=== PATIENT | male | born 1970 | race Caucasian/White ===

== ENCOUNTER 2016-09-30 13:42 | Inpatient (IN) | payer OTHER ==
[2016-09-30] MEDS ORDERED: SODIUM CHLORIDE 1,000 ML IV STA (14:07)
--- NOTE | 2016-09-30 14:14 | PDOC ---
History of Present Illness - General Chief Complaint: SIRS, Suspected/Possible Stated Complaint: FEVER Time Seen by Provider: 09/30/16 13:55 History Source: Patient - History of Present Illness Occurred: reports: other (1 week) Lower Extremity Pain Location: right: foot Method of Injury: Yes: other Past History - Past Medical History Allergies/Adverse Reactions: Allergies Allergy/AdvReac Type Severity Reaction Status Date / Time No Known Allergies Allergy Verified 09/30/16 13:48 Diabetes: Yes - Psycho/Social/Smoking Cessation Hx Anxiety: No Suicidal Ideation: No Smoking History: Former smoker Have you smoked in the past 12 months: Yes If you are a former smoker, when did you quit?: 1 MO AGO Information on smoking cessation initiated: No Hx Alcohol Use: Yes (SOCIAL) Drug/Substance Use Hx: No Substance Use Type: None Review of Systems - Review of Systems Constitutional: Yes: Fever Respiratory: No: Cough, Shortness of Breath Cardiac (ROS): No: Chest Pain ABD/GI: No: Diarrhea, Nausea, Vomiting Neurological: Yes: Dizziness. No: Headache *Physical Exam - Vital Signs Last Vital Signs Temp Pulse Resp BP Pulse Ox 98.5 F 102 H 20 131/74 97 09/30/16 13:43 09/30/16 13:43 09/30/16 13:43 09/30/16 13:43 09/30/16 13:43 - Physical Exam General Appearance: Yes: Appropriately Dressed. No: Apparent Distress HEENT: positive: Normal Voice Neck: positive: Supple Respiratory/Chest: negative: Respiratory Distress Extremity: positive: Swelling (of RLE w/ incr warmth, no sig ttp, small superficial ulcer over plantar aspect of distal R 1st metatarsal) Integumentary: positive: Dry, Warm Neurologic: positive: Fully Oriented, Alert, Normal Mood/Affect ED Treatment Course - LABORATORY CBC & Chemistry Diagram: 09/30/16 14:55 09/30/16 14:55 - RADIOLOGY Radiology Studies Ordered: Category Date Time Status CHEST X-RAY PORTABLE* [RAD] Stat Radiology 09/30/16 14:06 Ordered FOOT-RIGHT [RAD] Stat Radiology 09/30/16 14:07 Ordered Medical Decision Making - Medical Decision Making 09/30/16 14:08 45-year-old male, history of [id number] diabetes, LE cellulitis, presenting with subjective fevers intermittently with dizziness 1 week. Patient currently on antibiotics after stepping on nail with right foot a week ago. Has no pain to right foot, but does have some "soreness" to right ankle as per patient. Denies any redness. No URI symptoms, body aches, chest pain, shortness of breath, nausea or vomiting See exam RLE cellulitis Triggered sepsis at triage though only vital ab/nl was tachycardia to 102, afebrile and normotensive, non-toxic appearing, doubt sepsis +swelling of R foot/leg compared to L w/ increased warmth but no overt erythema or sig ttp, +small superficial ulcer to puncture site of ball of foot, no discharge -labs including esr/crp though clinically doubt osteo -XR -IV abx -anticipate admission 09/30/16 14:18 09/30/16 14:22 09/30/16 16:28 Wbc 12 w/ no e/o osteo on XR as reviewed w/ ED attg. Will admit for IV abx. 09/30/16 16:29 09/30/16 16:37 09/30/16 16:37 09/30/16 16:39 Case d/w Dr Sparrow who states he dx pt w/ R foot cellulitis a week ago and started pt on ceftin po and rocephin injection but that pt failed to f/u 2 days ago in office and resumed working despite being told to refrain from working until infxn cleared as per MD. Rec admitting pt to Dr Rajput *DC/Admit/Observation/Transfer Diagnosis at time of Disposition: Cellulitis Qualifiers: Site of cellulitis: extremity Site of cellulitis of extremity: lower extremity Laterality: right Qualified Code(s): L03.115 - Cellulitis of right lower limb - Discharge Dispostion Condition at time of disposition: Fair Admit: Yes - Referrals Referrals: Srini Sparrow MD [Primary Care Provider] -
[2016-09-30 15:02] LABS: BASOPHIL 0.4 % (0-2.0); EOSINOPHIL 0.8 % (0-4.5); MCH 27.6 pg (25.7-33.7); MEAN CELL VOLUME 83.7 fl (80-96); MEAN PLT VOLUME 7.8 fl (7.5-11.1); NEUTROPHILS 81.8 % (42.8-82.8); PLATELET COUNT 453 K/MM3 (134-434); RDW 12.8 % (11.9-15.9); WHITE BLOOD COUNT 12.5 K/mm3 (4.0-10.0)
[2016-09-30] MEDS ORDERED: CLINDAMYCIN 600MG PREMIX IVPB 50 ML IVPB ONE ×2 (15:23→16:47)
[2016-09-30 15:25] LABS: ALBUMIN 2.8 g/dl (3.4-5.0); ANION GAP 10 (8-16); BILIRUBIN,TOTAL 0.2 mg/dL (0.2-1.0); CALCIUM 8.7 mg/dL (8.5-10.1); CO2 28 mmol/L (21-32); COCKROFT - GAULT 98.41; CREATININE 0.9 mg/dL (0.7-1.3); GLUCOSE,RANDOM 228 mg/dL (74-106); SGOT/AST 28 U/L (15-37); SGPT/ALT 34 U/L (12-78); TOT PROT 7.9 g/dl (6.4-8.2)
[2016-09-30 15:26] LABS: ALK PHOS 146 U/L (45-117)
[2016-09-30 15:37] LABS: URINE APPEARANCE CLEAR; URINE BILIRUBIN NEGATIVE (NEGATIVE); URINE COLOR STRAW; URINE GLUCOSE (UA) 3+ (NEGATIVE); URINE KETONE NEGATIVE (NEGATIVE); URINE LEUK ESTERASE NEGATIVE (NEGATIVE); URINE NITRITE NEGATIVE (NEGATIVE); URINE PROTEIN NEGATIVE (NEGATIVE); URINE UROBILINOGEN NEGATIVE E.U./dl (0.2-1.0)
[2016-09-30 15:43] LABS: URINE BLOOD 1+ (NEGATIVE)
[2016-09-30 15:45] LABS: URINE BACTERIA RARE /hpf (NONE SEEN); URINE RBC 1 /hpf (0-3); URINE WBC <1 /hpf (3-5)
[2016-09-30] MEDS ORDERED: LEVOFLOXACIN 750 MG IVPB 150 ML IVPB ONE ×2 (16:27→16:47)
[2016-09-30] MEDS ORDERED: ACETAMINOPHEN 325 MG TABLET (FP) PO PRN (20:12)
[2016-09-30] MEDS ORDERED: VANCOMYCIN 1,250 MG in DEXTROSE 5%-WATER - 250 ML IVPB SCH (20:30)
[2016-09-30] MEDS ORDERED: VANCOMYCIN 1,250 MG in DEXTROSE 5%-WATER - 250 ML IVPB ONE (20:30)
[2016-09-30] MEDS: INSULIN SLIDING SCALE (NOVOLOG) 1 VIAL SQ SCH (22:50)
[2016-09-30] MEDS: HEPARIN NA (PORCINE) 5,000 UNITS/ML 1ML VIAL SQ SCH (22:58)
[2016-09-30] MEDS ORDERED: HEPARIN NA (PORCINE) 5,000 UNITS/ML 1ML VIAL ONE (23:26)
[2016-09-30] MEDS ORDERED: INSULIN (NOVOLOG) ASPART 100 UNITS/ML 10ML VIAL ONE (23:45)
[2016-10-01 06:02] LABS: BASOPHIL 0.4 % (0-2.0); EOSINOPHIL 1.6 % (0-4.5); MCH 27.9 pg (25.7-33.7); MCHC 33.6 g/dl (32.0-35.9); MEAN CELL VOLUME 82.9 fl (80-96); MEAN PLT VOLUME 7.5 fl (7.5-11.1); NEUTROPHILS 62.6 % (42.8-82.8); PLATELET COUNT 474 K/MM3 (134-434); RDW 13.1 % (11.9-15.9); WHITE BLOOD COUNT 8.8 K/mm3 (4.0-10.0)
[2016-10-01 06:25] LABS: ALBUMIN 2.4 g/dl (3.4-5.0); ALK PHOS 102 U/L (45-117); ANION GAP 10 (8-16); BILIRUBIN,TOTAL 0.3 mg/dL (0.2-1.0); CALCIUM 8.4 mg/dL (8.5-10.1); CO2 25 mmol/L (21-32); COCKROFT - GAULT 147.62; CREATININE 0.6 mg/dL (0.7-1.3); GLUCOSE,RANDOM 143 mg/dL (74-106); SGOT/AST 23 U/L (15-37); SGPT/ALT 29 U/L (12-78); TOT PROT 7.1 g/dl (6.4-8.2)
[2016-10-01] MEDS: INSULIN SLIDING SCALE (NOVOLOG) 1 VIAL SQ SCH ×5 (08:34→21:57)
[2016-10-01] MEDS ORDERED: glipiZIDE 5 MG TABLET (FP) ONE (08:36)
[2016-10-01] MEDS ORDERED: metFORMIN HCL 500 MG TABLET (FP) ONE (08:37)
[2016-10-01] MEDS: glipiZIDE 5 MG TABLET (FP) PO SCH (08:41)
[2016-10-01] MEDS: metFORMIN HCL 500 MG TABLET (FP) PO SCH ×2 (08:41→18:48)
--- NOTE | 2016-10-01 09:24 | CONSULT ---
Consultation: REQUESTING PROVIDER: Dr. Didi Rajput CONSULT REQUEST: We have been asked to medically evaluate this patient for Sepsis. HISTORY OF PRESENT ILLNESS: Patient is a 45 year old male with a PMHx of NIDDM and HTN who reports having subjective for the last week. Patient reports stepping on a nail a week and a half ago at work for which he's been getting treatment for at his PCP's office. He is currently taking ceftin po and rocephin injections but has failed to follow up with his PCP for the last two days and returned to work in construction. Patient reports that yesterday he had one episode of nonbloody vomiting and experienced dark spots in his vision, which prompted his visit to the hospital. In the ED he was found to be tachycardic with leukocytosis. He was given Clindamycin, Vancomycin, and Levaquin with a liter of fluids. Otherwise, he denies chest pain, palpitations, shortness of breath, headaches, chills, abnormal gait. Recent Travel: Denies PSHx: None Allergies: NKDA Family History: Denies Social: Former Heacy alcohol drinker. 2-3 cigarette smoker (Quit one month ago) . Denies drug use. Works in construction. Lives with and daughter. Denies being around sick contacts. Denies any transfusions, history of infections such as TB. Denies any recent hiking REVIEW OF SYSTEMS: CONSTITUTIONAL: fever Absent: chills, diaphoresis, generalized weakness, malaise, loss of appetite, weight change HEENT: Absent: rhinorrhea, nasal congestion, throat pain, throat swelling, difficulty swallowing, mouth swelling, ear pain, eye pain, visual changes CARDIOVASCULAR: Absent: chest pain, syncope, palpitations, irregular heart rate, lightheadedness , peripheral edema RESPIRATORY: Absent: cough, shortness of breath, dyspnea with exertion, orthopnea, wheezing, stridor, hemoptysis GASTROINTESTINAL: Absent: abdominal pain, abdominal distension, nausea, vomiting, diarrhea, constipation, melena, hematochezia GENITOURINARY: Absent: dysuria, frequency, urgency, hesitancy, hematuria, flank pain, genital pain MUSCULOSKELETAL: Absent: myalgia, arthralgia, joint swelling, back pain, neck pain SKIN: Ulcer/Rash on right sole of foot Absent: itching, pallor HEMATOLOGIC/IMMUNOLOGIC: Absent: easy bleeding, easy bruising, lymphadenopathy, frequent infections ENDOCRINE: Absent: unexplained weight gain, unexplained weight loss, heat intolerance, cold intolerance NEUROLOGIC: Absent: headache, focal weakness or paresthesias, dizziness, unsteady gait, seizure, mental status changes, bladder or bowel incontinence PSYCHIATRIC: Absent: anxiety, depression, suicidal or homicidal ideation, hallucinations. PHYSICAL EXAMINATION Vital Signs - 24 hr 10/01/16 10/01/16 06:37 08:54 Temperature 98.4 F 99.0 F Pulse Rate [ 90 85 Right] Respiratory 16 20 Rate Blood Pressure 151/87 141/77 [Right] O2 Sat by Pulse 100 97 Oximetry (%) GENERAL: Awake, alert, and fully oriented. Diaphoretic THROAT: Oropharynx clear without exudates. Moist mucous membranes. LUNGS: Breath sounds equal, clear to auscultation bilaterally. No wheezes, and no crackles. No accessory muscle use. HEART: Tachycardic. Regular rhythm, normal S1 and S2 without murmur, rub or gallop. ABDOMEN: Soft, nontender, not distended, no guarding, no rebound, no masses. No hepatomegaly or splenomegaly. EXTREMITIES: 2+ pulses. No calf tenderness. No peripheral edema. SKIN: Superficial ulcer on the right sole of the foot at the distal 1st metatarsal with no erythema, warmth, or drainage. Laboratory Results - last 24 hr 09/30/16 10/01/16 10/01/16 23:37 05:40 05:40 WBC 8.8 RBC 4.49 Hgb 12.5 Hct 37.3 MCV 82.9 MCHC 33.6 RDW 13.1 Plt Count 474 H MPV 7.5 Neutrophils % 62.6 D Lymphocytes % 26.4 D Monocytes % 9.0 Eosinophils % 1.6 D Basophils % 0.4 Sodium 140 Potassium 4.2 Chloride 105 Carbon Dioxide 25 Anion Gap 10 BUN 14 D Creatinine 0.6 L D Creat Clearance w eGFR > 60 POC Glucometer [phone] Random Glucose 143 H D Calcium 8.4 L Total Bilirubin 0.3 D AST 23 ALT 29 Alkaline Phosphatase 102 D Total Protein 7.1 Albumin 2.4 L Active Medications Generic Name Dose Route Start Last Admin Trade Name Freq PRN Reason Stop Dose Admin Acetaminophen 650 mg 09/30/16 20:12 Tylenol - PO Q4H PRN FEVER OR PAIN Glipizide 5 mg 10/01/16 07:00 10/01/16 08:41 Glucotrol - PO 5 mg DAILY@0700 [facility] Administration Heparin Sodium (Porcine) 5,000 unit 09/30/16 22:00 09/30/16 22:58 Heparin - SQ 5,000 unit BID [facility] Administration Levofloxacin 100 mls @ 100 mls/hr 10/01/16 10:00 Levaquin 500 Mg Premixed Ivpb - IVPB DAILY [facility] Vancomycin HCl 1,250 mg/ 250 mls @ 250 mls/hr 09/30/16 20:30 Dextrose IVPB DAILY [facility] Protocol Insulin Aspart 1 vial 09/30/16 22:00 10/01/16 08:34 Novolog Vial Sliding Scale - SQ Not Given ACHS [facility] Protocol Lisinopril 10 mg 10/01/16 10:00 Prinivil PO DAILY [facility] Metformin HCl 1,000 mg 10/01/16 07:00 10/01/16 08:41 Glucophage - PO 1,000 mg BIDAC [facility] Administration Chest X-ray: Cardiomegaly. No acute pathology Right Foot X-ray: No acute pathology ASSESSMENT/PLAN: Patient is a 45 year old male with a PMHx of DM II and HTN who presented with tachycardia, leukocytosis, and and subjective fevers. Patient is currently being treated for LE cellulitis. Sepsis likely secondary to Lower Extremity Cellulitis VS. Osteomyelitis -Vancomycin 1gm Q12H -Zosyn 4.5gm Q8H (Requested by to order) -Discontinue Levaquin -Surgical consultation for possible I&D -MRI of the foot -HIV Test -Watch for signs of alcohol withdrawal. -Blood cultures pending Dispo: We will continue to follow the patient. Thank you for this consultative opportunity. Visit type - Emergency Visit Emergency Visit: Yes ED Registration Date: 09/30/16 Care time: The patient presented to the Emergency Department on the above date and was hospitalized for further evaluation of their emergent condition. - New Patient This patient is new to me today: Yes Date on this admission: 10/03/16 - Critical Care Critical Care patient: No
[2016-10-01] MEDS ORDERED: LEVOFLOXACIN 500 MG IVPB 100 ML IVPB SCH (10:00)
[2016-10-01] MEDS: HEPARIN NA (PORCINE) 5,000 UNITS/ML 1ML VIAL SQ SCH ×2 (10:26→21:53)
[2016-10-01] MEDS: LISINOPRIL 10 MG TABLET (FP) PO SCH (10:26)
--- NOTE | 2016-10-01 10:49 | PN ---
Progress Note, Physician Chief Complaint: ID 45 year old alcoholic diabetic presents wt 1 week history of fevers. NOte getting a screw puncture wound plantar right foot over a week ago became infected wit pus and saw his PMD. Given about 5 daily IM injections at the office and at home including over this past weekend by the MD nurse. Now notes fever at home subjectively. He is a [place] immigrant in many years no recent travel. - Current Medication List Current Medications: Active Medications Acetaminophen (Tylenol -) 650 mg PO Q4H PRN PRN Reason: FEVER OR PAIN Glipizide (Glucotrol -) 5 mg PO DAILY@0700 [facility] Last Admin: 10/01/16 08:41 Dose: 5 mg Heparin Sodium (Porcine) (Heparin -) 5,000 unit SQ BID [facility] Last Admin: 10/01/16 10:26 Dose: 5,000 unit Levofloxacin (Levaquin 500 Mg Premixed Ivpb -) 100 mls @ 100 mls/hr IVPB DAILY [facility] Last Admin: 10/01/16 10:26 Dose: 100 mls/hr Vancomycin HCl 1,250 mg/ (Dextrose) 250 mls @ 250 mls/hr IVPB DAILY [facility] PRN Reason: Protocol Insulin Aspart (Novolog Vial Sliding Scale -) 1 vial SQ ACHS [facility] PRN Reason: Protocol Last Admin: 10/01/16 08:34 Dose: Not Given Lisinopril (Prinivil) 10 mg PO DAILY [facility] Last Admin: 10/01/16 10:26 Dose: 10 mg Metformin HCl (Glucophage -) 1,000 mg PO BIDAC [facility] Last Admin: 10/01/16 08:41 Dose: 1,000 mg - Objective Vital Signs: Vital Signs Temperature 99.0 F 10/01/16 08:54 Pulse Rate 85 10/01/16 08:54 Respiratory Rate 20 10/01/16 08:54 Blood Pressure 141/77 10/01/16 08:54 O2 Sat by Pulse Oximetry (%) 97 10/01/16 08:54 Constitutional: Yes: Other (Ill appearing diaphoretic) Neck: Yes: WNL, Supple. No: Lymphadenopathy Cardiovascular: Yes: S1, S2. No: Murmur Respiratory: Yes: WNL, Regular, CTA Bilaterally Gastrointestinal: Yes: WNL, Normal Bowel Sounds, Soft. No: Hepatomegaly, Splenomegaly, Tenderness, Epigastrium, Tenderness, Rebound Extremities: Yes: Other (Right foot swollen warm plantar eschar no fluctuance or tenderness) Labs: CBC, BMP 10/01/16 05:40 10/01/16 05:40 Problem List - Problems (1) Cellulitis Code(s): L03.90 - CELLULITIS, UNSPECIFIED Qualifiers: Site of cellulitis: extremity Site of cellulitis of extremity: lower extremity Laterality: right Qualified Code(s): L03.115 - Cellulitis of right lower limb (2) Puncture wound of skin from metal nail Code(s): W45.0XXA - NAIL ENTERING THROUGH SKIN, INITIAL ENCOUNTER (3) Osteomyelitis Code(s): M86.9 - OSTEOMYELITIS, UNSPECIFIED Assessment/Plan Microbiology Laboratory Tests 09/30/16 09/30/16 09/30/16 14:30 14:50 14:55 WBC 12.5 H Hgb Plt Count ESR 112 H BUN AST ALT Alkaline Phosphatase C-Reactive Protein Total Protein Albumin Urine RBC 1 09/30/16 09/30/16 10/01/16 14:55 14:55 05:40 WBC 8.8 Hgb 12.5 Plt Count 474 H ESR BUN AST 28 D ALT 34 Alkaline Phosphatase 146 H C-Reactive Protein 9.0 H Total Protein 7.9 Albumin 2.8 L D Urine RBC 10/01/16 05:40 WBC Hgb Plt Count ESR BUN 14 D AST ALT Alkaline Phosphatase C-Reactive Protein Total Protein Albumin Urine RBC Assessment Febrile illness suspect partially treated cellulitis and osteomylelitis ? Pseudomonas needs to be considered as well as staph strep and anaerobes. Plan Surgical evaluation Dr Adams for possible I&D for routine culture as well as AFB and fungus MRI for the foot Blood cutures Vancomycin 1 gram q12 Zosyn Zosyn 4.5gr q8H HIV test Watch for signs of alcohol detox
--- NOTE | 2016-10-01 11:54 | HP ---
Admitting History and Physical - Primary Care Physician PCP: Didi Rajput - Admission Chief Complaint: fever History of Present Illness: 45 yr old male alocholic DM steped on a nail about a week ago started having intermittent fever went to PMD got iM rocephin abx for 5 days then was on po ceftin but didnot get better so came to ER got clinda, levquin in ER wbc 12.2 and ESR 112 History Source: Patient - Past Medical History Endocrine: Yes: Diabetes Mellitus - Smoking History Smoking history: Former smoker Have you smoked in the past 12 months: Yes If you are a former smoker, when did you quit?: 1 MO AGO - Alcohol/Substance Use Hx Alcohol Use: Yes (SOCIAL) Home Medications - Allergies Allergies/Adverse Reactions: Allergies Allergy/AdvReac Type Severity Reaction Status Date / Time No Known Allergies Allergy Verified 09/30/16 13:48 - Home Medications Home Medications: Ambulatory Orders Glipizide 5 mg PO DAILY 09/30/16 Lisinopril 10 mg PO DAILY 09/30/16 Metformin HCl [Glucophage] 1,000 mg PO BID 09/30/16 Review of Systems - Review of Systems Neck: reports: No Symptoms Cardiovascular: reports: No Symptoms Respiratory: reports: No Symptoms Gastrointestinal: reports: No Symptoms Genitourinary: reports: No Symptoms Physical Examination Vital Signs: Vital Signs Temperature 99.0 F 10/01/16 08:54 Pulse Rate 85 10/01/16 08:54 Respiratory Rate 20 10/01/16 08:54 Blood Pressure 141/77 10/01/16 08:54 O2 Sat by Pulse Oximetry (%) 97 10/01/16 08:54 Constitutional: Yes: Calm Neck: Yes: Trachea Midline Cardiovascular: Yes: Regular Rate and Rhythm, S1, S2 Respiratory: Yes: CTA Bilaterally Gastrointestinal: Yes: Soft Extremities: Yes: Other (right foot swollen eschar on plantar surface) Labs: CBC, BMP 10/01/16 05:40 10/01/16 05:40 Problem List - Problems (1) Cellulitis Assessment/Plan: ID consult appreciate MRI of foot iv vanco and zosyn moitor ESR wound consult dr ford for possible I/D dvt ppx Code(s): L03.90 - CELLULITIS, UNSPECIFIED Qualifiers: Site of cellulitis: extremity Site of cellulitis of extremity: lower extremity Laterality: right Qualified Code(s): L03.115 - Cellulitis of right lower limb (2) Puncture wound of skin from metal nail Assessment/Plan: see 1 Code(s): W45.0XXA - NAIL ENTERING THROUGH SKIN, INITIAL ENCOUNTER (3) Diabetes Assessment/Plan: bgm hga1c sldign scale Code(s): E11.9 - TYPE 2 DIABETES MELLITUS WITHOUT COMPLICATIONS Qualifiers: Diabetes mellitus type: type 2
[2016-10-01] MEDS ORDERED: PIPERACILLIN/TAZOB 4.5 GM/100 ML PRE-DOCKED IVPB ONE (12:30)
[2016-10-01] MEDS ORDERED: VANCOMYCIN 1 GRAM (PRE-DOCKED) 1,000 MG/250 ML BAG IVPB ONE (12:30)
[2016-10-01 13:01] LABS: HIV 1 & 2 AB NEGATIVE; HIV 1 AGp24 NEGATIVE
--- NOTE | 2016-10-01 15:07 | EKG ---
Test Reason : Blood Pressure : / mmHG Vent. Rate : 083 BPM Atrial Rate : 083 BPM P-R Int : 136 ms QRS Dur : 084 ms QT Int : 372 ms P-R-T Axes : 062 034 026 degrees QTc Int : 437 ms NORMAL SINUS RHYTHM NORMAL ECG NO PREVIOUS ECGS AVAILABLE Confirmed by JOHNSON GRANADOS MD ([id number]) on 10/01/2016 3:06:33 PM Referred By: MARIA ISABEL CARREON Confirmed By:JOHNSON GRANADOS MD
--- NOTE | 2016-10-01 18:24 | PN ---
Progress Note (short form) - Note Progress Note: Vascular Surgery Came to see pt. Pt is in MRI Will see in am. Awaiting mri results. Tad ford DO
--- NOTE | 2016-10-01 18:48 | PN ---
Progress Note (short form) - Note Progress Note: Vascular Surgery Pt seen and examined. S/P right foot trauma from nail puncture. Right foot with palpable pulses. Probed wound, and could not express any pus. Pt just got back from MRI, will look at reading, and if pt needs drainage, will be on standby. Tad Adams DO
[2016-10-01] MEDS: PIPERACILLIN/TAZOB 4.5 GM/100 ML PRE-DOCKED IVPB SCH (18:49)
[2016-10-01 19:29] VITALS: BMI 23.4
[2016-10-02] MEDS: PIPERACILLIN/TAZOB 4.5 GM/100 ML PRE-DOCKED IVPB SCH ×3 (02:32→17:20)
[2016-10-02] MEDS: VANCOMYCIN 1 GRAM (PRE-DOCKED) 250 ML IVPB SCH ×2 (03:05→14:13)
[2016-10-02] MEDS: glipiZIDE 5 MG TABLET (FP) PO SCH (06:02)
[2016-10-02] MEDS: metFORMIN HCL 500 MG TABLET (FP) PO SCH ×2 (06:02→17:20)
[2016-10-02] MEDS: INSULIN SLIDING SCALE (NOVOLOG) 1 VIAL SQ SCH ×4 (06:09→21:33)
--- NOTE | 2016-10-02 07:45 | PN ---
Progress Note, Physician History of Present Illness: FEELS BETTER NO PAIN - Current Medication List Current Medications: Active Medications Acetaminophen (Tylenol -) 650 mg PO Q4H PRN PRN Reason: FEVER OR PAIN Glipizide (Glucotrol -) 5 mg PO DAILY@0700 [facility] Last Admin: 10/02/16 06:02 Dose: 5 mg Heparin Sodium (Porcine) (Heparin -) 5,000 unit SQ BID [facility] Last Admin: 10/01/16 21:53 Dose: 5,000 unit Vancomycin HCl (Vancomycin (Pre-Docked)) 250 mls @ 166.667 mls/hr IVPB BID@0200 ,1400 [facility] PRN Reason: Protocol Last Admin: 10/02/16 03:05 Dose: 166.667 mls/hr Influenza Virus Vaccine (Fluvirin) 45 mcg IM .ONCE ONE Stop: 10/02/16 10:01 Insulin Aspart (Novolog Vial Sliding Scale -) 1 vial SQ ACHS [facility] PRN Reason: Protocol Last Admin: 10/02/16 06:09 Dose: Not Given Lisinopril (Prinivil) 10 mg PO DAILY [facility] Last Admin: 10/01/16 10:26 Dose: 10 mg Metformin HCl (Glucophage -) 1,000 mg PO BIDAC [facility] Last Admin: 10/02/16 06:02 Dose: 1,000 mg Piperacillin Sod/Tazobactam Sod (Zosyn 4.5gm Ivpb (Pre-Docked)) 4.5 gm IVPB Q8H -IV [facility] Last Admin: 10/02/16 02:32 Dose: 4.5 gm - Objective Vital Signs: Vital Signs Temperature 97.8 F 10/02/16 06:00 Pulse Rate 90 10/02/16 06:00 Respiratory Rate 18 10/02/16 06:00 Blood Pressure 151/92 10/02/16 06:00 O2 Sat by Pulse Oximetry (%) 98 10/01/16 21:00 Cardiovascular: Yes: Regular Rate and Rhythm Respiratory: Yes: Regular, CTA Bilaterally Gastrointestinal: Yes: Normal Bowel Sounds, Soft Edema: No Wound/Incision: Yes: Other (OPEN NO DRAINAGE) Labs: CBC, BMP 10/01/16 05:40 10/01/16 05:40 Assessment/Plan - Problems (1) Cellulitis Assessment/Plan: ID consult appreciate MRI of foot iv vanco and zosyn moitor ESR OVER [address] ford for possible I/D dvt ppx Code(s): L03.90 - CELLULITIS, UNSPECIFIED Qualifiers: Site of cellulitis: extremity Site of cellulitis of extremity: lower extremity Laterality: right Qualified Code(s): L03.115 - Cellulitis of right lower limb (2) Puncture wound of skin from metal nail Assessment/Plan: see 1 Code(s): W45.0XXA - NAIL ENTERING THROUGH SKIN, INITIAL ENCOUNTER (3) Diabetes Assessment/Plan: bgm [id number] CONSULT sldign scale Code(s): E11.9 - TYPE 2 DIABETES MELLITUS WITHOUT COMPLICATIONS Qualifiers: Diabetes mellitus type: type 2
[2016-10-02 08:19] LABS: BASOPHIL 0.4 % (0-2.0); EOSINOPHIL 2.3 % (0-4.5); MCH 27.9 pg (25.7-33.7); MCHC 33.7 g/dl (32.0-35.9); MEAN CELL VOLUME 82.9 fl (80-96); MEAN PLT VOLUME 7.9 fl (7.5-11.1); NEUTROPHILS 58.7 % (42.8-82.8); PLATELET COUNT 450 K/MM3 (134-434); RDW 12.7 % (11.9-15.9); WHITE BLOOD COUNT 6.8 K/mm3 (4.0-10.0)
[2016-10-02 08:42] LABS: CHOLESTEROL 121 mg/dL (50-200); LDL CHOLESTEROL (ONLY SJRH) 65 mg/dL (5-100)
[2016-10-02 08:43] LABS: ALBUMIN 2.5 g/dl (3.4-5.0); ALK PHOS 102 U/L (45-117); ANION GAP 8 (8-16); BILIRUBIN,TOTAL 0.3 mg/dL (0.2-1.0); CALCIUM 8.9 mg/dL (8.5-10.1); CO2 26 mmol/L (21-32); COCKROFT - GAULT 120.46; CREATININE 0.7 mg/dL (0.7-1.3); GLUCOSE,RANDOM 187 mg/dL (74-106); SGOT/AST 29 U/L (15-37); SGPT/ALT 37 U/L (12-78); TOT PROT 7.4 g/dl (6.4-8.2)
[2016-10-02] MEDS: LISINOPRIL 10 MG TABLET (FP) PO SCH (09:29)
[2016-10-02] MEDS: HEPARIN NA (PORCINE) 5,000 UNITS/ML 1ML VIAL SQ SCH ×2 (09:31→21:32)
[2016-10-02] MEDS ORDERED: INFLUENZA VACCINE 45 MCG/0.5 ML (MDV 16-17) IM ONE (10:00)
--- NOTE | 2016-10-02 13:54 | PN ---
Progress Note (short form) - Note Progress Note: no complaints Vital Signs Period Temp Pulse Resp BP Sys/Rivero Pulse Ox Last 24 Hr 97.8 F-99.2 F 81-90 18-20 126-152/77-92 98-100 foot without erythema or edema MRI with osteomyelitis of the first metatarsal head and adjoining bones Laboratory Tests 09/30/16 09/30/16 10/02/16 14:50 14:55 06:00 ESR 112 H Hemoglobin A1c % 11.8 H C-Reactive Protein 9.0 H a/p osteomyelitis s/p puncture wound continue vancomycin and zosyn will ideally require mcc iv antibiotics spoke with Dr Adams, no surgical intervention planned needs better diabetes control
--- NOTE | 2016-10-02 18:33 | PN ---
Progress Note (short form) - Note Progress Note: Vascular Surgery Case discussed with ID MRI reviewed. Nothing to drain. Pt has osteo on MRI. Will just require antibiotics. No need for any surgery Tad Adams DO
--- NOTE | 2016-10-03 01:08 | CONSULT ---
Consult Consult Specialty:: endocrine Referred by:: dr.saba bynum Reason for Consultation:: diabetes mellitus - History of Present Illness Chief Complaint: high sugars/foot infection History of Present Illness: 45 year old male with a PMHx of NIDDM and HTN who reports having subjective for the last week. Patient reports stepping on a nail a week and a half ago at work for which he's been getting treatment for at his PCP's office. He is currently taking ceftin po and rocephin injections but has failed to follow up with his PCP for the last two days and returned to work in construction. Patient reports foot swelling infection and drainage,found to have osteomyelitis of bone in foot,requiring iv antibiotics he states bs are always high denies low sugars - History Source History Provided By: Patient - Past Medical History Endocrine: Yes: Diabetes Mellitus - Alcohol/Substance Use Hx Alcohol Use: Yes (SOCIAL) - Smoking History Smoking history: Former smoker Have you smoked in the past 12 months: Yes If you are a former smoker, when did you quit?: 1 MO AGO Home Medications - Allergies Allergies/Adverse Reactions: Allergies Allergy/AdvReac Type Severity Reaction Status Date / Time No Known Allergies Allergy Verified 09/30/16 13:48 - Home Medications Home Medications: Ambulatory Orders Glipizide 5 mg PO DAILY 09/30/16 Lisinopril 10 mg PO DAILY 09/30/16 Metformin HCl [Glucophage] 1,000 mg PO BID 09/30/16 Review of Systems - Review of Systems Constitutional: reports: Lethargy Eyes: reports: Blurred Vision HENT: reports: No Symptoms Neck: reports: No Symptoms Cardiovascular: reports: No Symptoms Respiratory: reports: No Symptoms Gastrointestinal: reports: No Symptoms Genitourinary: reports: No Symptoms Breasts: reports: No Symptoms Reported Musculoskeletal: reports: No Symptoms Physical Exam Vital Signs: Vital Signs Temperature 98.8 F 10/02/16 22:00 Pulse Rate 79 10/02/16 22:00 Respiratory Rate 20 10/02/16 22:00 Blood Pressure 157/94 10/02/16 22:00 O2 Sat by Pulse Oximetry (%) 100 10/02/16 21:00 Constitutional: Yes: Anxious Eyes: Yes: EOM Intact HENT: Yes: Normocephalic Neck: Yes: Trachea Midline Cardiovascular: Yes: Regular Rate and Rhythm Respiratory: Yes: CTA Bilaterally Gastrointestinal: Yes: Normal Bowel Sounds ...Rectal Exam: Yes: Deferred Renal/: Yes: WNL Breast(s): Yes: WNL Musculoskeletal: Yes: Muscle Weakness Extremities: Yes: Erythema Edema: No Integumentary: Yes: Onychomycosis Wound/Incision: Yes: Dressing Dry and Intact Labs: CBC, BMP 10/02/16 06:00 10/02/16 06:00 Assessment/Plan Current Active Problems Cellulitis (Acute) Diabetes (Acute) Osteomyelitis (Acute) Puncture wound of skin from metal nail (Acute) diabetes mellitus uncontrolled hyperglycemia Abnormal Lab Results 10/02/16 10/02/16 10/02/16 06:00 06:00 06:00 Plt Count 450 H Random Glucose 187 H D Hemoglobin A1c % Albumin 2.5 L Triglycerides 170 H HDL Cholesterol 34 L 10/02/16 06:00 Plt Count Random Glucose Hemoglobin A1c % 11.8 H Albumin Triglycerides HDL Cholesterol Laboratory Results - last 24 hr 10/02/16 10/02/16 10/02/16 06:00 06:00 06:00 WBC 6.8 RBC 4.85 Hgb 13.5 Hct 40.2 MCV 82.9 MCHC 33.7 RDW 12.7 Plt Count 450 H MPV 7.9 Neutrophils % 58.7 Lymphocytes % 29.1 Monocytes % 9.5 Eosinophils % 2.3 Basophils % 0.4 Sodium 137 Potassium 4.4 Chloride 103 Carbon Dioxide 26 Anion Gap 8 BUN 14 Creatinine 0.7 Creat Clearance w eGFR > 60 POC Glucometer Random Glucose 187 H D Hemoglobin A1c % Calcium 8.9 Total Bilirubin 0.3 AST 29 D ALT 37 D Alkaline Phosphatase 102 Total Protein 7.4 Albumin 2.5 L Triglycerides 170 H Cholesterol 121 Total LDL Cholesterol 65 HDL Cholesterol 34 L Blood Type Antibody Screen 10/02/16 10/02/16 10/02/16 06:00 06:01 10:25 WBC RBC Hgb Hct MCV MCHC RDW Plt Count MPV Neutrophils % Lymphocytes % Monocytes % Eosinophils % Basophils % Sodium Potassium Chloride Carbon Dioxide Anion Gap BUN Creatinine Creat Clearance w eGFR POC Glucometer 194 Random Glucose Hemoglobin A1c % 11.8 H Calcium Total Bilirubin AST ALT Alkaline Phosphatase Total Protein Albumin Triglycerides Cholesterol Total LDL Cholesterol HDL Cholesterol Blood Type O POSITIVE Antibody Screen Negative 10/02/16 10/02/16 10/02/16 10:49 11:26 16:14 WBC RBC Hgb Hct MCV MCHC RDW Plt Count MPV Neutrophils % Lymphocytes % Monocytes % Eosinophils % Basophils % Sodium Potassium Chloride Carbon Dioxide Anion Gap BUN Creatinine Creat Clearance w eGFR POC Glucometer 181 240 Random Glucose Hemoglobin A1c % Calcium Total Bilirubin AST ALT Alkaline Phosphatase Total Protein Albumin Triglycerides Cholesterol Total LDL Cholesterol HDL Cholesterol Blood Type O POSITIVE Antibody Screen 10/02/16 21:29 WBC RBC Hgb Hct MCV MCHC RDW Plt Count MPV Neutrophils % Lymphocytes % Monocytes % Eosinophils % Basophils % Sodium Potassium Chloride Carbon Dioxide Anion Gap BUN Creatinine Creat Clearance w eGFR POC Glucometer 232 Random Glucose Hemoglobin A1c % Calcium Total Bilirubin AST ALT Alkaline Phosphatase Total Protein Albumin Triglycerides Cholesterol Total LDL Cholesterol HDL Cholesterol Blood Type Antibody Screen plan: bgm qid novolog coverage levemir 15 units am Current Medications Generic Name Dose Route Start Last Admin Trade Name Freq PRN Reason Stop Dose Admin Acetaminophen 650 mg 09/30/16 20:12 Tylenol - PO Q4H PRN FEVER OR PAIN Glipizide 5 mg 10/01/16 07:00 10/02/16 06:02 Glucotrol - PO 5 mg DAILY@0700 [facility] Administration Heparin Sodium (Porcine) 5,000 unit 09/30/16 22:00 10/02/16 21:32 Heparin - SQ 5,000 unit BID [facility] Administration Vancomycin HCl 250 mls @ 166.667 mls/hr 10/02/16 02:00 10/02/16 14:13 Vancomycin (Pre-Docked) IVPB 166.667 mls/hr BID@0200,1400 [facility] Administration Protocol Insulin Aspart 1 vial 10/01/16 16:30 10/02/16 21:33 Novolog Vial Sliding Scale - SQ 2 unit ACHS [facility] Administration Protocol Lisinopril 10 mg 10/01/16 10:00 10/02/16 09:29 Prinivil PO 10 mg DAILY [facility] Administration Metformin HCl 1,000 mg 10/01/16 07:00 10/02/16 17:20 Glucophage - PO 1,000 mg BIDAC [facility] Administration Piperacillin Sod/Tazobactam Sod 4.5 gm 10/01/16 18:00 10/02/16 17:20 Zosyn 4.5gm Ivpb (Pre-Docked) IVPB 4.5 gm Q8H-IV [facility] Administration diet consultation
[2016-10-03] MEDS: VANCOMYCIN 1 GRAM (PRE-DOCKED) 250 ML IVPB SCH ×2 (01:15→14:09)
[2016-10-03] MEDS: PIPERACILLIN/TAZOB 4.5 GM/100 ML PRE-DOCKED IVPB SCH ×3 (03:06→17:26)
[2016-10-03] MEDS: glipiZIDE 5 MG TABLET (FP) PO SCH (06:12)
[2016-10-03] MEDS: INSULIN DETEMIR 100 UNITS/ML MDV SQ SCH (06:12)
[2016-10-03] MEDS: metFORMIN HCL 500 MG TABLET (FP) PO SCH ×2 (06:12→17:26)
[2016-10-03] MEDS: INSULIN SLIDING SCALE (NOVOLOG) 1 VIAL SQ SCH ×4 (06:21→22:25)
[2016-10-03] MEDS: HEPARIN NA (PORCINE) 5,000 UNITS/ML 1ML VIAL SQ SCH ×2 (09:52→21:34)
[2016-10-03] MEDS: LISINOPRIL 10 MG TABLET (FP) PO SCH (10:30)
--- NOTE | 2016-10-03 11:10 | PN ---
Progress Note, Physician History of Present Illness: FEELS BETTER NO PAIN - Current Medication List Current Medications: Active Medications Acetaminophen (Tylenol -) 650 mg PO Q4H PRN PRN Reason: FEVER OR PAIN Glipizide (Glucotrol -) 5 mg PO DAILY@0700 [facility] Last Admin: 10/03/16 06:12 Dose: 5 mg Heparin Sodium (Porcine) (Heparin -) 5,000 unit SQ BID [facility] Last Admin: 10/03/16 09:52 Dose: 5,000 unit Vancomycin HCl (Vancomycin (Pre-Docked)) 250 mls @ 166.667 mls/hr IVPB BID@0200 ,1400 [facility] PRN Reason: Protocol Last Admin: 10/03/16 01:15 Dose: 166.667 mls/hr Insulin Aspart (Novolog Vial Sliding Scale -) 1 vial SQ ACHS [facility] PRN Reason: Protocol Last Admin: 10/03/16 06:21 Dose: Not Given Insulin Detemir (Levemir Vial) 15 units SQ AM [facility] Last Admin: 10/03/16 06:12 Dose: 15 unit Lisinopril (Prinivil) 10 mg PO DAILY [facility] Last Admin: 10/02/16 09:29 Dose: 10 mg Metformin HCl (Glucophage -) 1,000 mg PO BIDAC [facility] Last Admin: 10/03/16 06:12 Dose: 1,000 mg Piperacillin Sod/Tazobactam Sod (Zosyn 4.5gm Ivpb (Pre-Docked)) 4.5 gm IVPB Q8H -IV [facility] Last Admin: 10/03/16 09:50 Dose: 4.5 gm - Objective Vital Signs: Vital Signs Temperature 98.5 F 10/03/16 06:00 Pulse Rate 90 10/03/16 06:00 Respiratory Rate 18 10/03/16 06:00 Blood Pressure 129/78 10/03/16 06:00 O2 Sat by Pulse Oximetry (%) 100 10/02/16 21:00 Cardiovascular: Yes: Regular Rate and Rhythm Respiratory: Yes: Regular, CTA Bilaterally Gastrointestinal: Yes: Normal Bowel Sounds, Soft Labs: CBC, BMP 10/02/16 06:00 10/02/16 06:00 Assessment/Plan - Problems (1) Cellulitis Assessment/Plan: ID consult appreciate MRI of foot--C/W OSTEO--D/W DR MCDANIELS--WILL NEED [facility] ABX SS/DC PLANNING REGARDING IV ABX iv vanco and zosyn moitor ESR OVER [address] ford for possible I/D dvt ppx Code(s): L03.90 - CELLULITIS, UNSPECIFIED Qualifiers: Site of cellulitis: extremity Site of cellulitis of extremity: lower extremity Laterality: right Qualified Code(s): L03.115 - Cellulitis of right lower limb (2) Puncture wound of skin from metal nail Assessment/Plan: see 1 Code(s): W45.0XXA - NAIL ENTERING THROUGH SKIN, INITIAL ENCOUNTER (3) Diabetes Assessment/Plan: bgm [id number]--RSVN CONSULT sldign scale Code(s): E11.9 - TYPE 2 DIABETES MELLITUS WITHOUT COMPLICATIONS Qualifiers: Diabetes mellitus type: type 2
--- NOTE | 2016-10-03 11:30 | PN ---
Physical Exam: SUBJECTIVE: Patient seen and examined by me at bedside. Patient offers no complaints and would like to go home as soon as possible. Patient has been afebrile since admission and denies any pain to the right foot. Otherwise, patient denies fever, chills, nausea, vomiting, diarrhea, abdominal pain, headaches, chest pain, shortness of breath OBJECTIVE: Vital Signs Period Temp Pulse Resp BP Sys/Rivero Pulse Ox Last 24 Hr 98.4 F-98.8 F 79-90 18-20 100-157/58-94 100 GENERAL: Awake, alert, and fully oriented. LUNGS: Breath sounds equal, clear to auscultation bilaterally. No wheezes, and no crackles. No accessory muscle use. HEART: Regular rate and rhythm, normal S1 and S2 without murmur, rub or gallop. ABDOMEN: Soft, nontender, not distended, no guarding, no rebound, no masses. No hepatomegaly or splenomegaly. EXTREMITIES: 2+ pedal pulses. No calf tenderness. No peripheral edema. SKIN: Superficial ulcer on the right sole of the foot at the distal 1st metatarsal with no erythema, warmth, or drainage. Laboratory Results - last 24 hr 10/02/16 10/02/16 10/02/16 10:25 10:49 11:26 POC Glucometer 181 Blood Type O POSITIVE O POSITIVE Antibody Screen Negative 10/02/16 10/02/16 10/03/16 16:14 21:29 05:54 POC Glucometer 240 232 183 Blood Type Antibody Screen Active Medications Generic Name Dose Route Start Last Admin Trade Name Freq PRN Reason Stop Dose Admin Acetaminophen 650 mg 09/30/16 20:12 Tylenol - PO Q4H PRN FEVER OR PAIN Glipizide 5 mg 10/01/16 07:00 10/03/16 06:12 Glucotrol - PO 5 mg DAILY@0700 [facility] Administration Heparin Sodium (Porcine) 5,000 unit 09/30/16 22:00 10/03/16 09:52 Heparin - SQ 5,000 unit BID [facility] Administration Vancomycin HCl 250 mls @ 166.667 mls/hr 10/02/16 02:00 10/03/16 01:15 Vancomycin (Pre-Docked) IVPB 166.667 mls/hr BID@0200,1400 [facility] Administration Protocol Insulin Aspart 1 vial 10/01/16 16:30 10/03/16 06:21 Novolog Vial Sliding Scale - SQ Not Given ACHS [facility] Protocol Insulin Detemir 15 units 10/03/16 07:00 10/03/16 06:12 Levemir Vial SQ 15 unit AM [facility] Administration Lisinopril 10 mg 10/01/16 10:00 10/02/16 09:29 Prinivil PO 10 mg DAILY [facility] Administration Metformin HCl 1,000 mg 10/01/16 07:00 10/03/16 06:12 Glucophage - PO 1,000 mg BIDAC [facility] Administration Piperacillin Sod/Tazobactam Sod 4.5 gm 10/01/16 18:00 10/03/16 09:50 Zosyn 4.5gm Ivpb (Pre-Docked) IVPB 4.5 gm Q8H-IV [facility] Administration ASSESSMENT/PLAN: Right Foot Osteomyelitis -MRI of the foot revaled osteomyelitis of first metatarsal head and adjoining bones -Vancomycin 1gm Q12H Day #3 -Zosyn 4.5gm Q8H Day #3 -No I&D needed as per surgery -No Biopsy planned at this time -Blood cultures negative -PICC line placement planned for tomorrow -Will need fpc IV antibiotics but need to discuss with renal case manager -Plans to discharge with Vancomycin 1500mg daily and PO quinolone -Will need weekly follow ups for cbc, cmp, esr, vanco trough Visit type - Emergency Visit Emergency Visit: Yes ED Registration Date: 09/30/16 Care time: The patient presented to the Emergency Department on the above date and was hospitalized for further evaluation of their emergent condition. - New Patient This patient is new to me today: No - Critical Care Critical Care patient: No
--- NOTE | 2016-10-03 12:25 | PN ---
Teaching Attending Note Name of Resident: Elissa Norton ATTENDING PHYSICIAN STATEMENT I saw and evaluated the patient. I reviewed the resident's note and discussed the case with the resident. I agree with the resident's findings and plan as documented. SUBJECTIVE: OBJECTIVE: ASSESSMENT AND PLAN: osteomyelitis no biopsy planned will plan iv vancomycin 1500 mg daily po quinolone - levaquin or cipro based on cost awaiting feed back from discharge planning weekly labs cbc, bmp, vancomycin trough he can f/u in the office with Dr Avalos [phone] in 2 weeks
[2016-10-03] MEDS ORDERED: PICC LINE 8 ML FLUSH PROTOCOL IVPUSH PRN (14:05)
[2016-10-03] MEDS ORDERED: INSULIN (NOVOLOG) ASPART 100 UNITS/ML 10ML VIAL ONE (21:25)
[2016-10-04] MEDS: PIPERACILLIN/TAZOB 4.5 GM/100 ML PRE-DOCKED IVPB SCH ×2 (02:17→11:18)
[2016-10-04] MEDS: glipiZIDE 5 MG TABLET (FP) PO SCH (06:06)
[2016-10-04] MEDS: metFORMIN HCL 500 MG TABLET (FP) PO SCH ×2 (06:06→17:14)
[2016-10-04] MEDS: INSULIN SLIDING SCALE (NOVOLOG) 1 VIAL SQ SCH ×3 (06:07→17:21)
[2016-10-04] MEDS: INSULIN DETEMIR 100 UNITS/ML MDV SQ SCH (06:07)
--- NOTE | 2016-10-04 07:21 | DS ---
Physical Examination Vital Signs: Vital Signs Temperature 98.9 F 10/04/16 05:00 Pulse Rate 97 H 10/04/16 05:00 Respiratory Rate 18 10/04/16 05:00 Blood Pressure 131/81 10/04/16 05:00 O2 Sat by Pulse Oximetry (%) 98 10/03/16 21:00 Findings/Remarks: NO COMPLAINTS Cardiovascular: Yes: Regular Rate and Rhythm Respiratory: Yes: Regular, CTA Bilaterally Gastrointestinal: Yes: Normal Bowel Sounds, Soft Wound/Incision: No: Reddened Labs: CBC, BMP 10/02/16 06:00 10/02/16 06:00 Discharge Summary Reason For Visit: CELLULITIS Current Active Problems Cellulitis (Acute) Diabetes (Acute) Osteomyelitis (Acute) Puncture wound of skin from metal nail (Acute) Hospital Course: 45 yr old male alocholic DM steped on a nail about a week ago started having intermittent fever went to PMD got iM rocephin abx for 5 days then was on po ceftin but didnot get better so came to ER got clinda, levquin in ER wbc 12.2 and ESR 112 History Source: Patient - Past Medical History Endocrine: Yes: Diabetes Mellitus - Smoking History Smoking history: Former smoker Have you smoked in the past 12 months: Yes If you are a former smoker, when did you quit?: 1 MO AGO - Alcohol/Substance Use Hx Alcohol Use: Yes (SOCIAL) - Problems (1) Cellulitis Assessment/Plan: ID consult appreciate MRI of foot--C/W OSTEO--D/W DR MCDANIELS--WILL NEED [facility] ABX FOR PICC LINE AND HOME IV ABX--D/W PT IMPORTANCE AND COMPLIANCE STRESSED ARRANGED FOR OUPATIENT INFUSION iv vanco and CIPRO moitor ESR OVER [address] ford for possible I/D dvt ppx Code(s): L03.90 - CELLULITIS, UNSPECIFIED Qualifiers: Site of cellulitis: extremity Site of cellulitis of extremity: lower extremity Laterality: right Qualified Code(s): L03.115 - Cellulitis of right lower limb (2) Puncture wound of skin from metal nail Assessment/Plan: see 1 Code(s): W45.0XXA - NAIL ENTERING THROUGH SKIN, INITIAL ENCOUNTER (3) Diabetes Assessment/Plan: bgm [id number]--33--VKEW CONSULT sldign scale Code(s): E11.9 - TYPE 2 DIABETES MELLITUS WITHOUT COMPLICATIONS Qualifiers: Diabetes mellitus type: type 2 Condition: Fair - Instructions Diet, Activity, Other Instructions: BLOOD TEST EVERY WEEK CBC/BMP/VANCO LEVEL ID F/U Referrals: Srini Sparrow MD [Primary Care Provider] - 1 Week Hammad Avalos MD [Staff Physician] - 2 Weeks Disposition: HOME - Home Medications Comprehensive Discharge Medication List: Ambulatory Orders Glipizide 5 mg PO DAILY 09/30/16 Lisinopril 10 mg PO DAILY 09/30/16 Metformin HCl [Glucophage] 1,000 mg PO BID 09/30/16 Ciprofloxacin [Cipro (Restricted To Id)] 500 mg PO Q12H #60 tablet 10/04/16 Insulin (Levemir) [Levemir Vial] 15 units SQ AM #1 pkg 10/04/16 Picc Line Flush [Picc Line Flush -] 8 ml IVPUSH PRN PRN #0 ml 10/04/16 Vancomycin 1,500 mg IVPB DAILY #30 vial 10/04/16
--- NOTE | 2016-10-04 09:50 | PN ---
Physical Exam: SUBJECTIVE: Patient seen and examined by me. Patient waiting for PICC line placement by IR. He offers no complaints and no overnight events noted. Patient denies fever, chills, nausea, vomiting, diarrhea, chest pain, palpitations, shortness of breath. OBJECTIVE: Vital Signs Period Temp Pulse Resp BP Sys/Rivero Pulse Ox Last 24 Hr 97.8 F-98.9 F 83-104 18-20 98-152/67-84 98 GENERAL: Awake, alert, and fully oriented. LUNGS: Breath sounds equal, clear to auscultation bilaterally. No wheezes, and no crackles. No accessory muscle use. HEART: Regular rate and rhythm, normal S1 and S2 without murmur, rub or gallop. ABDOMEN: Soft, nontender, not distended, no guarding, no rebound, no masses. No hepatomegaly or splenomegaly. EXTREMITIES: 2+ pedal pulses. No calf tenderness. No peripheral edema. SKIN: Superficial ulcer on the right sole of the foot at the distal 1st metatarsal with no erythema, warmth, or drainage. Laboratory Results - last 24 hr 10/03/16 10/03/16 10/03/16 11:32 16:48 21:31 POC Glucometer 184 193 136 10/04/16 06:04 POC Glucometer 138 Active Medications Generic Name Dose Route Start Last Admin Trade Name Freq PRN Reason Stop Dose Admin Acetaminophen 650 mg 09/30/16 20:12 Tylenol - PO Q4H PRN FEVER OR PAIN Glipizide 5 mg 10/01/16 07:00 10/04/16 06:06 Glucotrol - PO 5 mg DAILY@0700 [facility] Administration Heparin Sodium (Porcine) 5,000 unit 09/30/16 22:00 10/03/16 21:34 Heparin - SQ 5,000 unit BID [facility] Administration IV Flush 8 ml 10/03/16 14:05 Picc Line Flush IVPUSH PRN PRN Protocol Vancomycin HCl 1,500 mg/ 500 mls @ 250 mls/hr 10/04/16 10:00 Sodium Chloride IVPB DAILY [facility] Protocol Insulin Aspart 1 vial 10/01/16 16:30 10/04/16 06:07 Novolog Vial Sliding Scale - SQ Not Given ACHS [facility] Protocol Insulin Detemir 15 units 10/03/16 07:00 10/04/16 06:07 Levemir Vial SQ 15 unit AM [facility] Administration Lisinopril 10 mg 10/01/16 10:00 10/03/16 10:30 Prinivil PO Not Given DAILY [facility] Metformin HCl 1,000 mg 10/01/16 07:00 10/04/16 06:06 Glucophage - PO 1,000 mg BIDAC [facility] Administration Piperacillin Sod/Tazobactam Sod 4.5 gm 10/01/16 18:00 10/04/16 02:17 Zosyn 4.5gm Ivpb (Pre-Docked) IVPB 4.5 gm Q8H-IV [facility] Administration ASSESSMENT/PLAN: Right Foot Osteomyelitis -MRI of the foot revaled osteomyelitis of first metatarsal head and adjoining bones -Vancomycin 1gm Q12H Day #4. Vancomycin trough pending -Zosyn 4.5gm Q8H Day #4 -Blood cultures negative -No I&D needed as per surgery -PICC line placement today by IR -Plans to discharge with Vancomycin 1500mg daily and PO Ciprofloxacin -Will need weekly follow ups for cbc, cmp, esr, vanco trough Visit type - Emergency Visit Emergency Visit: Yes ED Registration Date: 09/30/16 Care time: The patient presented to the Emergency Department on the above date and was hospitalized for further evaluation of their emergent condition. - New Patient This patient is new to me today: No - Critical Care Critical Care patient: No
[2016-10-04] MEDS ORDERED: VANCOMYCIN 1,500 MG in SODIUM CHLORIDE 500 ML IVPB SCH (10:00)
[2016-10-04] MEDS ORDERED: PT OWN MED DRAWER 7, Y5N ONE (11:12)
[2016-10-04] MEDS: LISINOPRIL 10 MG TABLET (FP) PO SCH (11:18)
[2016-10-04] MEDS: HEPARIN NA (PORCINE) 5,000 UNITS/ML 1ML VIAL SQ SCH (11:19)
--- NOTE | 2016-10-04 13:02 | PN ---
Teaching Attending Note Name of Resident: Elissa Norton ATTENDING PHYSICIAN STATEMENT I saw and evaluated the patient. I reviewed the resident's note and discussed the case with the resident. I agree with the resident's findings and plan as documented. SUBJECTIVE:Daniloo Korin OBJECTIVE: ASSESSMENT AND PLAN:Nail puncture wound with osteo Plan Discharge planning in progress Vanco and Cipro po Vancomycin level Problem List - Problems (1) Cellulitis Code(s): L03.90 - CELLULITIS, UNSPECIFIED Qualifiers: Site of cellulitis: extremity Site of cellulitis of extremity: lower extremity Laterality: right Qualified Code(s): L03.115 - Cellulitis of right lower limb (2) Puncture wound of skin from metal nail Code(s): W45.0XXA - NAIL ENTERING THROUGH SKIN, INITIAL ENCOUNTER (3) Osteomyelitis Code(s): M86.9 - OSTEOMYELITIS, UNSPECIFIED
[2016-10-04 14:30] VITALS: BP 109/67; PULSE 93; TEMP 98.6
== END 2016-10-04 18:39 | disposition home or self-care (01) | DRG 383 ==
LOC: JER 13:42 → JERBED 16:38 → J7W 10-01 09:10
PROVIDERS: ADMIT Family Medicine; ATTEND Family Medicine
PROC: 02HV33Z Insertion of Infusion Device into Superior Vena Cava, Percutaneous Approach (ICD-10-PCS; principal; 2016-10-04)
DX: L03.115 Cellulitis of right lower limb (principal); I10 Essential (primary) hypertension; S91.331A Puncture wound without foreign body, right foot, initial encounter; W45.0XXA Nail entering through skin, initial encounter; Y93.9 Activity, unspecified; Y92.89 Other specified places as the place of occurrence of the external cause; Z87.891 Personal history of nicotine dependence; E11.9 Type 2 diabetes mellitus without complications; M86.8X7 Other osteomyelitis, ankle and foot
CPT/HCPCS: 36415; 36569; 71010-TC; 73630-TC-RT; 73720-TC; 77001-TC; 80053; 80061; 81003; 81015; 83036; 83605; 83721; 85025; 85651; 86140; 86850; 86900; 86901; 87040; 87389; 93005; 93010; 99282-25; C1751; C1887; G0008; G0480; J1644; Q2037

== ENCOUNTER 2016-10-05 10:41 | Day surgery (SDC) | payer OTHER ==
[2016-10-05 11:15] LABS: MCH 27.6 pg (25.7-33.7); MCHC 33.1 g/dl (32.0-35.9); MEAN CELL VOLUME 83.4 fl (80-96); MEAN PLT VOLUME 7.1 fl (7.5-11.1); PLATELET COUNT 515 K/MM3 (134-434); RDW 12.9 % (11.9-15.9); WHITE BLOOD COUNT 10.9 K/mm3 (4.0-10.0)
[2016-10-05] MEDS ORDERED: VANCOMYCIN 1,500 MG in SODIUM CHLORIDE 500 ML IVPB ONE (11:45)
[2016-10-05 11:47] LABS: CALCIUM 9.4 mg/dL (8.5-10.1); CREATININE 0.9 mg/dL (0.7-1.3)
[2016-10-05 14:53] VITALS: BP 144/82; PULSE 94; TEMP 98.4
== END 2016-10-05 14:00 | disposition home or self-care (01) ==
LOC: JINFUSION 10:41
PROVIDERS: ATTEND Internal Medicine
DX: L03.115 Cellulitis of right lower limb (principal); E11.9 Type 2 diabetes mellitus without complications; Z79.4 Long term (current) use of insulin; F10.20 Alcohol dependence, uncomplicated
CPT/HCPCS: 36415; 80048; 85027; 96365; 96366; G0480

== ENCOUNTER 2016-10-06 16:05 | Day surgery (SDC) | payer OTHER ==
[2016-10-06] MEDS ORDERED: VANCOMYCIN 1,500 MG in SODIUM CHLORIDE 500 ML IVPB ONE (16:30)
[2016-10-06 20:09] VITALS: BP 155/93; PULSE 106; TEMP 98.4
== END 2016-10-06 20:11 | disposition home or self-care (01) ==
LOC: JINFUSION 16:05 → J7W 16:06 → JINFUSION 20:11
PROVIDERS: ATTEND Internal Medicine
DX: L03.115 Cellulitis of right lower limb (principal); E11.9 Type 2 diabetes mellitus without complications; Z79.4 Long term (current) use of insulin; F10.20 Alcohol dependence, uncomplicated
CPT/HCPCS: 96365; 96366

== ENCOUNTER 2016-10-07 09:41 | Day surgery (SDC) | payer SELFPAY ==
[2016-10-07] MEDS ORDERED: VANCOMYCIN 1,500 MG in SODIUM CHLORIDE 500 ML IVPB ONE (10:15)
[2016-10-07 13:39] VITALS: BP 135/88; PULSE 86; TEMP 98.1
== END 2016-10-07 14:34 | disposition home or self-care (01) ==
LOC: JINFUSION 09:41 → J7W 09:43 → JINFUSION 14:34
PROVIDERS: ATTEND Internal Medicine
DX: L03.115 Cellulitis of right lower limb (principal); E11.9 Type 2 diabetes mellitus without complications; Z79.4 Long term (current) use of insulin; F10.20 Alcohol dependence, uncomplicated
CPT/HCPCS: 96365; 96366

== ENCOUNTER 2016-10-08 15:33 | Day surgery (SDC) | payer SELFPAY ==
[~2016-10-08 15:33] MED LIST: VANCOMYCIN 1,500 MG in SODIUM CHLORIDE 500 ML IVPB ONE
[2016-10-08 16:21] VITALS: TEMP 99.2
[2016-10-08 19:33] VITALS: BP 152/94; PULSE 104
== END 2016-10-08 18:10 | disposition home or self-care (01) ==
LOC: JINFUSION 15:33
PROVIDERS: ATTEND Internal Medicine
DX: L03.115 Cellulitis of right lower limb (principal); E11.9 Type 2 diabetes mellitus without complications; Z79.4 Long term (current) use of insulin; F10.20 Alcohol dependence, uncomplicated
CPT/HCPCS: 96366; 96367

== ENCOUNTER 2016-10-09 16:27 | Day surgery (SDC) | payer SELFPAY ==
[~2016-10-09 16:27] MED LIST changes: +VANCOMYCIN 1,500 MG in DEXTROSE 5%-WATER - 500 ML IVPB ONE
[2016-10-09 16:50] VITALS: TEMP 98.1
[2016-10-09 19:01] VITALS: BP 157/95; PULSE 92
== END 2016-10-09 19:02 | disposition home or self-care (01) ==
LOC: JINFUSION 16:27 → JASU-ENDO 19:02
PROVIDERS: ATTEND Internal Medicine
DX: L03.115 Cellulitis of right lower limb (principal); E11.9 Type 2 diabetes mellitus without complications; Z79.4 Long term (current) use of insulin; F10.20 Alcohol dependence, uncomplicated
CPT/HCPCS: 96365; 96366

== ENCOUNTER 2016-10-10 15:38 | Day surgery (SDC) | payer OTHER ==
[~2016-10-10 15:38] MED LIST changes: -VANCOMYCIN 1,500 MG in DEXTROSE 5%-WATER - 500 ML IVPB ONE
[2016-10-10 16:07] VITALS: TEMP 98
[2016-10-10 18:20] VITALS: BP 160/92; PULSE 92
== END 2016-10-10 18:20 | disposition home or self-care (01) ==
LOC: JINFUSION 15:38
PROVIDERS: ATTEND Internal Medicine
DX: L03.115 Cellulitis of right lower limb (principal); E11.9 Type 2 diabetes mellitus without complications; Z79.4 Long term (current) use of insulin; F10.20 Alcohol dependence, uncomplicated
CPT/HCPCS: 96365; 96366

== ENCOUNTER 2016-10-11 16:38 | Day surgery (SDC) | payer OTHER ==
[2016-10-11 17:42] VITALS: TEMP 98.5
[2016-10-11 20:01] VITALS: BP 150/86; PULSE 95
== END 2016-10-11 19:20 | disposition home or self-care (01) ==
LOC: JINFUSION 16:38
PROVIDERS: ATTEND Internal Medicine
DX: L03.115 Cellulitis of right lower limb (principal); E11.9 Type 2 diabetes mellitus without complications; Z79.4 Long term (current) use of insulin; F10.20 Alcohol dependence, uncomplicated
CPT/HCPCS: 96365; 96366

== ENCOUNTER 2016-10-12 16:56 | Day surgery (SDC) | payer OTHER ==
[2016-10-12 17:51] LABS: MCH 27.4 pg (25.7-33.7); MCHC 33.3 g/dl (32.0-35.9); MEAN CELL VOLUME 82.3 fl (80-96); MEAN PLT VOLUME 7.6 fl (7.5-11.1); PLATELET COUNT 330 K/MM3 (134-434); RDW 13.2 % (11.9-15.9); WHITE BLOOD COUNT 9.1 K/mm3 (4.0-10.0)
[2016-10-12 17:54] VITALS: TEMP 99.6
[2016-10-12 19:43] VITALS: BP 147/90; PULSE 98
[2016-10-12 19:48] LABS: CALCIUM 8.6 mg/dL (8.5-10.1); COCKROFT - GAULT 84.38
== END 2016-10-12 19:43 | disposition home or self-care (01) ==
LOC: JASU-ENDO 16:56 → JINFUSION 16:56 → JASU-ENDO 19:43
PROVIDERS: ATTEND Internal Medicine
DX: L03.115 Cellulitis of right lower limb (principal); E11.9 Type 2 diabetes mellitus without complications; Z79.4 Long term (current) use of insulin; F10.20 Alcohol dependence, uncomplicated
CPT/HCPCS: 36415; 80048; 85027; 96365; 96366; G0480

== ENCOUNTER 2016-10-13 15:51 | Day surgery (SDC) | payer OTHER ==
[2016-10-13] MEDS ORDERED: VANCOMYCIN 1,500 MG in SODIUM CHLORIDE 500 ML IVPB ONE (16:30)
[2016-10-13 19:26] VITALS: BP 157/94; PULSE 86; TEMP 98.9
== END 2016-10-13 19:28 | disposition home or self-care (01) ==
LOC: JINFUSION 15:51 → J7W 15:52 → JINFUSION 19:28
PROVIDERS: ATTEND Internal Medicine
DX: L03.115 Cellulitis of right lower limb (principal); E11.9 Type 2 diabetes mellitus without complications; Z79.4 Long term (current) use of insulin; F10.20 Alcohol dependence, uncomplicated
CPT/HCPCS: 96365; 96366

== ENCOUNTER 2016-10-14 10:49 | Day surgery (SDC) | payer OTHER ==
[2016-10-14] MEDS ORDERED: VANCOMYCIN 1,500 MG in SODIUM CHLORIDE 500 ML IVPB ONE (12:00)
[2016-10-14 13:09] VITALS: BP 155/90; PULSE 94; TEMP 98.4
== END 2016-10-14 14:47 | disposition home or self-care (01) ==
LOC: JINFUSION 10:49 → J7W 10:52 → JINFUSION 14:47
PROVIDERS: ATTEND Internal Medicine
DX: L03.115 Cellulitis of right lower limb (principal); E11.9 Type 2 diabetes mellitus without complications; Z79.4 Long term (current) use of insulin; F10.20 Alcohol dependence, uncomplicated
CPT/HCPCS: 96366; 96367

== ENCOUNTER 2016-10-15 16:50 | Day surgery (SDC) | payer OTHER ==
[~2016-10-15 16:50] MED LIST changes: +VANCOMYCIN 1,000 MG in DEXTROSE 5%-WATER - 500 ML IVPB ONE; +VANCOMYCIN 1,500 MG in DEXTROSE 5%-WATER - 500 ML IVPB ONE
[2016-10-15 17:15] VITALS: TEMP 98.8
[2016-10-15 19:19] VITALS: BP 178/93; PULSE 99
== END 2016-10-15 19:21 | disposition home or self-care (01) ==
LOC: JINFUSION 16:50
PROVIDERS: ATTEND Internal Medicine
DX: M86.9 Osteomyelitis, unspecified (principal)
CPT/HCPCS: 96365; 96366

== ENCOUNTER 2016-10-16 16:38 | Day surgery (SDC) | payer OTHER ==
[~2016-10-16 16:38] MED LIST changes: -VANCOMYCIN 1,000 MG in DEXTROSE 5%-WATER - 500 ML IVPB ONE; -VANCOMYCIN 1,500 MG in DEXTROSE 5%-WATER - 500 ML IVPB ONE
[2016-10-16 17:23] VITALS: TEMP 98.7
[2016-10-16 19:22] VITALS: BP 148/88; PULSE 95
== END 2016-10-16 19:15 | disposition home or self-care (01) ==
LOC: JASU-ENDO 16:38 → JINFUSION 16:38 → JASU-ENDO 19:15
PROVIDERS: ATTEND Internal Medicine
DX: M86.9 Osteomyelitis, unspecified (principal)
CPT/HCPCS: 96365; 96366

== ENCOUNTER 2016-10-17 16:13 | Day surgery (SDC) | payer OTHER ==
[2016-10-17 16:47] VITALS: PULSE 84; TEMP 98.4
[2016-10-17 18:51] VITALS: BP 173/95
== END 2016-10-17 18:53 | disposition home or self-care (01) ==
LOC: JASU-ENDO 16:13
PROVIDERS: ATTEND Internal Medicine
DX: M86.9 Osteomyelitis, unspecified (principal)
CPT/HCPCS: 96365; 96366

== ENCOUNTER 2016-10-18 16:14 | Day surgery (SDC) | payer OTHER ==
[2016-10-18 16:36] VITALS: TEMP 98.2
[2016-10-18 18:59] VITALS: BP 147/92; PULSE 94
== END 2016-10-18 18:45 | disposition home or self-care (01) ==
LOC: JINFUSION 16:14
PROVIDERS: ATTEND Internal Medicine
DX: M86.9 Osteomyelitis, unspecified (principal)
CPT/HCPCS: 96365; 96366

== ENCOUNTER 2016-10-19 15:37 | Day surgery (SDC) | payer OTHER ==
[2016-10-19 16:06] VITALS: TEMP 98.1
[2016-10-19 16:09] LABS: MCH 27.2 pg (25.7-33.7); MCHC 32.9 g/dl (32.0-35.9); MEAN CELL VOLUME 82.7 fl (80-96); PLATELET COUNT 235 K/MM3 (134-434); RDW 13.2 % (11.9-15.9); WHITE BLOOD COUNT 6.3 K/mm3 (4.0-10.0)
[2016-10-19 18:06] VITALS: BP 163/94; PULSE 92
[2016-10-19 18:28] LABS: CALCIUM 8.4 mg/dL (8.5-10.1); COCKROFT - GAULT 76.71; CREATININE 1.1 mg/dL (0.7-1.3)
== END 2016-10-19 18:16 | disposition home or self-care (01) ==
LOC: JINFUSION 15:37
PROVIDERS: ATTEND Internal Medicine
DX: M86.9 Osteomyelitis, unspecified (principal)
CPT/HCPCS: 36415; 80048; 85027; 96365; 96366; G0480

== ENCOUNTER 2016-10-20 15:35 | Day surgery (SDC) | payer OTHER ==
[2016-10-20] MEDS ORDERED: VANCOMYCIN 1,500 MG in DEXTROSE 5%-WATER - 500 ML IVPB ONE (16:30)
[2016-10-20 18:10] VITALS: BP 145/91; PULSE 92; TEMP 98
== END 2016-10-20 20:12 | disposition home or self-care (01) ==
LOC: JINFUSION 15:35 → J7W 15:36 → JINFUSION 20:12
PROVIDERS: ATTEND Internal Medicine
DX: M86.9 Osteomyelitis, unspecified (principal)
CPT/HCPCS: 96365; 96366

== ENCOUNTER 2016-10-23 17:20 | Day surgery (SDC) | payer OTHER ==
[2016-10-23 17:50] VITALS: TEMP 98.3
[2016-10-23 19:55] VITALS: PULSE 100
[2016-10-23 19:56] VITALS: BP 150/99
== END 2016-10-23 19:58 | disposition home or self-care (01) ==
LOC: JINFUSION 17:20
PROVIDERS: ATTEND Internal Medicine
DX: M86.9 Osteomyelitis, unspecified (principal)
CPT/HCPCS: 96365; 96366

== ENCOUNTER 2016-10-24 15:48 | Day surgery (SDC) | payer OTHER ==
[2016-10-24 16:10] VITALS: TEMP 98.7
[2016-10-24] MEDS ORDERED: VANCOMYCIN 1,500 MG in SODIUM CHLORIDE 500 ML IVPB ONE (16:15)
[2016-10-24] MEDS ORDERED: VANCOMYCIN 1,500 MG in DEXTROSE 5%-WATER - 500 ML IVPB ONE (16:15)
[2016-10-24 18:30] VITALS: BP 156/80; PULSE 90
== END 2016-10-24 18:30 | disposition home or self-care (01) ==
LOC: JINFUSION 15:48
PROVIDERS: ATTEND Internal Medicine
DX: M86.9 Osteomyelitis, unspecified (principal)
CPT/HCPCS: 96365; 96366

== ENCOUNTER 2016-10-25 15:57 | Day surgery (SDC) | payer OTHER ==
[2016-10-25 16:43] VITALS: TEMP 98.3
[2016-10-25 18:35] VITALS: BP 146/89; PULSE 91
== END 2016-10-25 18:37 | disposition home or self-care (01) ==
LOC: JINFUSION 15:57
PROVIDERS: ATTEND Internal Medicine
DX: M86.9 Osteomyelitis, unspecified (principal)
CPT/HCPCS: 96365; 96366

== ENCOUNTER 2016-10-26 14:54 | Day surgery (SDC) | payer OTHER ==
[2016-10-26 15:31] VITALS: TEMP 98.1
[2016-10-26 15:55] LABS: MCH 26.9 pg (25.7-33.7); MCHC 32.7 g/dl (32.0-35.9); MEAN CELL VOLUME 82.2 fl (80-96); MEAN PLT VOLUME 8.3 fl (7.5-11.1); PLATELET COUNT 289 K/MM3 (134-434); RDW 13.3 % (11.9-15.9); WHITE BLOOD COUNT 5.5 K/mm3 (4.0-10.0)
[2016-10-26 17:15] LABS: CALCIUM 9.1 mg/dL (8.5-10.1); COCKROFT - GAULT 84.38
[2016-10-26 17:46] VITALS: BP 126/78; PULSE 89
== END 2016-10-26 17:45 | disposition home or self-care (01) ==
LOC: JINFUSION 14:54
PROVIDERS: ATTEND Internal Medicine
DX: M86.9 Osteomyelitis, unspecified (principal)
CPT/HCPCS: 36415; 80048; 85027; 85651; 86140; 96365; 96366; G0480

== ENCOUNTER 2016-10-27 15:00 | Day surgery (SDC) | payer OTHER ==
[2016-10-27] MEDS ORDERED: VANCOMYCIN 1,500 MG in SODIUM CHLORIDE 500 ML IVPB ONE (16:00)
[2016-10-27] MEDS ORDERED: amLODIPine BESYLATE 5 MG TABLET (FP) PO ONE (16:45)
[2016-10-27 20:09] VITALS: BP 155/95; PULSE 94; TEMP 98.1
== END 2016-10-27 20:11 | disposition home or self-care (01) ==
LOC: J7W 15:00 → JINFUSION 15:00
PROVIDERS: ATTEND Internal Medicine
DX: M86.9 Osteomyelitis, unspecified (principal)

== ENCOUNTER 2016-10-28 12:15 | Day surgery (SDC) | payer OTHER ==
[2016-10-28] MEDS ORDERED: amLODIPine BESYLATE 10 MG TABLET (FP) PO ONE (13:15)
[2016-10-28] MEDS ORDERED: VANCOMYCIN 1,500 MG in SODIUM CHLORIDE 500 ML IVPB ONE (13:30)
[2016-10-28 16:25] VITALS: BP 156/95; PULSE 88
== END 2016-10-28 16:30 | disposition home or self-care (01) ==
LOC: J7W 12:15 → JINFUSION 12:15
PROVIDERS: ATTEND Internal Medicine
DX: M86.9 Osteomyelitis, unspecified (principal)
CPT/HCPCS: 96365; 96366

== ENCOUNTER 2016-10-29 16:17 | Day surgery (SDC) | payer OTHER ==
[2016-10-29 17:41] VITALS: TEMP 98.4
[2016-10-29 18:56] VITALS: BP 153/86; PULSE 90
== END 2016-10-29 18:56 | disposition home or self-care (01) ==
LOC: JINFUSION 16:17
PROVIDERS: ATTEND Internal Medicine
DX: M86.9 Osteomyelitis, unspecified (principal)
CPT/HCPCS: 96365; 96366

== ENCOUNTER 2016-10-30 16:40 | Day surgery (SDC) | payer OTHER ==
[2016-10-30 17:08] VITALS: TEMP 98.1
[2016-10-30 19:20] VITALS: BP 154/80; PULSE 92
== END 2016-10-30 17:15 | disposition home or self-care (01) ==
LOC: JINFUSION 16:40
PROVIDERS: ATTEND Internal Medicine
DX: M86.9 Osteomyelitis, unspecified (principal)
CPT/HCPCS: 96365; 96366

== ENCOUNTER 2016-10-31 15:06 | Day surgery (SDC) | payer OTHER ==
[2016-10-31 16:51] VITALS: TEMP 98.3
[2016-10-31 17:36] VITALS: BP 174/99; PULSE 97
== END 2016-10-31 17:36 | disposition home or self-care (01) ==
LOC: JINFUSION 15:06
PROVIDERS: ATTEND Internal Medicine
DX: M86.9 Osteomyelitis, unspecified (principal)
CPT/HCPCS: 96365; 96366

== ENCOUNTER 2016-11-01 15:01 | Day surgery (SDC) | payer OTHER ==
[2016-11-01 16:43] VITALS: BP 95/70; PULSE 85; TEMP 98.5
== END 2016-11-01 18:20 | disposition home or self-care (01) ==
LOC: JINFUSION 15:01
PROVIDERS: ATTEND Internal Medicine
DX: M86.9 Osteomyelitis, unspecified (principal)
CPT/HCPCS: 96365; 96366

== ENCOUNTER 2016-11-02 15:55 | Day surgery (SDC) | payer OTHER ==
[2016-11-02 17:01] LABS: MCH 27.5 pg (25.7-33.7); MCHC 33.1 g/dl (32.0-35.9); MEAN CELL VOLUME 83.2 fl (80-96); MEAN PLT VOLUME 8.6 fl (7.5-11.1); PLATELET COUNT 285 K/MM3 (134-434); RDW 13.5 % (11.9-15.9)
[2016-11-02 17:26] LABS: CALCIUM 8.5 mg/dL (8.5-10.1); CREATININE 1.4 mg/dL (0.7-1.3)
[2016-11-02 17:56] VITALS: BP 137/84; PULSE 89; TEMP 98.3
== END 2016-11-02 18:33 | disposition home or self-care (01) ==
LOC: JINFUSION 15:55
PROVIDERS: ATTEND Internal Medicine
DX: M86.9 Osteomyelitis, unspecified (principal)
CPT/HCPCS: 36415; 80048; 85027; 96365; 96366; G0480

== ENCOUNTER 2016-11-03 15:51 | Day surgery (SDC) | payer OTHER ==
[2016-11-03] MEDS ORDERED: VANCOMYCIN 1,500 MG in SODIUM CHLORIDE 500 ML IVPB ONE (17:00)
[2016-11-03 17:35] VITALS: BP 155/96; PULSE 90; TEMP 98.2
== END 2016-11-03 19:45 | disposition home or self-care (01) ==
LOC: JINFUSION 15:51 → J7W 15:52 → JINFUSION 19:45
PROVIDERS: ATTEND Internal Medicine
DX: M86.9 Osteomyelitis, unspecified (principal)

== ENCOUNTER 2016-11-04 12:08 | Day surgery (SDC) | payer OTHER ==
[2016-11-04] MEDS ORDERED: VANCOMYCIN 1,500 MG in DEXTROSE 5%-WATER - 500 ML IVPB ONE (13:00)
[2016-11-04] MEDS ORDERED: VANCOMYCIN 1,500 MG in SODIUM CHLORIDE 500 ML IVPB ONE (13:00)
[2016-11-04 15:53] VITALS: BP 166/87; PULSE 93; TEMP 97.6
== END 2016-11-04 15:30 | disposition home or self-care (01) ==
LOC: JINFUSION 12:08 → J7W 12:09 → JINFUSION 15:30
PROVIDERS: ATTEND Internal Medicine
DX: M86.9 Osteomyelitis, unspecified (principal)
CPT/HCPCS: 96365; 96366

== ENCOUNTER 2016-11-05 16:51 | Day surgery (SDC) | payer OTHER ==
[2016-11-05 17:23] VITALS: TEMP 97.6
[2016-11-05 19:25] VITALS: BP 156/97; PULSE 96
== END 2016-11-05 19:26 | disposition home or self-care (01) ==
LOC: JINFUSION 16:51
PROVIDERS: ATTEND Internal Medicine
DX: M86.9 Osteomyelitis, unspecified (principal)
CPT/HCPCS: 96365; 96366

== ENCOUNTER 2016-11-06 15:37 | Day surgery (SDC) | payer OTHER ==
[2016-11-06 16:05] VITALS: TEMP 98
[2016-11-06 18:39] VITALS: BP 135/89; PULSE 86
== END 2016-11-06 16:10 | disposition home or self-care (01) ==
LOC: JINFUSION 15:37
PROVIDERS: ATTEND Internal Medicine
DX: M86.9 Osteomyelitis, unspecified (principal)
CPT/HCPCS: 96365; 96366

== ENCOUNTER 2016-11-07 17:07 | Day surgery (SDC) | payer OTHER ==
[2016-11-07 17:22] VITALS: TEMP 98.1
[2016-11-07 19:23] VITALS: BP 129/70; PULSE 94
== END 2016-11-07 19:23 | disposition home or self-care (01) ==
LOC: JINFUSION 17:07
PROVIDERS: ATTEND Internal Medicine
DX: M86.9 Osteomyelitis, unspecified (principal)
CPT/HCPCS: 96365; 96366

== ENCOUNTER 2016-11-08 15:59 | Day surgery (SDC) | payer OTHER ==
[2016-11-08 16:58] VITALS: TEMP 98.7
[2016-11-08 18:57] VITALS: BP 150/93; PULSE 95
== END 2016-11-08 18:59 | disposition home or self-care (01) ==
LOC: JINFUSION 15:59
PROVIDERS: ATTEND Internal Medicine
DX: M86.9 Osteomyelitis, unspecified (principal)
CPT/HCPCS: 96365; 96366

== ENCOUNTER 2016-11-09 16:07 | Day surgery (SDC) | payer OTHER ==
[2016-11-09 17:11] LABS: MCH 27.4 pg (25.7-33.7); MCHC 33.5 g/dl (32.0-35.9); MEAN CELL VOLUME 81.8 fl (80-96); MEAN PLT VOLUME 8.4 fl (7.5-11.1); PLATELET COUNT 243 K/MM3 (134-434); RDW 13.1 % (11.9-15.9); WHITE BLOOD COUNT 6.5 K/mm3 (4.0-10.0)
[2016-11-09 17:41] LABS: CALCIUM 8.9 mg/dL (8.5-10.1); COCKROFT - GAULT 82.59
[2016-11-09 19:32] VITALS: BP 162/95; PULSE 90
[2016-11-09 19:34] VITALS: TEMP 97.9
== END 2016-11-09 19:05 | disposition home or self-care (01) ==
LOC: JINFUSION 16:07
PROVIDERS: ATTEND Internal Medicine
DX: M86.9 Osteomyelitis, unspecified (principal)
CPT/HCPCS: 36415; 80048; 85027; 85651; 86140; 96365; 96366; G0480

== ENCOUNTER 2016-11-10 16:10 | Day surgery (SDC) | payer OTHER ==
[~2016-11-10 16:10] MED LIST changes: +VANCOMYCIN 1,500 MG in DEXTROSE 5%-WATER - 500 ML IVPB SCH; -VANCOMYCIN 1,500 MG in SODIUM CHLORIDE 500 ML IVPB ONE
[2016-11-10 16:53] VITALS: TEMP 98.6
[2016-11-10] MEDS ORDERED: VANCOMYCIN 1,500 MG in SODIUM CHLORIDE 500 ML IVPB ONE (18:00)
[2016-11-10 23:31] VITALS: BP 143/94; PULSE 91
== END 2016-11-10 22:30 | disposition home or self-care (01) ==
LOC: JINFUSION 16:10 → J7W 16:38 → JINFUSION 22:30
PROVIDERS: ATTEND Internal Medicine
DX: M86.9 Osteomyelitis, unspecified (principal)
CPT/HCPCS: 96365; 96366

== ENCOUNTER 2019-04-22 14:21 | Inpatient (IN) | payer OTHER ==
--- NOTE | 2019-04-22 14:24 | PDOC ---
Rapid Medical Evaluation Time Seen by Provider: 04/22/19 14:23 Medical Evaluation: Allergies Allergy/AdvReac Type Severity Reaction Status Date / Time No Known Allergies Allergy Verified 11/05/16 17:09 04/22/19 14:24 CC: abnormal CT scan today. Pericardial effusion, pleural effusion, mesenteric stranding PE: Bilateral crackles in lung bases. Orders: cardiac w/u Patient will proceed to ER for continued evaluation. 04/22/19 14:26 Discharge Disposition - Diagnosis Pleural effusion - Referrals - Patient Instructions - Post Discharge Activity
[2019-04-22 14:59] LABS: BASO % 0.7 % (0-2.0); EOS % 1.2 % (0-4.5); HEMATOCRIT 29.6 % (35.4-49); HEMOGLOBIN 9.6 GM/dL (11.7-16.9); LYMPH % 22.2 % (8-40); MCH 27.7 pg (25.7-33.7); MCHC 32.6 g/dl (32.0-35.9); MEAN PLT VOLUME 9.9 fl (7.5-11.1); MONO % 7.3 % (3.8-10.2); NEUT % 68.6 % (42.8-82.8); PLATELET COUNT 276 K/MM3 (134-434); RBC 3.48 M/mm3 (4.00-5.60); RDW 13.5 % (11.9-15.9); WHITE BLOOD COUNT 7.9 K/mm3 (4.0-10.0)
[2019-04-22 15:06] LABS: INR 1.05 (0.83-1.09); PROTHROMBIN TIME (PATIENT) 12.4 SEC (9.7-13.0)
[2019-04-22 15:09] LABS: ACTIVATED PTT 38.7 SECONDS (25.2-36.5)
[2019-04-22 15:30] LABS: ALBUMIN 2.2 g/dl (3.4-5.0); BILIRUBIN,TOTAL 0.1 mg/dL (0.2-1); BLOOD UREA NITROGEN 40.7 mg/dL (7-18); CALCIUM 7.9 mg/dL (8.5-10.1); CREATININE 4.5 mg/dL (0.55-1.3); MAGNESIUM 2.6 mg/dL (1.8-2.4); N-TERMINAL BNP 10537.2 pg/ml (5-125); POTASSIUM 5.3 mmol/L (3.5-5.1)
--- NOTE | 2019-04-22 16:12 | PDOC ---
History of Present Illness <Pippa Gossstephdiomedes - Last Filed: 04/22/19 16:29> - History of Present Illness Initial Comments: 04/22/19 16:04 48m with pmh of Dm2 and htn, sent from Urologist office Dr. Hernandez for ct findings of pericardial effusion and pleural effusion. He was evaluated there for microscopic hematuria, sent for ct to r/o kidney stone. However patient is asymptomatic except for some night sweats (which turned out to be chronic for him) and occasional dry cough. Also chomplains of chronic on/off thoracic back pain. Denies fever, chills, chest pain, abdominal pain and dysuria <Leandro Mak - Last Filed: 04/22/19 17:32> - General Chief Complaint: Revisit,Radiology Variance Stated Complaint: SENT BY PCP/CT ABNORMAL Time Seen by Provider: 04/22/19 14:23 Past History <Pippa Gossdiomedes - Last Filed: 04/22/19 16:29> - Past Medical History Anemia: No Asthma: No Cancer: No Cardiac Disorders: No CVA: No COPD: No CHF: No Dementia: No Diabetes: Yes GI Disorders: No Disorders: No HTN: Yes Hypercholesterolemia: No Liver Disease: No Seizures: No Thyroid Disease: No - Psycho Social/Smoking Cessation Hx Smoking History: Never smoked Have you smoked in the past 12 months: Yes If you are a former smoker, when did you quit?: 1 MO AGO Information on smoking cessation initiated: No Hx Alcohol Use: No Drug/Substance Use Hx: No Substance Use Type: None <Leandro Mak - Last Filed: 04/22/19 17:32> - Past Medical History Allergies/Adverse Reactions: Allergies Allergy/AdvReac Type Severity Reaction Status Date / Time No Known Allergies Allergy Verified 04/22/19 14:29 Home Medications: Ambulatory Orders Glipizide 5 mg PO DAILY 09/30/16 Lisinopril 20 mg PO BID 09/30/16 Metformin HCl [Glucophage] 1,000 mg PO BID 09/30/16 Insulin (Levemir) [Levemir Vial] 15 units SQ AM #1 pkg 10/04/16 Picc Line Flush [Picc Line Flush -] 8 ml IVPUSH PRN PRN #0 ml 10/04/16 Vancomycin 1,500 mg IVPB DAILY #30 vial 10/04/16 Review of Systems - Review of Systems Able to Perform ROS?: Yes Is the patient limited Bulgarian proficient: No Constitutional: No: Symptoms Reported HEENTM: No: Symptoms Reported Respiratory: No: Symptoms reported Cardiac (ROS): No: Symptoms Reported ABD/GI: No: Symptoms Reported : No: Symptoms Reported Musculoskeletal: No: Symptoms Reported Integumentary: No: Symptoms Reported Neurological: No: Symptoms reported <Leandro Mak - Last Filed: 04/22/19 17:32> *Physical Exam - Vital Signs Last Vital Signs Temp Pulse Resp BP Pulse Ox 98 F 77 19 177/87 H 98 04/22/19 14:26 04/22/19 14:26 04/22/19 14:26 04/22/19 14:26 04/22/19 16:11 <Ana PaulaPippa Ana Paulastephdiomedes - Last Filed: 04/22/19 16:29> - Vital Signs Last Vital Signs Temp Pulse Resp BP Pulse Ox 98 F 77 19 177/87 H 99 04/22/19 14:26 04/22/19 14:26 04/22/19 14:26 04/22/19 14:26 04/22/19 14:26 - Physical Exam General Appearance: Yes: Nourished, Appropriately Dressed. No: Apparent Distress HEENT: positive: EOMI, NAOMI, Normal ENT Inspection Respiratory/Chest: positive: Decreased Breath Sounds. negative: Chest Tender, Respiratory Distress, Rapid RR Cardiovascular: positive: Regular Rhythm, Regular Rate, S1, S2 Gastrointestinal/Abdominal: positive: Normal Bowel Sounds, Flat, Soft. negative : Tender Extremity: positive: Normal Capillary Refill, Normal Inspection, Normal Range of Motion Integumentary: positive: Normal Color, Dry, Warm Neurologic: positive: Fully Oriented, Alert, Normal Mood/Affect, Normal Response , Motor Strength 5/5 <Leandro Mak - Last Filed: 04/22/19 17:32> ED Treatment Course - LABORATORY CBC & Chemistry Diagram: 04/22/19 14:45 04/22/19 14:45 - ADDITIONAL ORDERS Additional order review: Laboratory Results 04/22/19 04/22/19 04/22/19 14:45 14:45 14:45 WBC 7.9 RBC 3.48 L Hgb 9.6 L Hct 29.6 L MCV 85.0 MCH 27.7 MCHC 32.6 RDW 13.5 Plt Count 276 MPV 9.9 D Absolute Neuts (auto) 5.4 Neutrophils % 68.6 Lymphocytes % 22.2 D Monocytes % 7.3 Eosinophils % 1.2 Basophils % 0.7 Nucleated RBC % 0 PT with INR INR PTT (Actin FS) Sodium 143 Potassium 5.3 H Chloride 114 H Carbon Dioxide 24 Anion Gap 5 L BUN 40.7 H Creatinine 4.5 H Est GFR (CKD-EPI)AfAm 16.67 Est GFR (CKD-EPI)NonAf 14.38 Random Glucose 115 H Calcium 7.9 L Magnesium 2.6 H Total Bilirubin 0.1 L AST 21 ALT 21 Alkaline Phosphatase 156 H Creatine Kinase 191 Creatine Kinase Index 2.6 CK-MB (CK-2) 5.0 H Troponin I < 0.02 B-Natriuretic Peptide 64846.2 H Total Protein 6.0 L Albumin 2.2 L 04/22/19 14:45 WBC RBC Hgb Hct MCV MCH MCHC RDW Plt Count MPV Absolute Neuts (auto) Neutrophils % Lymphocytes % Monocytes % Eosinophils % Basophils % Nucleated RBC % PT with INR 12.40 INR 1.05 PTT (Actin FS) 38.7 H Sodium Potassium Chloride Carbon Dioxide Anion Gap BUN Creatinine Est GFR (CKD-EPI)AfAm Est GFR (CKD-EPI)NonAf Random Glucose Calcium Magnesium Total Bilirubin AST ALT Alkaline Phosphatase Creatine Kinase Creatine Kinase Index CK-MB (CK-2) Troponin I B-Natriuretic Peptide Total Protein Albumin 04/22/19 14:45 RBC 3.48 L MCV 85.0 MCHC 32.6 RDW 13.5 MPV 9.9 D Neutrophils % 68.6 Lymphocytes % 22.2 D Monocytes % 7.3 Eosinophils % 1.2 Basophils % 0.7 <Pippa Goss - Last Filed: 04/22/19 16:29> - LABORATORY CBC & Chemistry Diagram: 04/22/19 14:45 04/22/19 14:45 - ADDITIONAL ORDERS Additional order review: Laboratory Results 04/22/19 04/22/19 04/22/19 14:45 14:45 14:45 WBC 7.9 RBC 3.48 L Hgb 9.6 L Hct 29.6 L MCV 85.0 MCH 27.7 MCHC 32.6 RDW 13.5 Plt Count 276 MPV 9.9 D Absolute Neuts (auto) 5.4 Neutrophils % 68.6 Lymphocytes % 22.2 D Monocytes % 7.3 Eosinophils % 1.2 Basophils % 0.7 Nucleated RBC % 0 PT with INR INR PTT (Actin FS) Sodium 143 Potassium 5.3 H Chloride 114 H Carbon Dioxide 24 Anion Gap 5 L BUN 40.7 H Creatinine 4.5 H Est GFR (CKD-EPI)AfAm 16.67 Est GFR (CKD-EPI)NonAf 14.38 Random Glucose 115 H Calcium 7.9 L Magnesium 2.6 H Total Bilirubin 0.1 L AST 21 ALT 21 Alkaline Phosphatase 156 H Creatine Kinase 191 Creatine Kinase Index 2.6 CK-MB (CK-2) 5.0 H Troponin I < 0.02 B-Natriuretic Peptide 42028.2 H Total Protein 6.0 L Albumin 2.2 L 04/22/19 14:45 WBC RBC Hgb Hct MCV MCH MCHC RDW Plt Count MPV Absolute Neuts (auto) Neutrophils % Lymphocytes % Monocytes % Eosinophils % Basophils % Nucleated RBC % PT with INR 12.40 INR 1.05 PTT (Actin FS) 38.7 H Sodium Potassium Chloride Carbon Dioxide Anion Gap BUN Creatinine Est GFR (CKD-EPI)AfAm Est GFR (CKD-EPI)NonAf Random Glucose Calcium Magnesium Total Bilirubin AST ALT Alkaline Phosphatase Creatine Kinase Creatine Kinase Index CK-MB (CK-2) Troponin I B-Natriuretic Peptide Total Protein Albumin 04/22/19 14:45 RBC 3.48 L MCV 85.0 MCHC 32.6 RDW 13.5 MPV 9.9 D Neutrophils % 68.6 Lymphocytes % 22.2 D Monocytes % 7.3 Eosinophils % 1.2 Basophils % 0.7 - RADIOLOGY Radiology Studies Ordered: Category Date Time Status CHEST CT WITHOUT CONTRAST [CT] Stat CT Scan 04/22/19 15:02 Taken <Leandro Mak - Last Filed: 04/22/19 17:32> Medical Decision Making - Medical Decision Making 04/22/19 16:56 48m with pmh of Dm2 and htn, sent from Urologist office Dr. Hernandez for ct findings of pericardial effusion and pleural effusion. He presents also with acute renal injury of 4.5. CT abdomen: Third spacing suggested by bilateral pleural effusions, pericardial effusion, diffuse mesenteric and subcutaneous haziness/edema and trace pelvic fluid. Under distended urinary bladder with suggestion of bladder wall thickening which could be secondary to underdistention or third spacing however underlying cystitis cannot be excluded. Correlate with clinical history and urinalysis. Moderate colonic stool burden. At least moderate partially imaged bilateral pleural effusions with loculated components and overlying atelectatic changes versus infiltrates, more prominent on the left. Underlying pneumonia among other pathologies cannot be excluded. Small to moderate pericardial effusion. Correlation with echocardiography is recommended. ct chest: Moderate right-sided and small to moderate left-sided pleural effusions are noted with resultant bibasilar compressive atelectasis. No obvious interval change is seen in comparison to an abdominal/pelvic CT study of 04/22/2019. A superimposed infiltrate would be difficult to exclude on the basis of imaging only. Correlate clinically. N ote is again made of concentric subcutaneous soft tissue stranding consistent with edema. Multichamber cardiomegaly as on the prior exam. 04/22/19 17:[address] Worley who said he met the patie 3 weeks ago and at this time the patient already had a AKD with a creatinine of 3.5, GFR 19 and HyperKalemia of 5.6. This seems to be stemming from a nephrotic syndrome of unknown etiology. Hence this is a subacute presentation as far as the kidney disease. Will admit the patient telemetry where his nephrotic syndrome will be investigated probably with a kidney biopsy. Spoke to Kennedy Nash who admitted the patient under Dr. Ojeda. 04/22/19 17:31 EKG: Normal sinus rhtyhm, possible left atrial enlargemdent, RBBB <Leandro Mak - Last Filed: 04/22/19 17:32> Discharge - Admission Yes <Pippa Goss - Last Filed: 04/22/19 16:29> - Discharge Information Problems reviewed: Yes - Admission Yes <Leandro Mak - Last Filed: 04/22/19 17:32> - Discharge Information Clinical Impression/Diagnosis: Pleural effusion, Pericardial effusion, Uremia, Nephrotic syndrome Condition: Fair - Follow up/Referral Referrals: Srini Sparrow MD [Primary Care Provider] -
--- NOTE | 2019-04-22 16:24 | PDOC ---
Attending Attestation - Resident Resident Name: Leandro Mak - ED Attending Attestation I have performed the following: I have examined & evaluated the patient, The case was reviewed & discussed with the resident, I agree w/resident's findings & plan - HPI HPI: 04/22/19 16:22 48m with pmh of Dm2 and htn, sent from Urologist office Dr. Hernandez for ct findings of pericardial effusion and pleural effusion. He was evaluated there for microscopic hematuria, sent for ct to r/o kidney stone. However patient is asymptomatic except for some night sweats (which turned out to be chronic for him) and occasional dry cough. Also chomplains of chronic on/off thoracic back pain. Denies fever, chills, chest pain, abdominal pain and dysuria - Physicial Exam PE: 04/22/19 16:22 Agree with the resident's HPI and PE as documented in the electronic medical record. NAD, EOMI, PERRL, nl conjunctiva, anicteric; neck supple. lungs with bilateral crackles. no respiratory distress. RRR, abdomen soft nontender. no rebound, guarding. Back nontender. LINK x4, no focal neuro deficits. No peripheral edema. normal color for ethnicity, WWP. 04/22/19 16:23 04/22/19 16:29 - Medical Decision Making 04/22/19 16:23 Vital Signs Temp Pulse Resp BP Pulse Ox 98 F 77 19 177/87 H 98 04/22/19 14:26 04/22/19 14:26 04/22/19 14:26 04/22/19 14:26 04/22/19 16:11 DDX TB, pneumonia, viral syndrome, mass, effusions, pericarditis, pericardial effusion. bedside pocus with pericardial effusion moderate degree no HD compromise/ tamponade - as this has likely been underlying x unclear time frame, rate of increase not significant for tamponade development, can get official echo bilateral b lines - diffusely, also in left upper lobe. b/l pleural effusion and compressive atelectasis labs and lytes with CKD - acute changes. anemia - new likely from new renal insuffiency. CT chest with shotty lymph nodes/meseneteric swelling. effusions, pericardial effusion. compressive atelectasis. likely from uremia/new onset renal insufficiency. no hydro on outpatient CT a/p by urology nephro cs with Dr Garcia - this has been subacute problem, ok with lasix diuresis. renal biopsy. cards cs, official echo admit for medical management, possible initiation of HD given fluid overloaded state. 04/22/19 16:23 04/22/19 16:27 04/22/19 16:48 Heart Score/ECG Review #1 ECG reviewed & interpreted by me at: 14:30 General ECG Interpretation: Sinus Rhythm, Normal Rate, Normal Intervals Compared to previous ECG there are: Changes noted 04/22/19 16:46 RBBB at 81 bpm, sinus rhythm, wide QRS, nonspecific T wave abnormalities diffusely. last EKG 2017. 04/22/19 16:47
[2019-04-22] MEDS ORDERED: FUROSEMIDE 40 MG/4 ML INJECTABLE VIAL IVPUSH ONE (16:34)
[2019-04-22] MEDS ORDERED: FUROSEMIDE 40 MG/4 ML INJECTABLE VIAL ONE (16:40)
[2019-04-22 17:39] LABS: ALBUMIN 2.3 g/dl (3.4-5.0); BILIRUBIN,TOTAL 0.2 mg/dL (0.2-1); BLOOD UREA NITROGEN 44.1 mg/dL (7-18); CALCIUM 7.9 mg/dL (8.5-10.1); CREATININE 4.5 mg/dL (0.55-1.3); POTASSIUM 5.1 mmol/L (3.5-5.1); TOT PROT 5.9 g/dl (6.4-8.2)
[2019-04-22 18:33] LABS: EPI CELLS 0.2 /HPF (0-5/HPF); HYALINE CASTS 1 /lpf (0-8); URINE APPEARANCE CLEAR; URINE BACTERIA 2.7 /hpf (NEGATIVE); URINE BILIRUBIN NEGATIVE (NEGATIVE); URINE COLOR YELLOW; URINE GLUCOSE (UA) 1+ (NEGATIVE); URINE KETONE NEGATIVE (NEGATIVE); URINE LEUK ESTERASE NEGATIVE (NEGATIVE); URINE NITRITE NEGATIVE (NEGATIVE); URINE PROTEIN 3+ (NEGATIVE); URINE RBC 2 /hpf (0-4); URINE UROBILINOGEN 0.2 mg/dL (0.2-1.0); URINE WBC 0 /hpf (0-5)
[2019-04-22] MEDS: INSULIN SLIDING SCALE (NOVOLOG) 1 VIAL SQ SCH (22:46)
[2019-04-22] MEDS ORDERED: HEPARIN NA (PORCINE) 5,000 UNITS/ML 1ML VIAL ONE (22:50)
[2019-04-22] MEDS ORDERED: LISINOPRIL 20 MG TABLET (FP) ONE (22:50)
[2019-04-22] MEDS: LISINOPRIL 20 MG TABLET (FP) PO SCH (23:00)
[2019-04-22] MEDS: HEPARIN NA (PORCINE) 5,000 UNITS/ML 1ML VIAL SQ SCH (23:00)
[2019-04-23 06:41] LABS: BASO % 0.3 % (0-2.0); EOS % 1.9 % (0-4.5); HEMATOCRIT 28.2 % (35.4-49); HEMOGLOBIN 9.3 GM/dL (11.7-16.9); LYMPH % 21.2 % (8-40); MEAN CELL VOLUME 84.7 fl (80-96); MONO % 7.8 % (3.8-10.2); NEUT % 68.8 % (42.8-82.8); PLATELET COUNT 269 K/MM3 (134-434); RBC 3.33 M/mm3 (4.00-5.60); RDW 13.4 % (11.9-15.9); WHITE BLOOD COUNT 8.7 K/mm3 (4.0-10.0)
[2019-04-23] MEDS ORDERED: glipiZIDE 5 MG TABLET (FP) ONE (06:43)
[2019-04-23] MEDS ORDERED: metFORMIN HCL 500 MG TABLET (FP) ONE (06:43)
[2019-04-23] MEDS: INSULIN SLIDING SCALE (NOVOLOG) 1 VIAL SQ SCH ×4 (06:51→21:02)
[2019-04-23] MEDS ORDERED: INSULIN (LEVEMIR) 100 UNITS/ML UNITS SQ SCH (07:00)
[2019-04-23] MEDS ORDERED: glipiZIDE 5 MG TABLET (FP) PO SCH (07:00)
[2019-04-23] MEDS ORDERED: metFORMIN HCL 500 MG TABLET (FP) PO SCH (07:00)
[2019-04-23 07:10] LABS: ALBUMIN 2.1 g/dl (3.4-5.0); ALK PHOS 138 U/L (45-117); ANION GAP 5 MMOL/L (8-16); BILIRUBIN,TOTAL 0.2 mg/dL (0.2-1); BLOOD UREA NITROGEN 43.7 mg/dL (7-18); CALCIUM 8.1 mg/dL (8.5-10.1); CHLORIDE 115 mmol/L (98-107); CHOLESTEROL 163 mg/dL (50-200); CO2 25 mmol/L (21-32); CREATININE 4.5 mg/dL (0.55-1.3); GLUCOSE,RANDOM 98 mg/dL (74-106); HDL CHOLESTEROL 46 mg/dL (40-60); LDL CHOLESTEROL (ONLY SJRH) 103 mg/dL (5-100); MAGNESIUM 2.4 mg/dL (1.8-2.4); N-TERMINAL BNP 12125.8 pg/ml (5-125); PHOSPHOROUS 4.9 mg/dL (2.5-4.9); POTASSIUM 4.8 mmol/L (3.5-5.1); SGOT/AST 15 U/L (15-37); SGPT/ALT 18 U/L (13-61); SODIUM 144 mmol/L (136-145); TOT PROT 5.4 g/dl (6.4-8.2); TRIGLYCERIDES 125 mg/dL (0-150)
[2019-04-23] MEDS ORDERED: HEPARIN NA (PORCINE) 5,000 UNITS/ML 1ML VIAL ONE (10:24)
[2019-04-23] MEDS ORDERED: LISINOPRIL 20 MG TABLET (FP) ONE (10:24)
[2019-04-23] MEDS: HEPARIN NA (PORCINE) 5,000 UNITS/ML 1ML VIAL SQ SCH ×2 (10:28→21:02)
[2019-04-23] MEDS: LISINOPRIL 20 MG TABLET (FP) PO SCH (10:29)
--- NOTE | 2019-04-23 11:04 | HP ---
Admitting History and Physical - Admission Chief Complaint: sent in for abnormal CT scan History of Present Illness: 48m with pmh of Dm2 and htn, sent from Urologist office Dr. Hernandez for ct findings of pericardial effusion and pleural effusion. He was evaluated there for microscopic hematuria, sent for ct to r/o kidney stone. History Source: Patient, Medical Record - Past Medical History Cardiovascular: Yes: HTN Endocrine: Yes: Diabetes Mellitus - Smoking History Smoking history: Never smoked Have you smoked in the past 12 months: Yes If you are a former smoker, when did you quit?: 1 MO AGO - Alcohol/Substance Use Hx Alcohol Use: No Home Medications - Allergies Allergies/Adverse Reactions: Allergies Allergy/AdvReac Type Severity Reaction Status Date / Time No Known Allergies Allergy Verified 04/22/19 14:29 - Home Medications Home Medications: Ambulatory Orders Glipizide 5 mg PO DAILY 09/30/16 Lisinopril 20 mg PO BID 09/30/16 Metformin HCl [Glucophage] 1,000 mg PO BID 09/30/16 Insulin (Levemir) [Levemir Vial] 15 units SQ AM #1 pkg 10/04/16 Picc Line Flush [Picc Line Flush -] 8 ml IVPUSH PRN PRN #0 ml 10/04/16 Vancomycin 1,500 mg IVPB DAILY #30 vial 10/04/16 Review of Systems - Review of Systems Cardiovascular: reports: No Symptoms Respiratory: reports: No Symptoms Gastrointestinal: reports: No Symptoms Physical Examination Vital Signs: Vital Signs Temperature 98.9 F 04/23/19 06:53 Pulse Rate 80 04/23/19 06:53 Respiratory Rate 18 04/23/19 06:53 Blood Pressure 163/90 04/23/19 06:53 O2 Sat by Pulse Oximetry (%) 98 04/23/19 06:53 Constitutional: Yes: Calm Neck: Yes: Trachea Midline Cardiovascular: Yes: Regular Rate and Rhythm, S1, S2 Respiratory: Yes: Diminished Gastrointestinal: Yes: Normal Bowel Sounds, Soft Edema: No Labs: CBC, BMP 04/23/19 05:52 04/23/19 05:52 Imaging - Results Cat Scan: Report Reviewed (pericardial and pleural effusion) Problem List - Problems (1) Pericardial effusion Assessment/Plan: echo CTS and cardiology consult Code(s): I31.3 - PERICARDIAL EFFUSION (NONINFLAMMATORY) (2) Pleural effusion Assessment/Plan: iv direutics bid IR evaluaiton for possible thoracocentesis pulmonary evaluation Code(s): J90 - PLEURAL EFFUSION, NOT ELSEWHERE CLASSIFIED (3) Diabetes Assessment/Plan: bgm [id number] levemir hold metformin for now Code(s): E11.9 - TYPE 2 DIABETES MELLITUS WITHOUT COMPLICATIONS Qualifiers: Diabetes mellitus type: type 2 (4) Renal insufficiency Assessment/Plan: renal sono renal eval hold acei Code(s): N28.9 - DISORDER OF KIDNEY AND URETER, UNSPECIFIED (5) HTN (hypertension) Assessment/Plan: stop acei hydralaizne 25mg tid Code(s): I10 - ESSENTIAL (PRIMARY) HYPERTENSION (6) Anemia Assessment/Plan: iron panel Code(s): D64.9 - ANEMIA, UNSPECIFIED (7) GERD (gastroesophageal reflux disease) Assessment/Plan: PPI Code(s): K21.9 - GASTRO-ESOPHAGEAL REFLUX DISEASE WITHOUT ESOPHAGITIS
--- NOTE | 2019-04-23 12:00 | EKG ---
Test Reason : Blood Pressure : / mmHG Vent. Rate : 081 BPM Atrial Rate : 081 BPM P-R Int : 150 ms QRS Dur : 128 ms QT Int : 390 ms P-R-T Axes : 052 048 011 degrees QTc Int : 453 ms NORMAL SINUS RHYTHM POSSIBLE LEFT ATRIAL ENLARGEMENT RIGHT BUNDLE BRANCH BLOCK ABNORMAL ECG WHEN COMPARED WITH ECG OF 01-OCT-2016 08:33, RIGHT BUNDLE BRANCH BLOCK IS NOW PRESENT Confirmed by JESSICA HULL, GREY ([id number]) on 04/23/2019 11:59:59 AM Referred By: Confirmed By:GREY LOPEZ MD
[2019-04-23] MEDS ORDERED: FUROSEMIDE 40 MG/4 ML INJECTABLE VIAL IVPUSH ONE (12:49)
[2019-04-23] MEDS: PANTOPRAZOLE 40 MG TABLET (FP) PO SCH (13:23)
--- NOTE | 2019-04-23 13:28 | CON.PULM ---
Consult Consult Specialty:: PULMONARY Referred by:: Dr Ojeda Reason for Consultation:: shortness of breath - History of Present Illness Chief Complaint: shortness of breath History of Present Illness: 48yo male with h/o HTN, DM who was sent from his urologist for findings of pleural/pericardial effusions. He reports increasing shortness of breath for the past 4 months. No chest pain or palpitations. No fevers, chills or sweats. Reports a cough productive of white sputum without wheezing. Reports increased leg swelling as well. He is a nonsmoker but works in construction. - History Source History Provided By: Patient, Medical Record Limitations to Obtaining History: No Limitations - Past Medical History Cardio/Vascular: Yes: HTN Endocrine: Yes: Diabetes Mellitus - Alcohol/Substance Use Hx Alcohol Use: No - Smoking History Smoking history: Never smoked Have you smoked in the past 12 months: Yes If you are a former smoker, when did you quit?: 1 MO AGO Home Medications - Allergies Allergies/Adverse Reactions: Allergies Allergy/AdvReac Type Severity Reaction Status Date / Time No Known Allergies Allergy Verified 04/22/19 14:29 - Home Medications Home Medications: Ambulatory Orders Glipizide 5 mg PO DAILY 09/30/16 Lisinopril 20 mg PO BID 09/30/16 Metformin HCl [Glucophage] 1,000 mg PO BID 09/30/16 Insulin (Levemir) [Levemir Vial] 15 units SQ AM #1 pkg 10/04/16 Picc Line Flush [Picc Line Flush -] 8 ml IVPUSH PRN PRN #0 ml 10/04/16 Vancomycin 1,500 mg IVPB DAILY #30 vial 10/04/16 Review of Systems - Review of Systems Constitutional: denies: Chills, Fever, Weakness Eyes: denies: Recent Change in Vision HENT: denies: Nasal Congestion, Throat Pain Neck: denies: Stiffness, Tenderness Cardiovascular: reports: Edema, Shortness of Breath. denies: Chest Pain Respiratory: reports: Cough. denies: Hemoptysis, Wheezing Gastrointestinal: denies: Abdominal Pain, Nausea, Vomiting Genitourinary: denies: Dysuria, Hematuria Neurological: denies: Dizziness, Headache Endocrine: denies: Unexplained Weight Loss Physical Exam Vital Sings: Vital Signs Temperature 98.6 F 04/23/19 10:00 Pulse Rate 80 04/23/19 10:00 Respiratory Rate 17 04/23/19 10:00 Blood Pressure 179/91 H 04/23/19 10:00 O2 Sat by Pulse Oximetry (%) 97 04/23/19 10:00 Constitutional: Yes: Calm Eyes: Yes: Conjunctiva Clear, EOM Intact HENT: Yes: Atraumatic, Normocephalic Neck: Yes: Supple, Trachea Midline Cardiovascular: Yes: Regular Rate and Rhythm Respiratory: Yes: Diminished (decreased breath sounds at the bases) ...Clubbing: Yes Gastrointestinal: Yes: Normal Bowel Sounds, Soft. No: Tenderness Edema: Yes Labs: CBC, BMP 04/23/19 05:52 04/23/19 05:52 Imaging - Results Cat Scan: Report Reviewed, Image Reviewed (bilateral pleural effusions with atelectasis, pericardial effusion) Problem List - Problems (1) Pericardial effusion Code(s): I31.3 - PERICARDIAL EFFUSION (NONINFLAMMATORY) (2) Pleural effusion Code(s): J90 - PLEURAL EFFUSION, NOT ELSEWHERE CLASSIFIED Assessment/Plan Pleural/Pericardial Effusions Acute Kidney Injury Volume Overload r/o CHF HTN DM - IV lasix - monitor urine output, creatinine - daily weights - O2 to keep SpO2 >90% - echocardiogram - send REMEDIOS, CRP, ESR - renal eval - ?biopsy - DVT prophylaxis Thank you for this consult Armani Soria MD
--- NOTE | 2019-04-23 15:19 | PN ---
Progress Note (short form) - Note Progress Note: Thoracic Surgery Attending: Evalated imaging. ? Pleuropericarditis? Recommend ultrasound guided thoracentesis and echocardiogram.
--- NOTE | 2019-04-23 15:58 | ECHO ---
Name: VALENTÍN SANTANAO Exam:Adult Echocardiogram Study Date: 04/23/2019 02:05 PM Age: 48 yrs Reason For Study: Pericardial Effusion Height: 61 in Weight: 151 lb BSA: 1.7 m2 MMode/2D Measurements & Calculations IVSd: 0.91 cm Ao root diam: 2.6 cm LVIDd: 4.3 cm LA dimension: 4.1 cm LVIDs: 3.0 cm LVPWd: 1.1 cm LVPWs: 1.6 cm EDV(Teich): 83.8 ml ESV(Teich): 35.9 ml LVOT diam: 2.1 cm LAV (MOD-bp): 65.4 ml TAPSE: 2.2 cm RV S Naveen: 11.5 cm/sec Doppler Measurements & Calculations MV E max naveen: 128.0 cm/sec Ao V2 max: 152.3 cm/sec MV A max naveen: 75.2 cm/sec Ao max P.3 mmHg MV E/A: 1.7 ANTONIA(V,D): 1.9 cm2 MV dec time: 0.10 sec LV V1 max P.0 mmHg MR max naveen: 543.6 cm/sec LV V1 max: 87.3 cm/sec MR max P.2 mmHg PA V2 max: 120.8 cm/sec Med Peak E' Naveen: 5.8 cm/sec PA max P.8 mmHg Med E/e': 22.2 Lat Peak E' Naveen: 8.4 cm/sec Lat E/e': 15.3 Procedure A complete two-dimensional transthoracic echocardiogram was performed (2D, M-mode, Doppler and color flow Doppler). Left Ventricle The left ventricular size, thickness and function are normal. The left ventricular ejection fraction is normal. Ejection Fraction = 60-65%. The left ventricular wall motion is normal. Right Ventricle The right ventricle is normal in size and function. Atria Normal left and right atrial size and function. Mitral Valve There is mild mitral regurgitation. Tricuspid Valve There is trace tricuspid regurgitation. There was insufficient TR detected to calculate RV systolic p ressure. Aortic Valve No hemodynamically significant valvular aortic stenosis. No aortic regurgitation is present. Pulmonic Valve There is no pulmonic valvular regurgitation. Great Vessels The aortic root is normal size. Pericardium/Pleura Small pericardial effusion (<1cm). There are no echocardiographic indications of cardiac tamponade. Interpretation Summary The left ventricular size, thickness and function are normal The right ventricle is normal in size and function. There is mild mitral regurgitation. There is trace tricuspid regurgitation. Small pericardial effusion (<1cm) There are no echocardiographic indications of cardiac tamponade. MD Juanjose Phan 04/23/2019 03:57 PM
--- NOTE | 2019-04-23 16:07 | CONSULT ---
Consult Consult Specialty:: Nephrology Reason for Consultation:: MEGHAN - History of Present Illness Chief Complaint: sent in for pericardial effusion History of Present Illness: Pt is a 48 year old male with pmhx of dm, ckd and htn who was sent in for pericardal effusion. He presented to me in the office a few weeks ago for a ckd workup. He complains of shortness of breath and lower ext edema. He feels that his breathing is improved. He does get night sweats at times. He denies weight loss. He denies nsaid use. - History Source History Provided By: Patient, Medical Record - Past Medical History Cardio/Vascular: Yes: HTN Renal/: Yes: Renal Inusuff Endocrine: Yes: Diabetes Mellitus - Alcohol/Substance Use Hx Alcohol Use: No - Smoking History Smoking history: Never smoked Have you smoked in the past 12 months: Yes If you are a former smoker, when did you quit?: 1 MO AGO Home Medications - Allergies Allergies/Adverse Reactions: Allergies Allergy/AdvReac Type Severity Reaction Status Date / Time No Known Allergies Allergy Verified 04/22/19 14:29 - Home Medications Home Medications: Ambulatory Orders Glipizide 5 mg PO DAILY 09/30/16 Lisinopril 20 mg PO BID 09/30/16 Metformin HCl [Glucophage] 1,000 mg PO BID 09/30/16 Insulin (Levemir) [Levemir Vial] 15 units SQ AM #1 pkg 10/04/16 Picc Line Flush [Picc Line Flush -] 8 ml IVPUSH PRN PRN #0 ml 10/04/16 Vancomycin 1,500 mg IVPB DAILY #30 vial 10/04/16 Family Medical History Family History: Denies Review of Systems - Review of Systems Constitutional: reports: Malaise Eyes: reports: No Symptoms HENT: reports: No Symptoms Neck: reports: No Symptoms Cardiovascular: reports: Edema Respiratory: reports: SOB on Exertion Gastrointestinal: reports: No Symptoms Musculoskeletal: reports: No Symptoms Integumentary: reports: No Symptoms Neurological: reports: No Symptoms Endocrine: reports: No Symptoms Hematology/Lymphatic: reports: No Symptoms Psychiatric: reports: No Symptoms Physical Exam Vital Signs: Vital Signs Temperature 98.6 F 04/23/19 10:00 Pulse Rate 80 04/23/19 10:00 Respiratory Rate 17 04/23/19 10:00 Blood Pressure 179/91 H 04/23/19 10:00 O2 Sat by Pulse Oximetry (%) 97 04/23/19 10:00 Constitutional: Yes: Calm Eyes: Yes: Conjunctiva Clear HENT: Yes: Atraumatic Cardiovascular: Yes: S1, S2 Respiratory: Yes: On Nasal O2, Rhonchi Gastrointestinal: Yes: Soft Renal/: Yes: WNL Musculoskeletal: Yes: WNL Edema: Yes Edema: LLE: 2+, RLE: 2+ Neurological: Yes: Oriented Psychiatric: Yes: Oriented Labs: CBC, BMP 04/23/19 05:52 04/23/19 05:52 Laboratory Tests 04/22/19 04/22/19 04/23/19 17:00 18:03 05:52 Creatinine 4.5 H 4.5 H Urine Protein 3+ H Imaging - Results Chest X-ray: Report Reviewed Problem List - Problems (1) Anemia Code(s): D64.9 - ANEMIA, UNSPECIFIED (2) GERD (gastroesophageal reflux disease) Code(s): K21.9 - GASTRO-ESOPHAGEAL REFLUX DISEASE WITHOUT ESOPHAGITIS (3) HTN (hypertension) Code(s): I10 - ESSENTIAL (PRIMARY) HYPERTENSION (4) Nephrotic syndrome Code(s): N04.9 - NEPHROTIC SYNDROME WITH UNSPECIFIED MORPHOLOGIC CHANGES (5) Pericardial effusion Code(s): I31.3 - PERICARDIAL EFFUSION (NONINFLAMMATORY) Assessment/Plan Current Medications Generic Name Dose Route Start Last Admin Trade Name Freq PRN Reason Stop Dose Admin Furosemide 40 mg 04/23/19 14:00 Lasix Injection - IVPUSH BID@0600,1400 [facility] Heparin Sodium (Porcine) 5,000 unit 04/22/19 22:00 04/23/19 10:28 Heparin - SQ 5,000 unit BID [facility] Administration Hydralazine HCl 25 mg 04/23/19 14:00 Apresoline - PO TID [facility] Insulin Aspart 1 vial 04/22/19 22:00 04/23/19 11:35 Novolog Vial Sliding Scale - SQ Not Given ACHS [facility] Protocol Pantoprazole Sodium 40 mg 04/23/19 13:00 04/23/19 13:23 Protonix - PO 40 mg DAILY [facility] Administration 04/08 labs manager clinical 3.5 k 5.6 he b s ag neg hep b core neg hcv neg imfxn neg kala neg gbm neg dsdna neg anca quant insufficient spep suggest inflammatory patern Impression 1. MEGHAN 2. CKD 3. htn 4. pericardial effusion 5. pleural effusion 6. hyperkalemia 7. DM Plan - check anca - hold berry as manager clinical is rising and potassium elevated - check prt to manager clinical ratio - cont with lasix - follow up echo - repeat spep - monitor volume status Dr Garcia
[2019-04-23] MEDS: hydrALAZINE HCL 25 MG TABLET (FP) PO SCH ×2 (16:14→21:02)
[2019-04-23] MEDS: FUROSEMIDE 40 MG/4 ML INJECTABLE VIAL IVPUSH SCH (16:14)
--- NOTE | 2019-04-23 16:39 | CON.CARD ---
Consult Consult Specialty:: Cardiology Reason for Consultation:: pericardial effusion - History of Present Illness Chief Complaint: Sent from History of Present Illness: This is a 48 year old male with a PMH of HTN, and DM. He was sent from his urologist because on CT scan done for renal stones he was found to have a pleural/pericardial effusions. Echocardiogram showed a small pericardial effusion with normal LV function. No cardiac symptoms - Past Medical History Cardio/Vascular: Yes: HTN Renal/: Yes: Renal Inusuff Endocrine: Yes: Diabetes Mellitus - Alcohol/Substance Use Hx Alcohol Use: No - Smoking History Smoking history: Never smoked Have you smoked in the past 12 months: Yes If you are a former smoker, when did you quit?: 1 MO AGO Home Medications - Allergies Allergies/Adverse Reactions: Allergies Allergy/AdvReac Type Severity Reaction Status Date / Time No Known Allergies Allergy Verified 04/22/19 14:29 - Home Medications Home Medications: Ambulatory Orders Glipizide 5 mg PO DAILY 09/30/16 Lisinopril 20 mg PO BID 09/30/16 Metformin HCl [Glucophage] 1,000 mg PO BID 09/30/16 Insulin (Levemir) [Levemir Vial] 15 units SQ AM #1 pkg 10/04/16 Picc Line Flush [Picc Line Flush -] 8 ml IVPUSH PRN PRN #0 ml 10/04/16 Vancomycin 1,500 mg IVPB DAILY #30 vial 10/04/16 Vital Signs: Vital Signs Temperature 98.6 F 04/23/19 10:00 Pulse Rate 80 04/23/19 10:00 Respiratory Rate 17 04/23/19 10:00 Blood Pressure 179/91 H 04/23/19 10:00 O2 Sat by Pulse Oximetry (%) 97 04/23/19 10:00 Constitutional: Yes: No Distress Eyes: Yes: WNL HENT: Yes: WNL Neck: Yes: WNL Respiratory: Yes: Rhonchi (Scattered bilateral rhonchi) Cardiovascular: Yes: Regular Rate and Rhythm Heart Sounds: Yes: S1, S2 Extremities: Yes: WNL Edema: No Neurological: Yes: Alert, Oriented - Other Data Labs, Other Data: CBC, BMP 04/23/19 05:52 04/23/19 05:52 INR, PTT INR 1.05 (0.83-1.09) 04/22/19 14:45 Troponin, BNP 04/23/19 05:52 Troponin I < 0.02 B-Natriuretic Peptide 62582.8 H Troponin, BNP 04/23/19 05:52 Troponin I < 0.02 B-Natriuretic Peptide 86614.8 H Assessment/Plan 48 year old male with a PMH of HTN, and DM. He was sent from his urologist because on CT scan done for renal stones he was found to have a pleural/ pericardial effusions. Echocardiogram showed a small pericardial effusion with normal LV function. No cardiac symptoms BNP^ Diastolic CHF Furosemide (Lasix Injection -) 40 mg IVPUSH BID Daily I's/O's/Wt's/Lytes Pericardial Effusion is small on echocardiogram Would repeat echocardiogram after diuresis to confirm resolution Active Medications Furosemide (Lasix Injection -) 40 mg IVPUSH BID@0600,1400 [facility] Last Admin: 04/23/19 16:14 Dose: 40 mg Heparin Sodium (Porcine) (Heparin -) 5,000 unit SQ BID [facility] Last Admin: 04/23/19 10:28 Dose: 5,000 unit Hydralazine HCl (Apresoline -) 25 mg PO TID [facility] Last Admin: 04/23/19 16:14 Dose: 25 mg Insulin Aspart (Novolog Vial Sliding Scale -) 1 vial SQ ACHS [facility]; Protocol Last Admin: 04/23/19 11:35 Dose: Not Given Pantoprazole Sodium (Protonix -) 40 mg PO DAILY [facility] Last Admin: 04/23/19 13:23 Dose: 40 mg
[2019-04-24] MEDS: hydrALAZINE HCL 25 MG TABLET (FP) PO SCH ×3 (06:31→21:20)
[2019-04-24] MEDS: FUROSEMIDE 40 MG/4 ML INJECTABLE VIAL IVPUSH SCH ×2 (06:31→13:19)
[2019-04-24] MEDS: INSULIN SLIDING SCALE (NOVOLOG) 1 VIAL SQ SCH ×4 (06:34→22:24)
[2019-04-24 06:39] LABS: BASO % 0.4 % (0-2.0); EOS % 2.1 % (0-4.5); HEMATOCRIT 29.6 % (35.4-49); HEMOGLOBIN 9.7 GM/dL (11.7-16.9); LYMPH % 22.2 % (8-40); MCH 28.1 pg (25.7-33.7); MCHC 32.9 g/dl (32.0-35.9); MEAN CELL VOLUME 85.4 fl (80-96); MEAN PLT VOLUME 9.7 fl (7.5-11.1); MONO % 8.7 % (3.8-10.2); NEUT % 66.6 % (42.8-82.8); PLATELET COUNT 277 K/MM3 (134-434); RBC 3.46 M/mm3 (4.00-5.60); RDW 13.4 % (11.9-15.9); WHITE BLOOD COUNT 8.8 K/mm3 (4.0-10.0)
[2019-04-24 07:06] LABS: IRON SERUM 49 ug/dL (50-175); TOTAL IRON BINDING CAPACITY 227 ug/dL (250-450)
[2019-04-24 07:08] LABS: ALBUMIN 2.2 g/dl (3.4-5.0); BILIRUBIN,TOTAL 0.2 mg/dL (0.2-1); BLOOD UREA NITROGEN 40.6 mg/dL (7-18); CALCIUM 7.9 mg/dL (8.5-10.1); CREATININE 4.3 mg/dL (0.55-1.3); POTASSIUM 4.7 mmol/L (3.5-5.1); TOT PROT 5.8 g/dl (6.4-8.2)
[2019-04-24] MEDS: PANTOPRAZOLE 40 MG TABLET (FP) PO SCH (09:47)
[2019-04-24] MEDS: HEPARIN NA (PORCINE) 5,000 UNITS/ML 1ML VIAL SQ SCH ×2 (09:48→21:20)
--- NOTE | 2019-04-24 12:08 | PN ---
Progress Note, Physician History of Present Illness: PULMONARY ALERT,FEELING BETTER,LESS DYSPNEIC - Current Medication List Current Medications: Active Medications Furosemide (Lasix Injection -) 40 mg IVPUSH BID@0600,1400 [facility] Last Admin: 04/24/19 06:31 Dose: 40 mg Heparin Sodium (Porcine) (Heparin -) 5,000 unit SQ BID [facility] Last Admin: 04/24/19 09:48 Dose: Not Given Hydralazine HCl (Apresoline -) 25 mg PO TID [facility] Last Admin: 04/24/19 06:31 Dose: 25 mg Insulin Aspart (Novolog Vial Sliding Scale -) 1 vial SQ ACHS [facility]; Protocol Last Admin: 04/24/19 11:55 Dose: Not Given Pantoprazole Sodium (Protonix -) 40 mg PO DAILY [facility] Last Admin: 04/24/19 09:47 Dose: 40 mg - Objective Vital Signs: Vital Signs Temperature 98.8 F 04/24/19 10:00 Pulse Rate 86 04/24/19 10:00 Respiratory Rate 20 04/24/19 10:00 Blood Pressure 187/96 H 04/24/19 10:00 O2 Sat by Pulse Oximetry (%) 96 04/24/19 10:00 Constitutional: Yes: Well Nourished, Calm Eyes: Yes: WNL HENT: Yes: WNL Neck: Yes: WNL Cardiovascular: Yes: Regular Rate and Rhythm, S1, S2 Respiratory: Yes: CTA Bilaterally Gastrointestinal: Yes: Normal Bowel Sounds, Soft Extremities: Yes: WNL Edema: Yes Edema: LLE: Trace, RLE: Trace Labs: CBC, BMP 04/24/19 06:15 04/24/19 06:15 INR, PTT INR 1.05 (0.83-1.09) 04/22/19 14:45 - ....Imaging Cat Scan: Report Reviewed, Image Reviewed Assessment/Plan Problem List - Problems (1) Pericardial effusion Code(s): I31.3 - PERICARDIAL EFFUSION (NONINFLAMMATORY) (2) Pleural effusion Code(s): J90 - PLEURAL EFFUSION, NOT ELSEWHERE CLASSIFIED Assessment/Plan Pleural/Pericardial Effusions Acute Kidney Injury Volume Overload r/o CHF HTN DM - IV lasix - monitor urine output, creatinine - daily weights - O2 to keep SpO2 >90% - REMEDIOS, CRP, ESR pending - DVT prophylaxis DR VERMA
--- NOTE | 2019-04-24 12:09 | PN ---
Progress Note, Physician History of Present Illness: Pt seen and examined at bedside. He is awake and alert. he feels that his breathing is improved. - Current Medication List Current Medications: Active Medications Furosemide (Lasix Injection -) 40 mg IVPUSH BID@0600,1400 [facility] Last Admin: 04/24/19 06:31 Dose: 40 mg Heparin Sodium (Porcine) (Heparin -) 5,000 unit SQ BID [facility] Last Admin: 04/24/19 09:48 Dose: Not Given Hydralazine HCl (Apresoline -) 25 mg PO TID [facility] Last Admin: 04/24/19 06:31 Dose: 25 mg Insulin Aspart (Novolog Vial Sliding Scale -) 1 vial SQ ACHS [facility]; Protocol Last Admin: 04/24/19 11:55 Dose: Not Given Pantoprazole Sodium (Protonix -) 40 mg PO DAILY [facility] Last Admin: 04/24/19 09:47 Dose: 40 mg - Objective Vital Signs: Vital Signs Temperature 98.8 F 04/24/19 10:00 Pulse Rate 86 04/24/19 10:00 Respiratory Rate 20 04/24/19 10:00 Blood Pressure 187/96 H 04/24/19 10:00 O2 Sat by Pulse Oximetry (%) 96 04/24/19 10:00 Constitutional: Yes: Calm Eyes: Yes: Conjunctiva Clear HENT: Yes: Atraumatic Neck: Yes: Supple Cardiovascular: Yes: S1, S2 Respiratory: Yes: CTA Bilaterally Gastrointestinal: Yes: Soft Genitourinary: Yes: WNL Musculoskeletal: Yes: WNL Edema: Yes Edema: LLE: 1+, RLE: 1+ Neurological: Yes: Oriented Psychiatric: Yes: Oriented Labs: CBC, BMP 04/24/19 06:15 04/24/19 06:15 INR, PTT INR 1.05 (0.83-1.09) 04/22/19 14:45 Problem List - Problems (1) Anemia Code(s): D64.9 - ANEMIA, UNSPECIFIED (2) GERD (gastroesophageal reflux disease) Code(s): K21.9 - GASTRO-ESOPHAGEAL REFLUX DISEASE WITHOUT ESOPHAGITIS (3) HTN (hypertension) Code(s): I10 - ESSENTIAL (PRIMARY) HYPERTENSION (4) Nephrotic syndrome Code(s): N04.9 - NEPHROTIC SYNDROME WITH UNSPECIFIED MORPHOLOGIC CHANGES (5) Pericardial effusion Code(s): I31.3 - PERICARDIAL EFFUSION (NONINFLAMMATORY) Assessment/Plan Current Medications Generic Name Dose Route Start Last Admin Trade Name Vikash PRN Reason Stop Dose Admin Furosemide 40 mg 04/23/19 14:00 04/24/19 06:31 Lasix Injection - IVPUSH 40 mg BID@0600,1400 [facility] Administration Heparin Sodium (Porcine) 5,000 unit 04/22/19 22:00 04/24/19 09:48 Heparin - SQ Not Given BID [facility] Hydralazine HCl 25 mg 04/23/19 14:00 04/24/19 06:31 Apresoline - PO 25 mg TID [facility] Administration Insulin Aspart 1 vial 04/22/19 22:00 04/24/19 11:55 Novolog Vial Sliding Scale - SQ Not Given ACHS [facility] Protocol Pantoprazole Sodium 40 mg 04/23/19 13:00 04/24/19 09:47 Protonix - PO 40 mg DAILY [facility] Administration 04/08 labs bench molder 3.5 k 5.6 he b s ag neg hep b core neg hcv neg imfxn neg kala neg gbm neg dsdna neg anca quant insufficient spep suggest inflammatory patern Laboratory Tests 04/24/19 06:15 Total Protein (PEP) Pending Impression 1. MEGHAN 2. CKD 3. htn 4. pericardial effusion 5. pleural effusion 6. hyperkalemia 7. DM 8. nephrotic protienuria Plan - cont lasix - follow anca - kidney biopsy once stable - cardio input appreciated - repeat spep - monitor volume status Dr Garcia
[2019-04-24 12:13] LABS: URINE UREA NITROGEN 177 mg/dL (350-1000)
--- NOTE | 2019-04-24 14:33 | PN ---
Progress Note, Physician Chief Complaint: patient feeling alot better on iv lasix - Current Medication List Current Medications: Active Medications Furosemide (Lasix Injection -) 40 mg IVPUSH BID@0600,1400 [facility] Last Admin: 04/24/19 13:19 Dose: 40 mg Heparin Sodium (Porcine) (Heparin -) 5,000 unit SQ BID [facility] Last Admin: 04/24/19 09:48 Dose: Not Given Hydralazine HCl (Apresoline -) 25 mg PO TID [facility] Last Admin: 04/24/19 13:19 Dose: 25 mg Insulin Aspart (Novolog Vial Sliding Scale -) 1 vial SQ ACHS [facility]; Protocol Last Admin: 04/24/19 11:55 Dose: Not Given Pantoprazole Sodium (Protonix -) 40 mg PO DAILY [facility] Last Admin: 04/24/19 09:47 Dose: 40 mg - Objective Vital Signs: Vital Signs Temperature 98.5 F 04/24/19 14:00 Pulse Rate 88 04/24/19 14:00 Respiratory Rate 20 04/24/19 14:00 Blood Pressure 187/99 H 04/24/19 14:00 O2 Sat by Pulse Oximetry (%) 96 04/24/19 10:00 Constitutional: Yes: Calm Cardiovascular: Yes: Regular Rate and Rhythm, S1, S2 Respiratory: Yes: CTA Bilaterally Gastrointestinal: Yes: Normal Bowel Sounds, Soft Edema: No Labs: CBC, BMP 04/24/19 06:15 04/24/19 06:15 INR, PTT INR 1.05 (0.83-1.09) 04/22/19 14:45 Problem List - Problems (1) Pericardial effusion Assessment/Plan: echo noted small pericardial effusion CTS and cardiology consult noted Code(s): I31.3 - PERICARDIAL EFFUSION (NONINFLAMMATORY) (2) Pleural effusion Assessment/Plan: iv direutics bid Code(s): J90 - PLEURAL EFFUSION, NOT ELSEWHERE CLASSIFIED (3) Diabetes Assessment/Plan: bgm [id number] levemir hold metformin for now Code(s): E11.9 - TYPE 2 DIABETES MELLITUS WITHOUT COMPLICATIONS Qualifiers: Diabetes mellitus type: type 2 (4) Renal insufficiency Assessment/Plan: renal sono renal eval hold acei Code(s): N28.9 - DISORDER OF KIDNEY AND URETER, UNSPECIFIED (5) HTN (hypertension) Assessment/Plan: stop acei hydralaizne 25mg tid Code(s): I10 - ESSENTIAL (PRIMARY) HYPERTENSION (6) Anemia Assessment/Plan: iron panel Code(s): D64.9 - ANEMIA, UNSPECIFIED (7) GERD (gastroesophageal reflux disease) Code(s): K21.9 - GASTRO-ESOPHAGEAL REFLUX DISEASE WITHOUT ESOPHAGITIS
--- NOTE | 2019-04-24 16:38 | CONSULT ---
Consult Consult Specialty:: Thoracic Surgery Referred by:: Medicine Reason for Consultation:: Pleural and pericardial effusion - History of Present Illness Chief Complaint: incidentally found effusions History of Present Illness: 48M with DM referred to ED for effusions after imaging for renal stones. No unintentional weight loss. Endorses night sweats but no fevers. No ill contacts. - History Source History Provided By: Patient Limitations to Obtaining History: No Limitations - Past Medical History Cardio/Vascular: Yes: HTN Renal/: Yes: Renal Inusuff Endocrine: Yes: Diabetes Mellitus - Alcohol/Substance Use Hx Alcohol Use: No - Smoking History Smoking history: Never smoked Have you smoked in the past 12 months: Yes If you are a former smoker, when did you quit?: 1 MO AGO Home Medications - Allergies Allergies/Adverse Reactions: Allergies Allergy/AdvReac Type Severity Reaction Status Date / Time No Known Allergies Allergy Verified 04/22/19 14:29 - Home Medications Home Medications: Ambulatory Orders Glipizide 5 mg PO DAILY 09/30/16 Lisinopril 20 mg PO BID 09/30/16 Metformin HCl [Glucophage] 1,000 mg PO BID 09/30/16 Insulin (Levemir) [Levemir Vial] 15 units SQ AM #1 pkg 10/04/16 Picc Line Flush [Picc Line Flush -] 8 ml IVPUSH PRN PRN #0 ml 10/04/16 Vancomycin 1,500 mg IVPB DAILY #30 vial 10/04/16 Family Medical History Family History: Unable to Obtain, Denies, Unremarkable Review of Systems - Review of Systems Constitutional: reports: Night Sweats Eyes: reports: No Symptoms HENT: reports: No Symptoms Neck: reports: No Symptoms Cardiovascular: reports: No Symptoms Respiratory: reports: No Symptoms Gastrointestinal: reports: No Symptoms Genitourinary: reports: No Symptoms Breasts: reports: No Symptoms Reported Musculoskeletal: reports: No Symptoms Integumentary: reports: No Symptoms Neurological: reports: No Symptoms Physical Exam Vital Signs: Vital Signs Temperature 98.5 F 04/24/19 14:00 Pulse Rate 88 04/24/19 14:00 Respiratory Rate 20 04/24/19 14:00 Blood Pressure 187/99 H 04/24/19 14:00 O2 Sat by Pulse Oximetry (%) 96 04/24/19 10:00 Constitutional: Yes: Well Nourished Eyes: Yes: WNL HENT: Yes: WNL Neck: Yes: WNL Cardiovascular: Yes: WNL Respiratory: Yes: WNL Gastrointestinal: Yes: WNL ...Rectal Exam: Yes: WNL Labs: CBC, BMP 04/24/19 06:15 04/24/19 06:15 Imaging - Results Cat Scan: Report Reviewed, Image Reviewed Problem List - Problems (1) GERD (gastroesophageal reflux disease) Code(s): K21.9 - GASTRO-ESOPHAGEAL REFLUX DISEASE WITHOUT ESOPHAGITIS (2) Pericardial effusion Code(s): I31.3 - PERICARDIAL EFFUSION (NONINFLAMMATORY) (3) Pleural effusion Code(s): J90 - PLEURAL EFFUSION, NOT ELSEWHERE CLASSIFIED (4) Renal insufficiency Code(s): N28.9 - DISORDER OF KIDNEY AND URETER, UNSPECIFIED (5) Uremia Code(s): N19 - UNSPECIFIED KIDNEY FAILURE Assessment/Plan Incidentally found pleural pericardial effusions, asymptomatic but may have diastolic heart failure; -No thoracic intervention at this time; -Consider ppd/quantiferon bc of night sweats and can cause pleuropericarditis
[2019-04-25] MEDS: INSULIN SLIDING SCALE (NOVOLOG) 1 VIAL SQ SCH ×4 (06:37→21:59)
[2019-04-25] MEDS: FUROSEMIDE 40 MG/4 ML INJECTABLE VIAL IVPUSH SCH ×2 (06:39→13:48)
[2019-04-25] MEDS: hydrALAZINE HCL 25 MG TABLET (FP) PO SCH ×3 (06:39→21:58)
[2019-04-25] MEDS: HEPARIN NA (PORCINE) 5,000 UNITS/ML 1ML VIAL SQ SCH (09:20)
[2019-04-25] MEDS: PANTOPRAZOLE 40 MG TABLET (FP) PO SCH (09:20)
--- NOTE | 2019-04-25 11:18 | PN ---
Progress Note (short form) - Note Progress Note: Renal follow up for MEGHAN and fluid overload Coverage for Dr. Garcia Seen and examined at the bedside awake and alert offers no acute complaints making urine no sob, cp, abd pain Vital Signs Temperature 98.5 F 04/25/19 09:57 Pulse Rate 84 04/25/19 09:57 Respiratory Rate 20 04/25/19 09:57 Blood Pressure 149/80 04/25/19 09:57 O2 Sat by Pulse Oximetry (%) 95 04/25/19 09:57 Intake & Output 04/22/19 04/23/19 04/24/19 04/25/19 23:59 23:59 23:59 23:59 Intake Total 760 Balance 760 Weight 68.492 kg 67.2 kg 68.13 kg 67.132 kg NAD awake and alert RRR CTA soft NT/ND + trace edema in LE CBC, BMP 04/24/19 06:15 04/24/19 06:15 Current Medications Furosemide (Lasix Injection -) 40 mg IVPUSH BID@0600,1400 [facility] Last Admin: 04/25/19 06:39 Dose: 40 mg Heparin Sodium (Porcine) (Heparin -) 5,000 unit SQ BID [facility] Last Admin: 04/25/19 09:20 Dose: 5,000 unit Hydralazine HCl (Apresoline -) 25 mg PO TID [facility] Last Admin: 04/25/19 06:39 Dose: 25 mg Insulin Aspart (Novolog Vial Sliding Scale -) 1 vial SQ ACHS [facility]; Protocol Last Admin: 04/25/19 06:37 Dose: Not Given Pantoprazole Sodium (Protonix -) 40 mg PO DAILY [facility] Last Admin: 04/25/19 09:20 Dose: 40 mg Impression 1. MEGHAN 2. CKD 3. htn 4. pericardial effusion 5. pleural effusion 6. hyperkalemia 7. DM 8. nephrotic protienuria Plan Renal function stable thus far this admission no overt electrolyte or acid/base disturbance continue Lasix IV BID for volume management ANCA levels remain pending possible renal biopsy next week if clincialy stable No acute surgical intervention as per Thorasic surgery Trend renal function and electrolytes daily Tejinder Thompson DO
--- NOTE | 2019-04-25 11:33 | PN ---
Progress Note, Physician Chief Complaint: AWAKE ALERT EVENTS AND NOTES REVIEWED DENIES CP/SOB - Current Medication List Current Medications: Active Medications Furosemide (Lasix Injection -) 40 mg IVPUSH BID@0600,1400 [facility] Last Admin: 04/25/19 06:39 Dose: 40 mg Heparin Sodium (Porcine) (Heparin -) 5,000 unit SQ BID [facility] Last Admin: 04/25/19 09:20 Dose: 5,000 unit Hydralazine HCl (Apresoline -) 25 mg PO TID [facility] Last Admin: 04/25/19 06:39 Dose: 25 mg Insulin Aspart (Novolog Vial Sliding Scale -) 1 vial SQ ACHS [facility]; Protocol Last Admin: 04/25/19 11:33 Dose: Not Given Pantoprazole Sodium (Protonix -) 40 mg PO DAILY [facility] Last Admin: 04/25/19 09:20 Dose: 40 mg - Objective Vital Signs: Vital Signs Temperature 98.5 F 04/25/19 09:57 Pulse Rate 84 04/25/19 09:57 Respiratory Rate 20 04/25/19 09:57 Blood Pressure 149/80 04/25/19 09:57 O2 Sat by Pulse Oximetry (%) 95 04/25/19 09:57 Constitutional: Yes: No Distress Cardiovascular: Yes: Regular Rate and Rhythm Respiratory: Yes: WNL Gastrointestinal: Yes: WNL Genitourinary: Yes: WNL Extremities: Yes: WNL Edema: No Labs: CBC, BMP 04/24/19 06:15 04/24/19 06:15 INR, PTT INR 1.05 (0.83-1.09) 04/22/19 14:45 Problem List - Problems (1) Anemia Code(s): D64.9 - ANEMIA, UNSPECIFIED (2) HTN (hypertension) Code(s): I10 - ESSENTIAL (PRIMARY) HYPERTENSION (3) Pericardial effusion Code(s): I31.3 - PERICARDIAL EFFUSION (NONINFLAMMATORY) (4) Pleural effusion Code(s): J90 - PLEURAL EFFUSION, NOT ELSEWHERE CLASSIFIED Assessment/Plan RENAL BIOPSY SATURDAY NEPHROLOGY EVAL APPRECIATED OOB TO CHAIR BP AND DM CONTROL
--- NOTE | 2019-04-25 12:29 | PN ---
Progress Note (short form) - Note Progress Note: Feels better. No CP or SOB. No acute events overnight. Intake & Output 04/22/19 04/23/19 04/24/19 04/25/19 23:59 23:59 23:59 23:59 Intake Total 760 Balance 760 Weight 151 lb 148 lb 2.41 oz 150 lb 3.2 oz 148 lb Last Vital Signs Temp Pulse Resp BP Pulse Ox 98.5 F 84 20 149/80 95 04/25/19 09:57 04/25/19 09:57 04/25/19 09:57 04/25/19 09:57 04/25/19 09:57 Active Medications Furosemide (Lasix Injection -) 40 mg IVPUSH BID@0600,1400 [facility] Last Admin: 04/25/19 06:39 Dose: 40 mg Heparin Sodium (Porcine) (Heparin -) 5,000 unit SQ BID [facility] Last Admin: 04/25/19 09:20 Dose: 5,000 unit Hydralazine HCl (Apresoline -) 25 mg PO TID [facility] Last Admin: 04/25/19 06:39 Dose: 25 mg Insulin Aspart (Novolog Vial Sliding Scale -) 1 vial SQ ACHS [facility]; Protocol Last Admin: 04/25/19 11:33 Dose: Not Given Pantoprazole Sodium (Protonix -) 40 mg PO DAILY [facility] Last Admin: 04/25/19 09:20 Dose: 40 mg Constitutional: Yes: NAD Eyes: Yes: WNL HENT: Yes: WNL Neck: Yes: WNL Cardiovascular: Yes: Regular Rate and Rhythm, S1, S2 Respiratory: Yes: Clear Gastrointestinal: Yes: Normal Bowel Sounds, Soft Extremities: Yes: WNL Edema: Yes Edema: LLE: Trace, RLE: Trace Labs: Laboratory Results - last 24 hr 04/24/19 04/24/19 04/25/19 17:20 22:02 06:26 POC Glucometer 110 114 88 04/25/19 11:30 POC Glucometer 145 Assessment/Plan Problem List - Problems (1) Pericardial effusion Code(s): I31.3 - PERICARDIAL EFFUSION (NONINFLAMMATORY) (2) Pleural effusion Code(s): J90 - PLEURAL EFFUSION, NOT ELSEWHERE CLASSIFIED Assessment/Plan Pleural/Pericardial Effusions Acute Kidney Injury Volume Overload r/o CHF HTN DM - IV lasix - Daily weights - O2 to keep SpO2 >90% - Follow serology - DVT prophylaxis Dr Masterson
[2019-04-25] MEDS ORDERED: IRON SUCROSE INJECTION 300 MG in SODIUM CHLORIDE 235 ML IVPB ONE (17:00)
[2019-04-26] MEDS: INSULIN SLIDING SCALE (NOVOLOG) 1 VIAL SQ SCH ×4 (06:28→21:34)
[2019-04-26] MEDS: hydrALAZINE HCL 25 MG TABLET (FP) PO SCH ×3 (06:31→21:34)
[2019-04-26] MEDS: FUROSEMIDE 40 MG/4 ML INJECTABLE VIAL IVPUSH SCH ×2 (06:31→13:31)
[2019-04-26 08:01] LABS: ALBUMIN 2.2 g/dl (3.4-5.0); BILIRUBIN,TOTAL 0.3 mg/dL (0.2-1); BLOOD UREA NITROGEN 44.2 mg/dL (7-18); CALCIUM 8.3 mg/dL (8.5-10.1); CREATININE 4.3 mg/dL (0.55-1.3); MAGNESIUM 2.2 mg/dL (1.8-2.4); POTASSIUM 4.3 mmol/L (3.5-5.1); TOT PROT 5.6 g/dl (6.4-8.2)
[2019-04-26] MEDS: PANTOPRAZOLE 40 MG TABLET (FP) PO SCH (09:18)
--- NOTE | 2019-04-26 10:26 | PN ---
Progress Note (short form) - Note Progress Note: Renal follow up for MEGHAN and fluid overload Coverage for Dr. Garcia Seen and examined at the bedside awake and alert offers no acute complaints making urine no sob, cp, abd pain Vital Signs Temperature 98.8 F 04/26/19 09:00 Pulse Rate 84 04/26/19 09:00 Respiratory Rate 20 04/26/19 09:37 Blood Pressure 149/74 04/26/19 09:00 O2 Sat by Pulse Oximetry (%) 98 04/26/19 09:37 Intake & Output 04/23/19 04/24/19 04/25/19 04/26/19 23:59 23:59 23:59 23:59 Intake Total 760 795 Balance 760 795 Weight 67.2 kg 68.13 kg 67.132 kg 68.583 kg NAD awake and alert RRR CTA soft NT/ND + trace edema in LE CBC, BMP 04/24/19 06:15 04/26/19 06:21 Current Medications Amlodipine Besylate (Norvasc -) 5 mg PO DAILY [facility] Diphenhydramine HCl (Benadryl Injection -) 12.5 mg IVPUSH Q4H PRN PRN Reason: FOR ITCHING Furosemide (Lasix Injection -) 40 mg IVPUSH BID@0600,1400 [facility] Last Admin: 04/26/19 06:31 Dose: 40 mg Heparin Sodium (Porcine) (Heparin -) 5,000 unit SQ BID [facility] Last Admin: 04/25/19 09:20 Dose: 5,000 unit Hydralazine HCl (Apresoline -) 25 mg PO TID [facility] Last Admin: 04/26/19 06:31 Dose: 25 mg Insulin Aspart (Novolog Vial Sliding Scale -) 1 vial SQ ACHS [facility]; Protocol Last Admin: 04/26/19 06:28 Dose: Not Given Pantoprazole Sodium (Protonix -) 40 mg PO DAILY [facility] Last Admin: 04/26/19 09:18 Dose: 40 mg Impression 1. MEGHAN 2. CKD 3. htn 4. pericardial effusion 5. pleural effusion 6. hyperkalemia 7. DM 8. nephrotic protienuria Plan Renal function stable thus far this admission no overt electrolyte or acid/base disturbance continue Lasix IV BID for volume management ANCA levels remain pending for renal biopsy tomorrow Will add amlodipine 5mg to optimize BP control prior to biopsy No acute surgical intervention as per Thorasic surgery Trend renal function and electrolytes daily Tejinder Thompson DO
--- NOTE | 2019-04-26 11:19 | PN ---
Progress Note (short form) - Note Progress Note: Feels better. No CP or SOB. No acute events overnight. Intake & Output 04/22/19 04/23/19 04/24/19 04/25/19 23:59 23:59 23:59 23:59 Intake Total 760 Balance 760 Weight 151 lb 148 lb 2.41 oz 150 lb 3.2 oz 148 lb Last Vital Signs Temp Pulse Resp BP Pulse Ox 98.5 F 84 20 149/80 95 04/25/19 09:57 04/25/19 09:57 04/25/19 09:57 04/25/19 09:57 04/25/19 09:57 Active Medications Furosemide (Lasix Injection -) 40 mg IVPUSH BID@0600,1400 [facility] Last Admin: 04/25/19 06:39 Dose: 40 mg Heparin Sodium (Porcine) (Heparin -) 5,000 unit SQ BID [facility] Last Admin: 04/25/19 09:20 Dose: 5,000 unit Hydralazine HCl (Apresoline -) 25 mg PO TID [facility] Last Admin: 04/25/19 06:39 Dose: 25 mg Insulin Aspart (Novolog Vial Sliding Scale -) 1 vial SQ ACHS [facility]; Protocol Last Admin: 04/25/19 11:33 Dose: Not Given Pantoprazole Sodium (Protonix -) 40 mg PO DAILY [facility] Last Admin: 04/25/19 09:20 Dose: 40 mg Constitutional: Yes: NAD Eyes: Yes: WNL HENT: Yes: WNL Neck: Yes: WNL Cardiovascular: Yes: Regular Rate and Rhythm, S1, S2 Respiratory: Yes: Clear Gastrointestinal: Yes: Normal Bowel Sounds, Soft Extremities: Yes: WNL Edema: Yes Edema: LLE: Trace, RLE: Trace Labs: Laboratory Results - last 24 hr 04/24/19 04/24/19 04/25/19 17:20 22:02 06:26 POC Glucometer 110 114 88 04/25/19 11:30 POC Glucometer 145 Assessment/Plan Problem List - Problems (1) Pericardial effusion Code(s): I31.3 - PERICARDIAL EFFUSION (NONINFLAMMATORY) (2) Pleural effusion Code(s): J90 - PLEURAL EFFUSION, NOT ELSEWHERE CLASSIFIED Assessment/Plan Pleural/Pericardial Effusions Acute Kidney Injury Volume Overload r/o CHF HTN DM - IV lasix - Daily weights - O2 to keep SpO2 >90% - Follow serology - DVT prophylaxis Dr Masterson
[2019-04-26] MEDS: amLODIPine BESYLATE 5 MG TABLET (FP) PO SCH (11:20)
--- NOTE | 2019-04-26 12:16 | PN ---
Progress Note, Physician Chief Complaint: Pleural Effusion Pericardial Effusion Nephrotic Syndrome History of Present Illness: Previous notes and events reviewed awake and alert NAD for renal biopsy in AM complain of constipation denies chest pain, states his breathing is improving - Current Medication List Current Medications: Active Medications Amlodipine Besylate (Norvasc -) 5 mg PO DAILY [facility] Last Admin: 04/26/19 11:20 Dose: 5 mg Diphenhydramine HCl (Benadryl Injection -) 12.5 mg IVPUSH Q4H PRN PRN Reason: FOR ITCHING Furosemide (Lasix Injection -) 40 mg IVPUSH BID@0600,1400 [facility] Last Admin: 04/26/19 06:31 Dose: 40 mg Heparin Sodium (Porcine) (Heparin -) 5,000 unit SQ BID [facility] Last Admin: 04/25/19 09:20 Dose: 5,000 unit Hydralazine HCl (Apresoline -) 25 mg PO TID [facility] Last Admin: 04/26/19 06:31 Dose: 25 mg Insulin Aspart (Novolog Vial Sliding Scale -) 1 vial SQ ACHS [facility]; Protocol Last Admin: 04/26/19 11:22 Dose: Not Given Pantoprazole Sodium (Protonix -) 40 mg PO DAILY [facility] Last Admin: 04/26/19 09:18 Dose: 40 mg - Objective Vital Signs: Vital Signs Temperature 98.8 F 04/26/19 09:00 Pulse Rate 84 04/26/19 09:00 Respiratory Rate 20 04/26/19 09:37 Blood Pressure 149/74 04/26/19 09:00 O2 Sat by Pulse Oximetry (%) 98 04/26/19 09:37 Constitutional: Yes: No Distress, Calm Eyes: Yes: Conjunctiva Clear HENT: Yes: Atraumatic Cardiovascular: Yes: Regular Rate and Rhythm Respiratory: Yes: Regular, CTA Bilaterally Gastrointestinal: Yes: Normal Bowel Sounds, Soft Musculoskeletal: Yes: WNL Extremities: Yes: WNL Edema: No Neurological: Yes: Alert, Oriented Psychiatric: Yes: Alert, Oriented Labs: CBC, BMP 04/24/19 06:15 04/26/19 06:21 INR, PTT INR 1.05 (0.83-1.09) 04/22/19 14:45 Microbiology 04/22/19 18:03 Urine - Urine Clean Catch Urine Culture - Final Strep Agalactiae Group B - ....Imaging Cat Scan: Report Reviewed Ultrasound: Report Reviewed Problem List - Problems (1) Anemia Assessment/Plan: -Hg 9.7 -Anemia profile shows low Fe 49 -Venofer x 1 dose 04/25/19 -monitor H/H Code(s): D64.9 - ANEMIA, UNSPECIFIED (2) GERD (gastroesophageal reflux disease) Assessment/Plan: -Pantoprazole Code(s): K21.9 - GASTRO-ESOPHAGEAL REFLUX DISEASE WITHOUT ESOPHAGITIS (3) HTN (hypertension) Assessment/Plan: -Hydralazine, Amlodipine -low Na diet Code(s): I10 - ESSENTIAL (PRIMARY) HYPERTENSION (4) Nephrotic syndrome Assessment/Plan: -Renal on board -Renal US unremarkable -UA shows 3+ protein -BUN/Cr 44.2/4.3 -Renal Biopsy in AM Code(s): N04.9 - NEPHROTIC SYNDROME WITH UNSPECIFIED MORPHOLOGIC CHANGES (5) Pericardial effusion Assessment/Plan: -Echo shows EF 60/65%, small pericardial effusion <1cm, without evidence of cardiac tamponade -Cardiology on board -tele monitoring -Furosemide BID Code(s): I31.3 - PERICARDIAL EFFUSION (NONINFLAMMATORY) (6) Pleural effusion Assessment/Plan: -Chest CT scan shows moderate right sided and small to moderate left sided pleural effusions with resultant bibasilar compressive atelectasis -Pulm on board -Thoracic Surgery on board~no surgical recommendations at this time -Furosemide BID -O2 via NC -keep SpO2 >90% -daily weights Code(s): J90 - PLEURAL EFFUSION, NOT ELSEWHERE CLASSIFIED (7) Diabetes Assessment/Plan: -BGM ACHS -ISS -diabetic/low Na diet Code(s): E11.9 - TYPE 2 DIABETES MELLITUS WITHOUT COMPLICATIONS Qualifiers: Diabetes mellitus type: type 2 Assessment/Plan see problem list dvt ppx
[2019-04-26] MEDS: POLYETHYLENE GLYCOL 3350 119 GM BTL PO SCH (14:29)
[2019-04-27] MEDS ORDERED: DEXTROSE 5%-0.45% SALINE 1,000 ML IV SCH
[2019-04-27 06:27] LABS: BASO % 0.2 % (0-2.0); EOS % 2.9 % (0-4.5); HEMATOCRIT 29.1 % (35.4-49); HEMOGLOBIN 9.6 GM/dL (11.7-16.9); LYMPH % 29.9 % (8-40); MCH 27.8 pg (25.7-33.7); MCHC 32.8 g/dl (32.0-35.9); MEAN CELL VOLUME 84.6 fl (80-96); MEAN PLT VOLUME 9.6 fl (7.5-11.1); MONO % 8.2 % (3.8-10.2); NEUT % 58.8 % (42.8-82.8); PLATELET COUNT 265 K/MM3 (134-434); RBC 3.44 M/mm3 (4.00-5.60); RDW 13.9 % (11.9-15.9); WHITE BLOOD COUNT 7.7 K/mm3 (4.0-10.0)
[2019-04-27 07:03] LABS: ALBUMIN 2.1 g/dl (3.4-5.0); BILIRUBIN,TOTAL 0.2 mg/dL (0.2-1); BLOOD UREA NITROGEN 46.4 mg/dL (7-18); CALCIUM 7.9 mg/dL (8.5-10.1); CREATININE 4.6 mg/dL (0.55-1.3); MAGNESIUM 2.3 mg/dL (1.8-2.4); PHOSPHOROUS 4.8 mg/dL (2.5-4.9); POTASSIUM 4.3 mmol/L (3.5-5.1); TOT PROT 5.4 g/dl (6.4-8.2)
[2019-04-27] MEDS: INSULIN SLIDING SCALE (NOVOLOG) 1 VIAL SQ SCH ×4 (07:14→21:58)
[2019-04-27] MEDS: FUROSEMIDE 40 MG/4 ML INJECTABLE VIAL IVPUSH SCH ×2 (07:14→14:10)
[2019-04-27] MEDS: hydrALAZINE HCL 25 MG TABLET (FP) PO SCH ×2 (07:14→14:11)
[2019-04-27] MEDS: amLODIPine BESYLATE 5 MG TABLET (FP) PO SCH (09:36)
[2019-04-27] MEDS: POLYETHYLENE GLYCOL 3350 119 GM BTL PO SCH (09:36)
[2019-04-27] MEDS: PANTOPRAZOLE 40 MG TABLET (FP) PO SCH (09:36)
--- NOTE | 2019-04-27 10:23 | PN ---
Progress Note, Physician History of Present Illness: PULMONARY ALERT,COMFORTABLE,-RESP DISTRESS,-CP - Current Medication List Current Medications: Active Medications Amlodipine Besylate (Norvasc -) 5 mg PO DAILY [facility] Last Admin: 04/27/19 09:36 Dose: 5 mg Diphenhydramine HCl (Benadryl Injection -) 12.5 mg IVPUSH Q4H PRN PRN Reason: FOR ITCHING Furosemide (Lasix Injection -) 40 mg IVPUSH BID@0600,1400 [facility] Last Admin: 04/27/19 07:14 Dose: 40 mg Heparin Sodium (Porcine) (Heparin -) 5,000 unit SQ BID [facility] Last Admin: 04/25/19 09:20 Dose: 5,000 unit Hydralazine HCl (Apresoline -) 25 mg PO TID [facility] Last Admin: 04/27/19 07:14 Dose: 25 mg Dextrose/Sodium Chloride (D5-1/2ns -) 1,000 mls @ 42 mls/hr IV ASDIR [facility] Last Admin: 04/27/19 07:30 Dose: 42 mls/hr Insulin Aspart (Novolog Vial Sliding Scale -) 1 vial SQ ACHS [facility]; Protocol Last Admin: 04/27/19 07:14 Dose: Not Given Pantoprazole Sodium (Protonix -) 40 mg PO DAILY [facility] Last Admin: 04/27/19 09:36 Dose: Not Given Polyethylene Glycol (Miralax (For Daily Use) -) 17 gm PO DAILY [facility] Last Admin: 04/27/19 09:36 Dose: Not Given - Objective Vital Signs: Vital Signs Temperature 98.2 F 04/27/19 05:00 Pulse Rate 87 04/27/19 05:00 Respiratory Rate 20 04/27/19 05:00 Blood Pressure 162/88 04/27/19 05:00 O2 Sat by Pulse Oximetry (%) 96 04/26/19 22:00 Constitutional: Yes: Well Nourished, Calm Eyes: Yes: WNL HENT: Yes: WNL Neck: Yes: WNL Cardiovascular: Yes: Regular Rate and Rhythm, S1, S2 Respiratory: Yes: CTA Bilaterally Gastrointestinal: Yes: Normal Bowel Sounds, Soft Extremities: Yes: WNL Edema: No Labs: CBC, BMP 04/27/19 05:39 04/27/19 05:39 INR, PTT INR 1.05 (0.83-1.09) 04/22/19 14:45 Assessment/Plan Problem List - Problems (1) Pericardial effusion Code(s): I31.3 - PERICARDIAL EFFUSION (NONINFLAMMATORY) (2) Pleural effusion Code(s): J90 - PLEURAL EFFUSION, NOT ELSEWHERE CLASSIFIED Assessment/Plan Pleural/Pericardial Effusions Acute Kidney Injury Volume Overload r/o CHF HTN DM - IV lasix - monitor urine output, creatinine - daily weights - O2 to keep SpO2 >90% - DVT prophylaxis DR VERMA
--- NOTE | 2019-04-27 13:18 | PN ---
Progress Note, Physician Chief Complaint: patient just came back from thorcocentesis to go for renal biopsy tmw in AM - Current Medication List Current Medications: Active Medications Amlodipine Besylate (Norvasc -) 5 mg PO DAILY [facility] Last Admin: 04/27/19 09:36 Dose: 5 mg Diphenhydramine HCl (Benadryl Injection -) 12.5 mg IVPUSH Q4H PRN PRN Reason: FOR ITCHING Furosemide (Lasix Injection -) 40 mg IVPUSH BID@0600,1400 [facility] Last Admin: 04/27/19 07:14 Dose: 40 mg Heparin Sodium (Porcine) (Heparin -) 5,000 unit SQ BID [facility] Last Admin: 04/25/19 09:20 Dose: 5,000 unit Hydralazine HCl (Apresoline -) 25 mg PO TID [facility] Last Admin: 04/27/19 07:14 Dose: 25 mg Dextrose/Sodium Chloride (D5-1/2ns -) 1,000 mls @ 42 mls/hr IV ASDIR [facility] Last Admin: 04/27/19 07:30 Dose: 42 mls/hr Insulin Aspart (Novolog Vial Sliding Scale -) 1 vial SQ ACHS [facility]; Protocol Last Admin: 04/27/19 07:14 Dose: Not Given Pantoprazole Sodium (Protonix -) 40 mg PO DAILY [facility] Last Admin: 04/27/19 09:36 Dose: Not Given Polyethylene Glycol (Miralax (For Daily Use) -) 17 gm PO DAILY [facility] Last Admin: 04/27/19 09:36 Dose: Not Given - Objective Vital Signs: Vital Signs Temperature 98.2 F 04/27/19 09:00 Pulse Rate 81 04/27/19 09:00 Respiratory Rate 20 04/27/19 10:00 Blood Pressure 160/80 04/27/19 09:00 O2 Sat by Pulse Oximetry (%) 97 04/27/19 10:00 Constitutional: Yes: Calm Cardiovascular: Yes: Regular Rate and Rhythm, S1, S2 Respiratory: Yes: Diminished (at left base) Gastrointestinal: Yes: Normal Bowel Sounds, Soft Edema: No Labs: CBC, BMP 04/27/19 05:39 04/27/19 05:39 INR, PTT INR 1.05 (0.83-1.09) 04/22/19 14:45 Problem List - Problems (1) Pericardial effusion Assessment/Plan: echo noted small pericardial effusion CTS and cardiology consult noted Code(s): I31.3 - PERICARDIAL EFFUSION (NONINFLAMMATORY) (2) Pleural effusion Assessment/Plan: iv direutics bid s/p thoracocentesis Code(s): J90 - PLEURAL EFFUSION, NOT ELSEWHERE CLASSIFIED (3) Diabetes Assessment/Plan: bgm hgba1c levemir hold metformin for now Code(s): E11.9 - TYPE 2 DIABETES MELLITUS WITHOUT COMPLICATIONS Qualifiers: Diabetes mellitus type: type 2 (4) Renal insufficiency Assessment/Plan: renal biopsy in AM hold acei Code(s): N28.9 - DISORDER OF KIDNEY AND URETER, UNSPECIFIED (5) HTN (hypertension) Assessment/Plan: stop acei hydralaizne 25mg tid Code(s): I10 - ESSENTIAL (PRIMARY) HYPERTENSION (6) Anemia Assessment/Plan: iron panel Code(s): D64.9 - ANEMIA, UNSPECIFIED (7) GERD (gastroesophageal reflux disease) Code(s): K21.9 - GASTRO-ESOPHAGEAL REFLUX DISEASE WITHOUT ESOPHAGITIS
--- NOTE | 2019-04-27 14:17 | PN ---
Progress Note, Physician History of Present Illness: Pt seen and examined at bedside. He went for pleurocentesis today. - Current Medication List Current Medications: Active Medications Amlodipine Besylate (Norvasc -) 5 mg PO DAILY [facility] Last Admin: 04/27/19 09:36 Dose: 5 mg Diphenhydramine HCl (Benadryl Injection -) 12.5 mg IVPUSH Q4H PRN PRN Reason: FOR ITCHING Furosemide (Lasix Injection -) 40 mg IVPUSH BID@0600,1400 [facility] Last Admin: 04/27/19 14:10 Dose: 40 mg Heparin Sodium (Porcine) (Heparin -) 5,000 unit SQ BID [facility] Last Admin: 04/25/19 09:20 Dose: 5,000 unit Hydralazine HCl (Apresoline -) 25 mg PO TID [facility] Last Admin: 04/27/19 14:11 Dose: 25 mg Insulin Aspart (Novolog Vial Sliding Scale -) 1 vial SQ ACHS [facility]; Protocol Last Admin: 04/27/19 11:15 Dose: Not Given Pantoprazole Sodium (Protonix -) 40 mg PO DAILY [facility] Last Admin: 04/27/19 09:36 Dose: Not Given Polyethylene Glycol (Miralax (For Daily Use) -) 17 gm PO DAILY [facility] Last Admin: 04/27/19 09:36 Dose: Not Given - Objective Vital Signs: Vital Signs Temperature 98.2 F 04/27/19 09:00 Pulse Rate 81 04/27/19 09:00 Respiratory Rate 20 04/27/19 10:00 Blood Pressure 160/80 04/27/19 09:00 O2 Sat by Pulse Oximetry (%) 97 04/27/19 10:00 Constitutional: Yes: Calm Eyes: Yes: Conjunctiva Clear HENT: Yes: Atraumatic Neck: Yes: Supple Cardiovascular: Yes: S1, S2 Respiratory: Yes: On Nasal O2 Gastrointestinal: Yes: Soft Genitourinary: Yes: WNL Edema: Yes Edema: LLE: 1+, RLE: 1+ Neurological: Yes: Oriented Psychiatric: Yes: Oriented Labs: CBC, BMP 04/27/19 05:39 04/27/19 05:39 INR, PTT INR 1.05 (0.83-1.09) 04/22/19 14:45 Problem List - Problems (1) Anemia Code(s): D64.9 - ANEMIA, UNSPECIFIED (2) GERD (gastroesophageal reflux disease) Code(s): K21.9 - GASTRO-ESOPHAGEAL REFLUX DISEASE WITHOUT ESOPHAGITIS (3) HTN (hypertension) Code(s): I10 - ESSENTIAL (PRIMARY) HYPERTENSION (4) Nephrotic syndrome Code(s): N04.9 - NEPHROTIC SYNDROME WITH UNSPECIFIED MORPHOLOGIC CHANGES (5) Pericardial effusion Code(s): I31.3 - PERICARDIAL EFFUSION (NONINFLAMMATORY) Assessment/Plan Current Medications Generic Name Dose Route Start Last Admin Trade Name Freq PRN Reason Stop Dose Admin Amlodipine Besylate 5 mg 04/26/19 10:30 04/27/19 09:36 Norvasc - PO 5 mg DAILY [facility] Administration Diphenhydramine HCl 12.5 mg 04/25/19 15:52 Benadryl Injection - IVPUSH Q4H PRN FOR ITCHING Furosemide 40 mg 04/23/19 14:00 04/27/19 14:10 Lasix Injection - IVPUSH 40 mg BID@0600,1400 [facility] Administration Heparin Sodium (Porcine) 5,000 unit 04/22/19 22:00 04/25/19 09:20 Heparin - SQ 5,000 unit BID [facility] Administration Hydralazine HCl 25 mg 04/23/19 14:00 04/27/19 14:11 Apresoline - PO 25 mg TID [facility] Administration Insulin Aspart 1 vial 04/22/19 22:00 04/27/19 11:15 Novolog Vial Sliding Scale - SQ Not Given ACHS [facility] Protocol Pantoprazole Sodium 40 mg 04/23/19 13:00 04/27/19 09:36 Protonix - PO Not Given DAILY [facility] Polyethylene Glycol 17 gm 04/26/19 13:45 04/27/19 09:36 Miralax (For Daily Use) - PO Not Given DAILY [facility] 04/08 labs merchandise manager 3.5 k 5.6 he b s ag neg hep b core neg hcv neg imfxn neg kala neg gbm neg dsdna neg anca quant insufficient spep suggest inflammatory patern Laboratory Tests 04/23/19 04/24/19 04/24/19 21:00 06:15 06:15 Protein/Creatinin Ratio 11.6 BRANNON M-Bill Pending c-ANCA Pending Proteinase 3 (PR3) Pending p-ANCA Pending Atypical p-ANCA Pending Myeloperoxidase Ab Pending Impression 1. MEGHAN 2. CKD 3. htn 4. pericardial effusion 5. pleural effusion 6. hyperkalemia 7. DM 8. nephrotic protienuria Plan - cont lasix - increase hydralzine dose - monitor bp - renal biopsy tomorrow - follow anca - monitor volume status Dr Garcia
[2019-04-27 15:55] LABS: BF WBC & OTHER NUCLEATED CELLS 563 /mm3
[2019-04-27 15:56] LABS: BODY FLUID MACROPHAGES 26 %; BODY FLUID MESOTHELIAL 7 %; BODY FLUID MONOCYTE 2 %
[2019-04-27 17:08] LABS: ATYPICAL pANCA <1:20 titer (Neg:<1:20); C-ANCA <1:20 titer (Neg:<1:20)
[2019-04-27] MEDS ORDERED: ACETAMINOPHEN 325 MG TABLET (FP) PO ONE (18:45)
[2019-04-27] MEDS: hydrALAZINE HCL 50 MG TABLET (FP) PO SCH (21:17)
[2019-04-27] MEDS: HEPARIN NA (PORCINE) 5,000 UNITS/ML 1ML VIAL SQ SCH (21:58)
[2019-04-28] MEDS: hydrALAZINE HCL 50 MG TABLET (FP) PO SCH ×3 (05:50→21:33)
[2019-04-28] MEDS: FUROSEMIDE 40 MG/4 ML INJECTABLE VIAL IVPUSH SCH (05:50)
[2019-04-28] MEDS: INSULIN SLIDING SCALE (NOVOLOG) 1 VIAL SQ SCH ×4 (06:07→21:33)
--- NOTE | 2019-04-28 11:07 | PN ---
Progress Note, Physician History of Present Illness: PULMONARY ALERT,COMFORTABLE,-SOB,-CP. PT S/P DIAGNOSTIC THORACENTESIS YESTERDAY TOLERATED PROCEDURE WELL,CHEMISTRIES PENDING - Current Medication List Current Medications: Active Medications Amlodipine Besylate (Norvasc -) 5 mg PO DAILY [facility] Last Admin: 04/27/19 09:36 Dose: 5 mg Diphenhydramine HCl (Benadryl Injection -) 12.5 mg IVPUSH Q4H PRN PRN Reason: FOR ITCHING Furosemide (Lasix Injection -) 40 mg IVPUSH BID@0600,1400 [facility] Last Admin: 04/28/19 05:50 Dose: 40 mg Heparin Sodium (Porcine) (Heparin -) 5,000 unit SQ BID [facility] Last Admin: 04/27/19 21:58 Dose: Not Given Hydralazine HCl (Apresoline -) 50 mg PO TID [facility] Last Admin: 04/28/19 05:50 Dose: 50 mg Insulin Aspart (Novolog Vial Sliding Scale -) 1 vial SQ ACHS [facility]; Protocol Last Admin: 04/28/19 06:07 Dose: Not Given Pantoprazole Sodium (Protonix -) 40 mg PO DAILY [facility] Last Admin: 04/27/19 09:36 Dose: Not Given Polyethylene Glycol (Miralax (For Daily Use) -) 17 gm PO DAILY [facility] Last Admin: 04/27/19 09:36 Dose: Not Given - Objective Vital Signs: Vital Signs Temperature 97 F L 04/28/19 05:31 Pulse Rate 81 04/28/19 09:46 Respiratory Rate 17 04/28/19 09:46 Blood Pressure 137/78 04/28/19 09:46 O2 Sat by Pulse Oximetry (%) 98 04/28/19 09:46 Constitutional: Yes: Well Nourished, Calm Eyes: Yes: WNL HENT: Yes: WNL Neck: Yes: WNL Cardiovascular: Yes: Regular Rate and Rhythm, S1, S2 Respiratory: Yes: Diminished Extremities: Yes: WNL Edema: No Labs: CBC, BMP - ....Imaging Chest X-ray: Report Reviewed, Image Reviewed Assessment/Plan Problem List - Problems (1) Pericardial effusion Code(s): I31.3 - PERICARDIAL EFFUSION (NONINFLAMMATORY) (2) Pleural effusion Code(s): J90 - PLEURAL EFFUSION, NOT ELSEWHERE CLASSIFIED Assessment/Plan Pleural/Pericardial Effusions Acute Kidney Injury Volume Overload r/o CHF HTN DM - IV lasix - monitor urine output, creatinine - daily weights - O2 to keep SpO2 >90% - DVT prophylaxis - pleural fluid chemistries,cytology pending DR VERMA
[2019-04-28 11:11] LABS: BLOOD UREA NITROGEN 50.8 mg/dL (7-18); CALCIUM 8.1 mg/dL (8.5-10.1); CREATININE 4.9 mg/dL (0.55-1.3); POTASSIUM 3.9 mmol/L (3.5-5.1)
[2019-04-28] MEDS: HEPARIN NA (PORCINE) 5,000 UNITS/ML 1ML VIAL SQ SCH ×2 (11:13→21:33)
--- NOTE | 2019-04-28 11:32 | PN ---
Progress Note, Physician Chief Complaint: Pleural Effusion Pericardial Effusion Nephrotic Syndrome History of Present Illness: S/P renal biopsy Seen by Nephrology - Current Medication List Current Medications: Active Medications Amlodipine Besylate (Norvasc -) 5 mg PO DAILY [facility] Last Admin: 04/27/19 09:36 Dose: 5 mg Diphenhydramine HCl (Benadryl Injection -) 12.5 mg IVPUSH Q4H PRN PRN Reason: FOR ITCHING Furosemide (Lasix Injection -) 40 mg IVPUSH BID@0600,1400 [facility] Last Admin: 04/28/19 05:50 Dose: 40 mg Heparin Sodium (Porcine) (Heparin -) 5,000 unit SQ BID [facility] Last Admin: 04/28/19 11:13 Dose: Not Given Hydralazine HCl (Apresoline -) 50 mg PO TID [facility] Last Admin: 04/28/19 05:50 Dose: 50 mg Insulin Aspart (Novolog Vial Sliding Scale -) 1 vial SQ ACHS [facility]; Protocol Last Admin: 04/28/19 06:07 Dose: Not Given Pantoprazole Sodium (Protonix -) 40 mg PO DAILY [facility] Last Admin: 04/27/19 09:36 Dose: Not Given Polyethylene Glycol (Miralax (For Daily Use) -) 17 gm PO DAILY [facility] Last Admin: 04/27/19 09:36 Dose: Not Given - Objective Vital Signs: Vital Signs Temperature 97 F L 04/28/19 05:31 Pulse Rate 81 04/28/19 09:46 Respiratory Rate 17 04/28/19 09:46 Blood Pressure 137/78 04/28/19 09:46 O2 Sat by Pulse Oximetry (%) 98 04/28/19 09:46 Constitutional: Yes: Well Nourished, No Distress, Calm Cardiovascular: Yes: Regular Rate and Rhythm Respiratory: Yes: Regular Gastrointestinal: Yes: Normal Bowel Sounds, Soft Genitourinary: Yes: WNL Musculoskeletal: Yes: WNL Extremities: Yes: WNL Edema: No Peripheral Pulses WNL: Yes Neurological: Yes: Alert, Oriented Psychiatric: Yes: Alert, Oriented Labs: CBC, BMP 04/27/19 05:39 04/28/19 10:30 INR, PTT INR 1.05 (0.83-1.09) 04/22/19 14:45 Assessment/Plan (1) Anemia Assessment/Plan: -Iron % normal -check B12, thyroid profile + stool OB -Likely 2/2 to CKD -monitor H/H Code(s): D64.9 - ANEMIA, UNSPECIFIED (2) GERD (gastroesophageal reflux disease) Assessment/Plan: -Pantoprazole Code(s): K21.9 - GASTRO-ESOPHAGEAL REFLUX DISEASE WITHOUT ESOPHAGITIS (3) HTN (hypertension) Assessment/Plan: -Hydralazine, Amlodipine -low Na diet Code(s): I10 - ESSENTIAL (PRIMARY) HYPERTENSION (4) Nephrotic syndrome Assessment/Plan: -Renal on board -Renal US unremarkable -UA shows 3+ protein -S/p Renal Biopsy Code(s): N04.9 - NEPHROTIC SYNDROME WITH UNSPECIFIED MORPHOLOGIC CHANGES (5) Pericardial effusion Assessment/Plan: -Echo shows EF 60/65%, small pericardial effusion <1cm, without evidence of cardiac tamponade -Cardiology on board -tele monitoring -Furosemide BID changed to PO Code(s): I31.3 - PERICARDIAL EFFUSION (NONINFLAMMATORY) (6) Pleural effusion Assessment/Plan: -Chest CT scan shows moderate right sided and small to moderate left sided pleural effusions with resultant bibasilar compressive atelectasis -Pulm on board -Thoracic Surgery on board~no surgical recommendations at this time -Furosemide BID -O2 via NC -keep SpO2 >90% -daily weights Code(s): J90 - PLEURAL EFFUSION, NOT ELSEWHERE CLASSIFIED (7) Diabetes Assessment/Plan: -A1c at 6.4 -BGM ACHS -ISS -diabetic/low Na diet Code(s): E11.9 - TYPE 2 DIABETES MELLITUS WITHOUT COMPLICATIONS Qualifiers: Diabetes mellitus type: type 2
[2019-04-28] MEDS ORDERED: PT OWN MED DRAWER 7, Y5N ONE (11:53)
[2019-04-28] MEDS: POLYETHYLENE GLYCOL 3350 119 GM BTL PO SCH (11:58)
[2019-04-28] MEDS: amLODIPine BESYLATE 5 MG TABLET (FP) PO SCH (11:58)
[2019-04-28] MEDS: PANTOPRAZOLE 40 MG TABLET (FP) PO SCH (11:58)
[2019-04-28 12:07] LABS: BODY FLUID ALBUMIN 1.3 g/dL (Not Estab.)
[2019-04-28] MEDS ORDERED: INSULIN (NOVOLOG) ASPART 100 UNITS/ML 10ML VIAL ONE (12:07)
--- NOTE | 2019-04-28 12:51 | PN ---
Progress Note, Physician History of Present Illness: Pt seen and examined at bedside. He is awake and alert. He had the kidney biopsy today. - Current Medication List Current Medications: Active Medications Amlodipine Besylate (Norvasc -) 5 mg PO DAILY [facility] Last Admin: 04/28/19 11:58 Dose: 5 mg Diphenhydramine HCl (Benadryl Injection -) 12.5 mg IVPUSH Q4H PRN PRN Reason: FOR ITCHING Furosemide (Lasix Injection -) 40 mg IVPUSH BID@0600,1400 [facility] Last Admin: 04/28/19 05:50 Dose: 40 mg Heparin Sodium (Porcine) (Heparin -) 5,000 unit SQ BID [facility] Last Admin: 04/28/19 11:13 Dose: Not Given Hydralazine HCl (Apresoline -) 50 mg PO TID [facility] Last Admin: 04/28/19 05:50 Dose: 50 mg Insulin Aspart (Novolog Vial Sliding Scale -) 1 vial SQ ACHS [facility]; Protocol Last Admin: 04/28/19 12:16 Dose: Not Given Pantoprazole Sodium (Protonix -) 40 mg PO DAILY [facility] Last Admin: 04/28/19 11:58 Dose: 40 mg Polyethylene Glycol (Miralax (For Daily Use) -) 17 gm PO DAILY [facility] Last Admin: 04/28/19 11:58 Dose: 17 gm - Objective Vital Signs: Vital Signs Temperature 97.8 F 04/28/19 10:00 Pulse Rate 84 04/28/19 10:00 Respiratory Rate 18 04/28/19 10:00 Blood Pressure 147/77 04/28/19 10:00 O2 Sat by Pulse Oximetry (%) 97 04/28/19 10:00 Constitutional: Yes: Calm Eyes: Yes: Conjunctiva Clear HENT: Yes: Atraumatic Neck: Yes: Supple Cardiovascular: Yes: S1, S2 Respiratory: Yes: CTA Bilaterally Gastrointestinal: Yes: Soft Genitourinary: Yes: WNL Musculoskeletal: Yes: WNL Edema: LLE: Trace, RLE: Trace Neurological: Yes: Oriented Psychiatric: Yes: Oriented Labs: CBC, BMP 04/27/19 05:39 04/28/19 10:30 INR, PTT INR 1.05 (0.83-1.09) 04/22/19 14:45 Problem List - Problems (1) Anemia Code(s): D64.9 - ANEMIA, UNSPECIFIED (2) GERD (gastroesophageal reflux disease) Code(s): K21.9 - GASTRO-ESOPHAGEAL REFLUX DISEASE WITHOUT ESOPHAGITIS (3) HTN (hypertension) Code(s): I10 - ESSENTIAL (PRIMARY) HYPERTENSION (4) Nephrotic syndrome Code(s): N04.9 - NEPHROTIC SYNDROME WITH UNSPECIFIED MORPHOLOGIC CHANGES (5) Pericardial effusion Code(s): I31.3 - PERICARDIAL EFFUSION (NONINFLAMMATORY) Assessment/Plan 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.6 he b s ag neg hep b core neg hcv neg imfxn neg kala neg gbm neg dsdna neg anca quant insufficient spep suggest inflammatory patern Current Medications Generic Name Dose Route Start Last Admin Trade Name Freq PRN Reason Stop Dose Admin Amlodipine Besylate 5 mg 04/26/19 10:30 04/28/19 11:58 Norvasc - PO 5 mg DAILY [facility] Administration Diphenhydramine HCl 12.5 mg 04/25/19 15:52 Benadryl Injection - IVPUSH Q4H PRN FOR ITCHING Furosemide 40 mg 04/23/19 14:00 04/28/19 05:50 Lasix Injection - IVPUSH 40 mg BID@0600,1400 [facility] Administration Heparin Sodium (Porcine) 5,000 unit 04/22/19 22:00 04/28/19 11:13 Heparin - SQ Not Given BID [facility] Hydralazine HCl 50 mg 04/27/19 14:18 04/28/19 05:50 Apresoline - PO 50 mg TID [facility] Administration Insulin Aspart 1 vial 04/22/19 22:00 04/28/19 12:16 Novolog Vial Sliding Scale - SQ Not Given ACHS [facility] Protocol Pantoprazole Sodium 40 mg 04/23/19 13:00 04/28/19 11:58 Protonix - PO 40 mg DAILY [facility] Administration Polyethylene Glycol 17 gm 04/26/19 13:45 04/28/19 11:58 Miralax (For Daily Use) - PO 17 gm DAILY [facility] Administration Laboratory Tests 04/24/19 04/24/19 06:15 06:15 BRANNON M-Bill Not observed c-ANCA <1:20 Proteinase 3 (PR3) <3.5 p-ANCA <1:20 Atypical p-ANCA <1:20 Myeloperoxidase Ab <9.0 Impression 1. MEGHAN 2. CKD 3. htn 4. pericardial effusion 5. pleural effusion 6. hyperkalemia 7. DM 8. nephrotic protienuria Plan - change lasix to po - repeat labs in am - follow renal biopsy - anca negative - monitor bp Dr Garcia
[2019-04-28] MEDS: FUROSEMIDE 40 MG TABLET (FP) PO SCH (14:32)
[2019-04-29] MEDS: FUROSEMIDE 40 MG TABLET (FP) PO SCH ×2 (05:43→16:17)
[2019-04-29] MEDS: hydrALAZINE HCL 50 MG TABLET (FP) PO SCH ×3 (05:43→21:48)
[2019-04-29] MEDS: INSULIN SLIDING SCALE (NOVOLOG) 1 VIAL SQ SCH ×4 (06:09→21:50)
[2019-04-29 07:01] LABS: BASO % 0.4 % (0-2.0); EOS % 2.5 % (0-4.5); HEMATOCRIT 29.5 % (35.4-49); HEMOGLOBIN 9.8 GM/dL (11.7-16.9); LYMPH % 32.2 % (8-40); MCH 28.3 pg (25.7-33.7); MCHC 33.3 g/dl (32.0-35.9); MEAN CELL VOLUME 84.8 fl (80-96); MEAN PLT VOLUME 9.6 fl (7.5-11.1); MONO % 7.4 % (3.8-10.2); NEUT % 57.5 % (42.8-82.8); PLATELET COUNT 271 K/MM3 (134-434); RBC 3.48 M/mm3 (4.00-5.60); RDW 13.9 % (11.9-15.9); WHITE BLOOD COUNT 8.8 K/mm3 (4.0-10.0)
[2019-04-29 07:42] LABS: ALBUMIN 2.3 g/dl (3.4-5.0); BILIRUBIN,TOTAL 0.2 mg/dL (0.2-1); BLOOD UREA NITROGEN 51.6 mg/dL (7-18); CALCIUM 8.3 mg/dL (8.5-10.1); CREATININE 4.9 mg/dL (0.55-1.3); POTASSIUM 4.2 mmol/L (3.5-5.1); TOT PROT 5.6 g/dl (6.4-8.2)
--- NOTE | 2019-04-29 10:16 | PN ---
Progress Note, Physician History of Present Illness: pulmonary alert,comfortable,-resp distress. pleural fluid c/w transudate. pt s/p renal bx tolerated procedure well - Current Medication List Current Medications: Active Medications Amlodipine Besylate (Norvasc -) 5 mg PO DAILY [facility] Last Admin: 04/28/19 11:58 Dose: 5 mg Diphenhydramine HCl (Benadryl Injection -) 12.5 mg IVPUSH Q4H PRN PRN Reason: FOR ITCHING Furosemide (Lasix -) 40 mg PO BID@0600,1400 [facility] Last Admin: 04/29/19 05:43 Dose: 40 mg Heparin Sodium (Porcine) (Heparin -) 5,000 unit SQ BID [facility] Last Admin: 04/28/19 21:33 Dose: 5,000 unit Hydralazine HCl (Apresoline -) 50 mg PO TID [facility] Last Admin: 04/29/19 05:43 Dose: 50 mg Insulin Aspart (Novolog Vial Sliding Scale -) 1 vial SQ ACHS [facility]; Protocol Last Admin: 04/29/19 06:09 Dose: Not Given Pantoprazole Sodium (Protonix -) 40 mg PO DAILY [facility] Last Admin: 04/28/19 11:58 Dose: 40 mg Polyethylene Glycol (Miralax (For Daily Use) -) 17 gm PO DAILY [facility] Last Admin: 04/28/19 11:58 Dose: 17 gm - Objective Vital Signs: Vital Signs Temperature 98.2 F 04/29/19 05:39 Pulse Rate 79 04/29/19 05:39 Respiratory Rate 18 04/29/19 05:39 Blood Pressure 135/70 04/29/19 05:39 O2 Sat by Pulse Oximetry (%) 97 04/28/19 21:00 Constitutional: Yes: Well Nourished, Calm Eyes: Yes: WNL HENT: Yes: WNL Neck: Yes: WNL Cardiovascular: Yes: Regular Rate and Rhythm, S1, S2 Respiratory: Yes: CTA Bilaterally Gastrointestinal: Yes: Normal Bowel Sounds, Soft Extremities: Yes: WNL Edema: No Labs: CBC, BMP 04/29/19 06:19 04/29/19 06:19 INR, PTT INR 1.05 (0.83-1.09) 04/22/19 14:45 Assessment/Plan Problem List - Problems (1) Pericardial effusion Code(s): I31.3 - PERICARDIAL EFFUSION (NONINFLAMMATORY) (2) Pleural effusion Code(s): J90 - PLEURAL EFFUSION, NOT ELSEWHERE CLASSIFIED Assessment/Plan Pleural/Pericardial Effusions Acute Kidney Injury Volume Overload r/o CHF HTN DM - lasix - monitor urine output, creatinine - daily weights - O2 to keep SpO2 >90% - DVT prophylaxis - check path of renal bx DR VERMA
--- NOTE | 2019-04-29 10:42 | DS ---
Physical Examination Vital Signs: Vital Signs Temperature 98.2 F 04/29/19 05:39 Pulse Rate 79 04/29/19 05:39 Respiratory Rate 18 04/29/19 05:39 Blood Pressure 135/70 04/29/19 05:39 O2 Sat by Pulse Oximetry (%) 97 04/28/19 21:00 Findings/Remarks: 48m with pmh of Dm2 and htn, sent from Urologist office Dr. Hernandez for ct findings of pericardial effusion and pleural effusion. He was evaluated there for microscopic hematuria, sent for ct to r/o kidney stone. Constitutional: Yes: Well Nourished, No Distress, Calm Cardiovascular: Yes: Regular Rate and Rhythm Respiratory: Yes: Regular Gastrointestinal: Yes: Normal Bowel Sounds, Soft Renal/: Yes: WNL Musculoskeletal: Yes: WNL Extremities: Yes: WNL Edema: No Peripheral Pulses WNL: Yes Neurological: Yes: Alert, Oriented Psychiatric: Yes: Alert, Oriented Labs: CBC, BMP 04/29/19 06:19 04/29/19 06:19 Discharge Summary Problems reviewed: Yes Reason For Visit: NEPHROTIC SYNDROME Current Active Problems Anemia (Acute) GERD (gastroesophageal reflux disease) (Acute) HTN (hypertension) (Acute) Nephrotic syndrome (Acute) Pericardial effusion (Acute) Pleural effusion (Acute) Renal insufficiency (Acute) Uremia (Acute) Laboratory Last Values WBC 8.8 K/mm3 (4.0-10.0) 04/29/19 06:19 RBC 3.48 M/mm3 (4.00-5.60) L 04/29/19 06:19 Hgb 9.8 GM/dL (11.7-16.9) L 04/29/19 06:19 Hct 29.5 % (35.4-49) L 04/29/19 06:19 MCV 84.8 fl (80-96) 04/29/19 06:19 MCH 28.3 pg (25.7-33.7) 04/29/19 06:19 MCHC 33.3 g/dl (32.0-35.9) 04/29/19 06:19 RDW 13.9 % (11.9-15.9) 04/29/19 06:19 Plt Count 271 K/MM3 (134-434) 04/29/19 06:19 MPV 9.6 fl (7.5-11.1) 04/29/19 06:19 Absolute Neuts (auto) 5.1 K/mm3 (1.5-8.0) 04/29/19 06:19 Neutrophils % 57.5 % (42.8-82.8) 04/29/19 06:19 Lymphocytes % 32.2 % (8-40) 04/29/19 06:19 Monocytes % 7.4 % (3.8-10.2) 04/29/19 06:19 Eosinophils % 2.5 % (0-4.5) 04/29/19 06:19 Basophils % 0.4 % (0-2.0) 04/29/19 06:19 Nucleated RBC % 0 % (0-0) 04/29/19 06:19 PT with INR 12.40 SEC (9.7-13.0) 04/22/19 14:45 INR 1.05 (0.83-1.09) 04/22/19 14:45 PTT (Actin FS) 38.7 SECONDS (25.2-36.5) H 04/22/19 14:45 Sodium 140 mmol/L (136-145) 04/29/19 06:19 Potassium 4.2 mmol/L (3.5-5.1) 04/29/19 06:19 Chloride 108 mmol/L (98-107) H 04/29/19 06:19 Carbon Dioxide 25 mmol/L (21-32) 04/29/19 06:19 Anion Gap 7 MMOL/L (8-16) L 04/29/19 06:19 BUN 51.6 mg/dL (7-18) H 04/29/19 06:19 Creatinine 4.9 mg/dL (0.55-1.3) H 04/29/19 06:19 Est GFR (CKD-EPI)AfAm 15.03 04/29/19 06:19 Est GFR (CKD-EPI)NonAf 12.97 04/29/19 06:19 POC Glucometer 95 UNITS (80-120) 04/29/19 05:54 Random Glucose 99 mg/dL (74-106) 04/29/19 06:19 Hemoglobin A1c % 6.4 % (4.2-6.3) H 04/24/19 06:15 Calcium 8.3 mg/dL (8.5-10.1) L 04/29/19 06:19 Phosphorus 4.8 mg/dL (2.5-4.9) 04/27/19 05:39 Magnesium 2.3 mg/dL (1.8-2.4) 04/27/19 05:39 Iron 49 ug/dL (50-175) L 04/24/19 06:15 TIBC 227 ug/dL (250-450) L 04/24/19 06:15 Iron Saturation 21 % (17.5-39) 04/24/19 06:15 Unsaturated IBC 178 ug/dL (200-275) L 04/24/19 06:15 Total Bilirubin 0.2 mg/dL (0.2-1) 04/29/19 06:19 AST 14 U/L (15-37) L 04/29/19 06:19 ALT 15 U/L (13-61) 04/29/19 06:19 Alkaline Phosphatase 117 U/L (45-117) 04/29/19 06:19 Creatine Kinase 118 U/L (26-308) 04/23/19 05:52 Creatine Kinase Index 2.6 % (0.0-5.0) 04/22/19 14:45 CK-MB (CK-2) 5.0 ng/mL (0.5-3.6) H 04/22/19 14:45 Troponin I < 0.02 ng/ml (0.00-0.05) 04/23/19 05:52 B-Natriuretic Peptide 05117.8 pg/ml (5-125) H 04/23/19 05:52 Total Protein 5.6 g/dl (6.4-8.2) L 04/29/19 06:19 Total Protein (PEP) 5.4 g/dL (6.0-8.5) L 04/24/19 06:15 Albumin 2.3 g/dl (3.4-5.0) L 04/29/19 06:19 Albumin (PEP) 2.3 gm/dl (2.9-4.4) L 04/24/19 06:15 Globulin 3.1 g/dL (2.2-3.9) 04/24/19 06:15 Albumin/Globulin Ratio 0.7 (0.7-1.7) 04/24/19 06:15 Beta Globulins 0.8 gm/dL (0.7-1.3) 04/24/19 06:15 Triglycerides 125 mg/dL (0-150) 04/23/19 05:52 Cholesterol 163 mg/dL (50-200) 04/23/19 05:52 Total LDL Cholesterol 103 mg/dL (5-100) H 04/23/19 05:52 HDL Cholesterol 46 mg/dL (40-60) 04/23/19 05:52 Vitamin B12 585 pg/ml (193-986) 04/29/19 06:19 TSH 2.30 uIU/ml (0.358-3.74) 04/29/19 06:19 Free T4 0.95 ng/dl (0.76-1.16) 04/29/19 06:19 Urine Color Yellow 04/22/19 18:03 Urine Appearance Clear 04/22/19 18:03 Urine pH 7.0 (5.0-8.0) D 04/22/19 18:03 Ur Specific [place] 1.009 (1.010-1.035) L 04/22/19 18:03 Urine Protein 3+ (NEGATIVE) H 04/22/19 18:03 Urine Glucose (UA) 1+ (NEGATIVE) H 04/22/19 18:03 Urine Ketones Negative (NEGATIVE) 04/22/19 18:03 Urine Blood Trace (NEGATIVE) 04/22/19 18:03 Urine Nitrite Negative (NEGATIVE) 04/22/19 18:03 Urine Bilirubin Negative (NEGATIVE) 04/22/19 18:03 Urine Urobilinogen 0.2 mg/dL (0.2-1.0) 04/22/19 18:03 Ur Leukocyte Esterase Negative (NEGATIVE) 04/22/19 18:03 Urine WBC (Auto) 0 /hpf (0-5) 04/22/19 18:03 Urine RBC (Auto) 2 /hpf (0-4) 04/22/19 18:03 Urine Casts (Auto) 1 /lpf (0-8) 04/22/19 18:03 U Epithel Cells (Auto) 0.2 /HPF (0-5/HPF) 04/22/19 18:03 Urine Bacteria (Auto) 2.7 /hpf (NEGATIVE) 04/22/19 18:03 Ur Random Creatinine 31.0 mg/dL (30-150) 04/24/19 11:25 U Random Total Protein 278.4 mg/dL (0-11.9) H 04/23/19 21:00 Ur Random Sodium 118 MMOL/L (40-220) 04/24/19 11:25 Ur Random Potassium 18.0 MMOL/L (25-125) L 04/23/19 21:00 Ur Random Chloride 137 MMOL/L (110-250) 04/23/19 21:00 Ur Random Urea Nitrogn 177 mg/dL (350-1000) L 04/24/19 11:25 Urine Creatinine 24.0 mg/dL (20-320) 04/23/19 21:00 Protein/Creatinin Ratio 11.6 mg/dL 04/23/19 21:00 Fluid Source Pleural 04/27/19 11:30 POC Fluid pH 8.0 (Not Estab.) 04/27/19 11:30 Fluid WBC 563 /mm3 04/27/19 11:30 Fluid RBC 2572 /mm3 04/27/19 11:30 Fluid Neutrophils 4 % 04/27/19 11:30 Fluid Lymphocytes 61 % 04/27/19 11:30 Fluid Glucose 109 mg/dL (.) 04/27/19 11:30 Fluid Total Protein 2.3 g/dL (.) 04/27/19 11:30 Fluid Albumin 1.3 g/dL (Not Estab.) 04/27/19 11:30 Body Fluid LDH Source 104 IU/L (.) 04/27/19 11:30 Fluid Amylase 29 U/L (.) 04/27/19 11:30 Fluid Triglycerides 23 mg/dL (Not Estab.) 04/27/19 11:30 Pleural Monocytes 2 % 04/27/19 11:30 Pleural Macrophages 26 % 04/27/19 11:30 Pleural Mesothelial 7 % 04/27/19 11:30 BRANNON M-Bill Not observed g/dL (Not Observed) 04/24/19 06:15 c-ANCA <1:20 titer (Neg:<1:20) 04/24/19 06:15 Proteinase 3 (PR3) <3.5 U/mL (0.0-3.5) 04/24/19 06:15 p-ANCA <1:20 titer (Neg:<1:20) 04/24/19 06:15 Atypical p-ANCA <1:20 titer (Neg:<1:20) 04/24/19 06:15 Myeloperoxidase Ab <9.0 U/mL (0.0-9.0) 04/24/19 06:15 Microbiology 04/27/19 11:30 Pleural Fluid Gram Stain - Final 04/27/19 11:30 Pleural Fluid Body Fluid Culture - Preliminary NO AEROBIC GROWTH, 24 HRS 04/27/19 11:30 Pleural Fluid DARVIN Preparation - Preliminary 04/27/19 11:30 Pleural Fluid Fungal Culture - Preliminary 04/27/19 11:30 Pleural Fluid AFB Smear Concentration - Preliminary 04/27/19 11:30 Pleural Fluid Mycobacterial Culture - Preliminary 04/22/19 18:03 Urine - Urine Clean Catch Urine Culture - Final Strep Agalactiae Group B Vital Signs Temp 98.2 F 04/29/19 05:39 Pulse 79 04/29/19 05:39 Resp 18 04/29/19 05:39 BP 135/70 04/29/19 05:39 Pulse Ox 97 04/28/19 21:00 Intake & Output 04/28/19 04/28/19 04/29/19 11:59 23:59 11:59 Intake Total 310 610 380 Balance 310 610 380 Weight 62.959 kg 62.959 kg Intake: IV 20 20 20 SALINE LOCK 20 20 20 IVPB 0 Oral 290 590 360 Other: Voiding Method Toilet Toilet Toilet # Unmeasured Voids Void 2 2 2 Bowel Movement Yes # Bowel Movements 1 Weight Measurement Method Standing Scale Standing Scale Condition: Stable - Instructions Diet, Activity, Other Instructions: Follow up with Cardiology Dr Gerardo Chávez at [facility] center within next 4 weeks. Make an appointment by calling his office at [phone]. Follow up Nephrology Dr Miriam Garcia MD, within next 2 weeks Follow up with Pulmonary Dr Vinod Dodson MD, within next 2 weeks Also, follow up with you primary care provider within next 2 weeks Start Amlodipine 5 mg 1 tab daily in AM Start Hydralazine 50 mg 1 tab 3 x day Start Pantoprazole 40 mg, 1 tab daily in AM Start Furosemide 40 mg 2 x day, at 8 AM and 2 PM Continue Levemir 15 units every morning before breakfast Start Miralax 1 capful daily for constipation Referrals: Vinod Dodson MD [Staff Physician] - Srini Sparrow MD [Primary Care Provider] - Gerardo Chávez MD [Staff Physician] - Miriam Garcia MD [Staff Physician] - Disposition: HOME - Home Medications Comprehensive Discharge Medication List: Ambulatory Orders Insulin (Levemir) [Levemir Vial] 15 units SQ AM #1 pkg 10/04/16 Amlodipine Besylate [Norvasc -] 5 mg PO DAILY #30 tablet 04/29/19 Furosemide [Lasix -] 40 mg PO BID@0600,1400 #60 tablet 04/29/19 Pantoprazole Sodium [Protonix -] 40 mg PO DAILY #30 tablet.ec 04/29/19 Polyethylene Glycol 3350 [Miralax 119 gm Btl -] 17 gm PO DAILY #1 bottle hydrALAZINE HCL [Apresoline -] 50 mg PO TID #90 tablet 04/29/19
[2019-04-29] MEDS: POLYETHYLENE GLYCOL 3350 119 GM BTL PO SCH (11:17)
[2019-04-29] MEDS: PANTOPRAZOLE 40 MG TABLET (FP) PO SCH (11:17)
[2019-04-29] MEDS: amLODIPine BESYLATE 5 MG TABLET (FP) PO SCH (11:17)
[2019-04-29] MEDS: HEPARIN NA (PORCINE) 5,000 UNITS/ML 1ML VIAL SQ SCH ×2 (11:17→21:48)
--- NOTE | 2019-04-29 11:45 | PN ---
Progress Note, Physician History of Present Illness: Pt seen and examined at bedside. he denies shortness of breath. He is eager to go home. - Current Medication List Current Medications: Active Medications Amlodipine Besylate (Norvasc -) 5 mg PO DAILY [facility] Last Admin: 04/29/19 11:17 Dose: 5 mg Diphenhydramine HCl (Benadryl Injection -) 12.5 mg IVPUSH Q4H PRN PRN Reason: FOR ITCHING Furosemide (Lasix -) 40 mg PO BID@0600,1400 [facility] Last Admin: 04/29/19 05:43 Dose: 40 mg Heparin Sodium (Porcine) (Heparin -) 5,000 unit SQ BID [facility] Last Admin: 04/29/19 11:17 Dose: 5,000 unit Hydralazine HCl (Apresoline -) 50 mg PO TID [facility] Last Admin: 04/29/19 05:43 Dose: 50 mg Insulin Aspart (Novolog Vial Sliding Scale -) 1 vial SQ ACHS [facility]; Protocol Last Admin: 04/29/19 06:09 Dose: Not Given Pantoprazole Sodium (Protonix -) 40 mg PO DAILY [facility] Last Admin: 04/29/19 11:17 Dose: 40 mg Polyethylene Glycol (Miralax (For Daily Use) -) 17 gm PO DAILY [facility] Last Admin: 04/29/19 11:17 Dose: 17 gm - Objective Vital Signs: Vital Signs Temperature 98.2 F 04/29/19 05:39 Pulse Rate 79 04/29/19 05:39 Respiratory Rate 18 04/29/19 05:39 Blood Pressure 135/70 04/29/19 05:39 O2 Sat by Pulse Oximetry (%) 97 04/28/19 21:00 Constitutional: Yes: Calm Eyes: Yes: Conjunctiva Clear HENT: Yes: Atraumatic Neck: Yes: Supple Cardiovascular: Yes: S1, S2 Respiratory: Yes: CTA Bilaterally Gastrointestinal: Yes: Normal Bowel Sounds, Soft Genitourinary: Yes: WNL Musculoskeletal: Yes: WNL Edema: Yes Edema: LLE: Trace, RLE: Trace Neurological: Yes: Oriented Psychiatric: Yes: Oriented Labs: CBC, BMP 04/29/19 06:19 04/29/19 06:19 INR, PTT INR 1.05 (0.83-1.09) 04/22/19 14:45 Problem List - Problems (1) Anemia Code(s): D64.9 - ANEMIA, UNSPECIFIED (2) GERD (gastroesophageal reflux disease) Code(s): K21.9 - GASTRO-ESOPHAGEAL REFLUX DISEASE WITHOUT ESOPHAGITIS (3) HTN (hypertension) Code(s): I10 - ESSENTIAL (PRIMARY) HYPERTENSION (4) Nephrotic syndrome Code(s): N04.9 - NEPHROTIC SYNDROME WITH UNSPECIFIED MORPHOLOGIC CHANGES (5) Pericardial effusion Code(s): I31.3 - PERICARDIAL EFFUSION (NONINFLAMMATORY) 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 he b s ag neg hep b core neg hcv neg imfxn neg kala neg gbm neg dsdna neg anca quant insufficient spep suggest inflammatory patern Current Medications Generic Name Dose Route Start Last Admin Trade Name Freq PRN Reason Stop Dose Admin Amlodipine Besylate 5 mg 04/26/19 10:30 04/29/19 11:17 Norvasc - PO 5 mg DAILY [facility] Administration Diphenhydramine HCl 12.5 mg 04/25/19 15:52 Benadryl Injection - IVPUSH Q4H PRN FOR ITCHING Furosemide 40 mg 04/28/19 14:00 04/29/19 05:43 Lasix - PO 40 mg BID@0600,1400 [facility] Administration Heparin Sodium (Porcine) 5,000 unit 04/22/19 22:00 04/29/19 11:17 Heparin - SQ 5,000 unit BID [facility] Administration Hydralazine HCl 50 mg 04/27/19 14:18 04/29/19 05:43 Apresoline - PO 50 mg TID [facility] Administration Insulin Aspart 1 vial 04/22/19 22:00 04/29/19 06:09 Novolog Vial Sliding Scale - SQ Not Given ACHS [facility] Protocol Pantoprazole Sodium 40 mg 04/23/19 13:00 04/29/19 11:17 Protonix - PO 40 mg DAILY [facility] Administration Polyethylene Glycol 17 gm 04/26/19 13:45 04/29/19 11:17 Miralax (For Daily Use) - PO 17 gm DAILY [facility] Administration Impression 1. MEGHAN 2. CKD 3. htn 4. pericardial effusion 5. pleural effusion 6. hyperkalemia 7. DM 8. nephrotic protienuria Plan - volume status on po lasix - called point lay should have prelim result tomorrow - repeat labs in am - bp is improved - discussed with medical team Dr Garcia
[2019-04-30] MEDS: FUROSEMIDE 40 MG TABLET (FP) PO SCH ×3 (06:43→14:02)
[2019-04-30] MEDS: hydrALAZINE HCL 50 MG TABLET (FP) PO SCH ×3 (06:43→14:02)
[2019-04-30] MEDS: INSULIN SLIDING SCALE (NOVOLOG) 1 VIAL SQ SCH ×2 (06:43→11:37)
[2019-04-30 07:01] LABS: BASO % 0.4 % (0-2.0); EOS % 2.9 % (0-4.5); HEMATOCRIT 27.3 % (35.4-49); LYMPH % 27.4 % (8-40); MCH 28.1 pg (25.7-33.7); MCHC 32.9 g/dl (32.0-35.9); MEAN CELL VOLUME 85.2 fl (80-96); MEAN PLT VOLUME 9.6 fl (7.5-11.1); NEUT % 61.3 % (42.8-82.8); PLATELET COUNT 267 K/MM3 (134-434); RBC 3.21 M/mm3 (4.00-5.60); RDW 13.7 % (11.9-15.9); WHITE BLOOD COUNT 8.6 K/mm3 (4.0-10.0)
[2019-04-30 07:35] LABS: ALBUMIN 2.2 g/dl (3.4-5.0); BILIRUBIN,TOTAL 0.1 mg/dL (0.2-1); BLOOD UREA NITROGEN 54.9 mg/dL (7-18); CALCIUM 8.2 mg/dL (8.5-10.1); CREATININE 4.7 mg/dL (0.55-1.3); POTASSIUM 4.6 mmol/L (3.5-5.1); TOT PROT 5.4 g/dl (6.4-8.2)
[2019-04-30] MEDS: HEPARIN NA (PORCINE) 5,000 UNITS/ML 1ML VIAL SQ SCH (09:19)
[2019-04-30] MEDS: PANTOPRAZOLE 40 MG TABLET (FP) PO SCH (09:19)
[2019-04-30] MEDS: amLODIPine BESYLATE 5 MG TABLET (FP) PO SCH (09:19)
[2019-04-30] MEDS: POLYETHYLENE GLYCOL 3350 119 GM BTL PO SCH (11:31)
--- NOTE | 2019-04-30 13:44 | PN ---
Progress Note, Physician History of Present Illness: Pt seen and examined at bedside. He is awake and alert. He denies shortness of breath. He is eager to go home. I discussed the prelim results of the kidney biopsy. - Current Medication List Current Medications: Active Medications Amlodipine Besylate (Norvasc -) 5 mg PO DAILY [facility] Last Admin: 04/30/19 09:19 Dose: 5 mg Diphenhydramine HCl (Benadryl Injection -) 12.5 mg IVPUSH Q4H PRN PRN Reason: FOR ITCHING Furosemide (Lasix -) 40 mg PO BID@0600,1400 [facility] Last Admin: 04/30/19 06:43 Dose: 40 mg Heparin Sodium (Porcine) (Heparin -) 5,000 unit SQ BID [facility] Last Admin: 04/30/19 09:19 Dose: 5,000 unit Hydralazine HCl (Apresoline -) 50 mg PO TID [facility] Last Admin: 04/30/19 06:43 Dose: 50 mg Insulin Aspart (Novolog Vial Sliding Scale -) 1 vial SQ [facility]; Protocol Last Admin: 04/30/19 11:37 Dose: Not Given Pantoprazole Sodium (Protonix -) 40 mg PO DAILY [facility] Last Admin: 04/30/19 09:19 Dose: 40 mg Polyethylene Glycol (Miralax (For Daily Use) -) 17 gm PO DAILY [facility] Last Admin: 04/30/19 11:31 Dose: 17 gm - Objective Vital Signs: Vital Signs Temperature 98 F 04/30/19 10:00 Pulse Rate 88 04/30/19 10:00 Respiratory Rate 18 04/30/19 10:00 Blood Pressure 170/90 04/30/19 10:00 O2 Sat by Pulse Oximetry (%) 98 04/30/19 09:00 Constitutional: Yes: Calm Eyes: Yes: Conjunctiva Clear HENT: Yes: Atraumatic Neck: Yes: Supple Cardiovascular: Yes: S1, S2 Respiratory: Yes: CTA Bilaterally Gastrointestinal: Yes: Normal Bowel Sounds, Soft Genitourinary: Yes: WNL Musculoskeletal: Yes: WNL Edema: Yes Edema: LLE: Trace, RLE: Trace Neurological: Yes: Oriented Psychiatric: Yes: Oriented Labs: CBC, BMP 04/30/19 06:15 04/30/19 06:15 INR, PTT INR 1.05 (0.83-1.09) 04/22/19 14:45 Problem List - Problems (1) Anemia Code(s): D64.9 - ANEMIA, UNSPECIFIED (2) GERD (gastroesophageal reflux disease) Code(s): K21.9 - GASTRO-ESOPHAGEAL REFLUX DISEASE WITHOUT ESOPHAGITIS (3) HTN (hypertension) Code(s): I10 - ESSENTIAL (PRIMARY) HYPERTENSION (4) Nephrotic syndrome Code(s): N04.9 - NEPHROTIC SYNDROME WITH UNSPECIFIED MORPHOLOGIC CHANGES (5) Pericardial effusion Code(s): I31.3 - PERICARDIAL EFFUSION (NONINFLAMMATORY) Assessment/Plan 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 he b s ag neg hep b core neg hcv neg imfxn neg kala neg gbm neg dsdna neg anca quant insufficient spep suggest inflammatory patern Current Medications Generic Name Dose Route Start Last Admin Trade Name Freq PRN Reason Stop Dose Admin Amlodipine Besylate 5 mg 04/26/19 10:30 04/30/19 09:19 Norvasc - PO 5 mg DAILY [facility] Administration Diphenhydramine HCl 12.5 mg 04/25/19 15:52 Benadryl Injection - IVPUSH Q4H PRN FOR ITCHING Furosemide 40 mg 04/28/19 14:00 04/30/19 06:43 Lasix - PO 40 mg BID@0600,1400 [facility] Administration Heparin Sodium (Porcine) 5,000 unit 04/22/19 22:00 04/30/19 09:19 Heparin - SQ 5,000 unit BID [facility] Administration Hydralazine HCl 50 mg 04/27/19 14:18 04/30/19 06:43 Apresoline - PO 50 mg TID [facility] Administration Insulin Aspart 1 vial 04/22/19 22:00 04/30/19 11:37 Novolog Vial Sliding Scale - SQ Not Given ACHS ARTEM Protocol Pantoprazole Sodium 40 mg 04/23/19 13:00 04/30/19 09:19 Protonix - PO 40 mg DAILY ARTEM Administration Polyethylene Glycol 17 gm 04/26/19 13:45 04/30/19 11:31 Miralax (For Daily Use) - PO 17 gm DAILY ARTEM Administration Impression 1. MEGHAN 2. CKD 3. htn 4. pericardial effusion 5. pleural effusion 6. hyperkalemia 7. DM 8. nephrotic protienuria Plan - cont po lasix - kidney biopsy prelim results shows diabetic disease with an end stage kidney - discussed vascular access and kidney transplant - will need close outpt follow up - will see in office Dr Garcia
--- NOTE | 2019-04-30 13:52 | PN ---
Progress Note (short form) - Note Progress Note: Feels better. No CP or SOB. No acute events overnight. Intake & Output 04/27/19 04/28/19 04/29/19 04/30/19 23:59 23:59 23:59 23:59 Intake Total 308 069 5408 Balance 988 868 3314 Weight 139 lb 2 oz 138 lb 12.8 oz 138 lb 12.8 oz 140 lb 8 oz Last Vital Signs Temp Pulse Resp BP Pulse Ox 98 F 88 18 170/90 98 04/30/19 10:00 04/30/19 10:00 04/30/19 10:00 04/30/19 10:00 04/30/19 09:00 Active Medications Amlodipine Besylate (Norvasc -) 5 mg PO DAILY [facility] Last Admin: 04/30/19 09:19 Dose: 5 mg Diphenhydramine HCl (Benadryl Injection -) 12.5 mg IVPUSH Q4H PRN PRN Reason: FOR ITCHING Furosemide (Lasix -) 40 mg PO BID@0600,1400 [facility] Last Admin: 04/30/19 06:43 Dose: 40 mg Heparin Sodium (Porcine) (Heparin -) 5,000 unit SQ BID [facility] Last Admin: 04/30/19 09:19 Dose: 5,000 unit Hydralazine HCl (Apresoline -) 50 mg PO TID [facility] Last Admin: 04/30/19 06:43 Dose: 50 mg Insulin Aspart (Novolog Vial Sliding Scale -) 1 vial SQ ACHS [facility]; Protocol Last Admin: 04/30/19 11:37 Dose: Not Given Pantoprazole Sodium (Protonix -) 40 mg PO DAILY [facility] Last Admin: 04/30/19 09:19 Dose: 40 mg Polyethylene Glycol (Miralax (For Daily Use) -) 17 gm PO DAILY [facility] Last Admin: 04/30/19 11:31 Dose: 17 gm Constitutional: Yes: NAD Eyes: Yes: WNL HENT: Yes: WNL Neck: Yes: WNL Cardiovascular: Yes: Regular Rate and Rhythm, S1, S2 Respiratory: Yes: Clear Gastrointestinal: Yes: Normal Bowel Sounds, Soft Extremities: Yes: WNL Edema: Yes Edema: LLE: Trace, RLE: Trace Labs: Laboratory Results - last 24 hr 04/29/19 04/29/19 04/30/19 17:29 21:47 05:49 WBC RBC Hgb Hct MCV MCH MCHC RDW Plt Count MPV Absolute Neuts (auto) Neutrophils % Lymphocytes % Monocytes % Eosinophils % Basophils % Nucleated RBC % Sodium Potassium Chloride Carbon Dioxide Anion Gap BUN Creatinine Est GFR (CKD-EPI)AfAm Est GFR (CKD-EPI)NonAf POC Glucometer 162 174 129 Random Glucose Calcium Total Bilirubin AST ALT Alkaline Phosphatase Total Protein Albumin 04/30/19 04/30/19 04/30/19 06:15 06:15 11:34 WBC 8.6 RBC 3.21 L Hgb 9.0 L Hct 27.3 L MCV 85.2 MCH 28.1 MCHC 32.9 RDW 13.7 Plt Count 267 MPV 9.6 Absolute Neuts (auto) 5.3 Neutrophils % 61.3 Lymphocytes % 27.4 Monocytes % 8.0 Eosinophils % 2.9 Basophils % 0.4 Nucleated RBC % 0 Sodium 140 Potassium 4.6 Chloride 108 H Carbon Dioxide 25 Anion Gap 6 L BUN 54.9 H Creatinine 4.7 H Est GFR (CKD-EPI)AfAm 15.81 Est GFR (CKD-EPI)NonAf 13.64 POC Glucometer 130 Random Glucose 123 H Calcium 8.2 L Total Bilirubin 0.1 L AST 13 L ALT 14 Alkaline Phosphatase 127 H Total Protein 5.4 L Albumin 2.2 L Assessment/Plan Problem List - Problems (1) Pericardial effusion Code(s): I31.3 - PERICARDIAL EFFUSION (NONINFLAMMATORY) (2) Pleural effusion Code(s): J90 - PLEURAL EFFUSION, NOT ELSEWHERE CLASSIFIED Assessment/Plan Pleural/Pericardial Effusions Acute Kidney Injury Volume Overload r/o CHF HTN DM - Lasix - Daily weights - O2 to keep SpO2 >90% - DVT prophylaxis Dr Masterson
[2019-04-30 14:46] VITALS: BP 139/68; PULSE 83; TEMP 97.4
--- NOTE | 2019-04-30 15:07 | PN ---
Progress Note, Physician Chief Complaint: patient is eager to go home s/p kidney biopsy - Current Medication List Current Medications: Active Medications Amlodipine Besylate (Norvasc -) 5 mg PO DAILY [facility] Last Admin: 04/30/19 09:19 Dose: 5 mg Diphenhydramine HCl (Benadryl Injection -) 12.5 mg IVPUSH Q4H PRN PRN Reason: FOR ITCHING Furosemide (Lasix -) 40 mg PO BID@0600,1400 [facility] Last Admin: 04/30/19 14:02 Dose: 40 mg Heparin Sodium (Porcine) (Heparin -) 5,000 unit SQ BID [facility] Last Admin: 04/30/19 09:19 Dose: 5,000 unit Hydralazine HCl (Apresoline -) 50 mg PO TID [facility] Last Admin: 04/30/19 14:02 Dose: 50 mg Insulin Aspart (Novolog Vial Sliding Scale -) 1 vial SQ ACHS [facility]; Protocol Last Admin: 04/30/19 11:37 Dose: Not Given Pantoprazole Sodium (Protonix -) 40 mg PO DAILY [facility] Last Admin: 04/30/19 09:19 Dose: 40 mg Polyethylene Glycol (Miralax (For Daily Use) -) 17 gm PO DAILY [facility] Last Admin: 04/30/19 11:31 Dose: 17 gm - Objective Vital Signs: Vital Signs Temperature 97.4 F L 04/30/19 14:00 Pulse Rate 83 04/30/19 14:00 Respiratory Rate 18 04/30/19 10:00 Blood Pressure 139/68 04/30/19 14:00 O2 Sat by Pulse Oximetry (%) 98 04/30/19 09:00 Constitutional: Yes: Calm Cardiovascular: Yes: Regular Rate and Rhythm, S1, S2 Respiratory: Yes: CTA Bilaterally Gastrointestinal: Yes: Normal Bowel Sounds, Soft Edema: No Neurological: Yes: Alert, Oriented Labs: CBC, BMP 04/30/19 06:15 04/30/19 06:15 INR, PTT INR 1.05 (0.83-1.09) 04/22/19 14:45 Problem List - Problems (1) Pericardial effusion Assessment/Plan: echo noted small pericardial effusion CTS and cardiology consult noted Code(s): I31.3 - PERICARDIAL EFFUSION (NONINFLAMMATORY) (2) Pleural effusion Assessment/Plan: iv direutics bid change to po lasix bid s/p thoracocentesis Code(s): J90 - PLEURAL EFFUSION, NOT ELSEWHERE CLASSIFIED (3) Diabetes Assessment/Plan: bgm hgba1c 6.4 levemir hold metformin for now Code(s): E11.9 - TYPE 2 DIABETES MELLITUS WITHOUT COMPLICATIONS Qualifiers: Diabetes mellitus type: type 2 (4) Renal insufficiency Assessment/Plan: renal biopsy done hold acei Code(s): N28.9 - DISORDER OF KIDNEY AND URETER, UNSPECIFIED (5) HTN (hypertension) Assessment/Plan: stop acei hydralaizne 25mg tid Code(s): I10 - ESSENTIAL (PRIMARY) HYPERTENSION (6) Anemia Assessment/Plan: iron panel Code(s): D64.9 - ANEMIA, UNSPECIFIED (7) GERD (gastroesophageal reflux disease) Code(s): K21.9 - GASTRO-ESOPHAGEAL REFLUX DISEASE WITHOUT ESOPHAGITIS
--- NOTE | 2019-04-30 16:43 | PATH ---
Cytology Non-Gynecological Report Patient Name: BRADEN SANTANA Med. Rec. #: [id number] /Age/Gender: 1970 (Age: 48) / M Account: [id number] Location: 4 W TELEMETRY U Taken: 04/27/2019 Received: 04/28/2019 Reported: 04/30/2019 Physicians: Elise Santillan M.D. Specimen(s) Received PLEURAL FLUID Clinical History Left pleural effusion Final Diagnosis PLEURAL FLUID, THORACENTESIS: SATISFACTORY FOR EVALUATION. NO MALIGNANT CELLS IDENTIFIED. MESOTHELIAL CELLS AND MACROPHAGES PRESENT. Electronically Signed Cristiano Garcia M.D. Gross Description Approximately 50cc of yellow fluid received fresh. One cytospin and one cellblock prepared.
[2019-05-04 21:25] VITALS: BMI 26.0
--- NOTE | 2019-05-26 09:15 | PATH ---
Surgical Pathology Report Patient Name: BRADEN SANTANA Med. Rec. #: [id number] /Age/Gender: 1970 (Age: 48) / M Account: [id number] Location: 4 W TELEMETRY U Taken: 04/28/2019 Received: 04/28/2019 Reported: 05/26/2019 Physicians: Ambar Laurent M.D. Specimen(s) Received RENAL BIOPSY Clinical History 48 year-old man with renal insufficiency. Serum creatinine 3.5 mg/dl. Urinalysis shows 3+ protein. History of diabetes and hypertension. Medications include metformin, insulin, lisinopril, glipizide and vancomycin. No family history of kidney disease. 2+ edema present. Hepatitis B and C negative, REMEDIOS and double stranded DNA negative. ANCA and anti-GBM negative, No M-spike detected. Intraoperative Consult Diagnosis Left kidney for gross assessment: Glomeruli present. Rashi Holbrook M.D., 04/28/2019 Final Diagnosis RENAL, BIOPSY: NODULAR MESANGIAL SCLEROSIS, 2+. ARTERIOLOSCLEROSIS, 2-3+. CONSISTENT WITH: NODULAR DIABETIC GLOMERULOSCLEROSIS, SEVERE. TUBULAR ATROPHY AND INTERSTITIAL FIBROSIS, SEVERE. ARTERIOSCLEROSIS, MODERATE, AND ARTERIOLOSCLEROSIS, SEVERE. SEE COMMENT. ELECTRON MICROSCOPY (INTERPRETATION): Glomerular capillary lumina show widespread attenuation with inframembranous accumulation of hyaline. Mesangial areas show nodular accumulation of matrix. No immune type electron dense deposits or endothelial cell tubuloreticular cell inclusions are seen. The degree of podocyte foot process effacement cannot be ascertained. Proximal tubules show loss of apical brush border. Tubular basement membranes show moderate thickening. Interstitial collagen and interstitial mononuclear inflammatory cells are noted. Arterioles show moderate to severe hyalinosis. Comment: Immunofluorescence microscopy shows no evidence of glomerular disease of the immune complex type. No acute/active inflammatory injury is seen. This case was sent to Dr. Alec Bahena from [facility], [place], [place] ([id number]) the diagnosis above reflects his opinion. Electronically Signed Ciara Maddox M.D. Microscopic Description Sections are stained with H&E, PAS, trichrome, and JMS. Sections show 2 cores of renal cortex, 1 of which has attached medulla. Sixteen (16) Glomeruli are seen, 10 of which show complete or near complete global sclerosis and hyalinosis. The remaining glomeruli are mildly enlarged and show moderate to severe nodular mesangial sclerosis and diffuse thickening of basement membranes. No crescents, fibrinoid necrosis or fibrin thrombi are seen. Tubular basement membranes are diffusely thickened. There is severe patchy tubular atrophy and interstitial fibrosis affecting 80% of the cortical area, accompanied by patchy mononuclear inflammatory cell infiltrate. Arteries show moderate intimal fibrosis and no evidence of arteritis. Arterioles show severe hyalinosis. The renal medulla shows no pathologic alteration. Immunofluorescence (Procedure) INTERPRETATION RENAL PATHOLOGY LABORATORY- IMMUNOFLUORESCENCE REPORT GLOMERULI TUBULES INTERSTITIUM VESSELS IgG 10 gloms+/- Global linear GCW TBM's +/- linear Neg Neg IgM 6 of 10 gloms 1+ Seg tuft Neg Neg Arteriole priest 2+ IgA 10 gloms neg Casts 1+ Neg Neg C3 6 of 10 gloms 1+ Seg tuft Neg Neg Arteriole priest 1+ C1 6 of 10 gloms 1+ Seg tuft Neg Neg Arteriole priest 1+ FBGN 10 gloms neg Neg Neg Neg ALB 10 gloms 1+ Global linear GCW TBM's1+ linear Neg Neg KAPPA 10 gloms +/- Global linear GCW TBM's +/- Linear Casts 1+ Neg Neg LAMBDA 10 gloms +/- Global linear GCW TBM's +/- Linear Casts 1+ Neg Neg Gross Description Received in saline labeled "left renal biopsy," are 3 cummins, cylindrical portions of soft tissue ranging from 1.5-2.0 cm in length and averaging 0.1 cm in diameter. The specimen is divided, placed into 10% buffered formalin, Casa fixative and glutaraldehyde. The specimen is sent to [facility] for further studies. 04/28/201904/28/2019
== END 2019-04-30 15:32 | disposition home or self-care (01) | DRG 194 ==
LOC: JER 14:21 → JERBED 16:44 → J2W 04-23 15:48 → J4W 04-23 21:12
PROVIDERS: ADMIT Family Medicine; ATTEND Family Medicine
PROC: 0W9B3ZX Drainage of Left Pleural Cavity, Percutaneous Approach, Diagnostic (ICD-10-PCS; principal; 2019-04-27)
PROC: 0TB13ZX Excision of Left Kidney, Percutaneous Approach, Diagnostic (ICD-10-PCS; 2019-04-28)
DX: I13.0 Hypertensive heart and chronic kidney disease with heart failure and stage 1 through stage 4 chronic kidney disease, or unspecified chronic kidney disease (principal); J90 Pleural effusion, not elsewhere classified; I31.3 Pericardial effusion (noninflammatory); N18.6 End stage renal disease; K21.9 Gastro-esophageal reflux disease without esophagitis; R31.29 Other microscopic hematuria; N17.9 Acute kidney failure, unspecified; E87.70 Fluid overload, unspecified; N04.9 Nephrotic syndrome with unspecified morphologic changes; D64.9 Anemia, unspecified; E87.5 Hyperkalemia; N18.9 Chronic kidney disease, unspecified; J98.11 Atelectasis; E11.22 Type 2 diabetes mellitus with diabetic chronic kidney disease; I50.30 Unspecified diastolic (congestive) heart failure
CPT/HCPCS: 36415; 50200; 71045-TC-FY; 71250-TC; 76604; 76775-TC; 76942; 76942-TC; 80048; 80053; 80061; 81003; 82042; 82150; 82436; 82465; 82550; 82553; 82565; 82570; 82607; 82945; 82962; 83036; 83520; 83540; 83550; 83615; 83721; 83735; 83880; 83986; 84100; 84133; 84155; 84156; 84157; 84165; 84300; 84439; 84443; 84478; 84484; 84540; 85025; 85610; 85730; 86256; 87070; 87075; 87077; 87086; 87102; 87116; 87205; 87206; 87210; 88300-TC; 93005; 93010; 93306-TC; 93308; 99284-25; J1644; J1756

== ENCOUNTER 2019-05-22 14:52 | Emergency (ER) | payer OTHER ==
[2019-05-22 15:49] VITALS: BMI 29.2
[2019-05-22] MEDS ORDERED: amLODIPine BESYLATE 5 MG TABLET (FP) PO SCH (16:15)
--- NOTE | 2019-05-22 16:25 | PDOC ---
History of Present Illness - History of Present Illness Initial Comments: 05/22/19 16:25 Mr. Alva is a 48 yo man with pmhx of DM, HTN, and diabetic kidney disease presenting to the ED from his PCP due to an elevated K+. Per the patient he was last hospitalized in early April for a "kidney problem". The patient seems to have a somewhat poor understanding of his previous diagnoses or plans for follow up care. On chart review it appears the pt was hospitalized for an MEGHAN which was later discovered to be end stage kidney disease 2/2 diabetes on bx. He also had pericardial and pleural effusions at that time and hyperkalemia. Pt seemed to be doing some or all of his outpatient follow up appointments and was discovered to be hyperkalemic. The patient denies any heart palpitations, CP, SOB, numbness, tingling, paresthesias, confusion, n/v/d/c. The patient states he has no complaints and feels in his usual state of health. 05/22/19 16:52 <Irena Jose - Last Filed: 05/22/19 18:34> <Sukumar Barnard - Last Filed: 05/22/19 18:45> - General Chief Complaint: Revisit, Lab Variance Stated Complaint: SENT BY PCP/ABNORMAL LABS Time Seen by Provider: 05/22/19 15:08 Past History - Past Medical History Anemia: No Asthma: No Cancer: No Cardiac Disorders: No CVA: No COPD: No CHF: No Dementia: No Diabetes: Yes GI Disorders: No Disorders: No HTN: Yes Hypercholesterolemia: No Liver Disease: No Seizures: No Thyroid Disease: No - Psycho Social/Smoking Cessation Hx Smoking History: Never smoked Have you smoked in the past 12 months: No If you are a former smoker, when did you quit?: 1 MO AGO Information on smoking cessation initiated: No Hx Alcohol Use: No Drug/Substance Use Hx: No Substance Use Type: None <Irena Jose - Last Filed: 05/22/19 18:34> <Sukumar Barnard - Last Filed: 05/22/19 18:45> - Past Medical History Allergies/Adverse Reactions: Allergies Allergy/AdvReac Type Severity Reaction Status Date / Time No Known Allergies Allergy Verified 05/22/19 15:47 Home Medications: Ambulatory Orders Amlodipine Besylate [Norvasc -] 5 mg PO DAILY #30 tablet 04/29/19 Furosemide [Lasix -] 40 mg PO BID@0600,1400 #60 tablet 04/29/19 hydrALAZINE HCL [Apresoline -] 50 mg PO TID #90 tablet 04/29/19 Sodium Bicarbonate 650 mg PO BID #28 tablet 05/22/19 Review of Systems - Review of Systems Able to Perform ROS?: Yes Is the patient limited Frisian proficient: No All Other Systems: Reviewed and Negative (Pt states he is in his usual state of health without cmplaints) <Irena Jose - Last Filed: 05/22/19 18:34> *Physical Exam - Vital Signs Last Vital Signs Temp Pulse Resp BP Pulse Ox 98.4 F 92 H 16 212/103 H 95 05/22/19 15:00 05/22/19 15:45 05/22/19 15:00 05/22/19 15:45 05/22/19 15:31 - Physical Exam General Appearance: Yes: Nourished, Appropriately Dressed. No: Apparent Distress HEENT: positive: EOMI, NAOMI, Normal ENT Inspection, Symmetrical, Pharynx Normal Neck: positive: Trachea midline, Supple. negative: Tender Respiratory/Chest: positive: Other (decreased breath sounds at the bases, rare expiratory wheezes in posterior lung richards. ). negative: Respiratory Distress , Accessory Muscle Use, Crackles, Rales, Rhonchi Cardiovascular: positive: Regular Rhythm, Regular Rate, S1, S2. negative: Murmur Gastrointestinal/Abdominal: positive: Normal Bowel Sounds, Soft. negative: Tender, Organomegaly, Pulsatile Mass Musculoskeletal: positive: Normal Inspection. negative: CVA Tenderness Extremity: positive: Normal Capillary Refill, Normal Inspection, Normal Range of Motion, Pedal Edema (trace pedal edema to mid [place] ). negative: Tender Integumentary: positive: Dry, Warm, Bruising, Other (pt with multiple old scars on back and old scars on [place]. One 0.5cm wound on R mid quez[place] with no surrounding erythema and a granular base. ) Neurologic: positive: ammonium nitrate crystallizer II-XII NML intact, Fully Oriented, Alert, Motor Strength 5/5 <Irena Jose - Last Filed: 05/22/19 18:34> - Vital Signs Last Vital Signs Temp Pulse Resp BP Pulse Ox 98.4 F 89 21 H 191/86 H 95 05/22/19 15:00 05/22/19 17:45 05/22/19 17:45 05/22/19 17:45 05/22/19 17:45 <Sukumar Barnard - Last Filed: 05/22/19 18:45> ED Treatment Course - LABORATORY CBC & Chemistry Diagram: 05/22/19 16:30 05/22/19 16:30 <Irena Jose - Last Filed: 05/22/19 18:34> - LABORATORY CBC & Chemistry Diagram: 05/22/19 16:30 05/22/19 16:30 - ADDITIONAL ORDERS Additional order review: Laboratory Results 05/22/19 05/22/19 16:30 16:30 Sodium 143 Potassium 5.3 H Chloride 116 H Carbon Dioxide 20 L Anion Gap 7 L BUN 47.1 H Creatinine 4.2 H Est GFR (CKD-EPI)AfAm 18.12 Est GFR (CKD-EPI)NonAf 15.63 Random Glucose 95 Calcium 8.6 Phosphorus 4.1 Magnesium 2.7 H Total Bilirubin 0.2 AST 26 ALT 41 Alkaline Phosphatase 205 H Total Protein 6.8 Albumin 2.7 L 05/22/19 16:30 RBC 3.36 L MCV 85.5 MCHC 32.6 RDW 14.4 MPV 9.5 Neutrophils % 74.8 D Lymphocytes % 15.7 D Monocytes % 7.0 Eosinophils % 2.0 Basophils % 0.5 <Sukumar Barnard - Last Filed: 05/22/19 18:45> Medical Decision Making - Medical Decision Making 05/22/19 16:53 Mr. Alva is a 48 yo man with pmhx of DM, HTN, and end stage diabetic kidney disease presenting to the ED from his PCP due to an elevated K+. Will obtain: - CBC - CMP - mag - phos Will resume pt home BP meds as pt did not take his medications this morning and is how hypertensive to 212/103. Will reassess pt/ tx hyperkalemia pending labs. 05/22/19 17:51 K+ elevated to 5.3 mag 2.7, discussed case with Dr. Garcia who advised the pt will likely need dialysis. For now pt is asymptomatic with only mildly elevated K+, will give 10mg PO lokelma in ED and discharge patient home with a prescription for sodium bicarb 650mg PO BID and plans to follow up with Dr. Garcia on Saturday for a discussion about dialysis options. Will director of counseling patient to eat a low potassium diet and advise he return to the emergency department immediately if he experiences any symptoms like weakness, paralysis or heart palpitations. <Irena Jose - Last Filed: 05/22/19 18:34> Discharge - Discharge Information Problems reviewed: Yes - Admission No <Irena Jose - Last Filed: 05/22/19 18:34> <EvonSukumar - Last Filed: 05/22/19 18:45> - Discharge Information Clinical Impression/Diagnosis: Hyperkalemia Condition: Stable Disposition: HOME - Additional Discharge Information Prescriptions: Sodium Bicarbonate 650 mg PO BID #28 tablet - Follow up/Referral Referrals: Miriam Garcia MD [Staff Physician] - 05/27/19 - Patient Discharge Instructions Patient Printed Discharge Instructions: Low-Potassium Diet Additional Instructions: You were sent by your urologist to the emergency department because you had an elevated potassium level. This is because your kidneys are not filtering properly due to your diabetes. You will need to follow up with Dr. Garcia on Monday May 27, 2019 to discuss dialysis options. We are prescribing you a medication called Sodium Bicarbonate to help lower your potassium. Please take this medication TWICE PER DAY. Please also follow a LOW POTASSIUM DIET. We are attaching a pamphlet in your discharge paperwork for reference. You also need to have your blood pressure re-checked by your primary doctor, as it was slightly elevated today. Uncontrolled blood pressure can eventually lead to kidney disease, heart disease, other serious illness, disability, or even . If you experience symptoms like weakness, paralysis or heart palpitations please return to the Emergency Department immediately.
[2019-05-22] MEDS ORDERED: amLODIPine BESYLATE 5 MG TABLET (FP) ONE (16:41)
[2019-05-22] MEDS ORDERED: hydrALAZINE HCL 25 MG TABLET (FP) ONE (16:41)
--- NOTE | 2019-05-22 16:51 | PDOC ---
Attending Attestation - Resident Resident Name: DamonIrena - ED Attending Attestation I have performed the following: I have examined & evaluated the patient, The case was reviewed & discussed with the resident, I agree w/resident's findings & plan, Exceptions are as noted - HPI HPI: 05/22/19 16:49 48 M with DM, HTN, CKD, presenting to ED for abnormal labs. Pt has no complaints today but states that he had routine bloodwork done yesterday showing an elevated potassium. Pt notes he did not take any of his BP meds today. - Physicial Exam PE: 05/22/19 16:50 "GENERAL: Awake, alert, and fully oriented, in no acute distress. HEAD: No signs of trauma EYES: PERRLA, EOMI, sclera anicteric, conjunctiva clear ENT: Auricles normal inspection, hearing grossly normal, nares patent, oropharynx clear without exudates. Moist mucosa NECK: Nontender, no stepoffs, Normal ROM, supple, no lymphadenopathy, JVD, or masses LUNGS: Breath sounds equal, clear to auscultation bilaterally. No wheezes, and no crackles HEART: Regular rate and rhythm, normal S1 and S2, no murmurs, rubs or gallops ABDOMEN: Soft, nontender, normoactive bowel sounds. No guarding, no rebound. No masses EXTREMITIES: Normal range of motion, no edema. No clubbing or cyanosis. No cords, erythema, or tenderness NEUROLOGICAL: Cranial nerves II through XII intact. 5/5 strength and sensation in all extremities, Normal speech, normal gait, normal cerebellar function SKIN: Warm, Dry, normal turgor, no rashes or lesions noted. - Medical Decision Making 05/22/19 16:51 48 M with abnormal outpt bloodwork showing hyperK. Pt with no complaints currently. - Labs - Home BP meds 05/22/19 17:44 K 5.3 today Pt's BP improved to 180/90 after home meds Will discuss with pt's radioisotope production operator, Dr. Leos 05/22/19 17:48 Dr. Garcia recommends giving 1 dose Lokelma in ED, DC with sodium bicarb. He will see pt in office to discuss likely need for HD. Pt instructed to f/u with Dr. Garcia this week. Pt with improved BP but still elevated to 180/90. Pt without any symptoms at this time. Pt instructed to f/u with PMD for BP control. Pt is well appearing, with normal vitals. Clinically stable for DC at this time. I discussed the physical exam findings, ancillary test results and final diagnoses with the patient. I answered all of the patient's questions. The patient was satisfied with the care received and felt comfortable with the discharge plan and treatment plan. The patient agrees to follow up with the primary care physician within 24-72 hours.
[2019-05-22 17:06] LABS: BASO % 0.5 % (0-2.0); HEMATOCRIT 28.7 % (35.4-49); HEMOGLOBIN 9.3 GM/dL (11.7-16.9); LYMPH % 15.7 % (8-40); MCH 27.8 pg (25.7-33.7); MCHC 32.6 g/dl (32.0-35.9); MEAN CELL VOLUME 85.5 fl (80-96); MEAN PLT VOLUME 9.5 fl (7.5-11.1); NEUT % 74.8 % (42.8-82.8); PLATELET COUNT 299 K/MM3 (134-434); RBC 3.36 M/mm3 (4.00-5.60); RDW 14.4 % (11.9-15.9); WHITE BLOOD COUNT 9.8 K/mm3 (4.0-10.0)
[2019-05-22 17:34] LABS: ALBUMIN 2.7 g/dl (3.4-5.0); BILIRUBIN,TOTAL 0.2 mg/dL (0.2-1); BLOOD UREA NITROGEN 47.1 mg/dL (7-18); CALCIUM 8.6 mg/dL (8.5-10.1); CREATININE 4.2 mg/dL (0.55-1.3); MAGNESIUM 2.7 mg/dL (1.8-2.4); POTASSIUM 5.3 mmol/L (3.5-5.1); TOT PROT 6.8 g/dl (6.4-8.2)
[2019-05-22] MEDS ORDERED: SODIUM ZIRCONIUM CYCLOSILICATE (LOKELMA) 5 GM PACKET PO ONE (17:47)
[2019-05-22 19:27] VITALS: BP 171/89; PULSE 72; TEMP 98.2
[2019-05-22] MEDS ORDERED: hydrALAZINE HCL 50 MG TABLET (FP) PO SCH (22:00)
--- NOTE | 2019-05-25 01:07 | EKG ---
Test Reason : Blood Pressure : / mmHG Vent. Rate : 092 BPM Atrial Rate : 092 BPM P-R Int : 142 ms QRS Dur : 130 ms QT Int : 374 ms P-R-T Axes : 056 079 018 degrees QTc Int : 462 ms NORMAL SINUS RHYTHM POSSIBLE LEFT ATRIAL ENLARGEMENT RIGHT BUNDLE BRANCH BLOCK ABNORMAL ECG WHEN COMPARED WITH ECG OF 22-APR-2019 14:27, T WAVE VARIATION Confirmed by DAILY LARIOS MD ([id number]) on 05/25/2019 1:06:42 AM Referred By: Confirmed By:DAILY LARIOS MD
== END 2019-05-22 19:10 | disposition home or self-care (01) ==
LOC: JER 14:52
DX: E87.5 Hyperkalemia (principal); E11.22 Type 2 diabetes mellitus with diabetic chronic kidney disease; N18.6 End stage renal disease; I10 Essential (primary) hypertension
CPT/HCPCS: 36415; 80053; 83735; 84100; 85025; 93005; 93010; 99284-25

== ENCOUNTER 2019-06-14 22:41 | Inpatient (IN) | payer OTHER ==
--- NOTE | 2019-06-14 23:40 | PDOC ---
History of Present Illness - General Chief Complaint: Shortness of Breath Stated Complaint: SOB Time Seen by Provider: 06/14/19 23:40 - History of Present Illness Initial Comments: 06/14/19 23:46 48 year old man with a history of DM, HTN, CKD, ESRD (not yet on dialysis - baseline Cr of 4.05, bicarb 20) recent pericardial and pleural effusion who presents with over 1 month of shortness of breath, abdominal fullness and this morning with feelings of fatigue and "inability to wake up." The patient reports that he waited until the end of the day because he thought his symptoms would improve but they did not and he called Dr. Guajardo who recommended that he come to the ER and that it may be time that he start dialysis. The patient denies fever, chest pain, n/v/d/c, dysuria, hematuria or any other symptoms. He has no other complaints. Followed by Dr. Guajardo and Dr. Malcolm LOPEZ GENERAL/CONSTITUTIONAL: No fever or chills. No weakness. HEAD, EYES, EARS, NOSE AND THROAT: No sore throat. CARDIOVASCULAR: No chest pain + shortness of breath RESPIRATORY: No cough, wheezing, or hemoptysis. GASTROINTESTINAL: No nausea, vomiting, diarrhea or constipation. GENITOURINARY: No dysuria, frequency, or change in urination. MUSCULOSKELETAL: No joint or muscle swelling or pain. No neck or back pain. SKIN: No rash PE GENERAL: Awake, alert, and fully oriented, in no acute distress HEAD: No signs of trauma, normocephalic, atraumatic EYES: EOMI, sclera anicteric, conjunctiva clear ENT: oropharynx clear without exudates. Moist mucosa NECK: Normal ROM, supple LUNGS: No distress, speaks full sentences, velcro like crackles bilaterally worse at the bases HEART: Regular rate and rhythm, normal S1 and S2, no murmurs, rubs or gallops, peripheral pulses normal and equal bilaterally. ABDOMEN: Soft, nontender. No guarding, no rebound. No masses EXTREMITIES : Normal inspection, Normal range of motion, no edema. No clubbing or cyanosis. NEUROLOGICAL: Cranial nerves II through XII grossly intact. Normal speech, no focal sensorimotor deficits SKIN: Warm, Dry, normal turgor, no rashes or lesions noted MDM DDX including but not limited to: electrolyte abnormality vs infection r/o ED Course: cbc, cmp, trop, ekg, cxr CXR: with bilateral pleural effusions EKG: nsr at 87bpm, rbbb (unchanged from prior) labs with anemia 8.9/28.2, no significantly deviated from baseline Plan for admission for nephro evaluation and pleural effusion management Luiza Bran, PGY2 Emergency Medicine Past History - Past Medical History Allergies/Adverse Reactions: Allergies Allergy/AdvReac Type Severity Reaction Status Date / Time No Known Allergies Allergy Verified 05/22/19 15:47 Home Medications: Ambulatory Orders Amlodipine Besylate [Norvasc -] 5 mg PO DAILY #30 tablet 04/29/19 Furosemide [Lasix -] 40 mg PO BID@0600,1400 #60 tablet 04/29/19 hydrALAZINE HCL [Apresoline -] 50 mg PO TID #90 tablet 04/29/19 Sodium Bicarbonate 650 mg PO BID #28 tablet 05/22/19 Anemia: No Asthma: No Cancer: No Cardiac Disorders: No CVA: No COPD: No CHF: No Dementia: No Diabetes: Yes GI Disorders: No Disorders: No HTN: Yes Hypercholesterolemia: No Liver Disease: No Seizures: No Thyroid Disease: No - Psycho Social/Smoking Cessation Hx Smoking History: Never smoked Have you smoked in the past 12 months: No If you are a former smoker, when did you quit?: 1 MO AGO Hx Alcohol Use: No Drug/Substance Use Hx: No Substance Use Type: None *Physical Exam - Vital Signs Last Vital Signs Temp Pulse Resp BP Pulse Ox 98.0 F 87 19 193/95 H 96 06/14/19 22:46 06/14/19 22:46 06/14/19 22:46 06/14/19 22:46 06/14/19 22:46 ED Treatment Course - LABORATORY CBC & Chemistry Diagram: 06/15/19 05:40 06/15/19 00:45 Discharge - Follow up/Referral - Patient Discharge Instructions - Post Discharge Activity
--- NOTE | 2019-06-14 23:43 | PDOC ---
Attending Attestation - Resident Resident Name: Luiza Bran - ED Attending Attestation I have performed the following: I have examined & evaluated the patient, The case was reviewed & discussed with the resident, I agree w/resident's findings & plan - HPI HPI: 06/15/19 00:57 see resident hpi - Physicial Exam PE: 06/15/19 00:57 agree with resident exam - Medical Decision Making 06/15/19 00:57 48-year-old male with history of renal failure now with increasing lethargy and shortness of breath Patient advised to come in by his change analyst for possible initiation of dialysis Chest x-ray shows large bilateral pleural effusions consistent with fluid overload Plan for admission to medical service for further management
[2019-06-15 01:15] LABS: BASO % 0.6 % (0-2.0); HEMATOCRIT 28.2 % (35.4-49); HEMOGLOBIN 8.9 GM/dL (11.7-16.9); MCH 27.1 pg (25.7-33.7); MCHC 31.5 g/dl (32.0-35.9); MONO % 4.5 % (3.8-10.2); NEUT % 79.9 % (42.8-82.8); PLATELET COUNT 213 K/MM3 (134-434); RBC 3.28 M/mm3 (4.00-5.60); RDW 14.5 % (11.9-15.9); WHITE BLOOD COUNT 8.3 K/mm3 (4.0-10.0)
[2019-06-15 01:31] LABS: ALBUMIN 2.7 g/dl (3.4-5.0); BILIRUBIN,TOTAL 0.3 mg/dL (0.2-1); BLOOD UREA NITROGEN 46.6 mg/dL (7-18); CALCIUM 8.2 mg/dL (8.5-10.1); CREATININE 4.7 mg/dL (0.55-1.3); MAGNESIUM 2.4 mg/dL (1.8-2.4); PHOSPHOROUS 4.6 mg/dL (2.5-4.9); POTASSIUM 5.1 mmol/L (3.5-5.1); TOT PROT 6.9 g/dl (6.4-8.2)
--- NOTE | 2019-06-15 02:29 | HP ---
Admitting History and Physical - Primary Care Physician PCP: Dr. Rajput - Admission Chief Complaint: SOB History of Present Illness: 48 year old man with a history of DM, HTN, CKD, ESRD (not yet on dialysis - baseline Cr of 4.05, bicarb 20) recent pericardial and pleural effusion who presents with over 1 month of shortness of breath, abdominal fullness and this morning with feelings of fatigue and nausea. The patient reports that he waited to see if symptoms would improve but they did not and he called Dr. Guajardo who recommended that he come to the ER, as it may be time that he start dialysis. Patient denies fever, chest pain, v/d/c, dysuria, hematuria or any other symptoms. History Source: Patient Limitations to Obtaining History: No Limitations - Past Medical History Cardiovascular: Yes: HTN Renal/: Yes: Renal Failure, Renal Inusuff Endocrine: Yes: Diabetes Mellitus - Past Surgical History Past Surgical History: Yes: None - Smoking History Smoking history: Never smoked Have you smoked in the past 12 months: No If you are a former smoker, when did you quit?: 1 MO AGO - Alcohol/Substance Use Hx Alcohol Use: No History of Substance Use: reports: None - Social History ADL: Independent History of Recent Travel: No Home Medications - Allergies Allergies/Adverse Reactions: Allergies Allergy/AdvReac Type Severity Reaction Status Date / Time No Known Allergies Allergy Verified 05/22/19 15:47 - Home Medications Home Medications: Ambulatory Orders Amlodipine Besylate [Norvasc -] 5 mg PO DAILY #30 tablet 04/29/19 Furosemide [Lasix -] 40 mg PO BID@0600,1400 #60 tablet 04/29/19 hydrALAZINE HCL [Apresoline -] 50 mg PO TID #90 tablet 04/29/19 Sodium Bicarbonate 650 mg PO BID #28 tablet 05/22/19 Family Medical History Family History: Denies Review of Systems - Review of Systems Constitutional: reports: Weakness Eyes: reports: No Symptoms HENT: reports: No Symptoms Neck: reports: No Symptoms Cardiovascular: reports: No Symptoms Respiratory: reports: SOB Gastrointestinal: reports: Bloating, Nausea Genitourinary: reports: No Symptoms Musculoskeletal: reports: No Symptoms Integumentary: reports: No Symptoms Neurological: reports: No Symptoms Endocrine: reports: No Symptoms Hematology/Lymphatic: reports: No Symptoms Psychiatric: reports: No Symptoms Physical Examination Vital Signs: Vital Signs Temperature 98.0 F 06/14/19 22:46 Pulse Rate 87 06/14/19 22:46 Respiratory Rate 19 06/14/19 22:46 Blood Pressure 193/95 H 06/14/19 22:46 O2 Sat by Pulse Oximetry (%) 96 06/14/19 22:46 Constitutional: Yes: No Distress, Calm Eyes: Yes: Conjunctiva Clear, EOM Intact HENT: Yes: Atraumatic, Normocephalic Neck: Yes: Supple, Trachea Midline Cardiovascular: Yes: Regular Rate and Rhythm Respiratory: Yes: Regular, CTA Bilaterally Gastrointestinal: Yes: Normal Bowel Sounds, Soft Musculoskeletal: Yes: WNL Extremities: Yes: WNL Edema: Yes Edema: LLE: 2+, RLE: 2+ Peripheral Pulses WNL: Yes Integumentary: Yes: WNL Neurological: Yes: Alert, Oriented Labs: CBC, BMP 06/15/19 00:45 06/15/19 00:45 Imaging - Results Chest X-ray: Report Reviewed (b/l pleural effusion) EKG: Report Reviewed (NSR, no s/t changes) Other: Report Reviewed (cr: 4.7) Problem List - Problems (1) Pleural effusion Code(s): J90 - PLEURAL EFFUSION, NOT ELSEWHERE CLASSIFIED (2) Renal insufficiency Code(s): N28.9 - DISORDER OF KIDNEY AND URETER, UNSPECIFIED (3) ESRD (end stage renal disease) Code(s): N18.6 - END STAGE RENAL DISEASE (4) Diabetes Code(s): E11.9 - TYPE 2 DIABETES MELLITUS WITHOUT COMPLICATIONS Qualifiers: Diabetes mellitus type: type 2 (5) HTN (hypertension) Code(s): I10 - ESSENTIAL (PRIMARY) HYPERTENSION Assessment/Plan 48 year old man with a history of DM, HTN, CKD, ESRD (not yet on dialysis - baseline Cr of 4.05, bicarb 20) recent pericardial and pleural effusion who presents with SOB,nausea and ABD fullness, as per nephro it may time to start dailysis. # Pleural effusion b/l # CKD, ESRD - CXR: B/L pleural effusion - Cr: 4.7 - fluid restriction - o2 via NC PRN - follow up nephro in AM, initiate dialysis - follow up urine cx # HTN - continue with norvasc 5 mg Daily - continue with lasix 40 mg BID - continue with hydralazine hcl 50 mg TID - monitor BP # DM - diet controlled - no meds, monitor BGM QDAC - follow up hgA1c #anemia - hgb: 8.9 - monitor H/H trend VTE: Heparin SQ FEN: restrict fluids, monitor lytes, renal diet Dispo: inpatient med-surg Visit type - Emergency Visit Emergency Visit: Yes ED Registration Date: 06/15/19 Care time: The patient presented to the Emergency Department on the above date and was hospitalized for further evaluation of their emergent condition. - New Patient This patient is new to me today: Yes Date on this admission: 06/15/19 - Critical Care Critical Care patient: No
[2019-06-15] MEDS ORDERED: FUROSEMIDE 40 MG TABLET (FP) PO SCH (06:00)
[2019-06-15 06:42] LABS: HEMATOCRIT 26.9 % (35.4-49); HEMOGLOBIN 8.5 GM/dL (11.7-16.9); MCH 27.2 pg (25.7-33.7); MCHC 31.8 g/dl (32.0-35.9); MEAN CELL VOLUME 85.5 fl (80-96); MEAN PLT VOLUME 9.2 fl (7.5-11.1); PLATELET COUNT 283 K/MM3 (134-434); RBC 3.14 M/mm3 (4.00-5.60); RDW 14.5 % (11.9-15.9); WHITE BLOOD COUNT 8.4 K/mm3 (4.0-10.0)
[2019-06-15 07:05] LABS: BLOOD UREA NITROGEN 46.2 mg/dL (7-18); CALCIUM 8.2 mg/dL (8.5-10.1); CREATININE 4.7 mg/dL (0.55-1.3); POTASSIUM 4.8 mmol/L (3.5-5.1)
[2019-06-15] MEDS ORDERED: hydrALAZINE HCL 25 MG TABLET (FP) ONE (07:22)
[2019-06-15] MEDS ORDERED: FUROSEMIDE 40 MG TABLET (FP) ONE (07:22)
[2019-06-15] MEDS: hydrALAZINE HCL 50 MG TABLET (FP) PO SCH ×3 (07:53→23:12)
--- NOTE | 2019-06-15 09:21 | PN ---
Progress Note, Physician - Current Medication List Current Medications: Active Medications Amlodipine Besylate (Norvasc -) 5 mg PO DAILY [facility] Furosemide (Lasix -) 40 mg PO BID@0600,1400 [facility] Last Admin: 06/15/19 07:53 Dose: 40 mg Heparin Sodium (Porcine) (Heparin -) 5,000 unit SQ BID [facility] Hydralazine HCl (Apresoline -) 50 mg PO TID [facility] Last Admin: 06/15/19 07:53 Dose: 50 mg Sodium Bicarbonate (Sodium Bicarbonate -) 650 mg PO BID [facility] - Objective Vital Signs: Vital Signs Temperature 99.2 F 06/15/19 04:55 Pulse Rate 81 06/15/19 07:33 Respiratory Rate 17 06/15/19 07:33 Blood Pressure 178/90 H 06/15/19 07:33 O2 Sat by Pulse Oximetry (%) 100 06/15/19 07:33 Cardiovascular: Yes: Regular Rate and Rhythm Respiratory: Yes: Regular, CTA Bilaterally Gastrointestinal: Yes: Normal Bowel Sounds, Soft. No: Tenderness Labs: CBC, BMP 06/15/19 05:40 06/15/19 05:40 Problem List - Problems (1) Pleural effusion Assessment/Plan: -IV Lasix -PUlm and cardio Code(s): J90 - PLEURAL EFFUSION, NOT ELSEWHERE CLASSIFIED (2) ESRD (end stage renal disease) Assessment/Plan: - CXR: B/L pleural effusion - Cr: 4.7 - fluid restriction - o2 via NC PRN - follow up nephro=? initiate dialysis - follow up urine cx Code(s): N18.6 - END STAGE RENAL DISEASE (3) Anemia Assessment/Plan: maybe due to ckd monitor Code(s): D64.9 - ANEMIA, UNSPECIFIED (4) Diabetes Assessment/Plan: - diet controlled - no meds, monitor BGM QDAC - follow up hgA1c Code(s): E11.9 - TYPE 2 DIABETES MELLITUS WITHOUT COMPLICATIONS Qualifiers: Diabetes mellitus type: type 2 (5) HTN (hypertension) Assessment/Plan: - continue with norvasc 5 mg Daily - continue with lasix 40 mg BID - continue with hydralazine hcl 50 mg TID - monitor BP Code(s): I10 - ESSENTIAL (PRIMARY) HYPERTENSION
[2019-06-15] MEDS: amLODIPine BESYLATE 5 MG TABLET (FP) PO SCH (10:19)
[2019-06-15] MEDS: SODIUM BICARBONATE 650 MG TABLET PO SCH ×2 (10:19→23:12)
[2019-06-15] MEDS: HEPARIN NA (PORCINE) 5,000 UNITS/ML 1ML VIAL SQ SCH ×2 (10:19→23:11)
--- NOTE | 2019-06-15 11:05 | CON.PULM ---
Consult Consult Specialty:: PULMONARY Referred by:: Dr Rajput Reason for Consultation:: shortness of breath - History of Present Illness Chief Complaint: shortness of breath History of Present Illness: 48yo male with h/o HTN, DM, ESRD not on HD yet who was admitted with worsening shortness of breath and nausea. Denies chest pain or discomfort. No fevers, chills or sweats. Was told by his bridge teacher to come to the hospital to start dialysis. Had diagnostic thoracentesis last admission with fluid consistent with transudate. CXR showing bilateral effusions. - History Source History Provided By: Patient, Medical Record Limitations to Obtaining History: No Limitations - Past Medical History Cardio/Vascular: Yes: HTN Renal/: Yes: Renal Failure, Renal Inusuff Endocrine: Yes: Diabetes Mellitus - Past Surgical History Past Surgical History: Yes: None - Alcohol/Substance Use Hx Alcohol Use: No History of Substance Use: reports: None - Smoking History Smoking history: Never smoked Have you smoked in the past 12 months: No If you are a former smoker, when did you quit?: 1 MO AGO - Social History ADL: Independent History of Recent Travel: No Home Medications - Allergies Allergies/Adverse Reactions: Allergies Allergy/AdvReac Type Severity Reaction Status Date / Time No Known Allergies Allergy Verified 05/22/19 15:47 - Home Medications Home Medications: Ambulatory Orders Amlodipine Besylate [Norvasc -] 5 mg PO DAILY #30 tablet 04/29/19 Furosemide [Lasix -] 40 mg PO BID@0600,1400 #60 tablet 04/29/19 hydrALAZINE HCL [Apresoline -] 50 mg PO TID #90 tablet 04/29/19 Sodium Bicarbonate 650 mg PO BID #28 tablet 05/22/19 Review of Systems - Review of Systems Constitutional: reports: Weakness. denies: Chills, Fever Eyes: denies: Recent Change in Vision HENT: denies: Nasal Congestion, Throat Pain Neck: denies: Stiffness, Tenderness Cardiovascular: reports: Edema, Shortness of Breath. denies: Chest Pain, Palpitations Respiratory: reports: SOB on Exertion. denies: Cough, Hemoptysis, Wheezing Gastrointestinal: reports: Nausea. denies: Abdominal Pain Genitourinary: denies: Dysuria, Hematuria Neurological: denies: Dizziness, Headache Endocrine: denies: Unexplained Weight Loss Physical Exam Vital Sings: Vital Signs Temperature 99.2 F 06/15/19 04:55 Pulse Rate 81 06/15/19 07:33 Respiratory Rate 17 06/15/19 07:33 Blood Pressure 178/90 H 06/15/19 07:33 O2 Sat by Pulse Oximetry (%) 100 06/15/19 07:33 Constitutional: Yes: Calm Eyes: Yes: Conjunctiva Clear, EOM Intact HENT: Yes: Atraumatic, Normocephalic Neck: Yes: Supple, Trachea Midline Cardiovascular: Yes: Regular Rate and Rhythm Respiratory: Yes: Diminished (decreased breath sounds at the bases) ...Clubbing: No Gastrointestinal: Yes: Normal Bowel Sounds, Soft. No: Tenderness Edema: Yes Labs: CBC, BMP 06/15/19 05:40 06/15/19 05:40 Imaging - Results Chest X-ray: Report Reviewed, Image Reviewed (bilateral effusions) Problem List - Problems (1) ESRD (end stage renal disease) Code(s): N18.6 - END STAGE RENAL DISEASE (2) Pleural effusion Code(s): J90 - PLEURAL EFFUSION, NOT ELSEWHERE CLASSIFIED (3) Nephrotic syndrome Code(s): N04.9 - NEPHROTIC SYNDROME WITH UNSPECIFIED MORPHOLOGIC CHANGES Assessment/Plan ESRD Pleural Effusions likely from above HTN DM - HD per renal - offered therapeutic thoracentesis but pt would like to wait to see if pleural effusions improve with HD - O2 as needed - DVT prophylaxis Thank you for this consult Armani Soria MD
[2019-06-15 11:28] VITALS: BMI 28.0
--- NOTE | 2019-06-15 11:28 | EKG ---
Test Reason : Blood Pressure : / mmHG Vent. Rate : 087 BPM Atrial Rate : 087 BPM P-R Int : 114 ms QRS Dur : 126 ms QT Int : 392 ms P-R-T Axes : 043 078 021 degrees QTc Int : 471 ms NORMAL SINUS RHYTHM POSSIBLE LEFT ATRIAL ENLARGEMENT RIGHT BUNDLE BRANCH BLOCK ABNORMAL ECG WHEN COMPARED WITH ECG OF 22-MAY-2019 15:14, NO SIGNIFICANT CHANGE WAS FOUND Confirmed by DAILY LARIOS MD ([id number]) on 06/15/2019 11:27:48 AM Referred By: Confirmed By:DAILY LARIOS MD
[2019-06-15 12:34] LABS: EPI CELLS 3.8 /HPF (0-5/HPF); HYALINE CASTS 13 /lpf (0-8); URINE APPEARANCE CLOUDY; URINE BACTERIA 2.4 /hpf (NEGATIVE); URINE BILIRUBIN NEGATIVE (NEGATIVE); URINE COLOR YELLOW; URINE GLUCOSE (UA) TRACE (NEGATIVE); URINE KETONE NEGATIVE (NEGATIVE); URINE LEUK ESTERASE NEGATIVE (NEGATIVE); URINE NITRITE NEGATIVE (NEGATIVE); URINE PROTEIN 4+ (NEGATIVE); URINE RBC 6 /hpf (0-4); URINE UROBILINOGEN 0.2 mg/dL (0.2-1.0); URINE WBC 5 /hpf (0-5)
[2019-06-15] MEDS: FUROSEMIDE 40 MG/4 ML INJECTABLE VIAL IVPUSH SCH (13:46)
--- NOTE | 2019-06-15 15:08 | CON.CARD ---
Consult Consult Specialty:: Cardiology Referred by:: Regulo Reason for Consultation:: SOB,fluid overload - History of Present Illness Chief Complaint: SOB,fluid overload History of Present Illness: 48 DM, HTN, CHOL, ESRD about to start dialysis, presenting with SOB and fluid overload. No cp. The pt is comfortablde. Echo 04/23/19 Normal LVEF, small peric effusion. - History Source History Provided By: Patient, Medical Record Limitations to Obtaining History: No Limitations - Past Medical History Cardio/Vascular: Yes: HTN Renal/: Yes: Renal Failure, Renal Inusuff Endocrine: Yes: Diabetes Mellitus - Past Surgical History Past Surgical History: Yes: None - Alcohol/Substance Use Hx Alcohol Use: No History of Substance Use: reports: None - Smoking History Smoking history: Former smoker Have you smoked in the past 12 months: No Aproximately how many cigarettes per day: 0 If you are a former smoker, when did you quit?: 1 MO AGO - Social History ADL: Independent History of Recent Travel: No Home Medications - Allergies Allergies/Adverse Reactions: Allergies Allergy/AdvReac Type Severity Reaction Status Date / Time No Known Allergies Allergy Verified 05/22/19 15:47 - Home Medications Home Medications: Ambulatory Orders Amlodipine Besylate [Norvasc -] 5 mg PO DAILY #30 tablet 04/29/19 Furosemide [Lasix -] 40 mg PO BID@0600,1400 #60 tablet 04/29/19 hydrALAZINE HCL [Apresoline -] 50 mg PO TID #90 tablet 04/29/19 Sodium Bicarbonate 650 mg PO BID #28 tablet 05/22/19 Review of Systems - Review of Systems Constitutional: reports: No Symptoms Eyes: reports: No Symptoms HENT: reports: No Symptoms Neck: reports: No Symptoms Cardiovascular: reports: Edema, Shortness of Breath Respiratory: reports: SOB Gastrointestinal: reports: No Symptoms Genitourinary: reports: No Symptoms Breasts: reports: No Symptoms Reported Musculoskeletal: reports: No Symptoms Integumentary: reports: No Symptoms Neurological: reports: No Symptoms Endocrine: reports: No Symptoms Hematology/Lymphatic: reports: No Symptoms Psychiatric: reports: No Symptoms Vital Signs: Vital Signs Temperature 98.4 F 06/15/19 11:23 Pulse Rate 90 06/15/19 11:23 Respiratory Rate 18 06/15/19 11:31 Blood Pressure 158/86 06/15/19 11:23 O2 Sat by Pulse Oximetry (%) 99 06/15/19 11:31 Constitutional: Yes: Well Nourished, No Distress, Calm Eyes: Yes: WNL, Conjunctiva Clear, EOM Intact HENT: Yes: WNL, Atraumatic, Normocephalic Neck: Yes: WNL, Supple, Trachea Midline Respiratory: Yes: WNL, Regular, Other (Decreased breath sounds at bases, no rales) Gastrointestinal: Yes: WNL, Normal Bowel Sounds, Soft Renal/: Yes: Anuria Cardiovascular: Yes: WNL, Regular Rate and Rhythm JVD: No Carotid Bruit: No PMI: Non-Displaced Heart Sounds: Yes: S1, S2 Murmur: Yes: Systolic Murmur, Grade 2 Musculoskeletal: Yes: WNL Extremities: Yes: WNL Edema: Yes Edema: LLE: 1+, RLE: 1+ Peripheral Pulses: 2+ Left Carotid, 2+ Right Carotid, 2+ Left Femoral, 2+ Right Femoral, 2+ Left Popliteal, 2+ Right Popliteal, 2+ Left Doralis Pedis, 2+ Right Dorsalis Pedis Integumentary: Yes: WNL Neurological: Yes: WNL, Alert, Oriented ...Motor Strength: WNL Psychiatric: Yes: WNL, Alert, Oriented - Other Data Labs, Other Data: CBC, BMP 06/15/19 05:40 06/15/19 05:40 Troponin, BNP 06/15/19 00:45 Troponin I < 0.02 Troponin, BNP 06/15/19 00:45 Troponin I < 0.02 Assessment/Plan 48 DM, HTN, CHOL, ESRD about to start dialysis, presenting with SOB and fluid overload. No cp. The pt is comfortablde. Echo 04/23/19 Normal LVEF, small peric effusion. There is no evidence of ischemia nor ACs. Needs fluid removal with HD. No need for further cardiac w/u in this setting. No need for telemetry. Please call us PRN.
--- NOTE | 2019-06-15 17:25 | CONSULT ---
Consult Consult Specialty:: Nephrology Reason for Consultation:: ckd - History of Present Illness Chief Complaint: lethargy History of Present Illness: Pt is a 48 year old male with pmhx of ckd, diabetic nephropathy, dm and htn who I sent in to the ER for lethragy and decreased appetite. He has history of CKD and he has become symptomatic. He was hyperkalemic last week and required medical management. We had discussed dialysis therapy at length. He agrees to have a permacath placed in order to start. He denies fevers or chills. He does complain of lower ext edema. - History Source History Provided By: Patient - Past Medical History Cardio/Vascular: Yes: HTN Renal/: Yes: Renal Failure, Renal Inusuff Endocrine: Yes: Diabetes Mellitus - Past Surgical History Past Surgical History: Yes: None - Alcohol/Substance Use Hx Alcohol Use: No History of Substance Use: reports: None - Smoking History Smoking history: Former smoker Have you smoked in the past 12 months: No Aproximately how many cigarettes per day: 0 If you are a former smoker, when did you quit?: 1 MO AGO - Social History ADL: Independent History of Recent Travel: No Home Medications - Allergies Allergies/Adverse Reactions: Allergies Allergy/AdvReac Type Severity Reaction Status Date / Time No Known Allergies Allergy Verified 05/22/19 15:47 - Home Medications Home Medications: Ambulatory Orders Amlodipine Besylate [Norvasc -] 5 mg PO DAILY #30 tablet 04/29/19 Furosemide [Lasix -] 40 mg PO BID@0600,1400 #60 tablet 04/29/19 hydrALAZINE HCL [Apresoline -] 50 mg PO TID #90 tablet 04/29/19 Sodium Bicarbonate 650 mg PO BID #28 tablet 05/22/19 Family Medical History Family History: Denies Review of Systems - Review of Systems Constitutional: reports: Malaise Eyes: reports: No Symptoms HENT: reports: No Symptoms Neck: reports: No Symptoms Cardiovascular: reports: Edema Respiratory: reports: SOB on Exertion Gastrointestinal: reports: No Symptoms Genitourinary: reports: No Symptoms Musculoskeletal: reports: No Symptoms Neurological: reports: No Symptoms Endocrine: reports: No Symptoms Hematology/Lymphatic: reports: No Symptoms Psychiatric: reports: No Symptoms Physical Exam Vital Signs: Vital Signs Temperature 98.4 F 06/15/19 15:07 Pulse Rate 83 06/15/19 15:07 Respiratory Rate 18 06/15/19 15:07 Blood Pressure 137/72 06/15/19 15:07 O2 Sat by Pulse Oximetry (%) 99 06/15/19 11:31 Constitutional: Yes: Calm Eyes: Yes: Conjunctiva Clear HENT: Yes: Atraumatic Neck: Yes: Supple Cardiovascular: Yes: S1, S2 Respiratory: Yes: CTA Bilaterally Gastrointestinal: Yes: Soft Renal/: Yes: WNL Musculoskeletal: Yes: WNL Edema: Yes Edema: LLE: 2+, RLE: 2+ Neurological: Yes: Oriented Psychiatric: Yes: Oriented Labs: CBC, BMP 06/15/19 05:40 06/15/19 05:40 Laboratory Tests 06/15/19 06/15/19 06/15/19 00:45 00:45 05:40 WBC 8.3 8.4 Hgb 8.9 L 8.5 L Sodium Potassium Creatinine 4.7 H 06/15/19 05:40 WBC Hgb Sodium 146 H Potassium 4.8 Creatinine 4.7 H Imaging - Results Chest X-ray: Report Reviewed Problem List - Problems (1) ESRD (end stage renal disease) Code(s): N18.6 - END STAGE RENAL DISEASE (2) Anemia Code(s): D64.9 - ANEMIA, UNSPECIFIED (3) GERD (gastroesophageal reflux disease) Code(s): K21.9 - GASTRO-ESOPHAGEAL REFLUX DISEASE WITHOUT ESOPHAGITIS (4) HTN (hypertension) Code(s): I10 - ESSENTIAL (PRIMARY) HYPERTENSION Assessment/Plan Current Medications Generic Name Dose Route Start Last Admin Trade Name Freq PRN Reason Stop Dose Admin Amlodipine Besylate 5 mg 06/15/19 10:00 06/15/19 10:19 Norvasc - PO 5 mg DAILY [facility] Administration Furosemide 40 mg 06/15/19 14:00 06/15/19 13:46 Lasix Injection - IVPUSH 40 mg BID@0600,1400 [facility] Administration Heparin Sodium (Porcine) 5,000 unit 06/15/19 10:00 06/15/19 10:19 Heparin - SQ Not Given BID [facility] Hydralazine HCl 50 mg 06/15/19 06:00 06/15/19 13:46 Apresoline - PO 50 mg TID [facility] Administration Sodium Bicarbonate 650 mg 06/15/19 10:00 06/15/19 10:19 Sodium Bicarbonate - PO 650 mg BID [facility] Administration Impression 1. uremia 2. CKD 3. htn 4. DM 5. hx pleural effusion 6. diabetic nephropathy Plan - permacath tomorrow - will arrange for HD tomorrow - can d/c sodium bicarb once on HD - cont lasix on HD days - will need fistula
[2019-06-16] MEDS: hydrALAZINE HCL 50 MG TABLET (FP) PO SCH ×3 (05:10→21:55)
[2019-06-16] MEDS: FUROSEMIDE 40 MG/4 ML INJECTABLE VIAL IVPUSH SCH ×2 (05:24→14:07)
[2019-06-16] MEDS ORDERED: LIDOCAINE HCL 1%, 10 MG/ML (20ML VIAL) ONE (07:26)
[2019-06-16] MEDS ORDERED: HEPARIN NA (PORCINE) 5,000 UNITS/ML 1ML VIAL ONE (07:26)
[2019-06-16] MEDS ORDERED: MIDAZOLAM HCL 2 MG/2 ML SINGLE DOSE VIAL ONE (08:08)
[2019-06-16] MEDS ORDERED: SUCCINYLCHOLINE CHLORIDE 200 MG/10 ML SYRINGE ONE (08:09)
[2019-06-16] MEDS ORDERED: PROPOFOL 20 ML ONE (08:09)
[2019-06-16] MEDS ORDERED: ceFAZolin SODIUM 1 GM VIAL IVPB ONE (08:12)
[2019-06-16] MEDS ORDERED: ceFAZolin SODIUM 1 GM VIAL ONE (08:15)
[2019-06-16] MEDS ORDERED: LABETALOL HCL 5 MG/1 ML (100MG/20 ML VIAL) ONE (08:26)
[2019-06-16] MEDS ORDERED: LIDOCAINE HCL 1%, 10 MG/ML (20ML VIAL) PNB ONE ×2 (08:28)
--- NOTE | 2019-06-16 08:50 | OP ---
Operative Note - Note: Operative Date: 06/16/19 Pre-Operative Diagnosis: CRF Operation: Insertion of permacath Post-Operative Diagnosis: Same as Pre-op Surgeon: Tad Adams Anesthesia: Fractional Estimated Blood Loss (mls): 20 Operative Report Dictated: Yes
[2019-06-16] MEDS ORDERED: ONDANSETRON 4 MG/2 ML VIAL IVPUSH PRN (08:57)
--- NOTE | 2019-06-16 10:43 | PN ---
Progress Note, Physician Chief Complaint: ESRD on HD Pleural Effusion History of Present Illness: Previous notes and events reviewed examined in HD NAD permacath placed by Vascular this morning to R chest for pt to start dialysis pt refusing thoracentesis for pleural effusion noted eith elevated BP in dialysis, norvadc 5mg stat denies chest pain or sob or dizziness - Current Medication List Current Medications: Active Medications Amlodipine Besylate (Norvasc -) 5 mg PO DAILY [facility] Fentanyl (Sublimaze Injection -) 25 mcg IVPUSH [id number] PRN PRN Reason: PAIN-PACU ORDER X 4 DOSES ONLY Furosemide (Lasix Injection -) 40 mg IVPUSH BID@0600,1400 [facility] Heparin Sodium (Porcine) (Heparin -) 5,000 unit SQ BID [facility] Hydralazine HCl (Apresoline -) 50 mg PO TID [facility] Ondansetron HCl (Zofran Injection) 4 mg IVPUSH Q6H PRN PRN Reason: NAUSEA AND/OR VOMITING Sodium Bicarbonate (Sodium Bicarbonate -) 650 mg PO BID [facility] - Objective Vital Signs: Vital Signs Temperature 97.8 F 06/16/19 10:30 Pulse Rate 74 06/16/19 10:30 Respiratory Rate 15 06/16/19 10:30 Blood Pressure 173/79 H 06/16/19 10:30 O2 Sat by Pulse Oximetry (%) 97 06/16/19 10:30 Constitutional: Yes: No Distress, Calm Eyes: Yes: Conjunctiva Clear HENT: Yes: Atraumatic Cardiovascular: Yes: Regular Rate and Rhythm Respiratory: Yes: Regular, Diminished Gastrointestinal: Yes: Normal Bowel Sounds, Soft Musculoskeletal: Yes: WNL Extremities: Yes: WNL Edema: No Neurological: Yes: Alert, Oriented Psychiatric: Yes: Alert, Oriented Labs: CBC, BMP 06/15/19 05:40 06/15/19 05:40 Problem List - Problems (1) ESRD (end stage renal disease) Assessment/Plan: -Renal on board -currently receiving HD -BUN/Cr 46.2/4.7 -monitor renal function daily Code(s): N18.6 - END STAGE RENAL DISEASE (2) Anemia Assessment/Plan: -Hg 8.5 -monitor Hg daily -transfuse for Hg <7.0 to avoid fluid overload -anemia profile Code(s): D64.9 - ANEMIA, UNSPECIFIED (3) Diabetes Assessment/Plan: -BGM ACHS -[facility] -HgA1c Code(s): E11.9 - TYPE 2 DIABETES MELLITUS WITHOUT COMPLICATIONS Qualifiers: Diabetes mellitus type: type 2 (4) HTN (hypertension) Assessment/Plan: -Amlodipine, Hydralazine -low Na diet Code(s): I10 - ESSENTIAL (PRIMARY) HYPERTENSION (5) Pericardial effusion Assessment/Plan: -Cardiology on board -Echo 04/2019 shows small pericardial effusion <1cm Code(s): I31.3 - PERICARDIAL EFFUSION (NONINFLAMMATORY) (6) Pleural effusion Assessment/Plan: -Cardiology and Pulmonary on board -Furosemide -refusing thoracentesis at moment -CXR shows bibasilar pleural effusions and bibasilar atelectasis or infiltrate within left more than right -keep SpO2 >90% -O2 via NC Code(s): J90 - PLEURAL EFFUSION, NOT ELSEWHERE CLASSIFIED Assessment/Plan see problem list dvt ppx
[2019-06-16] MEDS: HEPARIN NA (PORCINE) 5,000 UNITS/ML 1ML VIAL SQ SCH ×2 (11:24→21:55)
[2019-06-16] MEDS: amLODIPine BESYLATE 5 MG TABLET (FP) PO SCH (11:59)
[2019-06-16] MEDS: SODIUM BICARBONATE 650 MG TABLET PO SCH ×2 (11:59→21:55)
[2019-06-16] MEDS ORDERED: amLODIPine BESYLATE 5 MG TABLET (FP) PO ONE (12:07)
--- NOTE | 2019-06-16 17:30 | PN ---
Progress Note, Physician History of Present Illness: Pt seen and examined at bedside. He tolerated HD today. - Current Medication List Current Medications: Active Medications Amlodipine Besylate (Norvasc -) 5 mg PO DAILY [facility] Fentanyl (Sublimaze Injection -) 25 mcg IVPUSH [id number] PRN PRN Reason: PAIN-PACU ORDER X 4 DOSES ONLY Furosemide (Lasix Injection -) 40 mg IVPUSH BID@0600,1400 [facility] Last Admin: 06/16/19 14:07 Dose: 40 mg Heparin Sodium (Porcine) (Heparin -) 5,000 unit SQ BID [facility] Hydralazine HCl (Apresoline -) 50 mg PO TID [facility] Last Admin: 06/16/19 14:06 Dose: 50 mg Ondansetron HCl (Zofran Injection) 4 mg IVPUSH Q6H PRN PRN Reason: NAUSEA AND/OR VOMITING Sodium Bicarbonate (Sodium Bicarbonate -) 650 mg PO BID [facility] - Objective Vital Signs: Vital Signs Temperature 98.3 F 06/16/19 15:02 Pulse Rate 85 06/16/19 15:02 Respiratory Rate 18 06/16/19 15:02 Blood Pressure 202/94 H 06/16/19 14:28 O2 Sat by Pulse Oximetry (%) 97 06/16/19 10:30 Constitutional: Yes: Calm Eyes: Yes: Conjunctiva Clear HENT: Yes: Atraumatic Neck: Yes: Supple Cardiovascular: Yes: S1, S2 Respiratory: Yes: CTA Bilaterally Gastrointestinal: Yes: Soft Genitourinary: Yes: WNL Musculoskeletal: Yes: WNL Edema: Yes Edema: LLE: 1+, RLE: 1+ Neurological: Yes: Oriented Psychiatric: Yes: Oriented Labs: CBC, BMP 06/15/19 05:40 06/15/19 05:40 Problem List - Problems (1) ESRD (end stage renal disease) Code(s): N18.6 - END STAGE RENAL DISEASE (2) Anemia Code(s): D64.9 - ANEMIA, UNSPECIFIED (3) GERD (gastroesophageal reflux disease) Code(s): K21.9 - GASTRO-ESOPHAGEAL REFLUX DISEASE WITHOUT ESOPHAGITIS (4) HTN (hypertension) Code(s): I10 - ESSENTIAL (PRIMARY) HYPERTENSION Assessment/Plan Current Medications Generic Name Dose Route Start Last Admin Trade Name Freq PRN Reason Stop Dose Admin Amlodipine Besylate 5 mg 06/17/19 10:00 Norvasc - PO DAILY [facility] Fentanyl 25 mcg 06/16/19 08:57 Sublimaze Injection - IVPUSH [id number] PRN PAIN-PACU ORDER X 4 DOSES ONLY Furosemide 40 mg 06/16/19 14:00 06/16/19 14:07 Lasix Injection - IVPUSH 40 mg BID@0600,1400 [facility] Administration Heparin Sodium (Porcine) 5,000 unit 06/16/19 22:00 Heparin - SQ BID [facility] Hydralazine HCl 50 mg 06/16/19 14:00 06/16/19 14:06 Apresoline - PO 50 mg TID [facility] Administration Ondansetron HCl 4 mg 06/16/19 08:57 Zofran Injection IVPUSH Q6H PRN NAUSEA AND/OR VOMITING Sodium Bicarbonate 650 mg 06/16/19 22:00 Sodium Bicarbonate - PO BID [facility] Impression 1. uremia 2. CKD 3. htn 4. DM 5. hx pleural effusion 6. diabetic nephropathy 7. ESRD Plan - d/c sodium bicarb - next HD on - fistula on Saturday - discussed with vascular
[2019-06-16] MEDS ORDERED: ACETAMINOPHEN 325 MG TABLET (FP) PO PRN (17:56)
[2019-06-17] MEDS: FUROSEMIDE 40 MG/4 ML INJECTABLE VIAL IVPUSH SCH ×2 (05:55→14:45)
[2019-06-17] MEDS: hydrALAZINE HCL 50 MG TABLET (FP) PO SCH ×3 (05:56→21:36)
[2019-06-17 06:55] LABS: BASO % 0.5 % (0-2.0); EOS % 3.8 % (0-4.5); HEMATOCRIT 27.1 % (35.4-49); HEMOGLOBIN 8.8 GM/dL (11.7-16.9); LYMPH % 19.3 % (8-40); MCH 27.3 pg (25.7-33.7); MCHC 32.3 g/dl (32.0-35.9); MEAN CELL VOLUME 84.4 fl (80-96); MEAN PLT VOLUME 9.1 fl (7.5-11.1); MONO % 9.1 % (3.8-10.2); NEUT % 67.3 % (42.8-82.8); PLATELET COUNT 258 K/MM3 (134-434); RBC 3.21 M/mm3 (4.00-5.60); RDW 14.2 % (11.9-15.9); WHITE BLOOD COUNT 6.4 K/mm3 (4.0-10.0)
[2019-06-17 07:22] LABS: ALBUMIN 2.4 g/dl (3.4-5.0); BILIRUBIN,TOTAL 0.2 mg/dL (0.2-1); BLOOD UREA NITROGEN 31.1 mg/dL (7-18); CALCIUM 7.8 mg/dL (8.5-10.1); CREATININE 3.9 mg/dL (0.55-1.3); POTASSIUM 4.5 mmol/L (3.5-5.1); TOT PROT 5.9 g/dl (6.4-8.2)
--- NOTE | 2019-06-17 10:14 | PN ---
Progress Note (short form) - Note Progress Note: PULMONARY Denies shortness of breath. Tolerated HD yesterday. Vital Signs Period Temp Pulse Resp BP Sys/Rivero Pulse Ox Last 24 Hr 97.8 F-98.9 F 74-85 15-20 157-210/79-107 96-99 Gen: NAD at rest Heart: RRR Lung: decreased breath sounds at the bases Abd: soft, nontender Ext: + edema CBC, BMP 06/17/19 05:55 06/17/19 05:55 Active Medications Acetaminophen (Tylenol -) 650 mg PO Q6H PRN PRN Reason: PAIN LEVEL 6-10 Last Admin: 06/16/19 18:11 Dose: 650 mg Amlodipine Besylate (Norvasc -) 5 mg PO DAILY [facility] Fentanyl (Sublimaze Injection -) 25 mcg IVPUSH [id number] PRN PRN Reason: PAIN-PACU ORDER X 4 DOSES ONLY Furosemide (Lasix Injection -) 40 mg IVPUSH BID@0600,1400 [facility] Last Admin: 06/17/19 05:55 Dose: 40 mg Heparin Sodium (Porcine) (Heparin -) 5,000 unit SQ BID [facility] Last Admin: 06/16/19 21:55 Dose: 5,000 unit Hydralazine HCl (Apresoline -) 50 mg PO TID [facility] Last Admin: 06/17/19 05:56 Dose: 50 mg Ondansetron HCl (Zofran Injection) 4 mg IVPUSH Q6H PRN PRN Reason: NAUSEA AND/OR VOMITING Sodium Bicarbonate (Sodium Bicarbonate -) 650 mg PO BID [facility] Last Admin: 06/16/19 21:55 Dose: 650 mg A/P ESRD on HD Volume Overload Pleural Effusions likely from above HTN DM - HD per renal with ultrafiltration - check CXR after next HD - if symptoms worsen, can consider therapeutic thoracentesis - O2 as needed - DVT prophylaxis Problem List - Problems (1) ESRD (end stage renal disease) Code(s): N18.6 - END STAGE RENAL DISEASE (2) Pleural effusion Code(s): J90 - PLEURAL EFFUSION, NOT ELSEWHERE CLASSIFIED (3) Nephrotic syndrome Code(s): N04.9 - NEPHROTIC SYNDROME WITH UNSPECIFIED MORPHOLOGIC CHANGES
[2019-06-17] MEDS: SODIUM BICARBONATE 650 MG TABLET PO SCH (10:34)
[2019-06-17] MEDS: amLODIPine BESYLATE 5 MG TABLET (FP) PO SCH (10:34)
[2019-06-17] MEDS: HEPARIN NA (PORCINE) 5,000 UNITS/ML 1ML VIAL SQ SCH ×2 (10:34→21:36)
--- NOTE | 2019-06-17 10:46 | PN ---
Progress Note, Physician Chief Complaint: AWAKE ALERT S/P RIGHT PERMACATH NO FEVER OR CHILLS - Current Medication List Current Medications: Active Medications Acetaminophen (Tylenol -) 650 mg PO Q6H PRN PRN Reason: PAIN LEVEL 6-10 Last Admin: 06/16/19 18:11 Dose: 650 mg Amlodipine Besylate (Norvasc -) 5 mg PO DAILY [facility] Last Admin: 06/17/19 10:34 Dose: 5 mg Fentanyl (Sublimaze Injection -) 25 mcg IVPUSH [id number] PRN PRN Reason: PAIN-PACU ORDER X 4 DOSES ONLY Furosemide (Lasix Injection -) 40 mg IVPUSH BID@0600,1400 [facility] Last Admin: 06/17/19 05:55 Dose: 40 mg Heparin Sodium (Porcine) (Heparin -) 5,000 unit SQ BID [facility] Last Admin: 06/17/19 10:34 Dose: 5,000 unit Hydralazine HCl (Apresoline -) 50 mg PO TID [facility] Last Admin: 06/17/19 05:56 Dose: 50 mg Ondansetron HCl (Zofran Injection) 4 mg IVPUSH Q6H PRN PRN Reason: NAUSEA AND/OR VOMITING Sodium Bicarbonate (Sodium Bicarbonate -) 650 mg PO BID [facility] Last Admin: 06/17/19 10:34 Dose: 650 mg - Objective Vital Signs: Vital Signs Temperature 98.9 F 06/17/19 06:00 Pulse Rate 83 06/17/19 06:00 Respiratory Rate 20 06/17/19 06:00 Blood Pressure 157/81 06/17/19 06:00 O2 Sat by Pulse Oximetry (%) 96 06/16/19 21:00 Constitutional: Yes: Mild Distress Cardiovascular: Yes: Regular Rate and Rhythm Respiratory: Yes: WNL Gastrointestinal: Yes: WNL Genitourinary: Yes: Other Musculoskeletal: Yes: Muscle Weakness Edema: No Peripheral Pulses WNL: Yes Integumentary: Yes: Other (RIGHT PERMACATH CHEST WALL CLEAN) Wound/Incision: Yes: Clean/Dry Neurological: Yes: WNL ...Motor Strength: WNL Psychiatric: Yes: WNL Labs: CBC, BMP 06/17/19 05:55 06/17/19 05:55 Problem List - Problems (1) ESRD (end stage renal disease) Code(s): N18.6 - END STAGE RENAL DISEASE (2) Anemia Code(s): D64.9 - ANEMIA, UNSPECIFIED (3) Diabetes Code(s): E11.9 - TYPE 2 DIABETES MELLITUS WITHOUT COMPLICATIONS Qualifiers: Diabetes mellitus type: type 2 (4) HTN (hypertension) Code(s): I10 - ESSENTIAL (PRIMARY) HYPERTENSION (5) Pleural effusion Code(s): J90 - PLEURAL EFFUSION, NOT ELSEWHERE CLASSIFIED Assessment/Plan S/P PERMACATH RIGHT CHEST WALL ESRD ON HD, NEPHROLOGY TO START DIALYSIS WITH NEW PC TOMORROW. B/L PLEURAL EFFUSIONS, REFUSED THORAENTESIS OOB TO CHAIR RENAL DIABETIC DIET
[2019-06-17] MEDS ORDERED: SODIUM CHLORIDE 250 ML IV PRN (18:39)
--- NOTE | 2019-06-17 18:39 | PN ---
Progress Note, Physician History of Present Illness: Pt seen and examined at bedside. He is awake and alert. He denies shortness of breath. - Current Medication List Current Medications: Active Medications Acetaminophen (Tylenol -) 650 mg PO Q6H PRN PRN Reason: PAIN LEVEL 6-10 Last Admin: 06/16/19 18:11 Dose: 650 mg Amlodipine Besylate (Norvasc -) 5 mg PO DAILY [facility] Last Admin: 06/17/19 10:34 Dose: 5 mg Fentanyl (Sublimaze Injection -) 25 mcg IVPUSH [id number] PRN PRN Reason: PAIN-PACU ORDER X 4 DOSES ONLY Furosemide (Lasix Injection -) 40 mg IVPUSH BID@0600,1400 [facility] Last Admin: 06/17/19 14:45 Dose: 40 mg Heparin Sodium (Porcine) (Heparin -) 5,000 unit SQ BID [facility] Last Admin: 06/17/19 10:34 Dose: 5,000 unit Hydralazine HCl (Apresoline -) 50 mg PO TID [facility] Last Admin: 06/17/19 14:10 Dose: 50 mg Ondansetron HCl (Zofran Injection) 4 mg IVPUSH Q6H PRN PRN Reason: NAUSEA AND/OR VOMITING Sodium Bicarbonate (Sodium Bicarbonate -) 650 mg PO BID [facility] Last Admin: 06/17/19 10:34 Dose: 650 mg - Objective Vital Signs: Vital Signs Temperature 98.2 F 06/17/19 15:25 Pulse Rate 84 06/17/19 15:25 Respiratory Rate 20 06/17/19 15:25 Blood Pressure 162/80 06/17/19 15:25 O2 Sat by Pulse Oximetry (%) 96 06/17/19 09:00 Constitutional: Yes: Calm Eyes: Yes: Conjunctiva Clear HENT: Yes: Atraumatic Neck: Yes: Supple Cardiovascular: Yes: S1, S2 Respiratory: Yes: CTA Bilaterally Gastrointestinal: Yes: Soft Genitourinary: Yes: WNL Musculoskeletal: Yes: WNL Edema: Yes Edema: LLE: 1+, RLE: 1+ Neurological: Yes: Oriented Psychiatric: Yes: Oriented Labs: CBC, BMP 06/17/19 05:55 06/17/19 05:55 Problem List - Problems (1) ESRD (end stage renal disease) Code(s): N18.6 - END STAGE RENAL DISEASE (2) Anemia Code(s): D64.9 - ANEMIA, UNSPECIFIED (3) GERD (gastroesophageal reflux disease) Code(s): K21.9 - GASTRO-ESOPHAGEAL REFLUX DISEASE WITHOUT ESOPHAGITIS (4) HTN (hypertension) Code(s): I10 - ESSENTIAL (PRIMARY) HYPERTENSION Assessment/Plan Current Medications Generic Name Dose Route Start Last Admin Trade Name Freq PRN Reason Stop Dose Admin Acetaminophen 650 mg 06/16/19 17:56 06/16/19 18:11 Tylenol - PO 650 mg Q6H PRN Administration PAIN LEVEL 6-10 Amlodipine Besylate 5 mg 06/17/19 10:00 06/17/19 10:34 Norvasc - PO 5 mg DAILY [facility] Administration Fentanyl 25 mcg 06/16/19 08:57 Sublimaze Injection - IVPUSH [id number] PRN PAIN-PACU ORDER X 4 DOSES ONLY Furosemide 40 mg 06/16/19 14:00 06/17/19 14:45 Lasix Injection - IVPUSH 40 mg BID@0600,1400 [facility] Administration Heparin Sodium (Porcine) 5,000 unit 06/16/19 22:00 06/17/19 10:34 Heparin - SQ 5,000 unit BID [facility] Administration Hydralazine HCl 50 mg 06/16/19 14:00 06/17/19 14:10 Apresoline - PO 50 mg TID [facility] Administration Ondansetron HCl 4 mg 06/16/19 08:57 Zofran Injection IVPUSH Q6H PRN NAUSEA AND/OR VOMITING Sodium Bicarbonate 650 mg 06/16/19 22:00 06/17/19 10:34 Sodium Bicarbonate - PO 650 mg BID [facility] Administration Impression 1. uremia 2. CKD 3. htn 4. DM 5. hx pleural effusion 6. diabetic nephropathy 7. ESRD Plan - d/c lasix and bicarb - HD tomorrow - possible fistula on Saturday - renal diet
[2019-06-18] MEDS: hydrALAZINE HCL 50 MG TABLET (FP) PO SCH ×3 (05:43→22:18)
[2019-06-18] MEDS: amLODIPine BESYLATE 5 MG TABLET (FP) PO SCH ×2 (08:49→13:34)
--- NOTE | 2019-06-18 09:07 | OP ---
DATE OF OPERATION: 06/16/2019 PREOPERATIVE DIAGNOSIS: Chronic renal failure. POSTOPERATIVE DIAGNOSIS: Chronic renal failure. PROCEDURE: Insertion of PermCath. SURGEON: Tad Payne DO ANESTHESIA: Fractional. BLOOD LOSS: 10 mL. Patient is a 48-year-old male who comes in with chronic renal failure and needs a PermCath insertion. Patient was consented for the procedure, understanding all risks, benefits, and alternatives. He was then taken to the operating room. Once in the operating room, he was laid on the operating table in supine manner, and the area of the right neck and chest were prepped and draped in a sterile surgical manner. Under ultrasound guidance, we visualized the right internal jugular vein, and 10 mL of lidocaine 1% was injected there. We then took our micropuncture needle and punctured the right internal jugular vein under ultrasound guidance. Micropuncture wire was inserted. Micropuncture sheath was inserted. A 0.035 floppy guidewire was inserted under fluoroscopy. We then injected 10 mL of lidocaine 1% above the below the clavicle. We then used a number-11 blade and made a 1-cm incision at the puncture site. We took a 15 blade and made a 1-cm incision below the clavicle. We then tunneled the PermCath up to the puncture site. We then took our breakaway sheath and placed it over the guidewire into the vein under fluoroscopy, and the cannula and guidewire were removed. Catheter was placed inside the sheath. Sheath was broken away as the catheter was placed inside the vein. Neck of the catheter was nice and smooth. Tip of the catheter was located inside the right atrium. We then donald back on each port of the catheter, and there was good flow. Heparinized saline was injected, 2000 units of IV heparin were injected into each port; 4-0 Biosyn was used, and 2 simple sutures were placed at the puncture site, 3-0 nylon used at the catheter site to the skin. Biopatch, Steri-Strips, 4 x 4, and Tegaderms were placed. Patient tolerated the procedure with no complications. Patient transferred to PACU in stable condition, where a chest x-ray will be obtained. TAD PAYNE DO SENIOR CYTOGENETIC TECHNOLOGIST/[id number]
--- NOTE | 2019-06-18 10:27 | PN ---
Progress Note (short form) - Note Progress Note: VASCULAR SURGERY Plan for AVF 06/25/19. Limb precaution --> no BP / IV / Phlebotomy
--- NOTE | 2019-06-18 11:05 | PN ---
Progress Note (short form) - Note Progress Note: PULMONARY Denies shortness of breath. Currently on HD. Vital Signs Period Temp Pulse Resp BP Sys/Rivero Pulse Ox Last 24 Hr 97.6 F-98.9 F 71-88 18-22 126-190/73-100 96 Gen: NAD at rest Heart: RRR Lung: decreased breath sounds at the bases Abd: soft, nontender Ext: no edema CBC, BMP 06/17/19 05:55 06/17/19 05:55 Active Medications Acetaminophen (Tylenol -) 650 mg PO Q6H PRN PRN Reason: PAIN LEVEL 6-10 Last Admin: 06/16/19 18:11 Dose: 650 mg Amlodipine Besylate (Norvasc -) 5 mg PO DAILY [facility] Last Admin: 06/18/19 08:49 Dose: 5 mg Fentanyl (Sublimaze Injection -) 25 mcg IVPUSH [id number] PRN PRN Reason: PAIN-PACU ORDER X 4 DOSES ONLY Heparin Sodium (Porcine) (Heparin -) 5,000 unit SQ BID [facility] Last Admin: 06/17/19 21:36 Dose: 5,000 unit Hydralazine HCl (Apresoline -) 50 mg PO TID [facility] Last Admin: 06/18/19 05:43 Dose: 50 mg Sodium Chloride (Normal Saline -) 250 mls @ 3,000 mls/hr IV PRN PRN PRN Reason: Hypotension during Dialysis Stop: 06/18/19 18:39 Ondansetron HCl (Zofran Injection) 4 mg IVPUSH Q6H PRN PRN Reason: NAUSEA AND/OR VOMITING A/P ESRD on HD Volume Overload Pleural Effusions likely from above HTN DM - HD per renal with ultrafiltration - check CXR in AM - if symptoms worsen, can consider therapeutic thoracentesis - O2 as needed - DVT prophylaxis Problem List - Problems (1) ESRD (end stage renal disease) Code(s): N18.6 - END STAGE RENAL DISEASE (2) Pleural effusion Code(s): J90 - PLEURAL EFFUSION, NOT ELSEWHERE CLASSIFIED (3) Nephrotic syndrome Code(s): N04.9 - NEPHROTIC SYNDROME WITH UNSPECIFIED MORPHOLOGIC CHANGES
--- NOTE | 2019-06-18 11:49 | PN ---
Progress Note, Physician Chief Complaint: ESRD on HD Pleural Effusion SOB History of Present Illness: Having HDS Going for AVF on Saturday - Current Medication List Current Medications: Active Medications Acetaminophen (Tylenol -) 650 mg PO Q6H PRN PRN Reason: PAIN LEVEL 6-10 Last Admin: 06/16/19 18:11 Dose: 650 mg Amlodipine Besylate (Norvasc -) 5 mg PO DAILY [facility] Last Admin: 06/18/19 08:49 Dose: 5 mg Fentanyl (Sublimaze Injection -) 25 mcg IVPUSH [id number] PRN PRN Reason: PAIN-PACU ORDER X 4 DOSES ONLY Heparin Sodium (Porcine) (Heparin -) 5,000 unit SQ BID [facility] Last Admin: 06/17/19 21:36 Dose: 5,000 unit Hydralazine HCl (Apresoline -) 50 mg PO TID [facility] Last Admin: 06/18/19 05:43 Dose: 50 mg Sodium Chloride (Normal Saline -) 250 mls @ 3,000 mls/hr IV PRN PRN PRN Reason: Hypotension during Dialysis Stop: 06/18/19 18:39 Ondansetron HCl (Zofran Injection) 4 mg IVPUSH Q6H PRN PRN Reason: NAUSEA AND/OR VOMITING - Objective Vital Signs: Vital Signs Temperature 97.9 F 06/18/19 08:00 Pulse Rate 71 06/18/19 10:50 Respiratory Rate 18 06/18/19 10:50 Blood Pressure 126/73 06/18/19 10:50 O2 Sat by Pulse Oximetry (%) 96 06/18/19 09:00 Constitutional: Yes: Well Nourished, No Distress, Calm Cardiovascular: Yes: Regular Rate and Rhythm Respiratory: Yes: Regular Gastrointestinal: Yes: Normal Bowel Sounds, Soft Genitourinary: Yes: Oliguria Musculoskeletal: Yes: WNL Extremities: Yes: WNL Edema: No Peripheral Pulses WNL: Yes Neurological: Yes: Alert, Oriented Psychiatric: Yes: Alert, Oriented Labs: CBC, BMP 06/17/19 05:55 06/17/19 05:55 Problem List - Problems (1) ESRD (end stage renal disease) Assessment/Plan: -Nephrology on board -HD as per renal -Going for AVF tomorrow -Vascular surgery on board Problems reviewed: Yes Code(s): N18.6 - END STAGE RENAL DISEASE (2) Anemia Assessment/Plan: -Chronic vs acute -Also, ANTONINA -start ferrous sulfate po daily -monitor trend Problems reviewed: Yes Code(s): D64.9 - ANEMIA, UNSPECIFIED (3) Diabetes Assessment/Plan: -resolved -A1c at 6.1 -Continue dietary and lifestyle modification Problems reviewed: Yes Code(s): E11.9 - TYPE 2 DIABETES MELLITUS WITHOUT COMPLICATIONS Qualifiers: Diabetes mellitus type: type 2 Assessment/Plan see problem list
[2019-06-18] MEDS: HEPARIN NA (PORCINE) 5,000 UNITS/ML 1ML VIAL SQ SCH ×2 (13:34→22:18)
--- NOTE | 2019-06-18 17:25 | PN ---
Progress Note, Physician History of Present Illness: Pt seen and examined at bedside. He is awake and alert. He tolerated HD today. - Current Medication List Current Medications: Active Medications Acetaminophen (Tylenol -) 650 mg PO Q6H PRN PRN Reason: PAIN LEVEL 6-10 Last Admin: 06/16/19 18:11 Dose: 650 mg Amlodipine Besylate (Norvasc -) 5 mg PO DAILY [facility] Last Admin: 06/18/19 13:34 Dose: Not Given Fentanyl (Sublimaze Injection -) 25 mcg IVPUSH [id number] PRN PRN Reason: PAIN-PACU ORDER X 4 DOSES ONLY Ferrous Sulfate (Feosol -) 325 mg PO DAILY [facility] Heparin Sodium (Porcine) (Heparin -) 5,000 unit SQ BID [facility] Last Admin: 06/18/19 13:34 Dose: Not Given Hydralazine HCl (Apresoline -) 50 mg PO TID [facility] Last Admin: 06/18/19 13:33 Dose: 50 mg Sodium Chloride (Normal Saline -) 250 mls @ 3,000 mls/hr IV PRN PRN PRN Reason: Hypotension during Dialysis Stop: 06/18/19 18:39 Ondansetron HCl (Zofran Injection) 4 mg IVPUSH Q6H PRN PRN Reason: NAUSEA AND/OR VOMITING - Objective Vital Signs: Vital Signs Temperature 98.1 F 06/18/19 17:19 Pulse Rate 84 06/18/19 17:19 Respiratory Rate 20 06/18/19 17:19 Blood Pressure 144/75 06/18/19 17:19 O2 Sat by Pulse Oximetry (%) 96 06/18/19 09:00 Constitutional: Yes: Calm Eyes: Yes: Conjunctiva Clear HENT: Yes: Atraumatic Neck: Yes: Supple Cardiovascular: Yes: S1, S2 Respiratory: Yes: CTA Bilaterally Gastrointestinal: Yes: Soft Genitourinary: Yes: WNL Musculoskeletal: Yes: WNL Edema: Yes Edema: LLE: 1+, RLE: 1+ Neurological: Yes: Oriented Psychiatric: Yes: Oriented Labs: CBC, BMP 06/17/19 05:55 06/17/19 05:55 Problem List - Problems (1) ESRD (end stage renal disease) Code(s): N18.6 - END STAGE RENAL DISEASE (2) Anemia Code(s): D64.9 - ANEMIA, UNSPECIFIED (3) GERD (gastroesophageal reflux disease) Code(s): K21.9 - GASTRO-ESOPHAGEAL REFLUX DISEASE WITHOUT ESOPHAGITIS (4) HTN (hypertension) Code(s): I10 - ESSENTIAL (PRIMARY) HYPERTENSION Assessment/Plan Current Medications Generic Name Dose Route Start Last Admin Trade Name Freq PRN Reason Stop Dose Admin Acetaminophen 650 mg 06/16/19 17:56 06/16/19 18:11 Tylenol - PO 650 mg Q6H PRN Administration PAIN LEVEL 6-10 Amlodipine Besylate 5 mg 06/17/19 10:00 06/18/19 13:34 Norvasc - PO Not Given DAILY [facility] Fentanyl 25 mcg 06/16/19 08:57 Sublimaze Injection - IVPUSH [id number] PRN PAIN-PACU ORDER X 4 DOSES ONLY Ferrous Sulfate 325 mg 06/19/19 10:00 Feosol - PO DAILY [facility] Heparin Sodium (Porcine) 5,000 unit 06/16/19 22:00 06/18/19 13:34 Heparin - SQ Not Given BID [facility] Hydralazine HCl 50 mg 06/16/19 14:00 06/18/19 13:33 Apresoline - PO 50 mg TID [facility] Administration Sodium Chloride 250 mls @ 3,000 mls/hr 06/17/19 18:39 Normal Saline - IV 06/18/19 18:39 PRN PRN Hypotension during Dialysis Ondansetron HCl 4 mg 06/16/19 08:57 Zofran Injection IVPUSH Q6H PRN NAUSEA AND/OR VOMITING Impression 1. uremia 2. CKD 3. htn 4. DM 5. hx pleural effusion 6. diabetic nephropathy 7. ESRD Plan - HD today - appetite improved - discussed with vascular, npo p midnight possible fistula tomorrow - pending placement in HD - renal diet
[2019-06-18 18:07] LABS: HEP B CORE AB, TOT Negative (Negative)
[2019-06-19] MEDS: hydrALAZINE HCL 50 MG TABLET (FP) PO SCH ×3 (05:51→21:23)
--- NOTE | 2019-06-19 08:00 | PN ---
Progress Note, Physician - Current Medication List Current Medications: Active Medications Acetaminophen (Tylenol -) 650 mg PO Q6H PRN PRN Reason: PAIN LEVEL 6-10 Last Admin: 06/16/19 18:11 Dose: 650 mg Amlodipine Besylate (Norvasc -) 5 mg PO DAILY [facility] Last Admin: 06/18/19 13:34 Dose: Not Given Fentanyl (Sublimaze Injection -) 25 mcg IVPUSH [id number] PRN PRN Reason: PAIN-PACU ORDER X 4 DOSES ONLY Ferrous Sulfate (Feosol -) 325 mg PO DAILY [facility] Heparin Sodium (Porcine) (Heparin -) 5,000 unit SQ BID [facility] Last Admin: 06/18/19 22:18 Dose: 5,000 unit Hydralazine HCl (Apresoline -) 50 mg PO TID [facility] Last Admin: 06/19/19 05:51 Dose: 50 mg - Objective Vital Signs: Vital Signs Temperature 98.2 F 06/19/19 05:57 Pulse Rate 87 06/19/19 05:57 Respiratory Rate 20 06/19/19 05:57 Blood Pressure 132/97 06/19/19 05:57 O2 Sat by Pulse Oximetry (%) 98 06/18/19 20:22 Cardiovascular: Yes: S1, S2 Respiratory: Yes: Regular, CTA Bilaterally Gastrointestinal: Yes: Normal Bowel Sounds, Soft Labs: CBC, BMP 06/17/19 05:55 06/17/19 05:55 Problem List - Problems (1) Pleural effusion Code(s): J90 - PLEURAL EFFUSION, NOT ELSEWHERE CLASSIFIED (2) ESRD (end stage renal disease) Code(s): N18.6 - END STAGE RENAL DISEASE (3) Anemia Code(s): D64.9 - ANEMIA, UNSPECIFIED (4) Diabetes Code(s): E11.9 - TYPE 2 DIABETES MELLITUS WITHOUT COMPLICATIONS Qualifiers: Diabetes mellitus type: type 2 (5) HTN (hypertension) Code(s): I10 - ESSENTIAL (PRIMARY) HYPERTENSION Assessment/Plan - Problems (1) ESRD (end stage renal disease) Assessment/Plan: -Nephrology on board -HD as per renal -Going for AVF tomorrow -Vascular surgery on board Problems reviewed: Yes Code(s): N18.6 - END STAGE RENAL DISEASE (2) Anemia Assessment/Plan: -Chronic vs acute -Also, ANTONINA -start ferrous sulfate po daily -monitor trend Problems reviewed: Yes Code(s): D64.9 - ANEMIA, UNSPECIFIED (3) Diabetes Assessment/Plan: -resolved -A1c at 6.1 -Continue dietary and lifestyle modification Problems reviewed: Yes Code(s): E11.9 - TYPE 2 DIABETES MELLITUS WITHOUT COMPLICATIONS Qualifiers: Diabetes mellitus type: type 2 dc after fistula and outpatient dialysis arranged
[2019-06-19] MEDS ORDERED: POVIDONE-IODINE OINTMENT 10% - 28.4 GM TUBE ONE (08:33)
[2019-06-19] MEDS ORDERED: LIDOCAINE HCL 1%, 10 MG/ML (20ML VIAL) ONE ×2 (08:33→10:14)
[2019-06-19] MEDS ORDERED: HEPARIN NA (PORCINE) 5,000 UNITS/ML 1ML VIAL ONE (08:33)
[2019-06-19] MEDS: amLODIPine BESYLATE 5 MG TABLET (FP) PO SCH ×2 (08:37→11:53)
[2019-06-19] MEDS ORDERED: MIDAZOLAM HCL 2 MG/2 ML SINGLE DOSE VIAL ONE ×2 (09:02)
[2019-06-19] MEDS ORDERED: ROPIVACAINE HCL 0.5% 30ML VIAL ONE ×2 (09:05→09:28)
[2019-06-19 09:13] LABS: ALBUMIN 2.4 g/dl (3.4-5.0); BILIRUBIN,TOTAL 0.2 mg/dL (0.2-1); BLOOD UREA NITROGEN 19.7 mg/dL (7-18); CALCIUM 8.1 mg/dL (8.5-10.1); CREATININE 3.2 mg/dL (0.55-1.3); POTASSIUM 3.9 mmol/L (3.5-5.1); TOT PROT 5.8 g/dl (6.4-8.2)
[2019-06-19 09:15] LABS: BASO % 0.2 % (0-2.0); EOS % 2.2 % (0-4.5); HEMATOCRIT 27.1 % (35.4-49); HEMOGLOBIN 8.8 GM/dL (11.7-16.9); MCH 27.4 pg (25.7-33.7); MCHC 32.5 g/dl (32.0-35.9); MEAN CELL VOLUME 84.2 fl (80-96); MEAN PLT VOLUME 9.2 fl (7.5-11.1); MONO % 8.5 % (3.8-10.2); NEUT % 67.1 % (42.8-82.8); PLATELET COUNT 230 K/MM3 (134-434); RBC 3.21 M/mm3 (4.00-5.60); RDW 14.2 % (11.9-15.9); WHITE BLOOD COUNT 6.3 K/mm3 (4.0-10.0)
[2019-06-19] MEDS ORDERED: ceFAZolin SODIUM 1 GM VIAL ONE (09:45)
[2019-06-19] MEDS ORDERED: ceFAZolin SODIUM 1 GM VIAL IVPB ONE (09:47)
[2019-06-19 09:52] LABS: INR 1.03 (0.83-1.09); PROTHROMBIN TIME (PATIENT) 12.1 SEC (9.7-13.0)
[2019-06-19] MEDS ORDERED: LIDOCAINE HCL/PF 2% SDV 5ML VIAL ONE (09:54)
[2019-06-19] MEDS ORDERED: PROPOFOL 20 ML ONE ×2 (09:54)
[2019-06-19] MEDS ORDERED: FERROUS SO4 325 MG TABLET (FP) PO SCH (10:00)
[2019-06-19] MEDS ORDERED: LIDOCAINE HCL 1%, 10 MG/ML (50 mL VIAL) IJ ONE (10:03)
[2019-06-19] MEDS ORDERED: POVIDONE-IODINE OINTMENT 10% - 28.4 GM TUBE TP ONE (10:10)
[2019-06-19] MEDS ORDERED: ONDANSETRON 4 MG/2 ML VIAL IVPUSH PRN ×2 (11:13→11:41)
[2019-06-19] MEDS ORDERED: SODIUM CHLORIDE 1,000 ML IV SCH (11:15)
--- NOTE | 2019-06-19 11:26 | OP ---
Operative Note - Note: Operative Date: 06/19/19 Pre-Operative Diagnosis: ESRD on HD via Permacath Operation: LUE AVF (basilic transposition) Post-Operative Diagnosis: Same as Pre-op Surgeon: Tad Adams Builder Beam: Claudio Huang Anesthesiologist/LIQUID [employer]ANT OPERATOR: Keena Quintero Anesthesia: Fractional Estimated Blood Loss (mls): 3 Fluid Volume Replaced (mls): 150 Operative Report Dictated: Yes
--- NOTE | 2019-06-19 11:28 | SURG ---
Surgery Language Instructor Note Language Instructor: Claudio Huang PA-C Date of Service: 06/19/19 Diagnosis: ESRD on HD via Permacatheter Procedure: [place] AVF (basilic transposition) I was present for the entirety of the operative procedure. For further detail, please refer to operative report. Visit type - Case Type Case Type: ED Admission
[2019-06-19] MEDS ORDERED: ACETAMINOPHEN 325 MG TABLET (FP) PO PRN (11:41)
[2019-06-19] MEDS: HEPARIN NA (PORCINE) 5,000 UNITS/ML 1ML VIAL SQ SCH ×2 (11:54→21:23)
[2019-06-19] MEDS: SODIUM CHLORIDE 1,000 ML IV SCH (15:15)
[2019-06-19] MEDS ORDERED: EPOETIN ALFA 2,000 UNIT/1 ML VIAL IVPUSH ONE (17:09)
[2019-06-19] MEDS ORDERED: SODIUM CHLORIDE 250 ML IV PRN (17:09)
--- NOTE | 2019-06-19 17:09 | PN ---
Progress Note, Physician History of Present Illness: Pt seen and examined at bedside. He had and av fistula placed today. - Current Medication List Current Medications: Active Medications Acetaminophen (Tylenol -) 650 mg PO Q6H PRN PRN Reason: PAIN LEVEL 6-10 Amlodipine Besylate (Norvasc -) 5 mg PO DAILY [facility] Fentanyl (Sublimaze Injection -) 25 mcg IVPUSH [id number] PRN PRN Reason: PAIN-PACU ORDER X 4 DOSES ONLY Ferrous Sulfate (Feosol -) 325 mg PO DAILY [facility] Heparin Sodium (Porcine) (Heparin -) 5,000 unit SQ BID [facility] Hydralazine HCl (Apresoline -) 50 mg PO TID [facility] Last Admin: 06/19/19 15:15 Dose: Not Given Sodium Chloride (Normal Saline -) 1,000 mls @ 75 mls/hr IV ASDIR [facility] Last Admin: 06/19/19 15:15 Dose: Not Given Ondansetron HCl (Zofran Injection) 4 mg IVPUSH Q6H PRN PRN Reason: NAUSEA AND/OR VOMITING - Objective Vital Signs: Vital Signs Temperature 98.2 F 06/19/19 14:22 Pulse Rate 81 06/19/19 14:22 Respiratory Rate 22 H 06/19/19 14:22 Blood Pressure 148/74 06/19/19 14:22 O2 Sat by Pulse Oximetry (%) 98 06/19/19 13:45 Constitutional: Yes: Calm Eyes: Yes: Conjunctiva Clear HENT: Yes: Atraumatic Neck: Yes: Supple Cardiovascular: Yes: S1, S2 Respiratory: Yes: CTA Bilaterally Gastrointestinal: Yes: Soft Genitourinary: Yes: WNL Musculoskeletal: Yes: WNL Extremities: Yes: Other (left arm fistula with thrill and bruit) Neurological: Yes: Oriented Psychiatric: Yes: Oriented Labs: CBC, BMP 06/19/19 08:20 06/19/19 08:20 INR, PTT INR 1.03 (0.83-1.09) 06/19/19 08:20 Problem List - Problems (1) ESRD (end stage renal disease) Code(s): N18.6 - END STAGE RENAL DISEASE (2) Anemia Code(s): D64.9 - ANEMIA, UNSPECIFIED (3) GERD (gastroesophageal reflux disease) Code(s): K21.9 - GASTRO-ESOPHAGEAL REFLUX DISEASE WITHOUT ESOPHAGITIS (4) HTN (hypertension) Code(s): I10 - ESSENTIAL (PRIMARY) HYPERTENSION Assessment/Plan Current Medications Generic Name Dose Route Start Last Admin Trade Name Freq PRN Reason Stop Dose Admin Acetaminophen 650 mg 06/19/19 11:41 Tylenol - PO Q6H PRN PAIN LEVEL 6-10 Amlodipine Besylate 5 mg 06/20/19 10:00 Norvasc - PO DAILY [facility] Fentanyl 25 mcg 06/19/19 11:41 Sublimaze Injection - IVPUSH [id number] PRN PAIN-PACU ORDER X 4 DOSES ONLY Ferrous Sulfate 325 mg 06/20/19 10:00 Feosol - PO DAILY [facility] Heparin Sodium (Porcine) 5,000 unit 06/19/19 22:00 Heparin - SQ BID [facility] Hydralazine HCl 50 mg 06/19/19 14:00 06/19/19 15:15 Apresoline - PO Not Given TID [facility] Sodium Chloride 1,000 mls @ 75 mls/hr 06/19/19 11:41 06/19/19 15:15 Normal Saline - IV Not Given ASDIR [facility] Ondansetron HCl 4 mg 06/19/19 11:41 Zofran Injection IVPUSH Q6H PRN NAUSEA AND/OR VOMITING Impression 1. uremia 2. CKD 3. htn 4. DM 5. hx pleural effusion 6. diabetic nephropathy 7. ESRD Plan - HD tomorrow - s/p av fistula, monitor for pain - vascular follow up - pending placement in [facility] - renal diet
[2019-06-20] MEDS: hydrALAZINE HCL 50 MG TABLET (FP) PO SCH ×3 (05:25→21:41)
--- NOTE | 2019-06-20 10:14 | PN ---
Progress Note (short form) - Note Progress Note: Renal follow up for ESRD on HD Seen and examined at the bedsidea awake and alert reports discomfort at AVF site, no hand pain no shortness of breath, chest pain appetite is improved Vital Signs Temperature 99.4 F 06/20/19 06:24 Pulse Rate 89 06/20/19 06:24 Respiratory Rate 18 06/20/19 08:23 Blood Pressure 159/77 06/20/19 06:24 O2 Sat by Pulse Oximetry (%) 97 06/20/19 08:23 Intake & Output 06/17/19 06/18/19 06/19/19 06/20/19 23:59 23:59 23:59 23:59 Intake Total 660 510 550 200 Output Total 1800 10 Balance 660 -1290 540 200 NAD awake and alert right IJ tunneled HD catheter left arm AVF no LE edema CBC, BMP 06/19/19 08:20 06/19/19 08:20 Current Medications Acetaminophen (Tylenol -) 650 mg PO Q6H PRN PRN Reason: PAIN LEVEL 6-10 Amlodipine Besylate (Norvasc -) 5 mg PO DAILY [facility] Epoetin Forrest (Epogen -) 5,000 unit IVPUSH ONCE ONE Stop: 06/20/19 17:10 Fentanyl (Sublimaze Injection -) 25 mcg IVPUSH [id number] PRN PRN Reason: PAIN-PACU ORDER X 4 DOSES ONLY Ferrous Sulfate (Feosol -) 325 mg PO DAILY [facility] Heparin Sodium (Porcine) (Heparin -) 5,000 unit SQ BID [facility] Last Admin: 06/19/19 21:23 Dose: 5,000 unit Hydralazine HCl (Apresoline -) 50 mg PO TID [facility] Last Admin: 06/20/19 05:25 Dose: 50 mg Sodium Chloride (Normal Saline -) 1,000 mls @ 75 mls/hr IV ASDIR [facility] Last Admin: 06/19/19 15:15 Dose: Not Given Sodium Chloride (Normal Saline -) 250 mls @ 3,000 mls/hr IV PRN PRN PRN Reason: Hypotension during Dialysis Stop: 06/20/19 17:09 Ondansetron HCl (Zofran Injection) 4 mg IVPUSH Q6H PRN PRN Reason: NAUSEA AND/OR VOMITING Impression 1. uremia 2. CKD now ESRD 3. htn 4. DM 5. hx pleural effusion 6. diabetic nephropathy 7. ESRD Plan for dialysis today with UF as tolerated awaiting outpatient HD placement Renal diet, 1.2L fluid restriction pain control w/o NSAIDs to get JESSICA with HD today Tejinder Thompson DO
--- NOTE | 2019-06-20 10:51 | PN ---
Progress Note, Physician Chief Complaint: AWAKE ALERT S/P PERMACATH RIGHT CHEST WALL 1 EPISODE VOMIT - Current Medication List Current Medications: Active Medications Acetaminophen (Tylenol -) 650 mg PO Q6H PRN PRN Reason: PAIN LEVEL 6-10 Amlodipine Besylate (Norvasc -) 5 mg PO DAILY [facility] Epoetin Forrest (Epogen -) 5,000 unit IVPUSH ONCE ONE Stop: 06/20/19 17:10 Fentanyl (Sublimaze Injection -) 25 mcg IVPUSH [id number] PRN PRN Reason: PAIN-PACU ORDER X 4 DOSES ONLY Ferrous Sulfate (Feosol -) 325 mg PO DAILY [facility] Heparin Sodium (Porcine) (Heparin -) 5,000 unit SQ BID [facility] Last Admin: 06/19/19 21:23 Dose: 5,000 unit Hydralazine HCl (Apresoline -) 50 mg PO TID [facility] Last Admin: 06/20/19 05:25 Dose: 50 mg Sodium Chloride (Normal Saline -) 1,000 mls @ 75 mls/hr IV ASDIR [facility] Last Admin: 06/19/19 15:15 Dose: Not Given Sodium Chloride (Normal Saline -) 250 mls @ 3,000 mls/hr IV PRN PRN PRN Reason: Hypotension during Dialysis Stop: 06/20/19 17:09 Ondansetron HCl (Zofran Injection) 4 mg IVPUSH Q6H PRN PRN Reason: NAUSEA AND/OR VOMITING - Objective Vital Signs: Vital Signs Temperature 98 F 06/20/19 10:00 Pulse Rate 93 H 06/20/19 10:00 Respiratory Rate 18 06/20/19 10:00 Blood Pressure 153/55 L 06/20/19 10:00 O2 Sat by Pulse Oximetry (%) 97 06/20/19 08:23 Constitutional: Yes: No Distress Cardiovascular: Yes: Regular Rate and Rhythm Respiratory: Yes: WNL Gastrointestinal: Yes: Soft Genitourinary: Yes: WNL Musculoskeletal: Yes: Muscle Weakness Labs: CBC, BMP 06/19/19 08:20 06/19/19 08:20 INR, PTT INR 1.03 (0.83-1.09) 06/19/19 08:20 Problem List - Problems (1) ESRD (end stage renal disease) Code(s): N18.6 - END STAGE RENAL DISEASE (2) Anemia Code(s): D64.9 - ANEMIA, UNSPECIFIED (3) Diabetes Code(s): E11.9 - TYPE 2 DIABETES MELLITUS WITHOUT COMPLICATIONS Qualifiers: Diabetes mellitus type: type 2 (4) HTN (hypertension) Code(s): I10 - ESSENTIAL (PRIMARY) HYPERTENSION (5) Pleural effusion Code(s): J90 - PLEURAL EFFUSION, NOT ELSEWHERE CLASSIFIED Assessment/Plan HD TODAY NEPHROLOGY F/U JAYLENE KRISHNA DC PLANNING FOR COMMUNITY HD
[2019-06-20] MEDS ORDERED: ONDANSETRON *ODT* 4 MG TABLET SL PRN (10:52)
--- NOTE | 2019-06-20 11:00 | PN ---
Progress Note (short form) - Note Progress Note: Resting in NAD. Denies shortness of breath or CP. Intake & Output 06/17/19 06/18/19 06/19/19 06/20/19 23:59 23:59 23:59 23:59 Intake Total 660 510 550 200 Output Total 1800 10 Balance 660 -1290 540 200 Last Vital Signs Temp Pulse Resp BP Pulse Ox 98 F 93 H 18 153/55 L 97 06/20/19 10:00 06/20/19 10:00 06/20/19 10:00 06/20/19 10:00 06/20/19 08:23 Active Medications Acetaminophen (Tylenol -) 650 mg PO Q6H PRN PRN Reason: PAIN LEVEL 6-10 Amlodipine Besylate (Norvasc -) 5 mg PO DAILY [facility] Epoetin Forrest (Epogen -) 5,000 unit IVPUSH ONCE ONE Stop: 06/20/19 17:10 Fentanyl (Sublimaze Injection -) 25 mcg IVPUSH [id number] PRN PRN Reason: PAIN-PACU ORDER X 4 DOSES ONLY Ferrous Sulfate (Feosol -) 325 mg PO DAILY [facility] Heparin Sodium (Porcine) (Heparin -) 5,000 unit SQ BID [facility] Last Admin: 06/19/19 21:23 Dose: 5,000 unit Hydralazine HCl (Apresoline -) 50 mg PO TID [facility] Last Admin: 06/20/19 05:25 Dose: 50 mg Sodium Chloride (Normal Saline -) 1,000 mls @ 75 mls/hr IV ASDIR [facility] Last Admin: 06/19/19 15:15 Dose: Not Given Sodium Chloride (Normal Saline -) 250 mls @ 3,000 mls/hr IV PRN PRN PRN Reason: Hypotension during Dialysis Stop: 06/20/19 17:09 Ondansetron HCl (Zofran Injection) 4 mg IVPUSH Q6H PRN PRN Reason: NAUSEA AND/OR VOMITING Last Admin: 06/20/19 10:55 Dose: 4 mg Ondansetron HCl (Zofran Odt -) 4 mg SL Q6H PRN PRN Reason: NAUSEA AND/OR VOMITING Gen: NAD at rest Heart: RRR Lung: decreased breath sounds at the bases Abd: soft, nontender Ext: no edema Laboratory Results - last 24 hr 06/20/19 05:27 POC Glucometer 167 Problem List - Problems (1) ESRD (end stage renal disease) Code(s): N18.6 - END STAGE RENAL DISEASE (2) Pleural effusion Code(s): J90 - PLEURAL EFFUSION, NOT ELSEWHERE CLASSIFIED (3) Nephrotic syndrome Code(s): N04.9 - NEPHROTIC SYNDROME WITH UNSPECIFIED MORPHOLOGIC CHANGES A/P ESRD on HD Volume Overload Pleural Effusions likely from above HTN DM - HD per renal with ultrafiltration - O2 as needed - DVT prophylaxis - DC planning Dr Masterson
[2019-06-20] MEDS ORDERED: EPOETIN ALFA 3,000 UNIT/1 ML ML IVPUSH ONE (13:15)
[2019-06-20] MEDS: HEPARIN NA (PORCINE) 5,000 UNITS/ML 1ML VIAL SQ SCH ×2 (14:16→21:41)
[2019-06-20] MEDS: SODIUM CHLORIDE 1,000 ML IV SCH (14:17)
[2019-06-20] MEDS: FERROUS SO4 325 MG TABLET (FP) PO SCH (15:27)
[2019-06-20] MEDS: amLODIPine BESYLATE 5 MG TABLET (FP) PO SCH (15:27)
[2019-06-21] MEDS: hydrALAZINE HCL 50 MG TABLET (FP) PO SCH ×3 (06:25→21:54)
[2019-06-21 07:53] LABS: BLOOD UREA NITROGEN 19.9 mg/dL (7-18); CREATININE 3.3 mg/dL (0.55-1.3); POTASSIUM 4.3 mmol/L (3.5-5.1)
--- NOTE | 2019-06-21 08:37 | PN ---
Progress Note, Physician Chief Complaint: AWAKE ALERT S/P PERMACATH RIGHT CHEST WALL 1 EPISODE VOMIT - Current Medication List Current Medications: Active Medications Acetaminophen (Tylenol -) 650 mg PO Q6H PRN PRN Reason: PAIN LEVEL 6-10 Last Admin: 06/20/19 21:43 Dose: 650 mg Amlodipine Besylate (Norvasc -) 5 mg PO DAILY [facility] Last Admin: 06/20/19 15:27 Dose: 5 mg Fentanyl (Sublimaze Injection -) 25 mcg IVPUSH [id number] PRN PRN Reason: PAIN-PACU ORDER X 4 DOSES ONLY Ferrous Sulfate (Feosol -) 325 mg PO DAILY [facility] Last Admin: 06/20/19 15:27 Dose: 325 mg Heparin Sodium (Porcine) (Heparin -) 5,000 unit SQ BID [facility] Last Admin: 06/20/19 21:41 Dose: 5,000 unit Hydralazine HCl (Apresoline -) 50 mg PO TID [facility] Last Admin: 06/21/19 06:25 Dose: 50 mg Sodium Chloride (Normal Saline -) 1,000 mls @ 75 mls/hr IV ASDIR [facility] Last Admin: 06/20/19 14:17 Dose: Not Given Ondansetron HCl (Zofran Odt -) 4 mg SL Q6H PRN PRN Reason: NAUSEA AND/OR VOMITING - Objective Vital Signs: Vital Signs Temperature 98.8 F 06/21/19 06:00 Pulse Rate 80 06/21/19 06:00 Respiratory Rate 18 06/21/19 06:00 Blood Pressure 132/68 06/21/19 06:00 O2 Sat by Pulse Oximetry (%) 97 06/20/19 21:00 Cardiovascular: Yes: WNL Respiratory: Yes: WNL Gastrointestinal: Yes: WNL Labs: CBC, BMP 06/19/19 08:20 06/21/19 06:45 INR, PTT INR 1.03 (0.83-1.09) 06/19/19 08:20 Problem List - Problems (1) ESRD (end stage renal disease) Code(s): N18.6 - END STAGE RENAL DISEASE (2) Anemia Code(s): D64.9 - ANEMIA, UNSPECIFIED (3) Diabetes Code(s): E11.9 - TYPE 2 DIABETES MELLITUS WITHOUT COMPLICATIONS Qualifiers: Diabetes mellitus type: type 2 (4) HTN (hypertension) Code(s): I10 - ESSENTIAL (PRIMARY) HYPERTENSION (5) Pleural effusion Code(s): J90 - PLEURAL EFFUSION, NOT ELSEWHERE CLASSIFIED Assessment/Plan HD TODAY NEPHROLOGY F/U JAYLENE KRISHNA DC PLANNING FOR COMMUNITY HD
[2019-06-21] MEDS: FERROUS SO4 325 MG TABLET (FP) PO SCH (09:51)
[2019-06-21] MEDS: HEPARIN NA (PORCINE) 5,000 UNITS/ML 1ML VIAL SQ SCH ×2 (09:52→21:54)
[2019-06-21] MEDS: amLODIPine BESYLATE 5 MG TABLET (FP) PO SCH (09:52)
--- NOTE | 2019-06-21 10:48 | PN ---
Progress Note (short form) - Note Progress Note: Resting in NAD. Denies shortness of breath or CP. Intake & Output 06/18/19 06/19/19 06/20/19 06/21/19 23:59 23:59 23:59 23:59 Intake Total 263 760 2229 400 Output Total 1800 10 2500 Balance -1290 540 -1400 400 Last Vital Signs Temp Pulse Resp BP Pulse Ox 98.8 F 80 18 132/68 97 06/21/19 06:00 06/21/19 06:00 06/21/19 06:00 06/21/19 06:00 06/20/19 21:00 Active Medications Acetaminophen (Tylenol -) 650 mg PO Q6H PRN PRN Reason: PAIN LEVEL 6-10 Last Admin: 06/20/19 21:43 Dose: 650 mg Amlodipine Besylate (Norvasc -) 5 mg PO DAILY [facility] Last Admin: 06/21/19 09:52 Dose: 5 mg Fentanyl (Sublimaze Injection -) 25 mcg IVPUSH [id number] PRN PRN Reason: PAIN-PACU ORDER X 4 DOSES ONLY Ferrous Sulfate (Feosol -) 325 mg PO DAILY [facility] Last Admin: 06/21/19 09:51 Dose: 325 mg Heparin Sodium (Porcine) (Heparin -) 5,000 unit SQ BID [facility] Last Admin: 06/21/19 09:52 Dose: 5,000 unit Hydralazine HCl (Apresoline -) 50 mg PO TID [facility] Last Admin: 06/21/19 06:25 Dose: 50 mg Sodium Chloride (Normal Saline -) 1,000 mls @ 75 mls/hr IV ASDIR [facility] Last Admin: 06/20/19 14:17 Dose: Not Given Ondansetron HCl (Zofran Odt -) 4 mg SL Q6H PRN PRN Reason: NAUSEA AND/OR VOMITING Pantoprazole Sodium (Protonix -) 40 mg PO DAILY [facility] Gen: NAD at rest Heart: RRR Lung: decreased breath sounds at the bases Abd: soft, nontender Ext: no edema Laboratory Results - last 24 hr 06/21/19 06:45 Sodium 141 Potassium 4.3 Chloride 105 Carbon Dioxide 31 Anion Gap 5 L BUN 19.9 H Creatinine 3.3 H Est GFR (CKD-EPI)AfAm 24.25 Est GFR (CKD-EPI)NonAf 20.92 Random Glucose 119 H Calcium 8.0 L Problem List - Problems (1) ESRD (end stage renal disease) Code(s): N18.6 - END STAGE RENAL DISEASE (2) Pleural effusion Code(s): J90 - PLEURAL EFFUSION, NOT ELSEWHERE CLASSIFIED (3) Nephrotic syndrome Code(s): N04.9 - NEPHROTIC SYNDROME WITH UNSPECIFIED MORPHOLOGIC CHANGES A/P ESRD on HD Volume Overload Pleural Effusions likely from above HTN DM - HD per renal with ultrafiltration - O2 as needed - DVT prophylaxis - DC planning Dr Masterson
[2019-06-21] MEDS: SODIUM CHLORIDE 1,000 ML IV SCH (11:34)
[2019-06-21] MEDS: PANTOPRAZOLE 40 MG TABLET (FP) PO SCH (11:34)
[2019-06-21] MEDS ORDERED: DOCUSATE SODIUM 100 MG CAPSULE (FP) PO ONE (15:45)
[2019-06-22] MEDS: hydrALAZINE HCL 50 MG TABLET (FP) PO SCH ×3 (06:00→22:15)
[2019-06-22] MEDS: DOCUSATE SODIUM 100 MG CAPSULE (FP) PO SCH (10:01)
[2019-06-22] MEDS: FERROUS SO4 325 MG TABLET (FP) PO SCH (10:02)
[2019-06-22] MEDS: amLODIPine BESYLATE 5 MG TABLET (FP) PO SCH (10:02)
[2019-06-22] MEDS: HEPARIN NA (PORCINE) 5,000 UNITS/ML 1ML VIAL SQ SCH ×2 (10:02→22:15)
[2019-06-22] MEDS: PANTOPRAZOLE 40 MG TABLET (FP) PO SCH (10:02)
--- NOTE | 2019-06-22 10:18 | PN ---
Progress Note (short form) - Note Progress Note: Resting in NAD. Denies shortness of breath or CP. Intake & Output 06/19/19 06/20/19 06/21/19 06/22/19 23:59 23:59 23:59 23:59 Intake Total 550 1100 600 0 Output Total 10 2500 Balance 540 -1400 600 0 Last Vital Signs Temp Pulse Resp BP Pulse Ox 99.2 F 83 18 122/53 L 99 06/22/19 06:04 06/22/19 06:04 06/22/19 06:04 06/22/19 06:04 06/21/19 21:00 Active Medications Acetaminophen (Tylenol -) 650 mg PO Q6H PRN PRN Reason: PAIN LEVEL 6-10 Last Admin: 06/20/19 21:43 Dose: 650 mg Amlodipine Besylate (Norvasc -) 5 mg PO DAILY [facility] Last Admin: 06/22/19 10:02 Dose: 5 mg Docusate Sodium (Colace -) 300 mg PO DAILY [facility] Last Admin: 06/22/19 10:01 Dose: 300 mg Fentanyl (Sublimaze Injection -) 25 mcg IVPUSH [id number] PRN PRN Reason: PAIN-PACU ORDER X 4 DOSES ONLY Ferrous Sulfate (Feosol -) 325 mg PO DAILY [facility] Last Admin: 06/22/19 10:02 Dose: 325 mg Heparin Sodium (Porcine) (Heparin -) 5,000 unit SQ BID [facility] Last Admin: 06/22/19 10:02 Dose: 5,000 unit Hydralazine HCl (Apresoline -) 50 mg PO TID [facility] Last Admin: 06/22/19 06:00 Dose: 50 mg Sodium Chloride (Normal Saline -) 1,000 mls @ 75 mls/hr IV ASDIR [facility] Last Admin: 06/21/19 11:34 Dose: Not Given Ondansetron HCl (Zofran Odt -) 4 mg SL Q6H PRN PRN Reason: NAUSEA AND/OR VOMITING Pantoprazole Sodium (Protonix -) 40 mg PO DAILY [facility] Last Admin: 06/22/19 10:02 Dose: 40 mg Gen: NAD at rest Heart: RRR Lung: decreased breath sounds at the bases Abd: soft, nontender Ext: no edema Laboratory Results - last 24 hr 06/22/19 05:59 POC Glucometer 118 Problem List - Problems (1) ESRD (end stage renal disease) Code(s): N18.6 - END STAGE RENAL DISEASE (2) Pleural effusion Code(s): J90 - PLEURAL EFFUSION, NOT ELSEWHERE CLASSIFIED (3) Nephrotic syndrome Code(s): N04.9 - NEPHROTIC SYNDROME WITH UNSPECIFIED MORPHOLOGIC CHANGES A/P ESRD on HD Volume Overload Pleural Effusions likely from above HTN DM - HD per renal with ultrafiltration - O2 as needed - DVT prophylaxis - DC planning Dr Masterson
[2019-06-22] MEDS ORDERED: SODIUM CHLORIDE 250 ML IV PRN (10:48)
--- NOTE | 2019-06-22 11:05 | DS ---
Physical Examination Vital Signs: Vital Signs Temperature 99.2 F 06/22/19 06:04 Pulse Rate 83 06/22/19 06:04 Respiratory Rate 18 06/22/19 06:04 Blood Pressure 122/53 L 06/22/19 06:04 O2 Sat by Pulse Oximetry (%) 99 06/21/19 21:00 Findings/Remarks: Operative Date: 06/19/19 Pre-Operative Diagnosis: ESRD on HD via Permacath Operation: LUE AVF (basilic transposition) Post-Operative Diagnosis: Same as Pre-op Surgeon: Tad Adams 48 year old man with a history of DM, HTN, CKD, ESRD (not yet on dialysis - baseline Cr of 4.05, bicarb 20) recent pericardial and pleural effusion who presents with over 1 month of shortness of breath, abdominal fullness and this morning with feelings of fatigue and nausea. The patient reports that he waited to see if symptoms would improve but they did not and he called Dr. Guajardo who recommended that he come to the ER, as it may be time that he start dialysis. Patient denies fever, chest pain, v/d/c, dysuria, hematuria or any other symptoms. Constitutional: Yes: Well Nourished, No Distress, Calm Cardiovascular: Yes: Regular Rate and Rhythm Respiratory: Yes: Regular Gastrointestinal: Yes: Normal Bowel Sounds, Soft Renal/: Yes: WNL Musculoskeletal: Yes: WNL Extremities: Yes: WNL Edema: No Peripheral Pulses WNL: Yes Neurological: Yes: Alert, Oriented Psychiatric: Yes: Alert, Oriented Labs: CBC, BMP 06/19/19 08:20 06/21/19 06:45 Discharge Summary Problems reviewed: Yes Reason For Visit: PLEURAL EFFUSION Current Active Problems ESRD (end stage renal disease) (Acute) Laboratory Last Values WBC 6.3 K/mm3 (4.0-10.0) 06/19/19 08:20 RBC 3.21 M/mm3 (4.00-5.60) L 06/19/19 08:20 Hgb 8.8 GM/dL (11.7-16.9) L 06/19/19 08:20 Hct 27.1 % (35.4-49) L 06/19/19 08:20 MCV 84.2 fl (80-96) 06/19/19 08:20 MCH 27.4 pg (25.7-33.7) 06/19/19 08:20 MCHC 32.5 g/dl (32.0-35.9) 06/19/19 08:20 RDW 14.2 % (11.9-15.9) 06/19/19 08:20 Plt Count 230 K/MM3 (134-434) 06/19/19 08:20 MPV 9.2 fl (7.5-11.1) 06/19/19 08:20 Absolute Neuts (auto) 4.3 K/mm3 (1.5-8.0) 06/19/19 08:20 Neutrophils % 67.1 % (42.8-82.8) 06/19/19 08:20 Lymphocytes % 22.0 % (8-40) 06/19/19 08:20 Monocytes % 8.5 % (3.8-10.2) 06/19/19 08:20 Eosinophils % 2.2 % (0-4.5) 06/19/19 08:20 Basophils % 0.2 % (0-2.0) 06/19/19 08:20 Nucleated RBC % 0 % (0-0) 06/19/19 08:20 Platelet Comment No clumping noted 06/15/19 00:45 PT with INR 12.10 SEC (9.7-13.0) 06/19/19 08:20 INR 1.03 (0.83-1.09) 06/19/19 08:20 PTT (Actin FS) 35.0 SECONDS (25.2-36.5) 06/19/19 08:20 Sodium 141 mmol/L (136-145) 06/21/19 06:45 Potassium 4.3 mmol/L (3.5-5.1) 06/21/19 06:45 Chloride 105 mmol/L (98-107) 06/21/19 06:45 Carbon Dioxide 31 mmol/L (21-32) 06/21/19 06:45 Anion Gap 5 MMOL/L (8-16) L 06/21/19 06:45 BUN 19.9 mg/dL (7-18) H 06/21/19 06:45 Creatinine 3.3 mg/dL (0.55-1.3) H 06/21/19 06:45 Est GFR (CKD-EPI)AfAm 24.25 01/05/20 06:45 Est GFR (CKD-EPI)NonAf 20.92 06/21/19 06:45 POC Glucometer 118 UNITS (80-120) 06/22/19 05:59 Random Glucose 119 mg/dL (74-106) H 06/21/19 06:45 Hemoglobin A1c % 6.1 % (4.2-6.3) 06/15/19 05:40 Calcium 8.0 mg/dL (8.5-10.1) L 06/21/19 06:45 Phosphorus 4.6 mg/dL (2.5-4.9) 06/15/19 00:45 Magnesium 2.4 mg/dL (1.8-2.4) 06/15/19 00:45 Iron 32 ug/dL (50-175) L 06/17/19 05:55 TIBC 224 ug/dL (250-450) L 06/17/19 05:55 Iron Saturation 14 % (17.5-39) L 06/17/19 05:55 Unsaturated IBC 192 ug/dL (200-275) L 06/17/19 05:55 Ferritin 236.7 ng/ml (8-388) 06/17/19 05:55 Total Bilirubin 0.2 mg/dL (0.2-1) 06/19/19 08:20 AST 16 U/L (15-37) 06/19/19 08:20 ALT 14 U/L (13-61) 06/19/19 08:20 Alkaline Phosphatase 140 U/L (45-117) H 06/19/19 08:20 Troponin I < 0.02 ng/ml (0.00-0.05) 06/15/19 00:45 Total Protein 5.8 g/dl (6.4-8.2) L 06/19/19 08:20 Albumin 2.4 g/dl (3.4-5.0) L 06/19/19 08:20 Urine Color Yellow 06/15/19 11:30 Urine Appearance Cloudy 06/15/19 11:30 Urine pH 5.0 (5.0-8.0) D 06/15/19 11:30 Ur Specific [place] 1.018 (1.010-1.035) 06/15/19 11:30 Urine Protein 4+ (NEGATIVE) H 06/15/19 11:30 Urine Glucose (UA) Trace (NEGATIVE) 06/15/19 11:30 Urine Ketones Negative (NEGATIVE) 06/15/19 11:30 Urine Blood Negative (NEGATIVE) 06/15/19 11:30 Urine Nitrite Negative (NEGATIVE) 06/15/19 11:30 Urine Bilirubin Negative (NEGATIVE) 06/15/19 11:30 Urine Urobilinogen 0.2 mg/dL (0.2-1.0) 06/15/19 11:30 Ur Leukocyte Esterase Negative (NEGATIVE) 06/15/19 11:30 Urine WBC (Auto) 5 /hpf (0-5) 06/15/19 11:30 Urine RBC (Auto) 6 /hpf (0-4) 06/15/19 11:30 Urine Casts (Auto) 13 /lpf (0-8) 06/15/19 11:30 U Pathogenic Cast Auto 15 /lpf (NEGATIVE) 06/15/19 11:30 U Epithel Cells (Auto) 3.8 /HPF (0-5/HPF) 06/15/19 11:30 Urine Bacteria (Auto) 2.4 /hpf (NEGATIVE) 06/15/19 11:30 Hep A IgM Ab Confirm Negative (Negative) 06/16/19 11:00 Hepatitis A Ab Total Positive (Negative) H 06/16/19 11:00 Hep Bs Antigen Negative (Negative) 06/16/19 11:00 Hep Bs Antibody Non reactive (.) 06/16/19 11:00 Hep B Core Total Ab Negative (Negative) 06/16/19 11:00 Hep B Core IgM Ab Negative (Negative) 06/16/19 11:00 Hepatitis Be Antibody Negative (Negative) 06/16/19 11:00 Hepatitis Be Antigen Negative (Negative) 06/16/19 11:00 Hep C Ab Diagnostic 0.1 s/co ratio (0.0-0.9) 06/16/19 11:00 Influenza A (Rapid) Negative (Negative) 06/15/19 05:20 Influenza B (Rapid) Negative (Negative) 06/15/19 05:20 Microbiology 06/15/19 05:32 Blood - Peripheral Venous Blood Culture - Final NO GROWTH AFTER 5 DAYS INCUBATION 06/15/19 05:29 Blood - Peripheral Venous Blood Culture - Final NO GROWTH AFTER 5 DAYS INCUBATION 06/15/19 22:49 Urine - Urine Clean Catch Urine Culture - Final NO GROWTH OBTAINED Vital Signs Temp 99.2 F 06/22/19 06:04 Pulse 83 06/22/19 06:04 Resp 18 06/22/19 06:04 BP 122/53 L 06/22/19 06:04 Pulse Ox 99 06/21/19 21:00 Intake & Output 06/21/19 06/21/19 06/22/19 11:59 23:59 11:59 Intake Total 400 200 0 Balance 400 200 0 Intake: IV 0 sl 0 Oral 400 200 0 Other: Voiding Method Toilet Toilet Toilet Bowel Movement No Condition: Stable - Instructions Diet, Activity, Other Instructions: Dr. Adams's Post-operative Instructions Wound: Keep your dressing clean and dry and in place for 72 hours. You may shower in 48 hours with a waterproof bag or Saran wrap over the original dressing. In 72 hours when you remove the dressing, you may wet the incision in the shower ONLY. Allow soap and water to run over the incision, do not scrub the incision, pat dry well after showering. Check the incision daily after removal of the dressing for redness or drainage. If you note any redness or drainage, contact your surgeon immediately. Do not swim or soak in water (bath/ hot tub, etc) until cleared by your surgeon as this can lead to infection. Do not put creams or ointments on the wound until cleared by your surgeon. Diet: You may resume your regular diet unless otherwise instructed by your physician. Increase your fiber intake if taking narcotic pain medications as constipation is a common side effect. Pain Relief: Take pain medication as prescribed. Do not drive, drink alcohol or operate heavy machinery while taking narcotic pain medications. The pain medication you have been prescribed for pain contains Acetaminophen (Tylenol), do not take additional Tylenol with this pain medication. You should not exceed more than 4g (4000mg) of Tylenol in 24 hours as this can lead to liver damage or failure. Activity: No heavy lifting with your operative arm until cleared by your surgeon. Do no wear any occlusive jewelry on your operative arm as this can affect the functioning of your fistula. Follow-up Please call the office to schedule your follow up appointment in 2 weeks. Call your doctors office or go to the ER immediately if you develop: Trouble breathing, chest tightness or shortness of breath Oral temperature greater than 100.5 F Excessive redness, swelling, or drainage at the incision site. Foul odor from the incision. New, increasing pain/numbness/weakness or coolness in your arm. Referrals: Didi Rajput MD [Primary Care Provider] - Disposition: HOME - Home Medications Comprehensive Discharge Medication List: Ambulatory Orders Amlodipine Besylate [Norvasc -] 5 mg PO DAILY #30 tablet 04/29/19 hydrALAZINE HCL [Apresoline -] 50 mg PO TID #90 tablet 04/29/19 Acetaminophen [Tylenol .Regular Strength -] 650 mg PO Q6H PRN tablet 06/22/19 Docusate Sodium [Colace -] 300 mg PO DAILY #90 capsule 06/22/19 Ferrous Sulfate [Feosol] 325 mg PO DAILY #30 ud 06/22/19 Ondansetron [Zofran *Odt*] 4 mg SL Q6H PRN #120 tab.rapdis 06/22/19 Pantoprazole Sodium [Protonix -] 40 mg PO DAILY #30 tablet.ec 06/22/19 Prescription Drug Monitoring Program (I-STOP) results: I-STOP reviewed and no issues identified
--- NOTE | 2019-06-22 13:13 | PN ---
Progress Note, Physician History of Present Illness: Pt seen and examined at bedside. He is awake and alert. He is eager to go home. He feels that his appetite is improved. His breathing is also improved. - Current Medication List Current Medications: Active Medications Acetaminophen (Tylenol -) 650 mg PO Q6H PRN PRN Reason: PAIN LEVEL 6-10 Last Admin: 06/20/19 21:43 Dose: 650 mg Amlodipine Besylate (Norvasc -) 5 mg PO DAILY [facility] Last Admin: 06/22/19 10:02 Dose: 5 mg Docusate Sodium (Colace -) 300 mg PO DAILY [facility] Last Admin: 06/22/19 10:01 Dose: 300 mg Fentanyl (Sublimaze Injection -) 25 mcg IVPUSH [id number] PRN PRN Reason: PAIN-PACU ORDER X 4 DOSES ONLY Ferrous Sulfate (Feosol -) 325 mg PO DAILY [facility] Last Admin: 06/22/19 10:02 Dose: 325 mg Heparin Sodium (Porcine) (Heparin -) 5,000 unit SQ BID [facility] Last Admin: 06/22/19 10:02 Dose: 5,000 unit Hydralazine HCl (Apresoline -) 50 mg PO TID [facility] Last Admin: 06/22/19 06:00 Dose: 50 mg Ondansetron HCl (Zofran Odt -) 4 mg SL Q6H PRN PRN Reason: NAUSEA AND/OR VOMITING Pantoprazole Sodium (Protonix -) 40 mg PO DAILY [facility] Last Admin: 06/22/19 10:02 Dose: 40 mg - Objective Vital Signs: Vital Signs Temperature 99.2 F 06/22/19 06:04 Pulse Rate 83 06/22/19 06:04 Respiratory Rate 18 06/22/19 06:04 Blood Pressure 122/53 L 06/22/19 06:04 O2 Sat by Pulse Oximetry (%) 99 06/22/19 09:00 Constitutional: Yes: Calm Eyes: Yes: Conjunctiva Clear HENT: Yes: Atraumatic Neck: Yes: Supple Cardiovascular: Yes: S1, S2 Respiratory: Yes: CTA Bilaterally Gastrointestinal: Yes: Soft Genitourinary: Yes: WNL Musculoskeletal: Yes: Other (fistula with thrill and bruit) Edema: Yes Edema: LLE: Trace, RLE: Trace Neurological: Yes: Oriented Psychiatric: Yes: Oriented Labs: CBC, BMP 06/19/19 08:20 06/21/19 06:45 INR, PTT INR 1.03 (0.83-1.09) 06/19/19 08:20 Problem List - Problems (1) ESRD (end stage renal disease) Code(s): N18.6 - END STAGE RENAL DISEASE (2) Anemia Code(s): D64.9 - ANEMIA, UNSPECIFIED (3) GERD (gastroesophageal reflux disease) Code(s): K21.9 - GASTRO-ESOPHAGEAL REFLUX DISEASE WITHOUT ESOPHAGITIS (4) HTN (hypertension) Code(s): I10 - ESSENTIAL (PRIMARY) HYPERTENSION Assessment/Plan Current Medications Generic Name Dose Route Start Last Admin Trade Name Freq PRN Reason Stop Dose Admin Acetaminophen 650 mg 06/19/19 11:41 06/20/19 21:43 Tylenol - PO 650 mg Q6H PRN Administration PAIN LEVEL 6-10 Amlodipine Besylate 5 mg 06/20/19 10:00 06/22/19 10:02 Norvasc - PO 5 mg DAILY [facility] Administration Docusate Sodium 300 mg 06/22/19 10:00 06/22/19 10:01 Colace - PO 300 mg DAILY [facility] Administration Fentanyl 25 mcg 06/19/19 11:41 Sublimaze Injection - IVPUSH [id number] PRN PAIN-PACU ORDER X 4 DOSES ONLY Ferrous Sulfate 325 mg 06/20/19 10:00 06/22/19 10:02 Feosol - PO 325 mg DAILY [facility] Administration Heparin Sodium (Porcine) 5,000 unit 06/19/19 22:00 06/22/19 10:02 Heparin - SQ 5,000 unit BID [facility] Administration Hydralazine HCl 50 mg 06/19/19 14:00 06/22/19 06:00 Apresoline - PO 50 mg TID [facility] Administration Ondansetron HCl 4 mg 06/20/19 10:52 Zofran Odt - SL Q6H PRN NAUSEA AND/OR VOMITING Pantoprazole Sodium 40 mg 06/21/19 10:15 06/22/19 10:02 Protonix - PO 40 mg DAILY [facility] Administration Impression 1. uremia 2. CKD 3. htn 4. DM 5. hx pleural effusion 6. diabetic nephropathy 7. ESRD Plan - pending HD placement - called HD unit, spoke to case management, discussed with medical team - HD tomorrow - renal diet - fistula with thrill and bruit, vascular follow up for dressing change
[2019-06-23] MEDS: hydrALAZINE HCL 50 MG TABLET (FP) PO SCH ×3 (05:56→22:19)
--- NOTE | 2019-06-23 07:55 | PN ---
Progress Note (short form) - Note Progress Note: AWAKE ALERT DISCHARGE HOME WITH DIALYSIS SETUP TODAY OFFERS NO COMPLAINTS Problem List - Problems (1) ESRD (end stage renal disease) Code(s): N18.6 - END STAGE RENAL DISEASE (2) Anemia Code(s): D64.9 - ANEMIA, UNSPECIFIED (3) Diabetes Code(s): E11.9 - TYPE 2 DIABETES MELLITUS WITHOUT COMPLICATIONS Qualifiers: Diabetes mellitus type: type 2 (4) HTN (hypertension) Code(s): I10 - ESSENTIAL (PRIMARY) HYPERTENSION (5) Pleural effusion Code(s): J90 - PLEURAL EFFUSION, NOT ELSEWHERE CLASSIFIED
[2019-06-23] MEDS: DOCUSATE SODIUM 100 MG CAPSULE (FP) PO SCH (09:35)
[2019-06-23] MEDS: FERROUS SO4 325 MG TABLET (FP) PO SCH (09:35)
[2019-06-23] MEDS: PANTOPRAZOLE 40 MG TABLET (FP) PO SCH (09:35)
[2019-06-23 10:22] LABS: HEMATOCRIT 26.6 % (35.4-49); HEMOGLOBIN 8.5 GM/dL (11.7-16.9); MCH 27.5 pg (25.7-33.7); MCHC 32.1 g/dl (32.0-35.9); MEAN CELL VOLUME 85.7 fl (80-96); MEAN PLT VOLUME 9.3 fl (7.5-11.1); PLATELET COUNT 223 K/MM3 (134-434); RDW 14.7 % (11.9-15.9); WHITE BLOOD COUNT 7.6 K/mm3 (4.0-10.0)
--- NOTE | 2019-06-23 10:24 | PN ---
Progress Note (short form) - Note Progress Note: Resting in NAD. Denies shortness of breath or CP. Intake & Output 06/20/19 06/21/19 06/22/19 06/23/19 23:59 23:59 23:59 23:59 Intake Total 4847 824 1277 500 Output Total 2500 Balance -0037 358 3629 500 Last Vital Signs Temp Pulse Resp BP Pulse Ox 98.7 F 87 20 139/66 99 06/23/19 08:41 06/23/19 08:41 06/23/19 08:41 06/23/19 08:41 06/22/19 21:00 Active Medications Acetaminophen (Tylenol -) 650 mg PO Q6H PRN PRN Reason: PAIN LEVEL 6-10 Last Admin: 06/20/19 21:43 Dose: 650 mg Amlodipine Besylate (Norvasc -) 5 mg PO DAILY [facility] Last Admin: 06/22/19 10:02 Dose: 5 mg Docusate Sodium (Colace -) 300 mg PO DAILY [facility] Last Admin: 06/23/19 09:35 Dose: 300 mg Epoetin [place] (Epogen -) 7,000 unit IVPUSH ONCE ONE Stop: 06/23/19 13:14 Fentanyl (Sublimaze Injection -) 25 mcg IVPUSH [id number] PRN PRN Reason: PAIN-PACU ORDER X 4 DOSES ONLY Ferrous Sulfate (Feosol -) 325 mg PO DAILY [facility] Last Admin: 06/23/19 09:35 Dose: 325 mg Heparin Sodium (Porcine) (Heparin -) 5,000 unit SQ BID [facility] Last Admin: 06/22/19 22:15 Dose: 5,000 unit Hydralazine HCl (Apresoline -) 50 mg PO TID [facility] Last Admin: 06/23/19 05:56 Dose: 50 mg Sodium Chloride (Normal Saline -) 250 mls @ 3,000 mls/hr IV PRN PRN PRN Reason: Hypotension during Dialysis Stop: 06/23/19 13:13 Ondansetron HCl (Zofran Odt -) 4 mg SL Q6H PRN PRN Reason: NAUSEA AND/OR VOMITING Pantoprazole Sodium (Protonix -) 40 mg PO DAILY [facility] Last Admin: 06/23/19 09:35 Dose: 40 mg Gen: NAD at rest Heart: RRR Lung: decreased breath sounds at the bases Abd: soft, nontender Ext: no edema Problem List - Problems (1) ESRD (end stage renal disease) Code(s): N18.6 - END STAGE RENAL DISEASE (2) Pleural effusion Code(s): J90 - PLEURAL EFFUSION, NOT ELSEWHERE CLASSIFIED (3) Nephrotic syndrome Code(s): N04.9 - NEPHROTIC SYNDROME WITH UNSPECIFIED MORPHOLOGIC CHANGES A/P ESRD on HD Volume Overload Pleural Effusions likely from above HTN DM - HD per renal with ultrafiltration - O2 as needed - DVT prophylaxis - DC planning Dr Masterson
[2019-06-23 10:36] LABS: BLOOD UREA NITROGEN 34.4 mg/dL (7-18); CALCIUM 7.6 mg/dL (8.5-10.1); CREATININE 4.5 mg/dL (0.55-1.3); POTASSIUM 3.8 mmol/L (3.5-5.1)
[2019-06-23] MEDS ORDERED: EPOETIN ALFA 10,000 UNIT/1 ML VIAL IVPUSH ONE (11:00)
[2019-06-23] MEDS: HEPARIN NA (PORCINE) 5,000 UNITS/ML 1ML VIAL SQ SCH ×2 (14:04→22:19)
[2019-06-23] MEDS: amLODIPine BESYLATE 5 MG TABLET (FP) PO SCH (14:05)
--- NOTE | 2019-06-23 15:09 | PN ---
Progress Note, Physician History of Present Illness: Pt seen and examined at bedside. he tolerated HD. He denies shortness of breath. - Current Medication List Current Medications: Active Medications Acetaminophen (Tylenol -) 650 mg PO Q6H PRN PRN Reason: PAIN LEVEL 6-10 Last Admin: 06/20/19 21:43 Dose: 650 mg Amlodipine Besylate (Norvasc -) 5 mg PO DAILY [facility] Last Admin: 06/23/19 14:05 Dose: 5 mg Docusate Sodium (Colace -) 300 mg PO DAILY [facility] Last Admin: 06/23/19 09:35 Dose: 300 mg Fentanyl (Sublimaze Injection -) 25 mcg IVPUSH [id number] PRN PRN Reason: PAIN-PACU ORDER X 4 DOSES ONLY Ferrous Sulfate (Feosol -) 325 mg PO DAILY [facility] Last Admin: 06/23/19 09:35 Dose: 325 mg Heparin Sodium (Porcine) (Heparin -) 5,000 unit SQ BID [facility] Last Admin: 06/23/19 14:04 Dose: 5,000 unit Hydralazine HCl (Apresoline -) 50 mg PO TID [facility] Last Admin: 06/23/19 14:05 Dose: 50 mg Ondansetron HCl (Zofran Odt -) 4 mg SL Q6H PRN PRN Reason: NAUSEA AND/OR VOMITING Pantoprazole Sodium (Protonix -) 40 mg PO DAILY [facility] Last Admin: 06/23/19 09:35 Dose: 40 mg - Objective Vital Signs: Vital Signs Temperature 97.7 F 06/23/19 14:28 Pulse Rate 87 06/23/19 14:28 Respiratory Rate 18 06/23/19 14:28 Blood Pressure 114/76 06/23/19 14:28 O2 Sat by Pulse Oximetry (%) 93 L 06/23/19 09:00 Constitutional: Yes: Calm Eyes: Yes: Conjunctiva Clear HENT: Yes: Atraumatic Neck: Yes: Supple Cardiovascular: Yes: S1, S2 Respiratory: Yes: CTA Bilaterally Gastrointestinal: Yes: Soft Genitourinary: Yes: WNL Musculoskeletal: Yes: WNL Edema: Yes Edema: LLE: Trace, RLE: Trace Neurological: Yes: Oriented Psychiatric: Yes: Oriented Labs: CBC, BMP 06/23/19 10:00 06/23/19 10:00 INR, PTT INR 1.03 (0.83-1.09) 06/19/19 08:20 Problem List - Problems (1) ESRD (end stage renal disease) Code(s): N18.6 - END STAGE RENAL DISEASE (2) Anemia Code(s): D64.9 - ANEMIA, UNSPECIFIED (3) GERD (gastroesophageal reflux disease) Code(s): K21.9 - GASTRO-ESOPHAGEAL REFLUX DISEASE WITHOUT ESOPHAGITIS (4) HTN (hypertension) Code(s): I10 - ESSENTIAL (PRIMARY) HYPERTENSION Assessment/Plan Current Medications Generic Name Dose Route Start Last Admin Trade Name Freq PRN Reason Stop Dose Admin Acetaminophen 650 mg 06/19/19 11:41 06/20/19 21:43 Tylenol - PO 650 mg Q6H PRN Administration PAIN LEVEL 6-10 Amlodipine Besylate 5 mg 06/20/19 10:00 06/23/19 14:05 Norvasc - PO 5 mg DAILY [facility] Administration Docusate Sodium 300 mg 06/22/19 10:00 06/23/19 09:35 Colace - PO 300 mg DAILY [facility] Administration Fentanyl 25 mcg 06/19/19 11:41 Sublimaze Injection - IVPUSH [id number] PRN PAIN-PACU ORDER X 4 DOSES ONLY Ferrous Sulfate 325 mg 06/20/19 10:00 06/23/19 09:35 Feosol - PO 325 mg DAILY [facility] Administration Heparin Sodium (Porcine) 5,000 unit 06/19/19 22:00 06/23/19 14:04 Heparin - SQ 5,000 unit BID [facility] Administration Hydralazine HCl 50 mg 06/19/19 14:00 06/23/19 14:05 Apresoline - PO 50 mg TID [facility] Administration Ondansetron HCl 4 mg 06/20/19 10:52 Zofran Odt - SL Q6H PRN NAUSEA AND/OR VOMITING Pantoprazole Sodium 40 mg 06/21/19 10:15 06/23/19 09:35 Protonix - PO 40 mg DAILY [facility] Administration Impression 1. uremia 2. CKD 3. htn 4. DM 5. hx pleural effusion 6. diabetic nephropathy 7. ESRD Plan - HD today - pending placement - renal diet - fistula with thrill and bruit
[2019-06-24] MEDS ORDERED: ACETAMINOPHEN 325 MG TABLET (FP) PO ONE (05:45)
[2019-06-24] MEDS: hydrALAZINE HCL 50 MG TABLET (FP) PO SCH (05:57)
[2019-06-24 07:30] LABS: BASO % 0.5 % (0-2.0); EOS % 2.5 % (0-4.5); HEMATOCRIT 26.8 % (35.4-49); HEMOGLOBIN 8.4 GM/dL (11.7-16.9); LYMPH % 23.9 % (8-40); MCH 27.1 pg (25.7-33.7); MCHC 31.3 g/dl (32.0-35.9); MEAN CELL VOLUME 86.4 fl (80-96); MEAN PLT VOLUME 9.7 fl (7.5-11.1); MONO % 11.3 % (3.8-10.2); NEUT % 61.8 % (42.8-82.8); PLATELET COUNT 215 K/MM3 (134-434); WHITE BLOOD COUNT 6.9 K/mm3 (4.0-10.0)
[2019-06-24 07:52] LABS: BLOOD UREA NITROGEN 19.8 mg/dL (7-18); CALCIUM 7.7 mg/dL (8.5-10.1); CREATININE 3.4 mg/dL (0.55-1.3); POTASSIUM 3.7 mmol/L (3.5-5.1)
[2019-06-24] MEDS: HEPARIN NA (PORCINE) 5,000 UNITS/ML 1ML VIAL SQ SCH (09:20)
[2019-06-24] MEDS: DOCUSATE SODIUM 100 MG CAPSULE (FP) PO SCH (09:20)
[2019-06-24] MEDS: FERROUS SO4 325 MG TABLET (FP) PO SCH (09:20)
[2019-06-24] MEDS: amLODIPine BESYLATE 5 MG TABLET (FP) PO SCH (09:20)
[2019-06-24] MEDS: PANTOPRAZOLE 40 MG TABLET (FP) PO SCH (09:20)
[2019-06-24 11:11] VITALS: BP 122/59; PULSE 84; TEMP 98.7
--- NOTE | 2019-06-24 13:28 | PN ---
Progress Note, Physician History of Present Illness: Pt seen and examined at bedside. He is awake and alert. He denies shortness of breath. - Current Medication List Current Medications: Active Medications Acetaminophen (Tylenol -) 650 mg PO Q6H PRN PRN Reason: PAIN LEVEL 6-10 Last Admin: 06/20/19 21:43 Dose: 650 mg Amlodipine Besylate (Norvasc -) 5 mg PO DAILY [facility] Last Admin: 06/24/19 09:20 Dose: 5 mg Docusate Sodium (Colace -) 300 mg PO DAILY [facility] Last Admin: 06/24/19 09:20 Dose: 300 mg Fentanyl (Sublimaze Injection -) 25 mcg IVPUSH [id number] PRN PRN Reason: PAIN-PACU ORDER X 4 DOSES ONLY Ferrous Sulfate (Feosol -) 325 mg PO DAILY [facility] Last Admin: 06/24/19 09:20 Dose: 325 mg Heparin Sodium (Porcine) (Heparin -) 5,000 unit SQ BID [facility] Last Admin: 06/24/19 09:20 Dose: 5,000 unit Hydralazine HCl (Apresoline -) 50 mg PO TID [facility] Last Admin: 06/24/19 05:57 Dose: 50 mg Ondansetron HCl (Zofran Odt -) 4 mg SL Q6H PRN PRN Reason: NAUSEA AND/OR VOMITING Pantoprazole Sodium (Protonix -) 40 mg PO DAILY [facility] Last Admin: 06/24/19 09:20 Dose: 40 mg - Objective Vital Signs: Vital Signs Temperature 98.7 F 06/24/19 10:00 Pulse Rate 84 06/24/19 10:00 Respiratory Rate 20 06/24/19 10:00 Blood Pressure 122/59 L 06/24/19 10:00 O2 Sat by Pulse Oximetry (%) 96 06/23/19 20:56 Constitutional: Yes: Calm Eyes: Yes: Conjunctiva Clear HENT: Yes: Atraumatic Neck: Yes: Supple Cardiovascular: Yes: S1, S2 Respiratory: Yes: CTA Bilaterally Gastrointestinal: Yes: Normal Bowel Sounds, Soft Genitourinary: Yes: WNL Musculoskeletal: Yes: WNL Edema: No Neurological: Yes: Oriented Psychiatric: Yes: Oriented Labs: CBC, BMP 06/24/19 06:30 06/24/19 06:30 INR, PTT INR 1.03 (0.83-1.09) 06/19/19 08:20 Problem List - Problems (1) ESRD (end stage renal disease) Code(s): N18.6 - END STAGE RENAL DISEASE (2) Anemia Code(s): D64.9 - ANEMIA, UNSPECIFIED (3) GERD (gastroesophageal reflux disease) Code(s): K21.9 - GASTRO-ESOPHAGEAL REFLUX DISEASE WITHOUT ESOPHAGITIS (4) HTN (hypertension) Code(s): I10 - ESSENTIAL (PRIMARY) HYPERTENSION Assessment/Plan Current Medications Generic Name Dose Route Start Last Admin Trade Name Freq PRN Reason Stop Dose Admin Acetaminophen 650 mg 06/19/19 11:41 06/20/19 21:43 Tylenol - PO 650 mg Q6H PRN Administration PAIN LEVEL 6-10 Amlodipine Besylate 5 mg 06/20/19 10:00 06/24/19 09:20 Norvasc - PO 5 mg DAILY [facility] Administration Docusate Sodium 300 mg 06/22/19 10:00 06/24/19 09:20 Colace - PO 300 mg DAILY [facility] Administration Fentanyl 25 mcg 06/19/19 11:41 Sublimaze Injection - IVPUSH [id number] PRN PAIN-PACU ORDER X 4 DOSES ONLY Ferrous Sulfate 325 mg 06/20/19 10:00 06/24/19 09:20 Feosol - PO 325 mg DAILY [facility] Administration Heparin Sodium (Porcine) 5,000 unit 06/19/19 22:00 06/24/19 09:20 Heparin - SQ 5,000 unit BID [facility] Administration Hydralazine HCl 50 mg 06/19/19 14:00 06/24/19 05:57 Apresoline - PO 50 mg TID [facility] Administration Ondansetron HCl 4 mg 06/20/19 10:52 Zofran Odt - SL Q6H PRN NAUSEA AND/OR VOMITING Pantoprazole Sodium 40 mg 06/21/19 10:15 06/24/19 09:20 Protonix - PO 40 mg DAILY [facility] Administration Impression 1. uremia 2. CKD 3. htn 4. DM 5. hx pleural effusion 6. diabetic nephropathy 7. ESRD Plan - HD set up for tomorrow at 4 pm at [facility] - renal diet - fistula with thrill and bruit - can decrease hydralazine to bid
[2019-06-24] MEDS ORDERED: hydrALAZINE HCL 50 MG TABLET (FP) PO SCH (22:00)
--- NOTE | 2019-06-25 11:47 | OP ---
DATE OF OPERATION: 06/19/2019 PREOPERATIVE DIAGNOSIS: End-stage renal disease. POSTOPERATIVE DIAGNOSIS: End-stage renal disease. PROCEDURE: Creation of left basilic vein fistula. SURGEON: Tad Payne MD ANESTHESIA: Fractional. BLOOD LOSS: 50 mL. INDICATIONS: Patient is a 48-year-old male that needs permanent dialysis access. Preoperative vein mapping showed that he has a good basilic vein. Patient was consented for the procedure understanding all risks, benefits, and alternatives. Preoperatively in the holding area, the patient received a supraclavicular nerve block from anesthesia. Patient was then brought to the operating room. DESCRIPTION OF PROCEDURE: Once in the operating room, was laid on the operating table in supine manner, and the area of the left arm was prepped and draped in a sterile surgical manner. Using ultrasound guidance, we were able to visualize the basilic vein and the brachial artery, and those were marked on the skin, and a 4-cm incision was drawn using a skin marker. We then went ahead and injected 15 mL of lidocaine 1% over the artery and the vein. We then went ahead and made a 4-cm incision over the left basilic vein. Bovie electrocautery was used to control hemostasis in order to get through all of the subcutaneous tissue. Once we got down to the vein, the vein was dissected anterior and posterior using Metzenbaum scissors. All branches of the vein were ligated using 4-0 silk. We then went medially over the brachial artery pulse. This was all above the antecubital fossa, and we were able to make a 4-cm incision over the artery. Using Bovie electrocautery, we got through all the subcutaneous tissue and got down to the fascia. Fascia was opened, and our brachial artery was dissected anteriorly and posteriorly, and Vessel Loops were placed proximally and distally, 5000 units of IV heparin were administered to the patient. We then went ahead and ligated the vein distally, and a 4-Palestinian feeding tube was placed into the vein, and there was good blood flow in the vein and good draw back. We then dilated the vein up. The vein dilated up appropriately. We then were able to transpose the vein over to the artery. A 7-mm venotomy was made on the vein. After 3 minutes of being on IV heparin, we got distal control on the artery 1st then proximal control. Using Vessel Loops, we then used a 15 blade, and an arteriotomy was made. Using Mora scissors, we were able to extend it to 7 mm, 6-0 Prolene stay sutures were placed on the artery. We then used 6-0 Prolene double arm and went outside on the vein and inside on the artery and ran the stitch around to form an anastomosis between the artery and the vein. Once completed, we opened the distal artery 1st then the proximal artery, and there was a good thrill in our AV fistula. There was minimal bleeding. Both wounds were well irrigated. Surgicel was placed, 3-0 Vicryl was used, and the subcutaneous tissue was approximated in interrupted manner for both incisions, and the skin was closed with Steri-Strips. The area was wet and dried, 4 x 4 Tegaderms were placed. Patient tolerated the procedure well with no complications. Patient transferred to PACU in stable condition. TAD PAYNE DO [id number]
== END 2019-06-24 15:02 | disposition home or self-care (01) | DRG 444 ==
LOC: JER 22:41 → JERBED 06-15 00:44 → J7W 06-15 08:15
PROVIDERS: ADMIT Family Medicine; ATTEND Family Medicine
PROC: 05HM33Z Insertion of Infusion Device into Right Internal Jugular Vein, Percutaneous Approach (ICD-10-PCS; 2019-06-16)
PROC: B513ZZA Fluoroscopy of Right Jugular Veins, Guidance (ICD-10-PCS; 2019-06-16)
PROC: 0JH60XZ Insertion of Tunneled Vascular Access Device into Chest Subcutaneous Tissue and Fascia, Open Approach (ICD-10-PCS; 2019-06-19)
PROC: 031809D Bypass Left Brachial Artery to Upper Arm Vein with Autologous Venous Tissue, Open Approach (ICD-10-PCS; principal; 2019-06-19 09:30)
PROC: 5A1D70Z Performance of Urinary Filtration, Intermittent, Less than 6 Hours Per Day (ICD-10-PCS; 2019-06-23)
DX: I12.0 Hypertensive chronic kidney disease with stage 5 chronic kidney disease or end stage renal disease (principal); N18.6 End stage renal disease; D64.9 Anemia, unspecified; K21.9 Gastro-esophageal reflux disease without esophagitis; E11.21 Type 2 diabetes mellitus with diabetic nephropathy; E87.70 Fluid overload, unspecified; J90 Pleural effusion, not elsewhere classified; I31.3 Pericardial effusion (noninflammatory); E11.22 Type 2 diabetes mellitus with diabetic chronic kidney disease; Z99.2 Dependence on renal dialysis
CPT/HCPCS: 36415; 71045-TC-FY; 76000-TC-FY; 80048; 80053; 81003; 82728; 82962; 83036; 83540; 83550; 83605; 83735; 84100; 84484; 85025; 85027; 85610; 85730; 86704; 86706; 86707; 86708; 86709; 86803; 87040; 87086; 87340; 87804; 93005; 93010; 94010; 94760; 99283-25; J0885; J1644

== ENCOUNTER 2020-01-28 04:42 | Day surgery (SDC) | payer OTHER ==
[2020-01-27 12:57] VITALS: BMI 25.4
[2020-01-28] MEDS ORDERED: LIDOCAINE HCL 1%, 10 MG/ML (20ML VIAL) ONE (14:15)
[2020-01-28] MEDS ORDERED: HEPARIN NA (PORCINE) 5,000 UNITS/ML 1ML VIAL ONE (14:15)
[2020-01-28] MEDS ORDERED: PROPOFOL 20 ML ONE ×2 (15:39)
[2020-01-28] MEDS ORDERED: MIDAZOLAM HCL 2 MG/2 ML SINGLE DOSE VIAL ONE (15:40)
--- NOTE | 2020-01-28 16:44 | HP ---
Admitting History and Physical - Admission Chief Complaint: Pt here for left basilic vein transposition. History Source: Patient Limitations to Obtaining History: No Limitations - Past Medical History Cardiovascular: Yes: HTN Renal/: Yes: Renal Failure, Renal Inusuff Endocrine: Yes: Diabetes Mellitus - Past Surgical History Past Surgical History: Yes: None - Smoking History Smoking history: Former smoker Have you smoked in the past 12 months: No Aproximately how many cigarettes per day: 0 If you are a former smoker, when did you quit?: April 2019 - Alcohol/Substance Use Hx Alcohol Use: No History of Substance Use: reports: None - Social History ADL: Independent History of Recent Travel: No Home Medications - Allergies Allergies/Adverse Reactions: Allergies Allergy/AdvReac Type Severity Reaction Status Date / Time No Known Allergies Allergy Verified 01/27/20 12:48 - Home Medications Home Medications: Ambulatory Orders Amlodipine Besylate [Norvasc -] 5 mg PO DAILY 08/24/19 Furosemide [Lasix] 40 mg PO DAILY 08/24/19 Hydralazine HCl 50 mg PO DAILY 08/24/19 Sodium Bicarbonate 650 mg PO DAILY 08/24/19 Insulin Sliding Scale [Novolog Vial Sliding Scale -] 100 vial SQ 01/27/20 Review of Systems - Review of Systems Constitutional: reports: No Symptoms Eyes: reports: No Symptoms HENT: reports: No Symptoms Neck: reports: No Symptoms Cardiovascular: reports: No Symptoms Respiratory: reports: No Symptoms Gastrointestinal: reports: No Symptoms Genitourinary: reports: No Symptoms Breasts: reports: No Symptoms Reported Musculoskeletal: reports: No Symptoms Integumentary: reports: No Symptoms Neurological: reports: No Symptoms Endocrine: reports: No Symptoms Hematology/Lymphatic: reports: No Symptoms Psychiatric: reports: No Symptoms Physical Examination Vital Signs: Vital Signs Temperature 97.7 F 01/28/20 14:48 Pulse Rate 74 01/28/20 14:48 Respiratory Rate 16 01/28/20 14:48 Blood Pressure 148/78 01/28/20 14:48 O2 Sat by Pulse Oximetry (%) 98 01/28/20 14:48 Constitutional: Yes: Well Nourished, No Distress, Calm Eyes: Yes: WNL, Conjunctiva Clear, EOM Intact HENT: Yes: WNL, Atraumatic, Normocephalic Neck: Yes: WNL, Supple, Trachea Midline Cardiovascular: Yes: WNL, Regular Rate and Rhythm Respiratory: Yes: WNL, Regular, CTA Bilaterally Gastrointestinal: Yes: WNL, Normal Bowel Sounds Musculoskeletal: Yes: WNL Extremities: Yes: WNL Edema: No Peripheral Pulses WNL: Yes Integumentary: Yes: WNL Neurological: Yes: WNL, Alert, Oriented ...Motor Strength: WNL Psychiatric: Yes: WNL Labs: CBC, BMP 01/28/20 14:12 Problem List - Problems (1) ESRD (end stage renal disease) Assessment/Plan: For transposition of left basilic vein today Tad Adams DO Problems reviewed: Yes Code(s): N18.6 - END STAGE RENAL DISEASE
[2020-01-28] MEDS ORDERED: ceFAZolin SODIUM 1 GM VIAL IVPB ONE (17:10)
[2020-01-28] MEDS ORDERED: ONDANSETRON 4 MG/2 ML VIAL IVPUSH PRN (17:14)
[2020-01-28] MEDS ORDERED: LIDOCAINE HCL 1%, 10 MG/ML (20ML VIAL) NR ONE ×2 (17:20)
--- NOTE | 2020-01-28 18:17 | OP ---
Operative Note - Note: Operative Date: 01/28/20 Pre-Operative Diagnosis: ESRD Operation: Left basilic vein transpostion Post-Operative Diagnosis: Same as Pre-op Surgeon: Tad Adams Anesthesia: MAC Estimated Blood Loss (mls): 50 Operative Report Dictated: Yes
[2020-01-28] MEDS ORDERED: ONDANSETRON 4 MG/2 ML VIAL ONE (18:49)
[2020-01-28 19:38] VITALS: PULSE 75
[2020-01-28 19:40] VITALS: BP 160/85; TEMP 97.4
--- NOTE | 2020-02-09 10:57 | OP ---
DATE OF OPERATION: 01/28/2020 PREOPERATIVE DIAGNOSIS: End-stage renal disease. POSTOPERATIVE DIAGNOSIS: End-stage renal disease. PROCEDURE: Left basilic vein transposition. SURGEON: Tad Payne DO ANESTHESIA: Fractional. BLOOD LOSS: 50 mL Patient is a 49-year-old male that has a left basilic vein fistula that now needs to be transposed. Preoperative ultrasound showed that the vein was of adequate size now of 7 to 8 mm. Patient had medical and cardiology clearance performed and patient then came into ambulatory surgery. Patient was consented for the procedure understanding all risks, benefits and alternatives. He was then taken to the operating room. Once in the operating room, he placed on the operating table in the supine manner and the area of the left arm was prepped and draped in a sterile surgical manner. We then went ahead and used ultrasound guidance. We mapped out our basilic vein in the upper arm with a skin marker. We then went ahead and injected 15 mL of lidocaine 1% over the vein. We then went ahead and used a No. 15 blade. We made a 5 cm incision. Electrocautery was used to control hemostasis and we were able to get down to the vein. Once we got down to the vein, we were able to dissect the vein anteriorly and posteriorly. We then went ahead and continued our incision proximally and distally. All branches of the basilic vein were ligated using 4-0 silk. Once we got proximally to above the anastomosis the vein was freed up. We then went distally in the upper arm and the vein was freed up making sure that we do not injure our nerve and the vein was free to be transposed anteriorly. We then went ahead and took 2 pickups and using Bovie electrocautery we were able to perform a flap on the anterior portion of the arm. The vein was then placed inside the flap and secured to the flap using 3-0 Vicryl in 4 places. Once the vein was transposed, you could feel it right underneath the arm. We irrigated the wound copiously. Vicryl 3-0 was used and the subcutaneous tissue was approximated in an interrupted manner and the skin was closed with skin kyler. Area was wet and dried. There was a good thrill and bruit in our fistula. A 4 x 4, Tegaderms were placed. Patient tolerated the procedure with no complications. Patient was transferred to PACU in stable condition. TAD PAYNE DO [id number]
== END 2020-01-28 19:40 | disposition home or self-care (01) ==
LOC: JASU-SURG 04:42
PROVIDERS: ATTEND Surgery Vascular Surgery
PROC: 051C0ZY Bypass Left Basilic Vein to Upper Vein, Open Approach (ICD-10-PCS; principal; 2020-01-28 15:30)
DX: I12.0 Hypertensive chronic kidney disease with stage 5 chronic kidney disease or end stage renal disease (principal); E11.22 Type 2 diabetes mellitus with diabetic chronic kidney disease; N18.6 End stage renal disease; Z99.2 Dependence on renal dialysis
CPT/HCPCS: 36415; 82962; 84132; 94760; J1644

== ENCOUNTER 2020-08-13 19:17 | Inpatient (IN) | payer OTHER ==
[2020-08-13 21:08] LABS: BASO % 0.9 % (0-2.0); EOS % 1.3 % (0-4.5); HEMATOCRIT 29.1 % (35.4-49); HEMOGLOBIN 9.4 GM/dL (11.7-16.9); LYMPH % 15.1 % (8-40); MCH 28.9 pg (25.7-33.7); MCHC 32.1 g/dl (32.0-35.9); MEAN PLT VOLUME 9.6 fl (7.5-11.1); MONO % 11.8 % (3.8-10.2); NEUT % 70.9 % (42.8-82.8); PLATELET COUNT 174 K/MM3 (134-434); RBC 3.24 M/mm3 (4.00-5.60); RDW 15.6 % (11.9-15.9); WHITE BLOOD COUNT 6.5 K/mm3 (4.0-10.0)
[2020-08-13 21:15] LABS: INR 1.19 (0.83-1.09); PROTHROMBIN TIME (PATIENT) 14.3 SEC (9.7-13.0)
[2020-08-13 21:18] LABS: ACTIVATED PTT 37.8 SECONDS (25.2-36.5)
[2020-08-13 21:36] LABS: POTASSIUM 5.6 mmol/L (3.5-5.1)
[2020-08-13 21:38] LABS: ALBUMIN 3.3 g/dl (3.4-5.0); CALCIUM 8.7 mg/dL (8.5-10.1)
[2020-08-13 21:42] LABS: CREATININE 6.2 mg/dL (0.55-1.3)
[2020-08-13 21:43] LABS: BILIRUBIN,TOTAL 0.5 mg/dL (0.2-1); TOT PROT 7.9 g/dl (6.4-8.2)
[2020-08-13] MEDS ORDERED: SODIUM ZIRCONIUM CYCLOSILICATE (LOKELMA) 5 GM PACKET PO ONE (22:23)
[2020-08-13] MEDS ORDERED: SODIUM ZIRCONIUM CYCLOSILICATE (LOKELMA) 5 GM PACKET ONE (22:50)
[2020-08-14 04:04] VITALS: BMI 11.4
[2020-08-14 09:25] LABS: BASO % 0.4 % (0-2.0); EOS % 1.4 % (0-4.5); HEMOGLOBIN 8.9 GM/dL (11.7-16.9); LYMPH % 18.2 % (8-40); MCH 29.3 pg (25.7-33.7); MCHC 32.9 g/dl (32.0-35.9); MEAN CELL VOLUME 89.2 fl (80-96); MEAN PLT VOLUME 9.3 fl (7.5-11.1); MONO % 10.2 % (3.8-10.2); NEUT % 69.8 % (42.8-82.8); PLATELET COUNT 155 K/MM3 (134-434); RBC 3.03 M/mm3 (4.00-5.60); RDW 15.4 % (11.9-15.9); WHITE BLOOD COUNT 6.3 K/mm3 (4.0-10.0)
[2020-08-14 09:44] LABS: POTASSIUM 5.8 mmol/L (3.5-5.1)
[2020-08-14 09:47] LABS: CALCIUM 8.1 mg/dL (8.5-10.1)
[2020-08-14 09:48] LABS: BLOOD UREA NITROGEN 85.7 mg/dL (7-18)
[2020-08-14] MEDS ORDERED: ACETAMINOPHEN 325 MG TABLET (FP) PO PRN (09:49)
[2020-08-14 09:53] LABS: BILIRUBIN,TOTAL 0.9 mg/dL (0.2-1); TOT PROT 7.2 g/dl (6.4-8.2)
[2020-08-14] MEDS: INSULIN SLIDING SCALE (NOVOLOG) 1 VIAL SQ SCH ×3 (11:47→22:08)
[2020-08-14] MEDS ORDERED: SODIUM CHLORIDE 250 ML IV PRN (14:39)
[2020-08-14] MEDS ORDERED: HEPARIN NA (PORCINE) 5,000 UNITS/ML 1ML VIAL IVPUSH ONE (15:15)
[2020-08-14] MEDS ORDERED: EPOETIN ALFA 10,000 UNIT/1 ML VIAL SQ ONE (15:15)
[2020-08-14 17:07] LABS: POTASSIUM 3.2 mmol/L (3.5-5.1)
[2020-08-14 17:08] LABS: CALCIUM 8.2 mg/dL (8.5-10.1)
[2020-08-14 17:12] LABS: CREATININE 2.4 mg/dL (0.55-1.3)
[2020-08-14 17:13] LABS: BLOOD UREA NITROGEN 26.5 mg/dL (7-18)
[2020-08-14] MEDS: hydrALAZINE HCL 25 MG TABLET (FP) PO SCH ×2 (17:17→21:58)
[2020-08-15] MEDS: INSULIN SLIDING SCALE (NOVOLOG) 1 VIAL SQ SCH ×4 (06:05→21:01)
[2020-08-15 09:28] LABS: BASO % 0.6 % (0-2.0); EOS % 0.9 % (0-4.5); HEMATOCRIT 29.1 % (35.4-49); HEMOGLOBIN 9.7 GM/dL (11.7-16.9); LYMPH % 22.8 % (8-40); MCH 29.4 pg (25.7-33.7); MCHC 33.2 g/dl (32.0-35.9); MEAN CELL VOLUME 88.8 fl (80-96); MEAN PLT VOLUME 9.4 fl (7.5-11.1); MONO % 10.8 % (3.8-10.2); NEUT % 64.9 % (42.8-82.8); PLATELET COUNT 157 K/MM3 (134-434); RBC 3.28 M/mm3 (4.00-5.60); RDW 15.6 % (11.9-15.9); WHITE BLOOD COUNT 5.3 K/mm3 (4.0-10.0)
[2020-08-15 09:46] LABS: POTASSIUM 4.5 mmol/L (3.5-5.1)
[2020-08-15] MEDS: hydrALAZINE HCL 25 MG TABLET (FP) PO SCH ×2 (09:48→21:01)
[2020-08-15 10:01] LABS: BLOOD UREA NITROGEN 42.7 mg/dL (7-18); CALCIUM 8.6 mg/dL (8.5-10.1)
[2020-08-15 10:04] LABS: CREATININE 5.2 mg/dL (0.55-1.3)
[2020-08-15 10:05] LABS: BILIRUBIN,TOTAL 0.7 mg/dL (0.2-1)
[2020-08-15 10:06] LABS: TOT PROT 7.3 g/dl (6.4-8.2)
[2020-08-15] MEDS ORDERED: HEPARIN NA (PORCINE) 5,000 UNITS/ML 1ML VIAL ONE (13:27)
[2020-08-15] MEDS ORDERED: POVIDONE-IODINE OINTMENT 10% - 28.4 GM TUBE ONE (13:27)
[2020-08-15] MEDS ORDERED: LIDOCAINE HCL 1%, 10 MG/ML (20ML VIAL) ONE (13:27)
[2020-08-15] MEDS ORDERED: PROPOFOL 20 ML ONE ×2 (14:10)
[2020-08-15] MEDS ORDERED: MIDAZOLAM HCL 2 MG/2 ML SINGLE DOSE VIAL ONE (14:10)
[2020-08-15] MEDS ORDERED: ceFAZolin SODIUM 1 GM VIAL IVPB ONE (15:11)
[2020-08-15] MEDS ORDERED: ONDANSETRON 4 MG/2 ML VIAL IVPUSH PRN (15:22)
[2020-08-15] MEDS ORDERED: LIDOCAINE HCL 1%, 10 MG/ML (20ML VIAL) INF ONE (15:27)
[2020-08-15] MEDS ORDERED: amLODIPine BESYLATE 5 MG TABLET (FP) PO ONE (16:30)
[2020-08-16] MEDS: INSULIN SLIDING SCALE (NOVOLOG) 1 VIAL SQ SCH ×2 (06:03→11:24)
[2020-08-16] MEDS ORDERED: HEPARIN NA (PORCINE) 5,000 UNITS/ML 1ML VIAL IVPUSH ONE (07:27)
[2020-08-16] MEDS ORDERED: SODIUM CHLORIDE 250 ML IV PRN (07:27)
[2020-08-16] MEDS ORDERED: hydrALAZINE HCL 25 MG TABLET (FP) PO SCH (09:48)
[2020-08-16 10:51] LABS: HEMATOCRIT 29.2 % (35.4-49); HEMOGLOBIN 9.5 GM/dL (11.7-16.9); MCHC 32.7 g/dl (32.0-35.9); MEAN CELL VOLUME 88.6 fl (80-96); MEAN PLT VOLUME 10.2 fl (7.5-11.1); PLATELET COUNT 165 K/MM3 (134-434); RBC 3.29 M/mm3 (4.00-5.60); RDW 15.8 % (11.9-15.9); WHITE BLOOD COUNT 6.8 K/mm3 (4.0-10.0)
[2020-08-16 11:03] LABS: POTASSIUM 4.4 mmol/L (3.5-5.1)
[2020-08-16 11:04] LABS: CALCIUM 8.7 mg/dL (8.5-10.1)
[2020-08-16 11:05] LABS: BLOOD UREA NITROGEN 54.4 mg/dL (7-18)
[2020-08-16 11:09] LABS: CREATININE 6.9 mg/dL (0.55-1.3)
[2020-08-16 14:28] VITALS: PULSE 73; TEMP 98.8
[2020-08-16] MEDS ORDERED: amLODIPine BESYLATE 5 MG TABLET (FP) PO ONE (14:45)
[2020-08-16 15:30] VITALS: BP 188/79
== END 2020-08-16 16:14 | disposition home or self-care (01) | DRG 466 ==
LOC: JER 19:17 → JERBED 23:21 → J5S 08-14 03:26
PROVIDERS: ADMIT Internal Medicine; ATTEND Family Medicine
PROC: 5A1D70Z Performance of Urinary Filtration, Intermittent, Less than 6 Hours Per Day (ICD-10-PCS; 2020-08-14)
PROC: B50WYZZ Plain Radiography of Dialysis Shunt/Fistula using Other Contrast (ICD-10-PCS; 2020-08-15)
PROC: 05JY3ZZ Inspection of Upper Vein, Percutaneous Approach (ICD-10-PCS; principal; 2020-08-15 14:00)
PROC: 5A1D70Z Performance of Urinary Filtration, Intermittent, Less than 6 Hours Per Day (ICD-10-PCS; 2020-08-16)
DX: T82.590A Other mechanical complication of surgically created arteriovenous fistula, initial encounter (principal); Y83.8 Other surgical procedures as the cause of abnormal reaction of the patient, or of later complication, without mention of misadventure at the time of the procedure; I12.0 Hypertensive chronic kidney disease with stage 5 chronic kidney disease or end stage renal disease; E11.22 Type 2 diabetes mellitus with diabetic chronic kidney disease; N18.6 End stage renal disease; Z99.2 Dependence on renal dialysis; E87.5 Hyperkalemia; K21.9 Gastro-esophageal reflux disease without esophagitis; Z20.822 Contact with and (suspected) exposure to COVID-19
CPT/HCPCS: 36415; 71045-TC-FY; 76000-TC-FY; 80048; 80053; 82728; 82962; 83615; 85025; 85027; 85379; 85610; 85730; 86140; 86803; 87340; 93005; 93010; 93931; 99285-25; C9803; J0885; J1644; U0003

== ENCOUNTER 2020-12-09 16:10 | Inpatient (IN) | payer OTHER ==
[2020-12-09 17:10] LABS: BASO % 0.6 % (0-2.0); EOS % 1.7 % (0-4.5); HEMATOCRIT 35.1 % (35.4-49); HEMOGLOBIN 11.6 GM/dL (11.7-16.9); LYMPH % 12.7 % (8-40); MCH 29.4 pg (25.7-33.7); MEAN CELL VOLUME 89.3 fl (80-96); MONO % 7.8 % (3.8-10.2); NEUT % 77.2 % (42.8-82.8); PLATELET COUNT 270 10^3/uL (134-434); RBC 3.93 M/mm3 (4.00-5.60); RDW 13.8 % (11.9-15.9); WHITE BLOOD COUNT 10.8 K/mm3 (4.0-10.0)
[2020-12-09 17:16] LABS: INR 0.99 (0.83-1.09); PROTHROMBIN TIME (PATIENT) 12.2 SEC (9.7-13.0)
[2020-12-09 17:18] LABS: ACTIVATED PTT 33.5 SECONDS (25.2-36.5)
[2020-12-09 17:37] LABS: CHLORIDE 100 mmol/L (98-107); SODIUM 134 mmol/L (136-145)
[2020-12-09 17:39] LABS: CALCIUM 9.8 mg/dL (8.5-10.1)
[2020-12-09 17:40] LABS: ALBUMIN 3.7 g/dl (3.4-5.0); BLOOD UREA NITROGEN 57.3 mg/dL (7-18); CO2 25 mmol/L (21-32); GLUCOSE,RANDOM 206 mg/dL (74-106)
[2020-12-09 17:43] LABS: SGOT/AST 22 U/L (15-37); SGPT/ALT 28 U/L (13-61)
[2020-12-09 17:44] LABS: BILIRUBIN,TOTAL 0.4 mg/dL (0.2-1); TOT PROT 8.6 g/dl (6.4-8.2)
[2020-12-09 17:46] LABS: ALK PHOS 169 U/L (45-117)
[2020-12-09 17:48] LABS: ANION GAP 9 MMOL/L (8-16); CREATININE 7.6 mg/dL (0.55-1.3)
[2020-12-09] MEDS ORDERED: INSULIN REGULAR HUMAN 100 UNITS/ML *VIAL IVPUSH ONE (17:58)
[2020-12-09] MEDS ORDERED: CALCIUM CHLORIDE 1 GM/10 ML *DISP.SYRIN IVPUSH ONE (17:59)
[2020-12-09] MEDS ORDERED: DEXTROSE 50%-WATER - 25 GM/50 ML VIAL IVPUSH ONE (17:59)
[2020-12-09] MEDS ORDERED: ALBUTEROL SO4 2.5/IPRATROPIUM 0.5 INH SOL 3 ML VIAL.NEB. NEB SCH (18:00)
[2020-12-09] MEDS ORDERED: FUROSEMIDE 40 MG/4 ML INJECTABLE VIAL IVPUSH ONE (18:11)
[2020-12-09] MEDS ORDERED: CALCIUM CHLORIDE 1 GM/10 ML *DISP.SYRIN ONE (18:12)
[2020-12-09] MEDS ORDERED: DEXTROSE 50%-WATER 25 GM/50 ML DISP.SYRIN ONE (18:12)
[2020-12-09] MEDS ORDERED: FUROSEMIDE 40 MG/4 ML INJECTABLE VIAL ONE (18:18)
[2020-12-10] MEDS ORDERED: amLODIPine BESYLATE 5 MG TABLET (FP) PO SCH (00:15)
[2020-12-10] MEDS: hydrALAZINE HCL 50 MG TABLET (FP) PO SCH ×4 (00:15→22:17)
[2020-12-10] MEDS ORDERED: VANCOMYCIN/WATER 1,250 MG/250 ML BAG IVPB ONE (00:41)
[2020-12-10] MEDS ORDERED: PIPERACILLIN/TAZOB 3.375 GM 3.375 GM in DEXTROSE 5%-WATER - 50 ML IVPB SCH (00:45)
[2020-12-10] MEDS ORDERED: PIPERACILLIN/TAZOBACTAM 3.375 GM VIAL IVPB ONE (02:17)
[2020-12-10] MEDS ORDERED: DEXTROSE 5%-WATER - 50 ML IVPB ONE (02:17)
[2020-12-10] MEDS: LOSARTAN POTASSIUM 50 MG TABLET PO SCH ×2 (03:43→13:07)
[2020-12-10] MEDS: amLODIPine BESYLATE 5 MG TABLET (FP) PO SCH ×2 (03:52→13:07)
[2020-12-10] MEDS: INSULIN SLIDING SCALE (NOVOLOG) 1 VIAL SQ SCH ×4 (06:06→22:18)
[2020-12-10] MEDS ORDERED: SODIUM CHLORIDE 250 ML IV PRN (08:18)
[2020-12-10] MEDS: SEVELAMER CARBONATE 800 MG TAB (FP) PO SCH ×3 (08:35→17:32)
[2020-12-10] MEDS ORDERED: HEPARIN NA (PORCINE) 5,000 UNITS/ML 1ML VIAL IVPUSH ONE (10:00)
[2020-12-10 10:06] LABS: BASO % 0.4 % (0-2.0); HEMATOCRIT 32.8 % (35.4-49); HEMOGLOBIN 10.6 GM/dL (11.7-16.9); LYMPH % 13.4 % (8-40); MCH 29.1 pg (25.7-33.7); MCHC 32.3 g/dl (32.0-35.9); MEAN CELL VOLUME 90.2 fl (80-96); MEAN PLT VOLUME 8.4 fl (7.5-11.1); MONO % 8.3 % (3.8-10.2); NEUT % 75.9 % (42.8-82.8); PLATELET COUNT 261 10^3/uL (134-434); RBC 3.63 M/mm3 (4.00-5.60); RDW 13.4 % (11.9-15.9); WHITE BLOOD COUNT 10.1 K/mm3 (4.0-10.0)
[2020-12-10 10:35] LABS: BLOOD UREA NITROGEN 37.6 mg/dL (7-18); CALCIUM 8.8 mg/dL (8.5-10.1); MAGNESIUM 2.7 mg/dL (1.8-2.4)
[2020-12-10 10:36] LABS: ALBUMIN 3.2 g/dl (3.4-5.0)
[2020-12-10 10:38] LABS: CREATININE 5.9 mg/dL (0.55-1.3)
[2020-12-10 10:40] LABS: BILIRUBIN,TOTAL 0.7 mg/dL (0.2-1); TOT PROT 7.5 g/dl (6.4-8.2)
[2020-12-11] MEDS ORDERED: PIPERACILLIN/TAZOB 3.375 GM 3.375 GM in DEXTROSE 5%-WATER - 50 ML IVPB SCH (02:00)
[2020-12-11] MEDS: hydrALAZINE HCL 50 MG TABLET (FP) PO SCH ×3 (06:20→21:32)
[2020-12-11] MEDS: INSULIN SLIDING SCALE (NOVOLOG) 1 VIAL SQ SCH ×4 (06:20→21:33)
[2020-12-11] MEDS: SEVELAMER CARBONATE 800 MG TAB (FP) PO SCH ×3 (09:10→17:34)
[2020-12-11] MEDS: amLODIPine BESYLATE 5 MG TABLET (FP) PO SCH (09:11)
[2020-12-11] MEDS: LOSARTAN POTASSIUM 50 MG TABLET PO SCH (09:11)
[2020-12-11 10:42] LABS: HEMATOCRIT 34.7 % (35.4-49); HEMOGLOBIN 11.6 GM/dL (11.7-16.9); MCH 29.7 pg (25.7-33.7); MCHC 33.4 g/dl (32.0-35.9); MEAN CELL VOLUME 88.9 fl (80-96); MEAN PLT VOLUME 8.1 fl (7.5-11.1); PLATELET COUNT 260 10^3/uL (134-434); RDW 13.6 % (11.9-15.9)
[2020-12-11 11:00] LABS: ALBUMIN 3.2 g/dl (3.4-5.0)
[2020-12-11 11:01] LABS: BLOOD UREA NITROGEN 28.5 mg/dL (7-18)
[2020-12-11 11:04] LABS: CREATININE 4.9 mg/dL (0.55-1.3)
[2020-12-11 11:06] LABS: BILIRUBIN,TOTAL 0.7 mg/dL (0.2-1); TOT PROT 7.9 g/dl (6.4-8.2)
[2020-12-11] MEDS ORDERED: SODIUM ZIRCONIUM CYCLOSILICATE (LOKELMA) 5 GM PACKET PO ONE (13:17)
[2020-12-11] MEDS ORDERED: SODIUM CHLORIDE 250 ML IV PRN (13:20)
[2020-12-11] MEDS ORDERED: amLODIPine BESYLATE 5 MG TABLET (FP) PO ONE (13:20)
[2020-12-11 13:49] VITALS: BMI 10.8
[2020-12-12] MEDS: INSULIN SLIDING SCALE (NOVOLOG) 1 VIAL SQ SCH ×2 (06:17→15:09)
[2020-12-12] MEDS: hydrALAZINE HCL 50 MG TABLET (FP) PO SCH ×2 (06:17→15:09)
[2020-12-12 08:41] LABS: HEMOGLOBIN 11.3 GM/dL (11.7-16.9); MCH 29.5 pg (25.7-33.7); MCHC 33.2 g/dl (32.0-35.9); MEAN CELL VOLUME 89.1 fl (80-96); MEAN PLT VOLUME 8.4 fl (7.5-11.1); PLATELET COUNT 253 10^3/uL (134-434); RBC 3.82 M/mm3 (4.00-5.60); RDW 13.4 % (11.9-15.9); WHITE BLOOD COUNT 8.5 K/mm3 (4.0-10.0)
[2020-12-12 09:06] LABS: ALBUMIN 3.1 g/dl (3.4-5.0); BLOOD UREA NITROGEN 41.1 mg/dL (7-18); CALCIUM 9.2 mg/dL (8.5-10.1)
[2020-12-12 09:09] LABS: CREATININE 6.8 mg/dL (0.55-1.3)
[2020-12-12 09:11] LABS: BILIRUBIN,TOTAL 0.4 mg/dL (0.2-1); TOT PROT 7.2 g/dl (6.4-8.2)
[2020-12-12] MEDS: SEVELAMER CARBONATE 800 MG TAB (FP) PO SCH ×2 (09:41→13:15)
[2020-12-12] MEDS ORDERED: amLODIPine BESYLATE 10 MG TABLET (FP) PO SCH (10:00)
[2020-12-12] MEDS ORDERED: HEPARIN NA (PORCINE) 5,000 UNITS/ML 1ML VIAL IVPUSH ONE (10:30)
[2020-12-12] MEDS: LOSARTAN POTASSIUM 50 MG TABLET PO SCH (15:08)
[2020-12-12 15:21] VITALS: BP 136/74; PULSE 85; TEMP 98.3
== END 2020-12-12 15:08 | disposition left against medical advice (07) | DRG 197 ==
LOC: JER 16:10 → JERBED 19:46 → J5S 22:54
PROVIDERS: ADMIT Hospitalist; ATTEND Family Medicine
DX: E11.52 Type 2 diabetes mellitus with diabetic peripheral angiopathy with gangrene (principal); I96 Gangrene, not elsewhere classified; I12.0 Hypertensive chronic kidney disease with stage 5 chronic kidney disease or end stage renal disease; E11.22 Type 2 diabetes mellitus with diabetic chronic kidney disease; N18.6 End stage renal disease; Z99.2 Dependence on renal dialysis; E87.5 Hyperkalemia; L03.115 Cellulitis of right lower limb
CPT/HCPCS: 36415; 71045-TC-FY; 80053; 82962; 83036; 83735; 84132; 85025; 85027; 85610; 85730; 86769; 86803; 86850; 86900; 86901; 87040; 87340; 93005; 93010; 93931; 99285-25; C9803; J1644; U0003; U0005

== ENCOUNTER 2021-02-08 16:41 | Inpatient (IN) | payer OTHER ==
[2021-02-08 18:55] LABS: BASO % 0.2 % (0-2.0); EOS % 0.2 % (0-4.5); HEMOGLOBIN 10.2 GM/dL (11.7-16.9); LYMPH % 5.3 % (8-40); MCH 29.9 pg (25.7-33.7); MEAN CELL VOLUME 90.6 fl (80-96); MEAN PLT VOLUME 7.9 fl (7.5-11.1); MONO % 6.2 % (3.8-10.2); NEUT % 88.1 % (42.8-82.8); PLATELET COUNT 358 10^3/uL (134-434); RBC 3.42 M/mm3 (4.00-5.60); RDW 15.8 % (11.9-15.9); WHITE BLOOD COUNT 19.7 K/mm3 (4.0-10.0)
[2021-02-08] MEDS ORDERED: PIPERACILLIN/TAZOB 2.25 GM 2.25 GM in DEXTROSE 5%-WATER - 50 ML IVPB ONE (19:19)
[2021-02-08 19:20] LABS: CHLORIDE 98 mmol/L (98-107); SODIUM 136 mmol/L (136-145)
[2021-02-08] MEDS ORDERED: VANCOMYCIN 1 GM in D5W (PRE-DOCKED) 1,000 MG/250 ML IVPB ONE (19:20)
[2021-02-08] MEDS ORDERED: PIPERACILLIN/TAZOB 2.25 GM 2.25 GM/50 ML BAG IVPB ONE (19:26)
[2021-02-08] MEDS ORDERED: BACITRACIN 0.9 GM PACKET ONE (19:27)
[2021-02-08] MEDS ORDERED: VANCOMYCIN 1 GRAM (PRE-DOCKED) 1,000 MG/250 ML BAG IVPB ONE (19:27)
[2021-02-08 19:29] LABS: ALBUMIN 3.3 g/dl (3.4-5.0); ANION GAP 15 MMOL/L (8-16); BLOOD UREA NITROGEN 49.1 mg/dL (7-18); CALCIUM 9.7 mg/dL (8.5-10.1); CO2 23 mmol/L (21-32); GLUCOSE,RANDOM 106 mg/dL (74-106)
[2021-02-08 19:32] LABS: SGOT/AST 20 U/L (15-37); SGPT/ALT 23 U/L (13-61)
[2021-02-08 19:33] LABS: BILIRUBIN,TOTAL 0.6 mg/dL (0.2-1)
[2021-02-08 19:34] LABS: ALK PHOS 140 U/L (45-117); TOT PROT 8.5 g/dl (6.4-8.2)
[2021-02-08 19:40] LABS: CREATININE 10.2 mg/dL (0.55-1.3)
[2021-02-08] MEDS ORDERED: hydrALAZINE HCL 10 MG TABLET PO ONE (20:30)
[2021-02-08] MEDS ORDERED: ONDANSETRON 4 MG/2 ML VIAL IVPUSH ONE (20:55)
[2021-02-08] MEDS ORDERED: ONDANSETRON 4 MG/2 ML VIAL ONE (21:13)
[2021-02-08] MEDS ORDERED: INSULIN SLIDING SCALE (NOVOLOG) 1 VIAL SQ SCH (22:00)
[2021-02-08] MEDS: hydrALAZINE HCL 50 MG TABLET (FP) PO SCH (23:10)
[2021-02-09] MEDS ORDERED: SODIUM ZIRCONIUM CYCLOSILICATE (LOKELMA) 5 GM PACKET PO ONE (02:25)
[2021-02-09] MEDS ORDERED: ONDANSETRON 4 MG/2 ML VIAL IVPUSH PRN (03:32)
[2021-02-09] MEDS ORDERED: PIPERACILLIN/TAZOB 2.25 GM 2.25 GM in DEXTROSE 5%-WATER - 50 ML IVPB SCH ×2 (05:45→10:00)
[2021-02-09] MEDS ORDERED: PIPERACILLIN/TAZOB 2.25 GM 2.25 GM/50 ML BAG IVPB ONE (07:47)
[2021-02-09] MEDS ORDERED: hydrALAZINE HCL 25 MG TABLET (FP) ONE (07:47)
[2021-02-09] MEDS ORDERED: FUROSEMIDE 40 MG TABLET (FP) ONE (07:47)
[2021-02-09] MEDS ORDERED: PT OWN MED DRAWER 7, Y5N ONE ×2 (07:48→08:22)
[2021-02-09 07:57] LABS: INR 1.13 (0.83-1.09); PROTHROMBIN TIME (PATIENT) 13.8 SEC (9.7-13.0)
[2021-02-09 07:58] LABS: BASO % 0.2 % (0-2.0); EOS % 1.3 % (0-4.5); HEMATOCRIT 31.9 % (35.4-49); HEMOGLOBIN 10.5 GM/dL (11.7-16.9); LYMPH % 7.5 % (8-40); MCH 30.2 pg (25.7-33.7); MEAN CELL VOLUME 91.8 fl (80-96); MEAN PLT VOLUME 8.4 fl (7.5-11.1); MONO % 6.9 % (3.8-10.2); NEUT % 84.1 % (42.8-82.8); PLATELET COUNT 386 10^3/uL (134-434); RBC 3.48 M/mm3 (4.00-5.60); RDW 15.2 % (11.9-15.9); WHITE BLOOD COUNT 19.6 K/mm3 (4.0-10.0)
[2021-02-09 07:59] LABS: ACTIVATED PTT 36.6 SECONDS (25.2-36.5)
[2021-02-09 08:12] LABS: CHLORIDE 96 mmol/L (98-107); SODIUM 133 mmol/L (136-145)
[2021-02-09 08:14] LABS: ANION GAP 14 MMOL/L (8-16); BLOOD UREA NITROGEN 53.8 mg/dL (7-18); CALCIUM 9.3 mg/dL (8.5-10.1); CO2 24 mmol/L (21-32); GLUCOSE,RANDOM 89 mg/dL (74-106); MAGNESIUM 3.2 mg/dL (1.8-2.4)
[2021-02-09 08:18] LABS: PHOSPHOROUS 8.3 mg/dL (2.5-4.9); SGOT/AST 12 U/L (15-37); SGPT/ALT 20 U/L (13-61)
[2021-02-09] MEDS: hydrALAZINE HCL 50 MG TABLET (FP) PO SCH ×3 (08:19→21:43)
[2021-02-09] MEDS: INSULIN SLIDING SCALE (NOVOLOG) 1 VIAL SQ SCH ×3 (08:19→21:45)
[2021-02-09] MEDS: FUROSEMIDE 40 MG TABLET (FP) PO SCH ×2 (08:19→14:00)
[2021-02-09 08:20] LABS: BILIRUBIN,TOTAL 0.6 mg/dL (0.2-1); TOT PROT 7.5 g/dl (6.4-8.2)
[2021-02-09 08:21] LABS: ALK PHOS 130 U/L (45-117)
[2021-02-09 08:29] LABS: CREATININE 10.7 mg/dL (0.55-1.3)
[2021-02-09] MEDS: SEVELAMER CARBONATE 800 MG TAB (FP) PO SCH ×3 (09:02→17:23)
[2021-02-09] MEDS: amLODIPine BESYLATE 5 MG TABLET (FP) PO SCH (09:39)
[2021-02-09] MEDS: LOSARTAN POTASSIUM 50 MG TABLET PO SCH (09:39)
[2021-02-09] MEDS ORDERED: SODIUM CHLORIDE 250 ML IV PRN ×2 (10:57→16:52)
[2021-02-09 11:01] VITALS: BMI 24.5
[2021-02-09] MEDS ORDERED: HEPARIN NA (PORCINE) 5,000 UNITS/ML 1ML VIAL IVPUSH ONE (14:00)
[2021-02-09 14:01] LABS: CHLORIDE 96 mmol/L (98-107); SODIUM 133 mmol/L (136-145)
[2021-02-09 14:02] LABS: CALCIUM 9.3 mg/dL (8.5-10.1); CO2 23 mmol/L (21-32)
[2021-02-09 14:03] LABS: BLOOD UREA NITROGEN 54.7 mg/dL (7-18); GLUCOSE,RANDOM 132 mg/dL (74-106)
[2021-02-09 14:07] LABS: ANION GAP 14 MMOL/L (8-16); CREATININE 11.4 mg/dL (0.55-1.3)
[2021-02-09] MEDS ORDERED: DEXTROSE 5%-WATER - 50 ML IVPB ONE (17:19)
[2021-02-09] MEDS ORDERED: PIPERACILLIN/TAZOBACTAM 2.25 GM VIAL IVPB ONE (17:19)
[2021-02-09] MEDS: PIPERACILLIN/TAZOB 2.25 GM 2.25 GM in DEXTROSE 5%-WATER - 50 ML IVPB SCH (17:23)
[2021-02-09] MEDS: HYDROmorphone HCl 2 MG/ML VIAL IVPB PRN (18:40)
[2021-02-10] MEDS ORDERED: PIPERACILLIN/TAZOBACTAM 2.25 GM VIAL IVPB ONE ×3 (01:18→17:21)
[2021-02-10] MEDS ORDERED: DEXTROSE 5%-WATER - 50 ML IVPB ONE ×3 (01:18→17:21)
[2021-02-10] MEDS: PIPERACILLIN/TAZOB 2.25 GM 2.25 GM in DEXTROSE 5%-WATER - 50 ML IVPB SCH ×3 (01:22→17:31)
[2021-02-10] MEDS: HYDROmorphone HCl 2 MG/ML VIAL IVPB PRN ×2 (03:04→17:23)
[2021-02-10] MEDS: hydrALAZINE HCL 50 MG TABLET (FP) PO SCH ×3 (06:27→22:00)
[2021-02-10] MEDS: FUROSEMIDE 40 MG TABLET (FP) PO SCH ×2 (06:27→17:36)
[2021-02-10] MEDS: INSULIN SLIDING SCALE (NOVOLOG) 1 VIAL SQ SCH ×2 (06:32→21:59)
[2021-02-10 09:34] LABS: BASO % 0.4 % (0-2.0); EOS % 0.5 % (0-4.5); HEMATOCRIT 31.4 % (35.4-49); HEMOGLOBIN 10.3 GM/dL (11.7-16.9); LYMPH % 7.6 % (8-40); MCH 30.1 pg (25.7-33.7); MCHC 32.8 g/dl (32.0-35.9); MEAN CELL VOLUME 91.8 fl (80-96); MEAN PLT VOLUME 8.1 fl (7.5-11.1); MONO % 8.6 % (3.8-10.2); NEUT % 82.9 % (42.8-82.8); PLATELET COUNT 370 10^3/uL (134-434); RBC 3.42 M/mm3 (4.00-5.60); RDW 15.3 % (11.9-15.9)
[2021-02-10 09:50] LABS: CHLORIDE 98 mmol/L (98-107); SODIUM 140 mmol/L (136-145)
[2021-02-10 10:10] LABS: GLUCOSE,RANDOM 120 mg/dL (74-106)
[2021-02-10 10:12] LABS: ANION GAP 12 MMOL/L (8-16); BLOOD UREA NITROGEN 30.7 mg/dL (7-18); CALCIUM 8.8 mg/dL (8.5-10.1); CO2 30 mmol/L (21-32); GAMMA GLUTAMYL TRANSPEPTIDASE 110 U/L (5-85)
[2021-02-10 10:30] LABS: CREATININE 7.5 mg/dL (0.55-1.3)
[2021-02-10] MEDS: SEVELAMER CARBONATE 800 MG TAB (FP) PO SCH ×3 (10:49→17:35)
[2021-02-10] MEDS: amLODIPine BESYLATE 5 MG TABLET (FP) PO SCH (10:56)
[2021-02-10] MEDS: LOSARTAN POTASSIUM 50 MG TABLET PO SCH (10:58)
[2021-02-10] MEDS ORDERED: LIDOCAINE HCL 2% (20ML MULTI-DOSE VIAL) ONE ×2 (14:10→14:11)
[2021-02-10] MEDS ORDERED: PROPOFOL 20 ML ONE (14:47)
[2021-02-10] MEDS ORDERED: MIDAZOLAM HCL 2 MG/2 ML SINGLE DOSE VIAL ONE (14:48)
[2021-02-10] MEDS ORDERED: LIDOCAINE HCL/PF 2% SDV 5ML VIAL ONE (14:50)
[2021-02-10] MEDS ORDERED: LIDOCAINE HCL 2% (50ML VIAL) INF ONE ×2 (15:17)
[2021-02-10] MEDS ORDERED: BACITRACIN 50,000 UNITS VIAL TP ONE (15:20)
[2021-02-10] MEDS ORDERED: SODIUM CHLORIDE 250 ML IV PRN (16:35)
[2021-02-10] MEDS ORDERED: ONDANSETRON 4 MG/2 ML VIAL IVPUSH PRN ×2 (16:35→16:40)
[2021-02-10] MEDS ORDERED: SODIUM CHLORIDE 1,000 ML IV SCH (16:45)
[2021-02-10] MEDS ORDERED: HEPARIN NA (PORCINE) 5,000 UNITS/ML 1ML VIAL IVPUSH ONE (16:52)
[2021-02-10] MEDS: ACETAMINOPHEN 325 MG TABLET (FP) PO PRN (20:03)
[2021-02-11] MEDS ORDERED: DEXTROSE 5%-WATER - 50 ML IVPB ONE ×3 (01:58→17:21)
[2021-02-11] MEDS ORDERED: PIPERACILLIN/TAZOBACTAM 2.25 GM VIAL IVPB ONE ×3 (01:58→17:21)
[2021-02-11] MEDS: PIPERACILLIN/TAZOB 2.25 GM 2.25 GM in DEXTROSE 5%-WATER - 50 ML IVPB SCH ×3 (02:02→17:24)
[2021-02-11] MEDS: INSULIN SLIDING SCALE (NOVOLOG) 1 VIAL SQ SCH ×4 (06:27→21:36)
[2021-02-11] MEDS: hydrALAZINE HCL 50 MG TABLET (FP) PO SCH ×3 (06:27→21:32)
[2021-02-11 08:53] LABS: BASO % 0.4 % (0-2.0); EOS % 0.4 % (0-4.5); HEMATOCRIT 31.1 % (35.4-49); HEMOGLOBIN 10.2 GM/dL (11.7-16.9); LYMPH % 6.5 % (8-40); MCH 30.1 pg (25.7-33.7); MCHC 32.9 g/dl (32.0-35.9); MEAN CELL VOLUME 91.7 fl (80-96); MONO % 8.3 % (3.8-10.2); NEUT % 84.4 % (42.8-82.8); PLATELET COUNT 359 10^3/uL (134-434); RBC 3.39 M/mm3 (4.00-5.60); RDW 15.3 % (11.9-15.9); WHITE BLOOD COUNT 21.1 K/mm3 (4.0-10.0)
[2021-02-11] MEDS: HYDROmorphone HCl 2 MG/ML VIAL IVPB PRN (08:58)
[2021-02-11] MEDS: SEVELAMER CARBONATE 800 MG TAB (FP) PO SCH ×3 (08:59→17:24)
[2021-02-11] MEDS: amLODIPine BESYLATE 5 MG TABLET (FP) PO SCH (09:00)
[2021-02-11] MEDS: LOSARTAN POTASSIUM 50 MG TABLET PO SCH (09:00)
[2021-02-11] MEDS ORDERED: HEPARIN NA (PORCINE) 5,000 UNITS/ML 1ML VIAL IVPUSH ONE (09:30)
[2021-02-11 09:52] LABS: ANISOCYTOSIS 0; HELMET CELLS 0; HOWELL-JOLLY BODIES 0; MACROCYTOSIS 0; OVALOCYTE 0; PLATELET ESTIMATE NORMAL; ROULEAU 0; SICKELED CELLS 0; TARGET CELLS 0; TEAR DROP CELLS 0; TOXIC GRANULATION 0
[2021-02-11 10:10] LABS: CHLORIDE 100 mmol/L (98-107); SODIUM 139 mmol/L (136-145)
[2021-02-11 10:14] LABS: ALBUMIN 2.4 g/dl (3.4-5.0); ANION GAP 11 MMOL/L (8-16); BLOOD UREA NITROGEN 41.8 mg/dL (7-18); CALCIUM 8.5 mg/dL (8.5-10.1); CO2 27 mmol/L (21-32); GLUCOSE,RANDOM 211 mg/dL (74-106)
[2021-02-11 10:18] LABS: BILIRUBIN,TOTAL 0.8 mg/dL (0.2-1); SGOT/AST 10 U/L (15-37); SGPT/ALT 11 U/L (13-61); TOT PROT 6.7 g/dl (6.4-8.2)
[2021-02-11 10:20] LABS: ALK PHOS 130 U/L (45-117)
[2021-02-11 10:22] LABS: CREATININE 9.4 mg/dL (0.55-1.3)
[2021-02-11] MEDS ORDERED: BISACODYL 10 MG SUPP.RECT PR ONE (16:00)
[2021-02-11] MEDS ORDERED: MAGNESIUM HYDROX 2400MG/30ML ORAL SUSPENSION 30 ML CUP PO ONE (16:00)
[2021-02-12] MEDS ORDERED: PIPERACILLIN/TAZOBACTAM 2.25 GM VIAL IVPB ONE ×3 (01:05→17:34)
[2021-02-12] MEDS ORDERED: DEXTROSE 5%-WATER - 50 ML IVPB ONE ×3 (01:05→17:34)
[2021-02-12] MEDS: PIPERACILLIN/TAZOB 2.25 GM 2.25 GM in DEXTROSE 5%-WATER - 50 ML IVPB SCH ×3 (01:12→17:36)
[2021-02-12] MEDS: hydrALAZINE HCL 50 MG TABLET (FP) PO SCH ×3 (05:41→21:38)
[2021-02-12] MEDS: HYDROmorphone HCl 2 MG/ML VIAL IVPB PRN ×2 (05:56→17:41)
[2021-02-12] MEDS: INSULIN SLIDING SCALE (NOVOLOG) 1 VIAL SQ SCH ×4 (06:04→22:53)
[2021-02-12] MEDS: SEVELAMER CARBONATE 800 MG TAB (FP) PO SCH ×3 (08:02→17:03)
[2021-02-12] MEDS: amLODIPine BESYLATE 5 MG TABLET (FP) PO SCH (09:29)
[2021-02-12] MEDS: LOSARTAN POTASSIUM 50 MG TABLET PO SCH (09:29)
[2021-02-13] MEDS ORDERED: DEXTROSE 5%-WATER - 50 ML IVPB ONE ×3 (01:49→14:49)
[2021-02-13] MEDS ORDERED: PIPERACILLIN/TAZOBACTAM 2.25 GM VIAL IVPB ONE ×2 (01:49→10:06)
[2021-02-13] MEDS: PIPERACILLIN/TAZOB 2.25 GM 2.25 GM in DEXTROSE 5%-WATER - 50 ML IVPB SCH ×2 (02:10→10:12)
[2021-02-13] MEDS: INSULIN SLIDING SCALE (NOVOLOG) 1 VIAL SQ SCH ×4 (06:38→21:50)
[2021-02-13] MEDS: hydrALAZINE HCL 50 MG TABLET (FP) PO SCH ×3 (06:39→21:50)
[2021-02-13] MEDS: SEVELAMER CARBONATE 800 MG TAB (FP) PO SCH ×3 (08:11→17:11)
[2021-02-13] MEDS: HYDROmorphone HCl 2 MG/ML VIAL IVPB PRN ×2 (08:16→19:36)
[2021-02-13 08:44] LABS: BASO % 0.4 % (0-2.0); EOS % 2.2 % (0-4.5); HEMATOCRIT 31.6 % (35.4-49); HEMOGLOBIN 10.5 GM/dL (11.7-16.9); LYMPH % 11.3 % (8-40); MCH 30.5 pg (25.7-33.7); MCHC 33.3 g/dl (32.0-35.9); MEAN CELL VOLUME 91.5 fl (80-96); MEAN PLT VOLUME 8.1 fl (7.5-11.1); MONO % 5.5 % (3.8-10.2); NEUT % 80.6 % (42.8-82.8); PLATELET COUNT 391 10^3/uL (134-434); RBC 3.46 M/mm3 (4.00-5.60); RDW 15.6 % (11.9-15.9)
[2021-02-13 09:06] LABS: CHLORIDE 99 mmol/L (98-107); SODIUM 137 mmol/L (136-145)
[2021-02-13 09:09] LABS: ALBUMIN 2.7 g/dl (3.4-5.0); ANION GAP 10 MMOL/L (8-16); BLOOD UREA NITROGEN 30.3 mg/dL (7-18); CALCIUM 8.9 mg/dL (8.5-10.1); CO2 29 mmol/L (21-32); GLUCOSE,RANDOM 105 mg/dL (74-106)
[2021-02-13 09:12] LABS: SGPT/ALT 21 U/L (13-61)
[2021-02-13 09:13] LABS: TOT PROT 8.5 g/dl (6.4-8.2)
[2021-02-13 09:15] LABS: ALK PHOS 130 U/L (45-117)
[2021-02-13 09:22] LABS: CREATININE 7.6 mg/dL (0.55-1.3)
[2021-02-13 09:23] LABS: SGOT/AST < 3 U/L (15-37)
[2021-02-13] MEDS: amLODIPine BESYLATE 5 MG TABLET (FP) PO SCH (10:12)
[2021-02-13] MEDS: LOSARTAN POTASSIUM 50 MG TABLET PO SCH (10:12)
[2021-02-13] MEDS ORDERED: SODIUM CHLORIDE 250 ML IV PRN (11:38)
[2021-02-13] MEDS ORDERED: cefTRIAXone SODIUM 1 GM VIAL ONE (14:49)
[2021-02-13] MEDS: CEFTRIAXONE 1 GM in DEXTROSE 5%-WATER - 50 ML IVPB SCH (14:53)
[2021-02-13] MEDS: ACETAMINOPHEN 325 MG TABLET (FP) PO PRN (23:35)
[2021-02-14] MEDS: hydrALAZINE HCL 50 MG TABLET (FP) PO SCH ×3 (06:28→22:13)
[2021-02-14] MEDS: INSULIN SLIDING SCALE (NOVOLOG) 1 VIAL SQ SCH ×4 (06:29→22:16)
[2021-02-14] MEDS: HYDROmorphone HCl 2 MG/ML VIAL IVPB PRN (06:51)
[2021-02-14] MEDS ORDERED: cefTRIAXone SODIUM 1 GM VIAL ONE (10:00)
[2021-02-14] MEDS ORDERED: DEXTROSE 5%-WATER - 50 ML IVPB ONE (10:00)
[2021-02-14] MEDS: LOSARTAN POTASSIUM 50 MG TABLET PO SCH (10:14)
[2021-02-14] MEDS: CEFTRIAXONE 1 GM in DEXTROSE 5%-WATER - 50 ML IVPB SCH (10:14)
[2021-02-14] MEDS: SEVELAMER CARBONATE 800 MG TAB (FP) PO SCH ×3 (10:14→17:38)
[2021-02-14] MEDS: amLODIPine BESYLATE 5 MG TABLET (FP) PO SCH (10:14)
[2021-02-14 10:16] LABS: BASO % 0.7 % (0-2.0); EOS % 1.7 % (0-4.5); HEMATOCRIT 30.8 % (35.4-49); LYMPH % 9.9 % (8-40); MCH 29.8 pg (25.7-33.7); MCHC 32.3 g/dl (32.0-35.9); MEAN CELL VOLUME 92.2 fl (80-96); NEUT % 80.7 % (42.8-82.8); PLATELET COUNT 388 10^3/uL (134-434); RBC 3.34 M/mm3 (4.00-5.60); RDW 15.6 % (11.9-15.9); WHITE BLOOD COUNT 14.2 K/mm3 (4.0-10.0)
[2021-02-14] MEDS ORDERED: INSULIN (NOVOLOG) ASPART 100 UNITS/ML 10ML VIAL ONE (11:00)
[2021-02-14] MEDS ORDERED: SODIUM CHLORIDE 250 ML IV PRN (15:19)
[2021-02-14] MEDS ORDERED: PT OWN MED DRAWER 7, Y5N ONE (19:59)
[2021-02-14] MEDS: SILVER SULFADIAZINE 1% TOP CREAM 50 GM JAR TP SCH (22:21)
[2021-02-14] MEDS: ACETAMINOPHEN 325 MG TABLET (FP) PO PRN (22:38)
[2021-02-15] MEDS: hydrALAZINE HCL 50 MG TABLET (FP) PO SCH ×3 (07:01→21:48)
[2021-02-15] MEDS: INSULIN SLIDING SCALE (NOVOLOG) 1 VIAL SQ SCH ×4 (07:05→21:51)
[2021-02-15] MEDS: SEVELAMER CARBONATE 800 MG TAB (FP) PO SCH ×3 (08:00→17:50)
[2021-02-15] MEDS ORDERED: HEPARIN NA (PORCINE) 5,000 UNITS/ML 1ML VIAL IVPUSH ONE (09:00)
[2021-02-15] MEDS ORDERED: CEFEPIME 2 GM in DEXTROSE 5%-WATER 100 ML IVPB ONE (11:32)
[2021-02-15] MEDS: ACETAMINOPHEN 325 MG TABLET (FP) PO PRN ×2 (11:48→23:10)
[2021-02-15] MEDS: amLODIPine BESYLATE 5 MG TABLET (FP) PO SCH (14:12)
[2021-02-15] MEDS: LOSARTAN POTASSIUM 50 MG TABLET PO SCH (14:12)
[2021-02-15] MEDS: SILVER SULFADIAZINE 1% TOP CREAM 50 GM JAR TP SCH (14:12)
[2021-02-15] MEDS: CEFTRIAXONE 1 GM in DEXTROSE 5%-WATER - 50 ML IVPB SCH (21:52)
[2021-02-16] MEDS: ACETAMINOPHEN 325 MG TABLET (FP) PO PRN (05:44)
[2021-02-16] MEDS: hydrALAZINE HCL 50 MG TABLET (FP) PO SCH (05:45)
[2021-02-16] MEDS: INSULIN SLIDING SCALE (NOVOLOG) 1 VIAL SQ SCH (06:02)
[2021-02-16] MEDS: SEVELAMER CARBONATE 800 MG TAB (FP) PO SCH (08:42)
[2021-02-16] MEDS: SILVER SULFADIAZINE 1% TOP CREAM 50 GM JAR TP SCH ×3 (10:29→10:47)
[2021-02-16 10:42] VITALS: BP 167/81; PULSE 87; TEMP 98.5
[2021-02-16] MEDS: amLODIPine BESYLATE 5 MG TABLET (FP) PO SCH (10:43)
[2021-02-16] MEDS: LOSARTAN POTASSIUM 50 MG TABLET PO SCH (10:43)
== END 2021-02-16 14:24 | disposition home or self-care (01) | DRG 710 ==
LOC: JER 16:41 → JERBED 20:31 → J6S 02-09 08:37
PROVIDERS: ADMIT Internal Medicine; ATTEND Family Medicine
PROC: 0X6R0Z2 Detachment at Left Middle Finger, Mid, Open Approach (ICD-10-PCS; principal; 2021-02-10 13:00)
PROC: 5A1D70Z Performance of Urinary Filtration, Intermittent, Less than 6 Hours Per Day (ICD-10-PCS; 2021-02-15)
DX: A41.53 Sepsis due to Serratia (principal); N18.6 End stage renal disease; E11.52 Type 2 diabetes mellitus with diabetic peripheral angiopathy with gangrene; I96 Gangrene, not elsewhere classified; I12.0 Hypertensive chronic kidney disease with stage 5 chronic kidney disease or end stage renal disease; E87.5 Hyperkalemia; E11.21 Type 2 diabetes mellitus with diabetic nephropathy; D72.829 Elevated white blood cell count, unspecified; Z99.2 Dependence on renal dialysis; E11.69 Type 2 diabetes mellitus with other specified complication; M86.142 Other acute osteomyelitis, left hand
CPT/HCPCS: 36415; 71046-TC-FY; 73130-TC-LT-FY; 74176-TC; 74240-TC-FY; 76705-TC; 80048; 80053; 82962; 82977; 83605; 83735; 84100; 85025; 85610; 85730; 86803; 87040; 87070; 87076; 87186; 87205; 87340; 93005; 93010; 94760; 99285-25; C9803; G0463-25; J1644; U0003; U0005

== ENCOUNTER 2021-09-25 23:43 | Inpatient (IN) | payer OTHER ==
[2021-09-26 01:27] LABS: BASO % 0.5 % (0-2.0); EOS % 1.6 % (0-4.5); HEMATOCRIT 20.3 % (35.4-49); LYMPH % 15.9 % (8-40); MCH 28.9 pg (25.7-33.7); MCHC 33.1 g/dl (32.0-35.9); MEAN CELL VOLUME 87.5 fl (80-96); MEAN PLT VOLUME 7.4 fl (7.5-11.1); MONO % 8.4 % (3.8-10.2); NEUT % 73.6 % (42.8-82.8); PLATELET COUNT 618 10^3/uL (134-434); RBC 2.32 M/mm3 (4.00-5.60); RDW 15.2 % (11.9-15.9); WHITE BLOOD COUNT 11.8 K/mm3 (4.0-10.0)
[2021-09-26 01:30] LABS: HEMOGLOBIN 6.7 GM/dL (11.7-16.9)
[2021-09-26 02:28] LABS: BILIRUBIN,TOTAL 0.3 mg/dL (0.2-1); BLOOD UREA NITROGEN 40.2 mg/dL (7-18); CALCIUM 8.5 mg/dL (8.5-10.1); TOT PROT 7.4 g/dl (6.4-8.2)
[2021-09-26 05:02] LABS: CALCIUM 8.6 mg/dL (8.5-10.1)
[2021-09-26 05:03] LABS: BLOOD UREA NITROGEN 42.6 mg/dL (7-18)
[2021-09-26 05:06] LABS: CREATININE 6.1 mg/dL (0.55-1.3)
[2021-09-26] MEDS ORDERED: ACETAMINOPHEN 325 MG TABLET (FP) PO PRN (07:12)
[2021-09-26] MEDS: amLODIPine BESYLATE 10 MG TABLET (FP) PO SCH (11:02)
[2021-09-26] MEDS: LOSARTAN POTASSIUM 50 MG TABLET PO SCH (11:02)
[2021-09-26] MEDS: hydrALAZINE HCL 50 MG TABLET (FP) PO SCH (11:02)
[2021-09-26] MEDS ORDERED: SODIUM CHLORIDE 250 ML IV PRN (12:58)
[2021-09-26 14:34] VITALS: BMI 21.6
[2021-09-26] MEDS ORDERED: EPOETIN ALFA-EPBX 10,000 UNIT/ML VIAL SQ ONE (16:00)
[2021-09-26] MEDS: SENNOSIDES 8.6MG TABLET (FP) PO SCH (21:43)
[2021-09-27] MEDS: amLODIPine BESYLATE 10 MG TABLET (FP) PO SCH (09:47)
[2021-09-27] MEDS: LOSARTAN POTASSIUM 50 MG TABLET PO SCH (09:47)
[2021-09-27] MEDS: VITAMIN B COMP W-C 1 EA TABLET (NEPHRO-VITE) PO SCH (13:25)
[2021-09-27] MEDS: ZINC SULFATE 220 MG CAPSULE (FP) PO SCH (13:25)
[2021-09-27] MEDS ORDERED: ACETAMINOPHEN 325 MG TABLET (FP) PO ONE (21:52)
[2021-09-27] MEDS: SENNOSIDES 8.6MG TABLET (FP) PO SCH (22:06)
[2021-09-28] MEDS ORDERED: SODIUM CHLORIDE 250 ML IV PRN (07:55)
[2021-09-28] MEDS ORDERED: EPOETIN ALFA-EPBX 10,000 UNIT/ML VIAL SQ ONE (08:00)
[2021-09-28] MEDS ORDERED: AMINO ACIDS/PROTEIN HYDROLYS 30 ML LIQUID.PKT PO SCH (08:00)
[2021-09-28 10:57] LABS: HEMATOCRIT 26.2 % (35.4-49); HEMOGLOBIN 8.6 GM/dL (11.7-16.9); MCH 28.4 pg (25.7-33.7); MCHC 32.8 g/dl (32.0-35.9); MEAN CELL VOLUME 86.7 fl (80-96); MEAN PLT VOLUME 7.6 fl (7.5-11.1); PLATELET COUNT 668 10^3/uL (134-434); RBC 3.02 M/mm3 (4.00-5.60); RDW 15.1 % (11.9-15.9); WHITE BLOOD COUNT 12.3 K/mm3 (4.0-10.0)
[2021-09-28 11:23] LABS: CALCIUM 8.9 mg/dL (8.5-10.1)
[2021-09-28 11:24] LABS: BLOOD UREA NITROGEN 30.3 mg/dL (7-18)
[2021-09-28 11:27] LABS: CREATININE 5.5 mg/dL (0.55-1.3)
[2021-09-28] MEDS: LOSARTAN POTASSIUM 50 MG TABLET PO SCH (13:06)
[2021-09-28] MEDS: VITAMIN B COMP W-C 1 EA TABLET (NEPHRO-VITE) PO SCH (13:06)
[2021-09-28] MEDS: hydrALAZINE HCL 50 MG TABLET (FP) PO SCH (13:07)
[2021-09-28] MEDS: ZINC SULFATE 220 MG CAPSULE (FP) PO SCH (13:07)
[2021-09-28] MEDS: amLODIPine BESYLATE 10 MG TABLET (FP) PO SCH (13:07)
[2021-09-28 15:33] VITALS: BP 162/62; PULSE 80; TEMP 98.7
== END 2021-09-28 17:38 | disposition home or self-care (01) | DRG 470 ==
LOC: JER 23:43 → UNDOADMOB 09-26 01:28 → JERBED 09-26 01:28 → J5S 09-26 10:07 → OBSVTOIN 09-28 11:04 → INTOOBSV 09-28 11:04 → J5S 09-28 11:38 → JERBED 09-28 11:38 → OBSVTOIN 09-28 11:38
PROVIDERS: ADMIT Internal Medicine; ATTEND Internal Medicine
PROC: 30233N1 Transfusion of Nonautologous Red Blood Cells into Peripheral Vein, Percutaneous Approach (ICD-10-PCS; principal; 2021-09-26)
PROC: 5A1D70Z Performance of Urinary Filtration, Intermittent, Less than 6 Hours Per Day (ICD-10-PCS; 2021-09-26)
PROC: 5A1D70Z Performance of Urinary Filtration, Intermittent, Less than 6 Hours Per Day (ICD-10-PCS; 2021-09-28)
DX: I12.0 Hypertensive chronic kidney disease with stage 5 chronic kidney disease or end stage renal disease (principal); D64.9 Anemia, unspecified; E11.22 Type 2 diabetes mellitus with diabetic chronic kidney disease; N18.6 End stage renal disease; I42.9 Cardiomyopathy, unspecified; Z99.2 Dependence on renal dialysis; Z89.431 Acquired absence of right foot; Z89.022 Acquired absence of left finger(s); K21.9 Gastro-esophageal reflux disease without esophagitis
CPT/HCPCS: 36415; 36430; 71045-TC-FY; 80048; 80053; 82272; 82728; 83540; 83550; 85025; 85027; 86803; 86850; 86900; 86901; 86922; 87340; 93005; 93010; 97116-GP; 97161-GP; 99285-25; C9803-CS; P9058; Q5106; U0003; U0005

== ENCOUNTER 2022-01-25 16:43 | Emergency (ER) | payer OTHER ==
[2022-01-25 17:22] VITALS: BP 163/73; PULSE 75; RESP 18; TEMP 98; BMI 23.4
[2022-01-25 18:37] LABS: BASO % 0.4 % (0-2.0); EOS % 1.7 % (0-4.5); HEMATOCRIT 23.3 % (35.4-49); HEMOGLOBIN 7.6 GM/dL (11.7-16.9); LYMPH % 17.3 % (8-40); MCH 28.9 pg (25.7-33.7); MCHC 32.7 g/dl (32.0-35.9); MEAN CELL VOLUME 88.5 fl (80-96); MEAN PLT VOLUME 7.9 fl (7.5-11.1); MONO % 8.1 % (3.8-10.2); NEUT % 72.5 % (42.8-82.8); PLATELET COUNT 244 10^3/uL (134-434); RBC 2.63 M/mm3 (4.00-5.60); RDW 18.5 % (11.9-15.9); WHITE BLOOD COUNT 6.8 K/mm3 (4.0-10.0)
== END 2022-01-25 20:05 | disposition home or self-care (01) ==
LOC: JER 16:43
DX: T82.49XA Other complication of vascular dialysis catheter, initial encounter (principal)
CPT/HCPCS: 36415; 85025; 99283-25

== ENCOUNTER 2022-11-23 08:50 | Emergency (ER) | payer OTHER ==
[2022-11-23 08:56] VITALS: BP 162/63; PULSE 80; RESP 18; TEMP 98.4; BMI 28.3
[2022-11-23 10:30] LABS: BASO % 0.5 % (0-2.0); EOS % 4.3 % (0-4.5); HEMATOCRIT 35.5 % (35.4-49); HEMOGLOBIN 12.1 GM/dL (11.7-16.9); LYMPH % 25.9 % (8-40); MCH 30.6 pg (25.7-33.7); MCHC 34.2 g/dl (32.0-35.9); MEAN CELL VOLUME 89.6 fl (80-96); MEAN PLT VOLUME 8.4 fl (7.5-11.1); MONO % 8.9 % (3.8-10.2); NEUT % 60.4 % (42.8-82.8); PLATELET COUNT 294 10^3/uL (134-434); RBC 3.96 M/mm3 (4.00-5.60); RDW 14.1 % (11.9-15.9); WHITE BLOOD COUNT 8.2 K/mm3 (4.0-10.0)
[2022-11-23 10:37] LABS: INR 1.03 (0.83-1.09)
[2022-11-23 10:49] LABS: POTASSIUM 4.8 mmol/L (3.5-5.1)
[2022-11-23 10:51] LABS: CALCIUM 9.3 mg/dL (8.5-10.1)
[2022-11-23 10:52] LABS: ALBUMIN 3.8 g/dl (3.4-5.0); BLOOD UREA NITROGEN 32.8 mg/dL (7-18); MAGNESIUM 2.5 mg/dL (1.8-2.4)
[2022-11-23 10:56] LABS: BILIRUBIN,TOTAL 0.9 mg/dL (0.2-1); TOT PROT 8.3 g/dl (6.4-8.2)
[2022-11-23] MEDS ORDERED: SODIUM CHLORIDE 0.9% 500 ML INFUS.BAG IV ONE (11:12)
[2022-11-23] MEDS ORDERED: ACETAMINOPHEN 1000 MG/100 ML BAG IVPB ONE (11:12)
[2022-11-23] MEDS ORDERED: ACETAMINOPHEN INJECTION 100 ML IVPB ONE (11:49)
== END 2022-11-23 13:05 | disposition home or self-care (01) ==
LOC: JER 08:50
PROC: 3E033NZ Introduction of Analgesics, Hypnotics, Sedatives into Peripheral Vein, Percutaneous Approach (ICD-10-PCS; principal; 2022-11-23)
DX: R51.9 Headache, unspecified (principal)
CPT/HCPCS: 36415; 80053; 83735; 85025; 85610; 86850; 86900; 86901; 93005; 93010; 99284-25